=== PATIENT | male | born 1935 | race Two or more races ===

== ENCOUNTER 2019-06-20 13:11 | Inpatient (IN) | payer MEDICARE, MEDICAID ==
[~2019-06-20] VITALS: Ht 165.1 cm; Wt 70.9 kg
[~2019-06-20 13:11] MED LIST: DIOVAN80 MG ORAL; FLOMAX0.4 MG ORAL; METOPROLOL SUCC25 MG ORAL; SEROQUEL XR300 MG ORAL; VESICARE5 MG ORAL
[2019-06-20] MEDS ORDERED: Piperacillin/Tazobactam 3.375 GM in D5W 110 ML IV ONE (13:15)
--- NOTE | 2019-06-20 13:15 | NUR ---
ED Nurse Note: Pt BIBA RA26 from [facility] d/t SOB and low O2 saturation. Pt noted to be on nonrebreather saturating 100% at this time. Placed on microfilm technician, shows sinus rhythm. Pt lethargic, able to open eyes on painful stimuli. IV 22g on left forearm noted; [place] cather noted, with yellow, cloudy urine output. Blood and urine collected; sent to lab.
--- NOTE | 2019-06-20 13:20 | NUR ---
ED Nurse Note: xray at bedside
[2019-06-20 13:57] LABS: APPEARANCE,URINE SLIGHTLY CLOUDY; BASOPHILS % (AUTO) 0.5 % (0.0-2.0); BILIRUBIN, URINE NEGATIVE (NEGATIVE); GLUCOSE, URINE (UA) NEGATIVE (NEGATIVE); HEMATOCRIT 36.6 % (42.0-52.0); HEMOGLOBIN 11.9 G/DL (14.2-18.0); KETONES,URINE 1+ (NEGATIVE); LEUKOCYTE ESTERASE ,URINE 3+ (NEGATIVE); LYMPHOCYTES % (AUTO) 19.6 % (20.0-45.0); MEAN CORPUSCULAR VOLUME 88 FL (80-99); MONOCYTES % (AUTO) 8.2 % (1.0-10.0); NEUTROPHILS % (AUTO) 71.7 % (45.0-75.0); NITRITE,URINE POSITIVE (NEGATIVE); PH,URINE 5 (4.5-8.0); PLATELET COUNT 212 K/UL (150-450); PROTEIN,URINE 4+ (NEGATIVE); RED BLOOD COUNT 4.18 M/UL (4.70-6.10); RED CELL DISTRIBUTION WIDTH 15.2 % (11.6-14.8); UROBILINOGEN,URINE NORMAL MG/DL (0.0-1.0); WHITE BLOOD COUNT 6.6 K/UL (4.8-10.8)
--- NOTE | 2019-06-20 14:00 | NUR ---
ED Nurse Note: Swabs taken for MRSA, CRE/VRE, sent to lab. Rectal temp taken 101.1. Pressure ulcer on sacral noted, photo taken. IV fluids ongoing. Patient on room air at this time, saturating 97%. No acute distress noted. Will continue to monitor.
[2019-06-20 14:09] LABS: COLOR,URINE YELLOW
[2019-06-20 14:18] LABS: ANION GAP 14 mmol/L (5-15); BLOOD UREA NITROGEN 33 mg/dL (7-18); CARBON DIOXIDE 26 MMOL/L (21-32); CHLORIDE 118 MMOL/L (98-107); CREATININE 0.8 MG/DL (0.55-1.30); POTASSIUM 2.9 MMOL/L (3.5-5.1); SODIUM 158 MMOL/L (136-145)
[2019-06-20 14:24] LABS: ALANINE AMINOTRANSFERASE 17 U/L (12-78); ALBUMIN 2.5 G/DL (3.4-5.0); ALBUMIN/GLOBULIN RATIO 0.5 (1.0-2.7); ALKALINE PHOSPHATASE 73 U/L (46-116); ASPARTATE AMINO TRANSFERASE 14 U/L (15-37); BILIRUBIN,TOTAL 0.6 MG/DL (0.2-1.0); CREATINE KINASE 17 U/L (26-308)
[2019-06-20] MEDS ORDERED: NS w/KCl 40mEq 1,000 ML IV SCH (14:30)
[2019-06-20 14:37] VITALS: BP 111/68
[2019-06-20] MEDS ORDERED: Piperacillin/Tazobactam 3.375 GM in NS 110 ML IVPB ONE (15:00)
[2019-06-20] MEDS ORDERED: Azithromycin 500 MG in NS 275 ML IV ONE (15:00)
[2019-06-20] MEDS ORDERED: LEVOFLOXACIN750 MG ORAL (15:09)
[2019-06-20] MEDS ORDERED: NAMENDA XR28 MG PO (15:09)
[2019-06-20] MEDS ORDERED: ZINC SULFATE220 M1 ORAL (15:09)
[2019-06-20] MEDS ORDERED: SENNA8.6 M2 PO (15:09)
[2019-06-20] MEDS ORDERED: MARINOL2.5 MG ORAL (15:09)
[2019-06-20] MEDS ORDERED: FLOMAX0.4 MG ORAL (15:09)
[2019-06-20] MEDS ORDERED: SINEMET 25-1001 EAC1 ORAL (15:09)
[2019-06-20] MEDS ORDERED: ASPIRIN EC81 MG ORAL (15:09)
[2019-06-20] MEDS ORDERED: AMLODIPINE BESY10 MG ORAL (15:09)
[2019-06-20] MEDS ORDERED: ELIQUIS5 MG PO (15:09)
--- NOTE | 2019-06-20 15:54 | NUR ---
ED Nurse Note: Dr Blanco at bedside; pt awake, opens eyes, but nonverbal. Saturation 95% on room air at this time. VSS. IV fluids ongoing. Will continue to monitor.
--- NOTE | 2019-06-20 16:46 | NUR ---
ED Nurse Note: Pt's and sister at bedside.
--- NOTE | 2019-06-20 16:54 | Emergency Room Report ---
History of Present Illness General Chief Complaint: Dyspnea/Respdistress Source: Medical Record Present Illness HPI 83-year-old male presents ED for evaluation. Brought in by EMS from [facility] facility. Reportedly had difficulty breathing with cough and shortness of breath today. O2 sats low. Placed on nonrebreather. Patient nonverbal at baseline. Patient has been treated recently with antibiotics for pneumonia but symptoms worsening. febrile in triage. No reported chest pain. No other aggravating relieving factors. No other associated symptoms Allergies: Coded Allergies: No Known Allergies (Unverified , 06/20/19) Patient History Past Medical History: HTN Past Surgical History: pacemaker Social History: Denies: smoking, alcohol use, drug use Immunizations: UTD Reviewed Nursing Documentation: PMH: Agreed; PSxH: Agreed Nursing Documentation-PMH Past Medical History: Deferred Hx Hypertension: Yes Hx Pacemaker: Yes - 4 YEARS AGO. Hx Cancer: No Hx Gastrointestinal Problems: No Hx Neurological Problems: No Review of Systems All Other Systems: limited Physical Exam Vital Signs Date Time Temp Pulse Resp B/P (MAP) Pulse Ox O2 Delivery O2 Flow Rate FiO2 06/20/19 13:04 100.0 113 24 111/68 (82) 99 Non-Rebreather 15.0 Sp02 EP Interpretation: reviewed, normal General Appearance: no apparent distress, alert, GCS 15, non-toxic Head: normocephalic Eyes: bilateral eye normal inspection, bilateral eye PERRL ENT: normal ENT inspection Neck: normal inspection Respiratory: no respiratory distress, crackles Cardiovascular #1: regular rate, rhythm, no edema Gastrointestinal: normal bowel sounds, non tender, soft, non-distended, no guarding, no rebound Rectal: deferred Genitourinary: no CVA tenderness Musculoskeletal: normal inspection Neurologic: other - nonverbal Psychiatric: other - nonverbal Skin: other - see nursing notes Lymphatic: normal inspection Procedures Critical Care Time Critical Care Time i. I feel this is a highly complex case requiring extensive working including EKG/Rhythm strip, Xray/CT/US, Blood/urine lab work, repeat exams while in ED, and administration of strong opiates/narcotics for pain control, admission to hospital or close patient follow up. Total time: 30 min bedside evaluation and treatment excludes procedures (EKG). Reason for critical care: hypoxia, sepsis, hypernatremia, hypokalemia, UTI Possible complications: hypotension, hypertension, NM, shock, arrhythmias, metabolic acidosis, end organ damage, respiratory failure. Interventions: labs, EKG, CXR, ABG, 30cc/kg fluid bolus. rectal tylenol. K repletion. broad spectrum abx Course: Presenting with hypoxia. Currently being treated for pneumonia with antibiotics. Chest x-ray confirms bilateral infiltrates. Lactic greater than 3. Sodium greater than 150. Potassium low. Has UTI. ABG shows hypoxia but improved with oxygen. Given 30 cc/kg fluid bolus. Given broad-spectrum antibiotics. Potassium repleted. given rectal tylenol Consultations: nursing staff, EMS, family Performed by: Dr Chan Tolerated well condition = serious j. because of unstable vital signs this patient had a condition that could potentially threaten life or limb. I feel this is a critical patient who required my full attention while patient was considered critical. Total Critical Care Time excluding procedures was greater than 35 minutes Medical Decision Making Diagnostic Impression: Primary Impression: Pneumonia Qualified Codes: J18.1 - Lobar pneumonia, unspecified organism Additional Impressions: Hypoxia Sepsis Qualified Codes: A41.9 - Sepsis, unspecified organism Hypernatremia Hypokalemia UTI (urinary tract infection) Qualified Codes: N39.0 - Urinary tract infection, site not specified ER Course Hospital Course 83-year-old M presenting to ED with fever, congestion, hypoxia Differential diagnoses include: Pneumonia, CHF exacerbation, pneumothorax, fluid overload Clinical course Patient placed on stretcher. On registered nurse cardiac telemetry with hypoxia on room air. After initial history and physical, I ordered labs, IV fluids, EKG, chest x-ray , blood cultures, UA. Patient placed on nasal cannula with O2 saturation improving Labs - no leukocytosis, hemoglobin/hematocrit stable, Na high, K low, lactic > 3 , UA + bacteria CXR - bilateral infiltrates EKG - ventricular paced rhythm Patient O2 sat remains above 90% on nasal cannula. Been 30 cc/kg fluid bolus. Potassium repleted. Given broad-spectrum antibiotics. Given rectal Tylenol Case discussed with Dr. Blanco and he agreed to the patient to his service for further care and support I feel this is a highly complex case requiring extensive working including EKG/ Rhythm strip, Xray/CT/US, Blood/urine lab work, repeat exams while in ED, and administration of strong opiates/narcotics for pain control, admission to hospital or close patient follow up. Diagnosis - pneumonia, hypoxia, sepsis, hypernatremia, hypokalemia, UTI Patient admitted to telemetry in serious condition Labs Test 06/20/19 13:25 06/20/19 14:31 06/20/19 14:34 White Blood Count 6.6 K/UL (4.8-10.8) Red Blood Count 4.18 M/UL (4.70-6.10) Hemoglobin 11.9 G/DL (14.2-18.0) Hematocrit 36.6 % (42.0-52.0) Mean Corpuscular Volume 88 FL (80-99) Mean Corpuscular Hemoglobin 28.5 PG (27.0-31.0) Mean Corpuscular Hemoglobin Concent 32.4 G/DL (32.0-36.0) Red Cell Distribution Width 15.2 % (11.6-14.8) Platelet Count 212 K/UL (150-450) Mean Platelet Volume 5.9 FL (6.5-10.1) Neutrophils (%) (Auto) 71.7 % (45.0-75.0) Lymphocytes (%) (Auto) 19.6 % (20.0-45.0) Monocytes (%) (Auto) 8.2 % (1.0-10.0) Eosinophils (%) (Auto) 0.0 % (0.0-3.0) Basophils (%) (Auto) 0.5 % (0.0-2.0) Urine Color Yellow Urine Appearance Slightly cloudy Urine pH 5 (4.5-8.0) Urine Specific [place] 1.015 (1.005-1.035) Urine Protein 4+ (NEGATIVE) Urine Glucose (UA) Negative (NEGATIVE) Urine Ketones 1+ (NEGATIVE) Urine Blood 5+ (NEGATIVE) Urine Nitrite Positive (NEGATIVE) Urine Bilirubin Negative (NEGATIVE) Urine Urobilinogen Normal MG/DL (0.0-1.0) Urine Leukocyte Esterase 3+ (NEGATIVE) Urine RBC 10-15 /HPF (0 - 0) Urine WBC 15-20 /HPF (0 - 0) Urine Squamous Epithelial Cells Moderate /LPF (NONE/OCC) Urine Amorphous Sediment Moderate /LPF (NONE) Urine Bacteria Moderate /HPF (NONE) Urine Yeast Moderate /HPF (NONE) Sodium Level 158 MMOL/L (136-145) Potassium Level 2.9 MMOL/L (3.5-5.1) Chloride Level 118 MMOL/L (98-107) Carbon Dioxide Level 26 MMOL/L (21-32) Anion Gap 14 mmol/L (5-15) Blood Urea Nitrogen 33 mg/dL (7-18) Creatinine 0.8 MG/DL (0.55-1.30) Estimat Glomerular Filtration Rate mL/min (>60) Glucose Level 147 MG/DL (74-106) Lactic Acid Level 3.60 mmol/L (0.4-2.0) 3.30 mmol/L (0.66-2.22) Calcium Level 10.0 MG/DL (8.5-10.1) Total Bilirubin 0.6 MG/DL (0.2-1.0) Aspartate Amino Transf (AST/SGOT) 14 U/L (15-37) Alanine Aminotransferase (ALT/SGPT) 17 U/L (12-78) Alkaline Phosphatase 73 U/L (46-116) Total Creatine Kinase 17 U/L (26-308) Troponin I 0.018 ng/mL (0.000-0.056) Total Protein 7.1 G/DL (6.4-8.2) Albumin 2.5 G/DL (3.4-5.0) Globulin 4.6 g/dL Albumin/Globulin Ratio 0.5 (1.0-2.7) Arterial Blood pH 7.508 (7.350-7.450) Arterial Blood Partial Pressure CO2 29.3 mmHg (35.0-45.0) Arterial Blood Partial Pressure O2 69.7 mmHg (75.0-100.0) Arterial Blood HCO3 22.8 mmol/L (22.0-26.0) Arterial Blood Oxygen Saturation 93.9 % (95-100) Arterial Blood Base Excess 0.5 (-2-2) Clemente Test Positive EKG Diagnostic Results Rate: normal Rhythm: other - ventricular paced ST Segments: no acute changes ASA given to the pt in ED: No Rhythm Strip Diag. Results EP Interpretation: yes Rhythm: no PVC's, no ectopy Chest X-Ray Diagnostic Results Chest X-Ray Diagnostic Results : Chest X-Ray Ordered: Yes # of Views/Limited/Complete: 1 View Indication: Shortness of Breath EP Interpretation: Yes Interpretation: no pneumothorax, other - bilateral infiltrates. pacemaker Impression: Other - pneumonia Electronically Signed by: Electronically signed by Russ Chan MD Last Vital Signs Date Time Temp Pulse Resp B/P (MAP) Pulse Ox O2 Delivery O2 Flow Rate FiO2 06/20/19 14:37 101.1 60 24 111/68 99 Non-Rebreather 15.0 Status: improved Disposition: ADMITTED INPATIENT Condition: Serious Referrals: Aakash Blanco MD (PCP) Russ Chan MD Jun 20, 2019 16:54
[2019-06-20] MEDS ORDERED: Acetaminophen 650 MG SUPP RECTAL ONE (17:00)
--- NOTE | 2019-06-20 17:20 | NUR ---
ED Nurse Note: Patient was placed on O2 2L via NC per charge nurse MONSERRAT Leong. Pt saturating 98% at this time, no distress noted. IV fluids ongoing. Will continue to monitor.
[2019-06-20 17:51] VITALS: BP 108/59
--- NOTE | 2019-06-20 18:13 | Infectious Diseases Prog Note ---
Assessment/Plan Problems: (1) Pneumonia Assessment & Plan: with B/L infiltrates, fever and hypoxemia , will start meropenem and vancomycin empirically , send sputum culture , aspiration precaution, monitor CXR (2) UTI (urinary tract infection) Assessment & Plan: already on meropenem , pending culture (3) Sepsis Assessment & Plan: due to the above , continue wide spectrum antibiotics pending cultures (4) Hypoxia Assessment & Plan: suspect due to the above , continue oxygen , and wide spectrum antibiotics (5) Respiratory failure, acute Assessment & Plan: due to the above, continue oxygen, nebulizer treatment and antibiotics , pulmonary eval is in progress Subjective Allergies: Coded Allergies: No Known Allergies (Unverified , 06/20/19) Objective Vital Signs Last 24 Hour Vital Signs Date Time Temp Pulse Resp B/P (MAP) Pulse Ox O2 Delivery O2 Flow Rate FiO2 06/20/19 17:51 101.1 60 20 108/59 98 Nasal Cannula 2.0 06/20/19 14:37 101.1 60 24 111/68 99 Non-Rebreather 15.0 06/20/19 14:37 60 24 Non-Rebreather 15.0 06/20/19 13:04 100.0 113 24 111/68 (82) 99 Non-Rebreather 15.0 Height (Feet): 5 Height (Inches): 5.00 Weight (Pounds): 150 Microbiology Date/Time Source Procedure Growth Status 06/20/19 15:15 Nasal Nares - Final Complete 06/20/19 15:15 Nasal Nares - Final Complete Laboratory Tests Test 06/20/19 13:25 06/20/19 14:31 06/20/19 14:34 White Blood Count 6.6 K/UL (4.8-10.8) Red Blood Count 4.18 M/UL (4.70-6.10) L Hemoglobin 11.9 G/DL (14.2-18.0) L Hematocrit 36.6 % (42.0-52.0) L Mean Corpuscular Volume 88 FL (80-99) Mean Corpuscular Hemoglobin 28.5 PG (27.0-31.0) Mean Corpuscular Hemoglobin Concent 32.4 G/DL (32.0-36.0) Red Cell Distribution Width 15.2 % (11.6-14.8) H Platelet Count 212 K/UL (150-450) Mean Platelet Volume 5.9 FL (6.5-10.1) L Neutrophils (%) (Auto) 71.7 % (45.0-75.0) Lymphocytes (%) (Auto) 19.6 % (20.0-45.0) L Monocytes (%) (Auto) 8.2 % (1.0-10.0) Eosinophils (%) (Auto) 0.0 % (0.0-3.0) Basophils (%) (Auto) 0.5 % (0.0-2.0) Urine Color Yellow Urine Appearance Slightly cloudy Urine pH 5 (4.5-8.0) Urine Specific [place] 1.015 (1.005-1.035) Urine Protein 4+ (NEGATIVE) H Urine Glucose (UA) Negative (NEGATIVE) Urine Ketones 1+ (NEGATIVE) H Urine Blood 5+ (NEGATIVE) H Urine Nitrite Positive (NEGATIVE) H Urine Bilirubin Negative (NEGATIVE) Urine Urobilinogen Normal MG/DL (0.0-1.0) Urine Leukocyte Esterase 3+ (NEGATIVE) H Urine RBC 10-15 /HPF (0 - 0) H Urine WBC 15-20 /HPF (0 - 0) H Urine Squamous Epithelial Cells Moderate /LPF (NONE/OCC) H Urine Amorphous Sediment Moderate /LPF (NONE) H Urine Bacteria Moderate /HPF (NONE) H Urine Yeast Moderate /HPF (NONE) H Sodium Level 158 MMOL/L (136-145) H Potassium Level 2.9 MMOL/L (3.5-5.1) L Chloride Level 118 MMOL/L (98-107) H Carbon Dioxide Level 26 MMOL/L (21-32) Anion Gap 14 mmol/L (5-15) Blood Urea Nitrogen 33 mg/dL (7-18) H Creatinine 0.8 MG/DL (0.55-1.30) Estimat Glomerular Filtration Rate mL/min (>60) Glucose Level 147 MG/DL (74-106) H Lactic Acid Level 3.60 mmol/L (0.4-2.0) H 3.30 mmol/L (0.66-2.22) H Calcium Level 10.0 MG/DL (8.5-10.1) Total Bilirubin 0.6 MG/DL (0.2-1.0) Aspartate Amino Transf (AST/SGOT) 14 U/L (15-37) L Alanine Aminotransferase (ALT/SGPT) 17 U/L (12-78) Alkaline Phosphatase 73 U/L (46-116) Total Creatine Kinase 17 U/L (26-308) L Troponin I 0.018 ng/mL (0.000-0.056) Total Protein 7.1 G/DL (6.4-8.2) Albumin 2.5 G/DL (3.4-5.0) L Globulin 4.6 g/dL Albumin/Globulin Ratio 0.5 (1.0-2.7) L Arterial Blood pH 7.508 (7.350-7.450) Arterial Blood Partial Pressure CO2 29.3 mmHg (35.0-45.0) L Arterial Blood Partial Pressure O2 69.7 mmHg (75.0-100.0) L Arterial Blood HCO3 22.8 mmol/L (22.0-26.0) Arterial Blood Oxygen Saturation 93.9 % (95-100) L Arterial Blood Base Excess 0.5 (-2-2) Clemente Test Positive Current Medications Medications (Trade) Dose Ordered Sig/Katharine Route PRN Reason Start Time Stop Time Status Last Admin Dose Admin Meropenem 1 gm/ Sodium Chloride 55 ml @ 110 mls/hr Q8HR IVPB 06/20/19 22:00 06/25/19 21:59 UNV Potassium Chloride/Sodium Chloride 1,000 ml @ 100 mls/hr Q10H IV 06/20/19 14:30 07/20/19 14:29 06/20/19 14:52 Vancomycin HCl (Vanco rx to dose) 1 ea DAILY PRN MISC Per rx protocol 06/20/19 16:30 07/20/19 16:29 Arcadio Elizabeth M.D. Jun 20, 2019 18:13
--- NOTE | 2019-06-20 18:35 | NUR ---
TRANSFER TO FLOOR: Patient transferred to telemetry room 201-2 as ordered, per Dr Blanco. Report given to MONSERRAT Hernandes. No belongings. Transferred via gurney accompanied by armored service technician and RN, ACLS protocol. Family ( and sister) informed regarding transfer. Patient in stable condition.
[2019-06-20 18:50] VITALS: BP_SYST 108; BP_SYST 120; BP_DIAS 59; BP_DIAS 71
--- NOTE | 2019-06-20 18:50 | NUR ---
NURSE NOTES: Received report from Mai GERMAN. Pt transferred from ED via [facility] with RN and dental technician apprentice. Awake and [id number] and unable to follow the direction. No pain noted on face scale. IV site in RAC 20G SL and LFA with 22G SL patent and asymptomatic. Bed in lowest position and locked. Stage 4 Pressure ulcer on sacral and right elbow UTD. Wound pictures were taken and initial initiated. On 4L via NC and saturating with 97%. No acute distress or SOB noted. And patient's right arm contracted and legs are weak/ F/C cath 16Fr patent. Will continue to plan of care.
--- NOTE | 2019-06-20 19:15 | NUR ---
HAND-OFF: Report given to Manuel GERMAN. Pt remains stable.
--- NOTE | 2019-06-20 19:30 | NUR ---
NURSE NOTES: Received patient from Min RN. Patient in bed, on 4L NC, no signs of respiratory distress. Patient is non verbal with eye tracking. Right ac 20 gauge iv patent, left forearm 22 gauge iv patent. Stage II wound on the sacrum, two stage II on right elbow. Bilateral heels blanchable. Head of the bed elevated. Bed in low position, locked, bed alarm on, call light within reach.
[2019-06-20 20:00] VITALS: BP 112/71
[2019-06-20] MEDS ORDERED: Vancomycin 1.5gm/NS Premix IVPB ONE (20:00)
--- NOTE | 2019-06-20 20:18 | Diagnostic Imaging Report ---
Indication: Shortness of breath Technique: Single AP view of the chest. Comparison: None available Findings: The cardiomediastinal silhouette is within normal limits. There are streaky bibasilar airspace opacities. There are scattered rounded densities throughout the lungs, predominantly in the right lung. No pneumothorax. Likely small left pleural effusion. Osseous structures demonstrate no acute abnormality. Left approach dual lead ICD/pacemaker. IMPRESSION: 1. Bibasilar airspace opacities which likely represent atelectasis but pneumonia should be excluded clinically. 2. Likely small left pleural effusion. 3. Scattered rounded densities which may represent calcified granulomata; however, comparison with prior imaging or evaluation with chest CT is recommended to exclude pulmonary nodules.
[2019-06-20] MEDS ORDERED: Albuterol/Ipratropium 3ml neb HHN PRN (21:00)
[2019-06-20] MEDS: Meropenem 1 GM in NS 55 ML IVPB SCH (22:01)
[2019-06-20] MEDS: NovoLOG Insulin Flexpen SUBQ SCH (22:56)
[2019-06-21] VITALS (28 sets, daily range): BP systolic 113–159; BP diastolic 58–86
[2019-06-21] MEDS ORDERED: Miralax 17gm pkt ORAL PRN ×2 (00:45→12:00)
--- NOTE | 2019-06-21 03:34 | NUR ---
NURSE NOTES: Patient had an episode of vtach lasting approximately 370 beats or 68 seconds. Decreased level of consciousness, difficult to arouse, opens eyes only with pain stimuli. Notified Dr. Blanco and left message regarding change in condition.
[2019-06-21 04:58] LABS: EOSINOPHILS % (AUTO) 0.3 % (0.0-3.0); HEMATOCRIT 31.1 % (42.0-52.0); HEMOGLOBIN 10.1 G/DL (14.2-18.0); LYMPHOCYTES % (AUTO) 22.7 % (20.0-45.0); MEAN CORPUSCULAR VOLUME 87 FL (80-99); MONOCYTES % (AUTO) 8.4 % (1.0-10.0); NEUTROPHILS % (AUTO) 67.5 % (45.0-75.0); PLATELET COUNT 156 K/UL (150-450); RED BLOOD COUNT 3.59 M/UL (4.70-6.10); RED CELL DISTRIBUTION WIDTH 14.9 % (11.6-14.8)
[2019-06-21 05:24] LABS: ANION GAP 7 mmol/L (5-15); BLOOD UREA NITROGEN 27 mg/dL (7-18); CALCIUM 9.2 MG/DL (8.5-10.1); CARBON DIOXIDE 28 MMOL/L (21-32); CHLORIDE 123 MMOL/L (98-107); CREATININE 0.7 MG/DL (0.55-1.30); POTASSIUM 2.8 MMOL/L (3.5-5.1); SODIUM 158 MMOL/L (136-145)
[2019-06-21] MEDS: Meropenem 1 GM in NS 55 ML IVPB SCH ×3 (05:31→21:49)
[2019-06-21 05:35] LABS: ALANINE AMINOTRANSFERASE 15 U/L (12-78); ALBUMIN 2.1 G/DL (3.4-5.0); ALBUMIN/GLOBULIN RATIO 0.5 (1.0-2.7); ALKALINE PHOSPHATASE 58 U/L (46-116); ASPARTATE AMINO TRANSFERASE 11 U/L (15-37); BILIRUBIN,TOTAL 0.5 MG/DL (0.2-1.0)
[2019-06-21] MEDS: NovoLOG Insulin Flexpen SUBQ SCH ×4 (05:39→20:09)
--- NOTE | 2019-06-21 05:56 | NUR ---
NURSE NOTES: Lab results back, notified Dr. Blanco regarding abnormal lab results and elevated temp.
--- NOTE | 2019-06-21 06:00 | NUR ---
NURSE NOTES: Patient is more responsive, awake with eye tracking to visual and verbal stimuli.
--- NOTE | 2019-06-21 06:21 | NUR ---
NURSE NOTES: Received call back from Dr. Blanco and received orders for Tylenol, KCL 40meq IVPB, stat magnesium, and to call Dr. Norton. Addendum: 06/21/19 at 1854 by Manuel Paez RN NURSE NOTES: Asked Dr. Blanco if he wants to transfer to higher level of care. He declined.
--- NOTE | 2019-06-21 06:22 | NUR ---
NURSE NOTES: Notified Dr. Norton's answering service and left message regarding patient's condition.
--- NOTE | 2019-06-21 06:30 | NUR ---
NURSE NOTES: Received call from Dr. Norton and orders for stat echo and troponin q8 x3.
--- NOTE | 2019-06-21 07:05 | NUR ---
NURSE NOTES: Received report from Manuel GERMAN. AOX0 and unable to make needs known. Pt in bed. Side rails x3 up for safety. No pain noted on face pain scale. Bed in lowest position and locked. IV site in RAC 20G and in LFA 22G patent and asymptomatic. HOB elevated with 30 degree. [place] cath leaking and sheet was wet. Will ask MD to change the [place] cath. Call light within easy reach. Will continue to plan of care.
--- NOTE | 2019-06-21 07:32 | NUR ---
HAND-OFF: Report given to Min RN. Plan of care endorsed.
--- NOTE | 2019-06-21 07:32 | NUR ---
NURSE NOTES: Received report from Dilma GERMAN. Alert and oriented. No c/o pain. No acute distress noted. IV site intact and patent. Bed in lowest position and locked. Call light within easy reach. Will continue to plan of care.
--- NOTE | 2019-06-21 08:59 | General Progress Note ---
Assessment/Plan Status: stable Assessment/Plan: 1. Asp Pneumonia - cont IV Vanco and meropenem. ID following. 2. UTI - cont above antibiotic for now. follow cultures. 3. Sepsis - cont above antibiotic. lactic acid improved. 4. Respiratory distress - improved this morning. 5. Hypokalemia - replace potassium 6. Hypernatremia - on D5W. 7. Parkinson dx - cont home med. 8. Dysphagia with hx of multiple asp pneumonia - family refused G tube placement. Speech therapy eval. 9. BPH - cont home meds. 10. HTN - stable on home meds for now. Subjective Date patient seen: Jun 21, 2019 Time patient seen: 08:30 Constitutional: Reports: weakness HEENT: Reports: no symptoms Cardiovascular: Reports: no symptoms Respiratory: Reports: shortness of breath Gastrointestinal/Abdominal: Reports: other - dysphagia Genitourinary: Reports: no symptoms Neurologic/Psychiatric: Reports: weakness, other - aphasia Endocrine: Reports: no symptoms Hematologic/Lymphatic: Reports: no symptoms Allergies: Coded Allergies: No Known Allergies (Unverified , 06/20/19) Subjective This morning he is awake and his vital are better. He had run of V tach last night. he had fever as well. Objective Last 24 Hour Vital Signs Date Time Temp Pulse Resp B/P (MAP) Pulse Ox O2 Delivery O2 Flow Rate FiO2 06/21/19 08:00 98.1 83 18 123/73 (90) 98 06/21/19 06:40 97 Nasal Cannula 2.0 28 06/21/19 06:40 89 20 97 Nasal Cannula 2.0 28 06/21/19 05:50 99.5 60 28 122/65 (84) 98 06/21/19 04:00 98.3 61 18 113/60 (77) 100 06/21/19 04:00 91 06/21/19 03:30 98.0 60 26 159/71 (100) 94 06/21/19 00:00 98.5 66 19 128/58 (81) 97 06/21/19 00:00 63 06/20/19 20:00 97.8 91 18 112/71 (85) 97 06/20/19 20:00 89 06/20/19 19:45 Nasal Cannula 4.0 06/20/19 18:50 99.6 91 22 108/59 96 Nasal Cannula 4.0 06/20/19 18:50 99.6 91 22 108/59 96 Nasal Cannula 4.0 06/20/19 18:50 99.0 94 18 120/71 (87) 97 06/20/19 18:12 99.6 06/20/19 17:51 101.1 60 20 108/59 98 Nasal Cannula 2.0 06/20/19 14:37 101.1 60 24 111/68 99 Non-Rebreather 15.0 06/20/19 14:37 60 24 Non-Rebreather 15.0 06/20/19 13:04 100.0 113 24 111/68 (82) 99 Non-Rebreather 15.0 Intake and Output 06/20/19 06/21/19 19:00 07:00 Intake Total 4795 ml Output Total 200 ml 200 ml Balance 4595 ml -200 ml Intake IV Total 4795 ml Output Urine Total 200 ml 200 ml # Bowel Movements 1 Laboratory Tests 06/20/19 13:25: White Blood Count 6.6, Red Blood Count 4.18L, Hemoglobin 11.9L, Hematocrit 36.6L , Mean Corpuscular Volume 88, Mean Corpuscular Hemoglobin 28.5, Mean Corpuscular Hemoglobin Concent 32.4, Red Cell Distribution Width 15.2H, Platelet Count 212, Mean Platelet Volume 5.9L, Neutrophils (%) (Auto) 71.7, Lymphocytes (%) (Auto) 19.6L, Monocytes (%) (Auto) 8.2, Eosinophils (%) (Auto) 0.0, Basophils (%) (Auto) 0.5, Urine Color Yellow, Urine Appearance Slightly cloudy, Urine pH 5, Urine Specific [place] 1.015, Urine Protein 4+H, Urine Glucose (UA) Negative, Urine Ketones 1+H, Urine Blood 5+H, Urine Nitrite PositiveH, Urine Bilirubin Negative, Urine Urobilinogen Normal, Urine Leukocyte Esterase 3+H, Urine RBC 10-15H, Urine WBC 15-20H, Urine Squamous Epithelial Cells ModerateH, Urine Amorphous Sediment ModerateH, Urine Bacteria ModerateH, Urine Yeast ModerateH, Sodium Level 158H, Potassium Level 2.9L, Chloride Level 118H, Carbon Dioxide Level 26, Anion Gap 14, Blood Urea Nitrogen 33H, Creatinine 0.8, Estimat Glomerular Filtration Rate , Glucose Level 147H, Lactic Acid Level 3.60H, Calcium Level 10.0, Total Bilirubin 0.6, Aspartate Amino Transf (AST/SGOT) 14L, Alanine Aminotransferase (ALT/SGPT) 17, Alkaline Phosphatase 73, Total Creatine Kinase 17L, Troponin I 0.018, Total Protein 7.1, Albumin 2.5L, Globulin 4.6, Albumin/Globulin Ratio 0.5L 06/20/19 14:31: Arterial Blood pH 7.508H, Arterial Blood Partial Pressure CO2 29.3L, Arterial Blood Partial Pressure O2 69.7L, Arterial Blood HCO3 22.8, Arterial Blood Oxygen Saturation 93.9L, Arterial Blood Base Excess 0.5, Clemente Test Positive 06/20/19 14:34: Lactic Acid Level 3.30H 06/21/19 03:49: Arterial Blood pH 7.500H, Arterial Blood Partial Pressure CO2 32.4L, Arterial Blood Partial Pressure O2 68.7L, Arterial Blood HCO3 24.7, Arterial Blood Oxygen Saturation 93.2L, Arterial Blood Base Excess 1.9, Clemente Test Positive 06/21/19 04:25: White Blood Count 6.0, Red Blood Count 3.59L, Hemoglobin 10.1L, Hematocrit 31.1L , Mean Corpuscular Volume 87, Mean Corpuscular Hemoglobin 28.3, Mean Corpuscular Hemoglobin Concent 32.6, Red Cell Distribution Width 14.9H, Platelet Count 156, Mean Platelet Volume 6.2L, Neutrophils (%) (Auto) 67.5, Lymphocytes (%) (Auto) 22.7, Monocytes (%) (Auto) 8.4, Eosinophils (%) (Auto) 0.3, Basophils (%) (Auto) 1.0, Sodium Level 158H, Potassium Level 2.8L, Chloride Level 123H, Carbon Dioxide Level 28, Anion Gap 7, Blood Urea Nitrogen 27H, Creatinine 0.7, Estimat Glomerular Filtration Rate , Glucose Level 115H, Lactic Acid Level 1.50, Calcium Level 9.2, Magnesium Level 1.9, Total Bilirubin 0.5, Aspartate Amino Transf (AST/SGOT) 11L, Alanine Aminotransferase (ALT/SGPT) 15, Alkaline Phosphatase 58, Troponin I 0.016, Pro-B-Type Natriuretic Peptide 1865H, Total Protein 6.2L, Albumin 2.1L, Globulin 4.1, Albumin/Globulin Ratio 0.5L Height (Feet): 5 Height (Inches): 5.00 Weight (Pounds): 135 General Appearance: alert EENT: normal ENT inspection Neck: non-tender, supple Cardiovascular: regular rhythm Respiratory/Chest: decreased breath sounds Abdomen: non tender, soft Extremities: normal range of motion, non-tender Edema: no edema noted Leg (L), no edema noted Leg (R) Neurologic: alert, responsive Skin: warm/dry Aakash Blanco MD Jun 21, 2019 08:59
[2019-06-21] MEDS ORDERED: Zinc Sulfate 220mg cap ORAL SCH (09:00)
[2019-06-21] MEDS ORDERED: Dronabinol 2.5mg Cap ORAL SCH (09:00)
[2019-06-21] MEDS ORDERED: Metoprolol Succinate XL 25mg tab ORAL SCH (09:00)
[2019-06-21] MEDS ORDERED: Eliquis 5mg tablet ORAL SCH ×2 (09:00→18:00)
[2019-06-21] MEDS ORDERED: Vitamin D 1000 IU Tab ORAL SCH (09:00)
[2019-06-21] MEDS ORDERED: Aspirin EC 81mg tab ORAL SCH (09:00)
[2019-06-21] MEDS ORDERED: Levodopa/Carbidopa 25/100 tab ORAL SCH (09:00)
[2019-06-21] MEDS ORDERED: Tamsulosin 0.4mg cap ORAL SCH (09:00)
[2019-06-21] MEDS ORDERED: Acetaminophen 650 MG SUPP RECTAL PRN ×2 (09:45→12:00)
--- NOTE | 2019-06-21 10:07 | Cardiac Electrophysiology PN ---
Subjective Subjective [id number] Objective Last 24 Hour Vital Signs Date Time Temp Pulse Resp B/P (MAP) Pulse Ox O2 Delivery O2 Flow Rate FiO2 06/21/19 09:00 Room Air 2.0 06/21/19 09:00 83 123/73 06/21/19 09:00 83 123/73 06/21/19 08:00 86 06/21/19 08:00 98.1 83 18 123/73 (90) 98 06/21/19 06:40 97 Nasal Cannula 2.0 28 06/21/19 06:40 89 20 97 Nasal Cannula 2.0 28 06/21/19 05:50 99.5 60 28 122/65 (84) 98 06/21/19 04:00 98.3 61 18 113/60 (77) 100 06/21/19 04:00 91 06/21/19 03:30 98.0 60 26 159/71 (100) 94 06/21/19 00:00 98.5 66 19 128/58 (81) 97 06/21/19 00:00 63 06/20/19 20:00 97.8 91 18 112/71 (85) 97 06/20/19 20:00 89 06/20/19 19:45 Nasal Cannula 4.0 06/20/19 18:50 99.6 91 22 108/59 96 Nasal Cannula 4.0 06/20/19 18:50 99.6 91 22 108/59 96 Nasal Cannula 4.0 06/20/19 18:50 99.0 94 18 120/71 (87) 97 06/20/19 18:12 99.6 06/20/19 17:51 101.1 60 20 108/59 98 Nasal Cannula 2.0 06/20/19 14:37 101.1 60 24 111/68 99 Non-Rebreather 15.0 06/20/19 14:37 60 24 Non-Rebreather 15.0 06/20/19 13:04 100.0 113 24 111/68 (82) 99 Non-Rebreather 15.0 Intake and Output 06/20/19 06/21/19 19:00 07:00 Intake Total 4795 ml Output Total 200 ml 200 ml Balance 4595 ml -200 ml Intake IV Total 4795 ml Output Urine Total 200 ml 200 ml # Bowel Movements 1 Laboratory Tests Test 06/20/19 13:25 06/20/19 14:31 06/20/19 14:34 06/21/19 03:49 White Blood Count 6.6 K/UL (4.8-10.8) Red Blood Count 4.18 M/UL (4.70-6.10) L Hemoglobin 11.9 G/DL (14.2-18.0) L Hematocrit 36.6 % (42.0-52.0) L Mean Corpuscular Volume 88 FL (80-99) Mean Corpuscular Hemoglobin 28.5 PG (27.0-31.0) Mean Corpuscular Hemoglobin Concent 32.4 G/DL (32.0-36.0) Red Cell Distribution Width 15.2 % (11.6-14.8) H Platelet Count 212 K/UL (150-450) Mean Platelet Volume 5.9 FL (6.5-10.1) L Neutrophils (%) (Auto) 71.7 % (45.0-75.0) Lymphocytes (%) (Auto) 19.6 % (20.0-45.0) L Monocytes (%) (Auto) 8.2 % (1.0-10.0) Eosinophils (%) (Auto) 0.0 % (0.0-3.0) Basophils (%) (Auto) 0.5 % (0.0-2.0) Urine Color Yellow Urine Appearance Slightly cloudy Urine pH 5 (4.5-8.0) Urine Specific [place] 1.015 (1.005-1.035) Urine Protein 4+ (NEGATIVE) H Urine Glucose (UA) Negative (NEGATIVE) Urine Ketones 1+ (NEGATIVE) H Urine Blood 5+ (NEGATIVE) H Urine Nitrite Positive (NEGATIVE) H Urine Bilirubin Negative (NEGATIVE) Urine Urobilinogen Normal MG/DL (0.0-1.0) Urine Leukocyte Esterase 3+ (NEGATIVE) H Urine RBC 10-15 /HPF (0 - 0) H Urine WBC 15-20 /HPF (0 - 0) H Urine Squamous Epithelial Cells Moderate /LPF (NONE/OCC) H Urine Amorphous Sediment Moderate /LPF (NONE) H Urine Bacteria Moderate /HPF (NONE) H Urine Yeast Moderate /HPF (NONE) H Sodium Level 158 MMOL/L (136-145) H Potassium Level 2.9 MMOL/L (3.5-5.1) L Chloride Level 118 MMOL/L (98-107) H Carbon Dioxide Level 26 MMOL/L (21-32) Anion Gap 14 mmol/L (5-15) Blood Urea Nitrogen 33 mg/dL (7-18) H Creatinine 0.8 MG/DL (0.55-1.30) Estimat Glomerular Filtration Rate mL/min (>60) Glucose Level 147 MG/DL (74-106) H Lactic Acid Level 3.60 mmol/L (0.4-2.0) H 3.30 mmol/L (0.66-2.22) H Calcium Level 10.0 MG/DL (8.5-10.1) Total Bilirubin 0.6 MG/DL (0.2-1.0) Aspartate Amino Transf (AST/SGOT) 14 U/L (15-37) L Alanine Aminotransferase (ALT/SGPT) 17 U/L (12-78) Alkaline Phosphatase 73 U/L (46-116) Total Creatine Kinase 17 U/L (26-308) L Troponin I 0.018 ng/mL (0.000-0.056) Total Protein 7.1 G/DL (6.4-8.2) Albumin 2.5 G/DL (3.4-5.0) L Globulin 4.6 g/dL Albumin/Globulin Ratio 0.5 (1.0-2.7) L Arterial Blood pH 7.508 (7.350-7.450) 7.500 (7.350-7.450) Arterial Blood Partial Pressure CO2 29.3 mmHg (35.0-45.0) L 32.4 mmHg (35.0-45.0) L Arterial Blood Partial Pressure O2 69.7 mmHg (75.0-100.0) L 68.7 mmHg (75.0-100.0) L Arterial Blood HCO3 22.8 mmol/L (22.0-26.0) 24.7 mmol/L (22.0-26.0) Arterial Blood Oxygen Saturation 93.9 % (95-100) L 93.2 % (95-100) L Arterial Blood Base Excess 0.5 (-2-2) 1.9 (-2-2) Clemente Test Positive Positive Test 06/21/19 04:25 White Blood Count 6.0 K/UL (4.8-10.8) Red Blood Count 3.59 M/UL (4.70-6.10) L Hemoglobin 10.1 G/DL (14.2-18.0) L Hematocrit 31.1 % (42.0-52.0) L Mean Corpuscular Volume 87 FL (80-99) Mean Corpuscular Hemoglobin 28.3 PG (27.0-31.0) Mean Corpuscular Hemoglobin Concent 32.6 G/DL (32.0-36.0) Red Cell Distribution Width 14.9 % (11.6-14.8) H Platelet Count 156 K/UL (150-450) Mean Platelet Volume 6.2 FL (6.5-10.1) L Neutrophils (%) (Auto) 67.5 % (45.0-75.0) Lymphocytes (%) (Auto) 22.7 % (20.0-45.0) Monocytes (%) (Auto) 8.4 % (1.0-10.0) Eosinophils (%) (Auto) 0.3 % (0.0-3.0) Basophils (%) (Auto) 1.0 % (0.0-2.0) Sodium Level 158 MMOL/L (136-145) H Potassium Level 2.8 MMOL/L (3.5-5.1) L Chloride Level 123 MMOL/L (98-107) H Carbon Dioxide Level 28 MMOL/L (21-32) Anion Gap 7 mmol/L (5-15) Blood Urea Nitrogen 27 mg/dL (7-18) H Creatinine 0.7 MG/DL (0.55-1.30) Estimat Glomerular Filtration Rate mL/min (>60) Glucose Level 115 MG/DL (74-106) H Lactic Acid Level 1.50 mmol/L (0.4-2.0) Calcium Level 9.2 MG/DL (8.5-10.1) Magnesium Level 1.9 MG/DL (1.8-2.4) Total Bilirubin 0.5 MG/DL (0.2-1.0) Aspartate Amino Transf (AST/SGOT) 11 U/L (15-37) L Alanine Aminotransferase (ALT/SGPT) 15 U/L (12-78) Alkaline Phosphatase 58 U/L (46-116) Troponin I 0.016 ng/mL (0.000-0.056) Pro-B-Type Natriuretic Peptide 1865 pg/mL (0-125) H Total Protein 6.2 G/DL (6.4-8.2) L Albumin 2.1 G/DL (3.4-5.0) L Globulin 4.1 g/dL Albumin/Globulin Ratio 0.5 (1.0-2.7) L Microbiology Date/Time Source Procedure Growth Status 06/20/19 15:15 Nasal Nares - Final Complete 06/20/19 15:15 Nasal Nares - Final Complete 06/20/19 18:19 Stool Stool Culture Pending Resulted 06/20/19 18:19 Stool Clostridium difficile Toxin Assay - Final Resulted 06/20/19 13:25 Urine,Clean Catch Urine Culture - Preliminary NO GROWTH Resulted 06/20/19 14:27 Rectum Received Pablo Norton MD Jun 21, 2019 10:07
--- NOTE | 2019-06-21 10:41 | Pulmonology Progress Note ---
Assessment/Plan Assessment/Plan Pulmonary Consultation HPI 83-year-old male admitted from [facility] with Urinary Tract Infection, Bibasal Pneumonia, Sepsis/Dehydration responsive to IVF and AB, Hypernatremia, Hypokalemia - family have previously refused feeding tube insertion, oxygen requirement have gradually improved during admission, remains on antibiotics per Infectious Disease, Cardiology following. Patient is nonverbal at baseline. Patient has been treated recently with antibiotics for pneumonia but symptoms worsening. febrile in triage. No reported chest pain. No other aggravating relieving factors. No other associated symptoms ABG reveals increased A-a gradient, Alkalosis Allergies: Coded Allergies: No Known Allergies Past Medical History: Previous Pneumonia, Hypertension, Parkinsons Disease, Pacemaker Past Surgical History: pacemaker All Other Systems: limited Physical Exam Vital Signs Noted, O2 sats stable on NC O2 2L/min General Appearance: no apparent distress, alert, GCS 15, chronically ill appearing, non-toxic Head: normocephalic atraumatic Eyes: bilateral eye normal inspection, bilateral eye PERRL ENT: moist mm Neck: normal inspection, no LN Respiratory: no respiratory distress, reduced basal BS Cardiovascular: regular rate, rhythm, HS1, HS2 normal, no edema Gastrointestinal: normal bowel sounds, non tender, soft, non-distended, no guarding, no rebound Musculoskeletal: normal inspection, weak Neurologic: nonverbal, no focal signs noted Impression: Bibasal Pneumonia Previous dysphagia Hypoxia, alkalosis Urinary tract infection Sepsis Dehydration Hypernatremia/hypokalemia Previous Pacemaker 4 years ago Run of Ventricular Tachycardia - Cardiology following H/o Hypertension Parkinsons Disease Old granulomatous changes on CXR Full code Plan Antibiotics per ID IVF Correct electrolyte imbalances Aspiration precautions Speech therapy evaluation of swallow R/O DVT/PE - LE dupplex/VQ scan PPX Monitor labs Atrovent HHN/CPT Q4 O2 PRN Follow cultures CT chest to evaluate nodules - non contrast D/w RN Labs noted Test 06/20/19 13:25 06/20/19 14:31 06/20/19 14:34 White Blood Count 6.6 K/UL (4.8-10.8) Red Blood Count 4.18 M/UL (4.70-6.10) Hemoglobin 11.9 G/DL (14.2-18.0) Hematocrit 36.6 % (42.0-52.0) Mean Corpuscular Volume 88 FL (80-99) Mean Corpuscular Hemoglobin 28.5 PG (27.0-31.0) Mean Corpuscular Hemoglobin Concent 32.4 G/DL (32.0-36.0) Red Cell Distribution Width 15.2 % (11.6-14.8) Platelet Count 212 K/UL (150-450) Mean Platelet Volume 5.9 FL (6.5-10.1) Neutrophils (%) (Auto) 71.7 % (45.0-75.0) Lymphocytes (%) (Auto) 19.6 % (20.0-45.0) Monocytes (%) (Auto) 8.2 % (1.0-10.0) Eosinophils (%) (Auto) 0.0 % (0.0-3.0) Basophils (%) (Auto) 0.5 % (0.0-2.0) Urine Color Yellow Urine Appearance Slightly cloudy Urine pH 5 (4.5-8.0) Urine Specific [place] 1.015 (1.005-1.035) Urine Protein 4+ (NEGATIVE) Urine Glucose (UA) Negative (NEGATIVE) Urine Ketones 1+ (NEGATIVE) Urine Blood 5+ (NEGATIVE) Urine Nitrite Positive (NEGATIVE) Urine Bilirubin Negative (NEGATIVE) Urine Urobilinogen Normal MG/DL (0.0-1.0) Urine Leukocyte Esterase 3+ (NEGATIVE) Urine RBC 10-15 /HPF (0 - 0) Urine WBC 15-20 /HPF (0 - 0) Urine Squamous Epithelial Cells Moderate /LPF (NONE/OCC) Urine Amorphous Sediment Moderate /LPF (NONE) Urine Bacteria Moderate /HPF (NONE) Urine Yeast Moderate /HPF (NONE) Sodium Level 158 MMOL/L (136-145) Potassium Level 2.9 MMOL/L (3.5-5.1) Chloride Level 118 MMOL/L (98-107) Carbon Dioxide Level 26 MMOL/L (21-32) Anion Gap 14 mmol/L (5-15) Blood Urea Nitrogen 33 mg/dL (7-18) Creatinine 0.8 MG/DL (0.55-1.30) Estimat Glomerular Filtration Rate mL/min (>60) Glucose Level 147 MG/DL (74-106) Lactic Acid Level 3.60 mmol/L (0.4-2.0) 3.30 mmol/L (0.66-2.22) Calcium Level 10.0 MG/DL (8.5-10.1) Total Bilirubin 0.6 MG/DL (0.2-1.0) Aspartate Amino Transf (AST/SGOT) 14 U/L (15-37) Alanine Aminotransferase (ALT/SGPT) 17 U/L (12-78) Alkaline Phosphatase 73 U/L (46-116) Total Creatine Kinase 17 U/L (26-308) Troponin I 0.018 ng/mL (0.000-0.056) Total Protein 7.1 G/DL (6.4-8.2) Albumin 2.5 G/DL (3.4-5.0) Globulin 4.6 g/dL Albumin/Globulin Ratio 0.5 (1.0-2.7) Arterial Blood pH 7.508 (7.350-7.450) Arterial Blood Partial Pressure CO2 29.3 mmHg (35.0-45.0) Arterial Blood Partial Pressure O2 69.7 mmHg (75.0-100.0) Arterial Blood HCO3 22.8 mmol/L (22.0-26.0) Arterial Blood Oxygen Saturation 93.9 % (95-100) Arterial Blood Base Excess 0.5 (-2-2) Clemente Test Positive EKG: Rate: normal Rhythm: ventricular paced ST Segments: no acute changes Chest X-Ray: no pneumothorax, other - bilateral infiltrates. possible calcified granulomata, pacemaker Subjective ROS Limited/Unobtainable: No Allergies: Coded Allergies: No Known Allergies (Unverified , 06/20/19) Objective Last 24 Hour Vital Signs Date Time Temp Pulse Resp B/P (MAP) Pulse Ox O2 Delivery O2 Flow Rate FiO2 06/21/19 09:00 Room Air 2.0 06/21/19 09:00 83 123/73 06/21/19 09:00 83 123/73 06/21/19 08:00 86 06/21/19 08:00 98.1 83 18 123/73 (90) 98 06/21/19 06:40 97 Nasal Cannula 2.0 28 06/21/19 06:40 89 20 97 Nasal Cannula 2.0 28 06/21/19 05:50 99.5 60 28 122/65 (84) 98 06/21/19 04:00 98.3 61 18 113/60 (77) 100 06/21/19 04:00 91 06/21/19 03:30 98.0 60 26 159/71 (100) 94 06/21/19 00:00 98.5 66 19 128/58 (81) 97 06/21/19 00:00 63 06/20/19 20:00 97.8 91 18 112/71 (85) 97 06/20/19 20:00 89 06/20/19 19:45 Nasal Cannula 4.0 06/20/19 18:50 99.6 91 22 108/59 96 Nasal Cannula 4.0 06/20/19 18:50 99.6 91 22 108/59 96 Nasal Cannula 4.0 06/20/19 18:50 99.0 94 18 120/71 (87) 97 06/20/19 18:12 99.6 06/20/19 17:51 101.1 60 20 108/59 98 Nasal Cannula 2.0 06/20/19 14:37 101.1 60 24 111/68 99 Non-Rebreather 15.0 06/20/19 14:37 60 24 Non-Rebreather 15.0 06/20/19 13:04 100.0 113 24 111/68 (82) 99 Non-Rebreather 15.0 Intake and Output 06/20/19 06/21/19 19:00 07:00 Intake Total 4795 ml Output Total 200 ml 200 ml Balance 4595 ml -200 ml Intake IV Total 4795 ml Output Urine Total 200 ml 200 ml # Bowel Movements 1 Microbiology Date/Time Source Procedure Growth Status 06/20/19 15:15 Nasal Nares - Final Complete 06/20/19 15:15 Nasal Nares - Final Complete 06/20/19 18:19 Stool Stool Culture Pending Resulted 06/20/19 18:19 Stool Clostridium difficile Toxin Assay - Final Resulted 06/20/19 13:25 Urine,Clean Catch Urine Culture - Preliminary NO GROWTH Resulted 06/20/19 14:27 Rectum Received Laboratory Tests 06/20/19 13:25: White Blood Count 6.6, Red Blood Count 4.18L, Hemoglobin 11.9L, Hematocrit 36.6L , Mean Corpuscular Volume 88, Mean Corpuscular Hemoglobin 28.5, Mean Corpuscular Hemoglobin Concent 32.4, Red Cell Distribution Width 15.2H, Platelet Count 212, Mean Platelet Volume 5.9L, Neutrophils (%) (Auto) 71.7, Lymphocytes (%) (Auto) 19.6L, Monocytes (%) (Auto) 8.2, Eosinophils (%) (Auto) 0.0, Basophils (%) (Auto) 0.5, Urine Color Yellow, Urine Appearance Slightly cloudy, Urine pH 5, Urine Specific [place] 1.015, Urine Protein 4+H, Urine Glucose (UA) Negative, Urine Ketones 1+H, Urine Blood 5+H, Urine Nitrite PositiveH, Urine Bilirubin Negative, Urine Urobilinogen Normal, Urine Leukocyte Esterase 3+H, Urine RBC 10-15H, Urine WBC 15-20H, Urine Squamous Epithelial Cells ModerateH, Urine Amorphous Sediment ModerateH, Urine Bacteria ModerateH, Urine Yeast ModerateH, Sodium Level 158H, Potassium Level 2.9L, Chloride Level 118H, Carbon Dioxide Level 26, Anion Gap 14, Blood Urea Nitrogen 33H, Creatinine 0.8, Estimat Glomerular Filtration Rate , Glucose Level 147H, Lactic Acid Level 3.60H, Calcium Level 10.0, Total Bilirubin 0.6, Aspartate Amino Transf (AST/SGOT) 14L, Alanine Aminotransferase (ALT/SGPT) 17, Alkaline Phosphatase 73, Total Creatine Kinase 17L, Troponin I 0.018, Total Protein 7.1, Albumin 2.5L, Globulin 4.6, Albumin/Globulin Ratio 0.5L 06/20/19 14:31: Arterial Blood pH 7.508H, Arterial Blood Partial Pressure CO2 29.3L, Arterial Blood Partial Pressure O2 69.7L, Arterial Blood HCO3 22.8, Arterial Blood Oxygen Saturation 93.9L, Arterial Blood Base Excess 0.5, Clemente Test Positive 06/20/19 14:34: Lactic Acid Level 3.30H 06/21/19 03:49: Arterial Blood pH 7.500H, Arterial Blood Partial Pressure CO2 32.4L, Arterial Blood Partial Pressure O2 68.7L, Arterial Blood HCO3 24.7, Arterial Blood Oxygen Saturation 93.2L, Arterial Blood Base Excess 1.9, Clemente Test Positive 06/21/19 04:25: White Blood Count 6.0, Red Blood Count 3.59L, Hemoglobin 10.1L, Hematocrit 31.1L , Mean Corpuscular Volume 87, Mean Corpuscular Hemoglobin 28.3, Mean Corpuscular Hemoglobin Concent 32.6, Red Cell Distribution Width 14.9H, Platelet Count 156, Mean Platelet Volume 6.2L, Neutrophils (%) (Auto) 67.5, Lymphocytes (%) (Auto) 22.7, Monocytes (%) (Auto) 8.4, Eosinophils (%) (Auto) 0.3, Basophils (%) (Auto) 1.0, Sodium Level 158H, Potassium Level 2.8L, Chloride Level 123H, Carbon Dioxide Level 28, Anion Gap 7, Blood Urea Nitrogen 27H, Creatinine 0.7, Estimat Glomerular Filtration Rate , Glucose Level 115H, Lactic Acid Level 1.50, Calcium Level 9.2, Magnesium Level 1.9, Total Bilirubin 0.5, Aspartate Amino Transf (AST/SGOT) 11L, Alanine Aminotransferase (ALT/SGPT) 15, Alkaline Phosphatase 58, Troponin I 0.016, Pro-B-Type Natriuretic Peptide 1865H, Total Protein 6.2L, Albumin 2.1L, Globulin 4.1, Albumin/Globulin Ratio 0.5L Current Medications Medications (Trade) Dose Ordered Sig/Katharine Route PRN Reason Start Time Stop Time Status Last Admin Dose Admin Acetaminophen (Tylenol) 650 mg Q6H PRN ORAL Mild Pain/Temp > 100.5 06/21/19 06:15 07/21/19 06:14 Acetaminophen (Tylenol) 650 mg Q6H PRN RECTAL Mild Pain/Temp > 100.5 PO/IL 06/21/19 09:45 07/21/19 09:44 Albuterol/ Ipratropium (Albuterol/ Ipratropium) 3 ml Q6H PRN HHN Shortness of Breath 06/20/19 21:00 06/25/19 20:59 Apixaban (Eliquis) 5 mg BID ORAL 06/21/19 09:00 07/21/19 08:59 Aspirin (Ecotrin) 81 mg DAILY ORAL 06/21/19 09:00 07/21/19 08:59 Carbidopa/Levodopa (Sinemet 25/100) 1 tab THREE TIMES A DAY ORAL 06/21/19 09:00 07/21/19 08:59 Dextrose (Dextrose 50%) 25 ml Q30M PRN IV Hypoglycemia 06/20/19 21:00 07/20/19 20:59 Dextrose (Dextrose 50%) 50 ml Q30M PRN IV Hypoglycemia 06/20/19 21:00 07/20/19 20:59 Dronabinol (Marinol) 2.5 mg BID ORAL 06/21/19 09:00 07/21/19 08:59 Insulin Aspart (NovoLOG) BEFORE MEALS AND HS SUBQ 06/20/19 22:00 07/20/19 21:59 06/21/19 05:39 Meropenem 1 gm/ Sodium Chloride 55 ml @ 110 mls/hr Q8HR IVPB 06/20/19 22:00 06/25/19 21:59 06/21/19 05:31 Metoprolol Tartrate (Lopressor) 5 mg EVERY 12 HOURS IVP 06/21/19 21:00 07/21/19 20:59 UNV Non-Formulary Medication (Non-Formulary Med) 1 ea DAILY ORAL 06/21/19 09:00 07/21/19 08:59 UNV Polyethylene Glycol (Miralax) 17 gm DAILY PRN ORAL Constipation 06/21/19 00:45 07/21/19 00:44 Potassium Chloride 40 meq/ Dextrose 1,020 ml @ 75 mls/hr [id number] IV 06/20/19 22:30 07/20/19 22:29 06/20/19 22:55 Potassium Chloride 100 ml @ 100 mls/hr Q1H IVPB 06/21/19 06:30 06/21/19 10:29 06/21/19 09:05 Sennosides (Senokot) 17.2 mg QHS ORAL 06/21/19 21:00 07/21/19 20:59 Tamsulosin HCl (Flomax) 0.4 mg DAILY ORAL 06/21/19 09:00 07/21/19 08:59 Vancomycin HCl (Vanco rx to dose) 1 ea DAILY PRN MISC Per rx protocol 06/20/19 16:30 07/20/19 16:29 Vancomycin HCl 1 gm/Dextrose 275 ml @ 183.708 mls/hr Q24H IVPB 06/21/19 20:00 06/26/19 19:59 Vitamin D (Vitamin D) 5,000 intlu DAILY ORAL 06/21/19 09:00 07/21/19 08:59 Zinc Sulfate (Zinc Sulfate) 220 mg BID ORAL 06/21/19 09:00 07/21/19 08:59 Denys Payne MD Jun 21, 2019 10:41
[2019-06-21] MEDS ORDERED: Ipratropium 0.02% Inh Soln 2.5ml UD HHN PRN ×2 (10:45→12:00)
--- NOTE | 2019-06-21 10:45 | NUR ---
HAND-OFF: Report given to Adam GERMAN. Patient transferred via bed with 2LPM O2.
--- NOTE | 2019-06-21 11:09 | NUR ---
RD ASSESSMENT & RECOMMENDATIONS SEE CARE ACTIVITY FOR COMPLETE ASSESSMENT DAILY ESTIMATED NEEDS: Needs based on Underweight, sepsis; 61.4kg 30-35 kcals/kg 1842- 2149 total kcals 1.25-2 g protein/kg 77- 123 g total protein 25-30 mL/kg 1535- 1842 total fluid mLs NUTRITION DIAGNOSIS: Increased kcal and pro needs r/t wound healing and underweight status AEB pt w/ open sacral wound (eval is pending), generalized moderate wasting, @81% of [place] Body Weight. CURRENT DIET:CCHO Med, Pureed moist, nectar-thick PO DIET RECOMMENDATIONS: Liberalized Regular diet w/ continued poor po intake/ texture per RETAIL RECEIVING CLERK (ENTERAL NUTRITION RECOMMENDATIONS: * Consult RD if non oral feedings are part of POC *) ADDITIONAL RECOMMENDATIONS: 1) Follow up w/ WC eval * Provide Eliseo TID w/ meals for wound healing * Provide Vit C 250mg qdaily 2) Maintain calibrated bedscale wt 2/2 underweight status 3) F/up w/ RETAIL RECEIVING CLERK eval 4) Add Glucerna 1 can TID w/ meals Add snacks in b/w meals
--- NOTE | 2019-06-21 11:20 | NUR ---
NURSE NOTES: PT and report received from MONSERRAT Hodge. PT was transferred per MD Cierra. PT is alert, but non-responsive, received making moan sounds, VS upon receiving BP 135/65; HR 83; O2 saturation 96% on 2L-NC; RR 23, T 98.1 axillary. PT shows no S/S of respiratory distress, reported PT goal for 02 saturation is to be maintained at 90-96%. PT has a pacemaker on L chest. PT was transferred with [place]. PT has R-forearm 22g and R-AC 20g. PT has wound care orders. Will continue to monitor PT.
[2019-06-21] MEDS ORDERED: Albuterol/Ipratropium 3ml neb HHN PRN (12:00)
--- NOTE | 2019-06-21 12:00 | NUR ---
NURSE NOTES: Dr. Norton paged fro IV Amiodarone drip. Per pharmacist the doctor needs to clarify either starting with loading dose first or skipping the loading dose and starting with maintain dose first. Awaiting for reply
--- NOTE | 2019-06-21 12:16 | NUR ---
Regarding V/Q Scan: Spoke with Adam GERMAN regarding VQ scan. Due to pt condition, VQ Scan will be postponed until tomorrow, Tuesday06/22/19
[2019-06-21] MEDS: Levodopa/Carbidopa 25/100 tab ORAL SCH ×2 (13:00→17:58)
--- NOTE | 2019-06-21 13:21 | NUR ---
NURSE NOTES: Bella ordered to consult Dr Lomax as a wound care physician. Order received, noted, and carried out.
--- NOTE | 2019-06-21 13:33 | NUR ---
NURSE NOTES: Daughter Royer Thompson called ICU. Updated her regarding pt's current condition and medications. Daughter stated that her family never refused G-tube since pt previously passed swallowing evaluation and was eating fine in [facility].
[2019-06-21] MEDS: Amiodarone 900 MG in D5W 500ml 482 ML IV SCH ×2 (14:18→20:17)
[2019-06-21] MEDS: Heparin 5000 units/ml inj SUBQ SCH ×2 (14:24→20:13)
--- NOTE | 2019-06-21 14:45 | Infectious Diseases Prog Note ---
Assessment/Plan Problems: (1) Pneumonia Assessment & Plan: with B/L basal infiltrates suspect aspiration with fever and hypoxemia , continue meropenem and vancomycin empirically , pending sputum culture , aspiration precaution, monitor CXR (2) UTI (urinary tract infection) Assessment & Plan: already on meropenem , pending culture (3) Sepsis Assessment & Plan: due to the above , continue wide spectrum antibiotics pending cultures (4) Hypoxia Assessment & Plan: suspect due to the above , continue oxygen , and wide spectrum antibiotics (5) Respiratory failure, acute Assessment & Plan: due to the above, continue oxygen, nebulizer treatment and antibiotics , pulmonary eval is in progress (6) V-tach Assessment & Plan: sustained with torsade de point , check magnesium, cardiology is following (7) Sacral pressure ulcer Assessment & Plan: continue local wound care and dressings as per hospital protocol , with off loading Subjective ROS Limited/Unobtainable: Yes Allergies: Coded Allergies: No Known Allergies (Unverified , 06/20/19) Subjective He was moved to ICU for run of T-tach, still altered, unresponsive, afebrile today, has cough with phlegm, no diarrhea Objective Vital Signs Last 24 Hour Vital Signs Date Time Temp Pulse Resp B/P (MAP) Pulse Ox O2 Delivery O2 Flow Rate FiO2 06/21/19 13:00 87 23 146/76 (99) 99 06/21/19 12:00 87 06/21/19 12:00 84 21 129/68 (88) 100 06/21/19 11:45 Nasal Cannula 2.0 06/21/19 11:20 98.1 83 23 135/65 (88) 96 06/21/19 09:00 Room Air 2.0 06/21/19 09:00 83 123/73 06/21/19 09:00 83 123/73 06/21/19 08:00 86 06/21/19 08:00 98.1 83 18 123/73 (90) 98 06/21/19 06:40 97 Nasal Cannula 2.0 28 06/21/19 06:40 89 20 97 Nasal Cannula 2.0 28 06/21/19 05:50 99.5 60 28 122/65 (84) 98 06/21/19 04:00 98.3 61 18 113/60 (77) 100 06/21/19 04:00 91 06/21/19 03:30 98.0 60 26 159/71 (100) 94 06/21/19 00:00 98.5 66 19 128/58 (81) 97 06/21/19 00:00 63 06/20/19 20:00 97.8 91 18 112/71 (85) 97 06/20/19 20:00 89 06/20/19 19:45 Nasal Cannula 4.0 06/20/19 18:50 99.6 91 22 108/59 96 Nasal Cannula 4.0 06/20/19 18:50 99.6 91 22 108/59 96 Nasal Cannula 4.0 06/20/19 18:50 99.0 94 18 120/71 (87) 97 06/20/19 18:12 99.6 06/20/19 17:51 101.1 60 20 108/59 98 Nasal Cannula 2.0 Height (Feet): 5 Height (Inches): 5.00 Weight (Pounds): 135 General Appearance: no acute distress, cachetic HEENT: normocephalic, atraumatic, anicteric, mucous membranes moist, supple, no JVD Respiratory/Chest: no respiratory distress, no accessory muscle use, decreased breath sounds, crackles/rales Cardiovascular: normal peripheral pulses, normal rate, regular rhythm, no gallop/murmur, no JVD Abdomen: normal bowel sounds, soft, non tender, no organomegaly, non distended , no mass, no scars Extremities: no cyanosis, no clubbing Skin: no rash, no lesions, ulcers - sacral pressure wound with necrosis , right elbow wound 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, alert, responsive Lymphatic: no neck adenopathy, no groin adenopathy Musculoskeletal: no effusion, atrophy Microbiology Date/Time Source Procedure Growth Status 06/20/19 15:15 Nasal Nares - Final Complete 06/20/19 15:15 Nasal Nares - Final Complete 06/20/19 18:19 Stool Stool Culture Pending Resulted 06/20/19 18:19 Stool Clostridium difficile Toxin Assay - Final Resulted 06/20/19 13:25 Urine,Clean Catch Urine Culture - Preliminary NO GROWTH Resulted 06/20/19 14:27 Rectum Received Laboratory Tests Test 06/21/19 03:49 06/21/19 04:25 06/21/19 12:33 Arterial Blood pH 7.500 (7.350-7.450) Arterial Blood Partial Pressure CO2 32.4 mmHg (35.0-45.0) L Arterial Blood Partial Pressure O2 68.7 mmHg (75.0-100.0) L Arterial Blood HCO3 24.7 mmol/L (22.0-26.0) Arterial Blood Oxygen Saturation 93.2 % (95-100) L Arterial Blood Base Excess 1.9 (-2-2) Clemente Test Positive White Blood Count 6.0 K/UL (4.8-10.8) Red Blood Count 3.59 M/UL (4.70-6.10) L Hemoglobin 10.1 G/DL (14.2-18.0) L Hematocrit 31.1 % (42.0-52.0) L Mean Corpuscular Volume 87 FL (80-99) Mean Corpuscular Hemoglobin 28.3 PG (27.0-31.0) Mean Corpuscular Hemoglobin Concent 32.6 G/DL (32.0-36.0) Red Cell Distribution Width 14.9 % (11.6-14.8) H Platelet Count 156 K/UL (150-450) Mean Platelet Volume 6.2 FL (6.5-10.1) L Neutrophils (%) (Auto) 67.5 % (45.0-75.0) Lymphocytes (%) (Auto) 22.7 % (20.0-45.0) Monocytes (%) (Auto) 8.4 % (1.0-10.0) Eosinophils (%) (Auto) 0.3 % (0.0-3.0) Basophils (%) (Auto) 1.0 % (0.0-2.0) Sodium Level 158 MMOL/L (136-145) H Potassium Level 2.8 MMOL/L (3.5-5.1) L Chloride Level 123 MMOL/L (98-107) H Carbon Dioxide Level 28 MMOL/L (21-32) Anion Gap 7 mmol/L (5-15) Blood Urea Nitrogen 27 mg/dL (7-18) H Creatinine 0.7 MG/DL (0.55-1.30) Estimat Glomerular Filtration Rate mL/min (>60) Glucose Level 115 MG/DL (74-106) H Lactic Acid Level 1.50 mmol/L (0.4-2.0) Calcium Level 9.2 MG/DL (8.5-10.1) Magnesium Level 1.9 MG/DL (1.8-2.4) Total Bilirubin 0.5 MG/DL (0.2-1.0) Aspartate Amino Transf (AST/SGOT) 11 U/L (15-37) L Alanine Aminotransferase (ALT/SGPT) 15 U/L (12-78) Alkaline Phosphatase 58 U/L (46-116) Troponin I 0.016 ng/mL (0.000-0.056) 0.019 ng/mL (0.000-0.056) Pro-B-Type Natriuretic Peptide 1865 pg/mL (0-125) H Total Protein 6.2 G/DL (6.4-8.2) L Albumin 2.1 G/DL (3.4-5.0) L Globulin 4.1 g/dL Albumin/Globulin Ratio 0.5 (1.0-2.7) L Current Medications Medications (Trade) Dose Ordered Sig/Katharine Route PRN Reason Start Time Stop Time Status Last Admin Dose Admin Acetaminophen (Tylenol) 650 mg Q6H PRN ORAL Mild Pain/Temp > 100.5 06/21/19 12:15 07/21/19 06:14 Acetaminophen (Tylenol) 650 mg Q6H PRN RECTAL Mild Pain/Temp > 100.5 PO/ME 06/21/19 12:00 07/21/19 11:59 Amiodarone HCl 100 ml @ 600 mls/hr STAT IV 06/21/19 13:30 06/21/19 14:30 06/21/19 14:17 Amiodarone HCl 900 mg/Dextrose 500 ml @ 0 mls/hr Q24H IV 06/21/19 14:00 06/22/19 13:59 06/21/19 14:18 Apixaban (Eliquis) 5 mg BID ORAL 06/21/19 18:00 07/21/19 08:59 UNV Aspirin (Ecotrin) 81 mg DAILY ORAL 06/22/19 09:00 07/21/19 08:59 Carbidopa/Levodopa (Sinemet 25/100) 1 tab THREE TIMES A DAY ORAL 06/21/19 13:00 07/21/19 08:59 Dextrose (Dextrose 50%) 25 ml Q30M PRN IV Hypoglycemia 06/21/19 11:30 07/20/19 20:59 Dextrose (Dextrose 50%) 50 ml Q30M PRN IV Hypoglycemia 06/21/19 11:30 07/20/19 20:59 Dronabinol (Marinol) 2.5 mg BID ORAL 06/21/19 18:00 07/21/19 08:59 Heparin Sodium (Porcine) (Heparin 5000 units/ml) 5,000 units EVERY 12 HOURS SUBQ 06/21/19 14:00 07/21/19 13:59 Insulin Aspart (NovoLOG) BEFORE MEALS AND HS SUBQ 06/21/19 11:30 07/20/19 21:59 Ipratropium [place] (Atrovent) 500 mcg Q4H PRN HHN Shortness of Breath 06/21/19 13:30 06/26/19 13:29 Meropenem 1 gm/ Sodium Chloride 55 ml @ 110 mls/hr Q8HR IVPB 06/21/19 14:00 06/25/19 21:59 Metoprolol Tartrate (Lopressor) 5 mg EVERY 12 HOURS IVP 06/21/19 14:00 07/21/19 13:59 Non-Formulary Medication (Non-Formulary Med) 1 ea DAILY ORAL 06/22/19 09:00 07/21/19 08:59 UNV Polyethylene Glycol (Miralax) 17 gm DAILY PRN ORAL Constipation 06/21/19 12:00 07/21/19 11:59 Potassium Chloride 40 meq/ Dextrose 1,020 ml @ 75 mls/hr [id number] IV 06/21/19 11:30 07/20/19 22:29 06/21/19 12:37 Sennosides (Senokot) 17.2 mg QHS ORAL 06/21/19 21:00 07/21/19 20:59 Tamsulosin HCl (Flomax) 0.4 mg DAILY ORAL 06/22/19 09:00 07/21/19 08:59 Vancomycin HCl (Vanco rx to dose) 1 ea DAILY PRN MISC Per rx protocol 06/22/19 09:00 07/20/19 16:29 Vancomycin HCl 1 gm/Dextrose 275 ml @ 183.708 mls/hr Q24H IVPB 06/21/19 20:00 06/26/19 19:59 Vitamin D (Vitamin D) 5,000 intlu DAILY ORAL 06/22/19 09:00 07/21/19 08:59 Zinc Sulfate (Zinc Sulfate) 220 mg BID ORAL 06/21/19 18:00 07/21/19 08:59 Arcadio Mcnair M.D. Jun 21, 2019 14:45
[2019-06-21] MEDS: Metoprolol 5mg/5ml Inj IVP SCH ×2 (14:49→20:11)
--- NOTE | 2019-06-21 15:42 | NUR ---
CASE MANAGEMENT: INITIAL REVIEW 83YR OLD MALE BIBA FROM [facility] CC: DYSPNEA/ RESP. DISTRESS SI: PNA/ HYPERNATREMIA/HYPOXIA/ SEPSIS/ UTI 100.0 113 24 111/68 99% NON-REBREATHER 15L NA+ 158; K+ 2.9; CL 118; BUN 33; BG 147; LA 3.60 RBC 4.18; H/H 11.9/ 36.6 ABG: pH 7.508; pCO2 29.3; PO2 69.7; 02 SAT 93.9 IS: IVF NS BOLUS X2 IV ZOSYN X2 IV ZITHROMAX X1 IV KCL X1 : TO 2E TELE UNIT DCP: BACK TO [facility] WHEN MEDICALLY CLEARED CASE MANAGEMENT: REVIEW 06/21/19 SI: PNA/ HYPERNATREMIA/HYPOXIA/ SEPSIS/ UTI 98.1 83 18 123/73 98% NC 2L NA+ 158; K+ 2.8; CL 123; BUN 27 RBC 3.59; H/H 10.1/ 31.1 ABG: pH 7.500; pCO2 32.4; PO2 68.7; 02 SAT 93.2 IS: IV KCL @100/HR X4 BAGS IV MEROPENEM Q8HR IV LOPRESSOR IV AMIODARONE Q24 HEPARIN SQ Q12HR KCL/DEXTROSE @75HR TYLENOL MI X1 : TO ICU DCP: BACK TO [facility] WHEN MEDICALLY CLEARED
--- NOTE | 2019-06-21 15:52 | NUR ---
NURSE NOTES:WOUND CARE NOTES:Pt presented on admission with multiple pressure injuries. Non-blanching erythema clefts of R and L ears. Full thickness sacral pressure injury. Base of wound has 60% mixed slough and soft necrosis,40% granular. Borders are macerated with surrounding non-blanching erythema with additional scattered partial thickness wounds..No odor or exudate noted.(L)7cm x (W)6.5cm. Full thickness pressure injury base of scrotum with 75% slough,25% hunter and moist . Small amt non-odorous serous exudate noted. Non-blanching erythema periwound .(L)3cm x (W)4.5cm.Non-blanching erythema without induration noted to R ischial area. Full thickness pressure injury R elbow . Base of erythematous with 10% slough. Inferior to R elbow wound, second wound that is resolving with dry pink epithelial. Bilat heels are boggy with non-blanching erythema. Tx.Plan:Cleanse wounds scrotum and Sacrum with saline. Apply Therahoney. Apply Moisture Barrier periwound.Cover each wound with Optifoam Drsg. Daily and prn. Apply Moisture Barrier Paste to buttocks and both ischial areas with each incontinence care. Apply Cavilon Skin Barrier to both heels. Cover each heel with Optifoam drsg. Change every 7 days and prn. APM/GAETANO Mattress overlay. Reposition at least every 2hours or as tolerated. Off-load heels with pillow.
--- NOTE | 2019-06-21 16:57 | NUR ---
NURSE NOTES: PT family ( and sister) at bedside visiting. PT VS stable, has difficulty clearing phlegm PT seen coughing although RT does chest physiotherapy. Will continue to monitor PT.
--- NOTE | 2019-06-21 17:00 | NUR ---
NURSE NOTES: CT chest postponed to tomorrow since pt is still unstable; pt has hard time coughing out thick secretion and needs deep suctioning. Pt desaturates at times. and sister at bedside. Pt is sleeping in bed. On Amiodarone drip as ordered.
--- NOTE | 2019-06-21 17:50 | NUR ---
NURSE NOTES: Talked to PT about Namenda XR 28mg capsule, she will go back home and check if it is at home, advised her to bring it in original prescription bottle as advised by Marquise SernaD. JACEK Case made aware.
--- NOTE | 2019-06-21 17:57 | Consultation ---
History of Present Illness General Date patient seen: Jun 21, 2019 Chief Complaint: Dyspnea/Respdistress Present Illness HPI 83 year old female with multiple medical comorbidities who is a longterm resident presented to [facility] ED for evaluation. Aspiration pna and UTI. lactic acidosis, sepsis, abnormal labs. Admitted to ICU for care and management. Noted to have multiple wounds on admission. malnutrition. sepsis. surgery called to evaluate and assist with care. patient seen, chart reviewed, patent examined at bedside. per report family refused feeding tube prior. Allergies: Coded Allergies: No Known Allergies (Unverified , 06/20/19) Medication History Scheduled Amlodipine Besylate* (Amlodipine Besylate*), 5 MG ORAL BID, (Reported) Apixaban (Eliquis), 10 MG PO BID, (Reported) Aspirin Ec* (Aspirin Ec*), 81 MG ORAL DAILY, (Reported) Carbidopa/Levodopa 25-100 Mg* (Sinemet 25-100 Mg Tablet*), 1 TAB ORAL THREE TIMES A DAY, (Reported) Dronabinol* (Marinol*), 2.5 MG ORAL BID, (Reported) Levofloxacin* (Levofloxacin*), 500 MG ORAL DAILY, (Reported) Memantine Hcl (Namenda Xr), 28 MG PO DAILY, (Reported) Metoprolol Succinate* (Metoprolol Succinate*), 25 MG ORAL DAILY, (Reported) Quetiapine Fumarate (Seroquel Xr), 300 MG ORAL DAILY, (Reported) Sennosides (Senna), 16.2 MG PO QHS, (Reported) Solifenacin Succinate* (Vesicare*), 5 MG ORAL DAILY, (Reported) Tamsulosin HCl (Flomax), 0.4 MG ORAL DAILY, (Reported) Tamsulosin HCl (Flomax), 0.4 MG ORAL DAILY, (Reported) Zinc Sulfate (Zinc Sulfate*), 220 MG ORAL BID, (Reported) Patient History Limited by: medical condition History Provided By: Medical Record Healthcare decision maker Resuscitation status Full Code Advanced Directive on File Past Medical/Surgical History Past Medical/Surgical History: (1) Hypokalemia (2) Hypernatremia (3) Hypoxia (4) Sepsis (5) UTI (urinary tract infection) (6) Pneumonia (7) Respiratory failure, acute (8) V-tach (9) Sacral pressure ulcer Review of Systems ROS Narrative unable to obtain given medical condition Physical Exam General Appearance: no apparent distress Lines, tubes and drains: peripheral HEENT: mucous membranes moist Neck: normal inspection Respiratory/Chest: decreased breath sounds Cardiovascular/Chest: tachycardia Abdomen: soft, no organomegaly, no mass Extremities: non-tender, slow capillary refill Skin Exam: warm/dry Last 24 Hour Vital Signs Date Time Temp Pulse Resp B/P (MAP) Pulse Ox O2 Delivery O2 Flow Rate FiO2 06/21/19 17:00 68 23 136/65 (88) 100 06/21/19 16:00 Nasal Cannula 2.0 06/21/19 16:00 98.5 71 25 134/62 (86) 100 06/21/19 16:00 68 06/21/19 15:00 73 25 136/73 (94) 97 06/21/19 14:49 87 131/75 06/21/19 14:00 81 26 136/62 (86) 98 06/21/19 13:00 87 23 146/76 (99) 99 06/21/19 12:00 87 06/21/19 12:00 84 21 129/68 (88) 100 06/21/19 11:45 Nasal Cannula 2.0 06/21/19 11:20 98.1 83 23 135/65 (88) 96 06/21/19 09:00 Room Air 2.0 06/21/19 09:00 83 123/73 06/21/19 09:00 83 123/73 06/21/19 08:00 86 06/21/19 08:00 98.1 83 18 123/73 (90) 98 06/21/19 06:40 97 Nasal Cannula 2.0 28 06/21/19 06:40 89 20 97 Nasal Cannula 2.0 28 06/21/19 05:50 99.5 60 28 122/65 (84) 98 06/21/19 04:00 98.3 61 18 113/60 (77) 100 06/21/19 04:00 91 06/21/19 03:30 98.0 60 26 159/71 (100) 94 06/21/19 00:00 98.5 66 19 128/58 (81) 97 06/21/19 00:00 63 06/20/19 20:00 97.8 91 18 112/71 (85) 97 06/20/19 20:00 89 06/20/19 19:45 Nasal Cannula 4.0 06/20/19 18:50 99.6 91 22 108/59 96 Nasal Cannula 4.0 06/20/19 18:50 99.6 91 22 108/59 96 Nasal Cannula 4.0 06/20/19 18:50 99.0 94 18 120/71 (87) 97 06/20/19 18:12 99.6 Intake and Output 06/20/19 06/21/19 18:59 06:59 Intake Total 4795 ml Output Total 200 ml 200 ml Balance 4595 ml -200 ml Intake IV Total 4795 ml Output Urine Total 200 ml 200 ml # Bowel Movements 1 Laboratory Tests Test 06/21/19 03:49 06/21/19 04:25 06/21/19 12:33 Arterial Blood pH 7.500 (7.350-7.450) Arterial Blood Partial Pressure CO2 32.4 mmHg (35.0-45.0) L Arterial Blood Partial Pressure O2 68.7 mmHg (75.0-100.0) L Arterial Blood HCO3 24.7 mmol/L (22.0-26.0) Arterial Blood Oxygen Saturation 93.2 % (95-100) L Arterial Blood Base Excess 1.9 (-2-2) Clemente Test Positive White Blood Count 6.0 K/UL (4.8-10.8) Red Blood Count 3.59 M/UL (4.70-6.10) L Hemoglobin 10.1 G/DL (14.2-18.0) L Hematocrit 31.1 % (42.0-52.0) L Mean Corpuscular Volume 87 FL (80-99) Mean Corpuscular Hemoglobin 28.3 PG (27.0-31.0) Mean Corpuscular Hemoglobin Concent 32.6 G/DL (32.0-36.0) Red Cell Distribution Width 14.9 % (11.6-14.8) H Platelet Count 156 K/UL (150-450) Mean Platelet Volume 6.2 FL (6.5-10.1) L Neutrophils (%) (Auto) 67.5 % (45.0-75.0) Lymphocytes (%) (Auto) 22.7 % (20.0-45.0) Monocytes (%) (Auto) 8.4 % (1.0-10.0) Eosinophils (%) (Auto) 0.3 % (0.0-3.0) Basophils (%) (Auto) 1.0 % (0.0-2.0) Sodium Level 158 MMOL/L (136-145) H Potassium Level 2.8 MMOL/L (3.5-5.1) L Chloride Level 123 MMOL/L (98-107) H Carbon Dioxide Level 28 MMOL/L (21-32) Anion Gap 7 mmol/L (5-15) Blood Urea Nitrogen 27 mg/dL (7-18) H Creatinine 0.7 MG/DL (0.55-1.30) Estimat Glomerular Filtration Rate mL/min (>60) Glucose Level 115 MG/DL (74-106) H Lactic Acid Level 1.50 mmol/L (0.4-2.0) Calcium Level 9.2 MG/DL (8.5-10.1) Magnesium Level 1.9 MG/DL (1.8-2.4) Total Bilirubin 0.5 MG/DL (0.2-1.0) Aspartate Amino Transf (AST/SGOT) 11 U/L (15-37) L Alanine Aminotransferase (ALT/SGPT) 15 U/L (12-78) Alkaline Phosphatase 58 U/L (46-116) Troponin I 0.016 ng/mL (0.000-0.056) 0.019 ng/mL (0.000-0.056) Pro-B-Type Natriuretic Peptide 1865 pg/mL (0-125) H Total Protein 6.2 G/DL (6.4-8.2) L Albumin 2.1 G/DL (3.4-5.0) L Globulin 4.1 g/dL Albumin/Globulin Ratio 0.5 (1.0-2.7) L Microbiology Date/Time Source Procedure Growth Status 06/20/19 18:19 Stool Stool Culture Pending Resulted 06/20/19 18:19 Stool Clostridium difficile Toxin Assay - Final Resulted Height (Feet): 5 Height (Inches): 5.00 Weight (Pounds): 135 Medications Current Medications Medications (Trade) Dose Ordered Sig/Katharine Route PRN Reason Start Time Stop Time Status Last Admin Dose Admin Acetaminophen (Tylenol) 650 mg Q6H PRN ORAL Mild Pain/Temp > 100.5 06/21/19 12:15 07/21/19 06:14 Acetaminophen (Tylenol) 650 mg Q6H PRN RECTAL Mild Pain/Temp > 100.5 PO/HI 06/21/19 12:00 07/21/19 11:59 Amiodarone HCl 900 mg/Dextrose 500 ml @ 0 mls/hr Q24H IV 06/21/19 14:00 06/22/19 13:59 06/21/19 14:18 Apixaban (Eliquis) 5 mg BID ORAL 06/21/19 18:00 07/21/19 08:59 UNV Aspirin (Ecotrin) 81 mg DAILY ORAL 06/22/19 09:00 07/21/19 08:59 Carbidopa/Levodopa (Sinemet ) 1 tab THREE TIMES A DAY ORAL 06/21/19 13:00 07/21/19 08:59 Dextrose (Dextrose 50%) 25 ml Q30M PRN IV Hypoglycemia 06/21/19 11:30 07/20/19 20:59 Dextrose (Dextrose 50%) 50 ml Q30M PRN IV Hypoglycemia 06/21/19 11:30 07/20/19 20:59 Dronabinol (Marinol) 2.5 mg BID ORAL 06/21/19 18:00 07/21/19 08:59 Heparin Sodium (Porcine) (Heparin 5000 units/ml) 5,000 units EVERY 12 HOURS SUBQ 06/21/19 14:00 07/21/19 13:59 06/21/19 14:24 Insulin Aspart (NovoLOG) BEFORE MEALS AND HS SUBQ 06/21/19 11:30 07/20/19 21:59 06/21/19 16:45 Ipratropium [place] (Atrovent) 500 mcg Q4H PRN HHN Shortness of Breath 06/21/19 13:30 06/26/19 13:29 Meropenem 1 gm/ Sodium Chloride 55 ml @ 110 mls/hr Q8HR IVPB 06/21/19 14:00 06/25/19 21:59 06/21/19 14:00 Metoprolol Tartrate (Lopressor) 5 mg EVERY 12 HOURS IVP 06/21/19 14:00 07/21/19 13:59 06/21/19 14:49 Non-Formulary Medication (Non-Formulary Med) 1 ea DAILY ORAL 06/22/19 09:00 07/21/19 08:59 UNV Polyethylene Glycol (Miralax) 17 gm DAILY PRN ORAL Constipation 06/21/19 12:00 07/21/19 11:59 Potassium Chloride 40 meq/ Dextrose 1,020 ml @ 75 mls/hr [id number] IV 06/21/19 11:30 07/20/19 22:29 06/21/19 12:37 Sennosides (Senokot) 17.2 mg QHS ORAL 06/21/19 21:00 07/21/19 20:59 Tamsulosin HCl (Flomax) 0.4 mg DAILY ORAL 06/22/19 09:00 07/21/19 08:59 Vancomycin HCl (Vanco rx to dose) 1 ea DAILY PRN MISC Per rx protocol 06/22/19 09:00 07/20/19 16:29 Vancomycin HCl 1 gm/Dextrose 275 ml @ 183.708 mls/hr Q24H IVPB 06/21/19 20:00 06/26/19 19:59 Vitamin D (Vitamin D) 5,000 intlu DAILY ORAL 06/22/19 09:00 07/21/19 08:59 Zinc Sulfate (Zinc Sulfate) 220 mg BID ORAL 06/21/19 18:00 07/21/19 08:59 Assessment/Plan Problem List: (1) Sepsis Assessment & Plan: cont iv abx as per ID eval rx as written AM labs ICU care DAILY ESTIMATED NEEDS: Needs based on Underweight, sepsis; 61.4kg 30-35 kcals/kg 1842- 2149 total kcals 1.25-2 g protein/kg 77- 123 g total protein 25-30 mL/kg 1535- 1842 total fluid mLs NUTRITION DIAGNOSIS: Increased kcal and pro needs r/t wound healing and underweight status AEB pt w/ open sacral wound (eval is pending), generalized moderate wasting, @81% of [place] Body Weight. CURRENT DIET:CCHO Med, Pureed moist, nectar-thick PO DIET RECOMMENDATIONS: Liberalized Regular diet w/ continued poor po intake/ texture per WIRELESS SALES REPRESENTATIVE (ENTERAL NUTRITION RECOMMENDATIONS: * Consult RD if non oral feedings are part of POC *) ADDITIONAL RECOMMENDATIONS: 1) Follow up w/ WC eval * Provide Eliseo TID w/ meals for wound healing * Provide Vit C 250mg qdaily 2) Maintain calibrated bedscale wt 2/2 underweight status 3) F/up w/ WIRELESS SALES REPRESENTATIVE eval 4) Add Glucerna 1 can TID w/ meals Add snacks in b/w meals ICD Codes: A41.9 - Sepsis, unspecified organism SNOMED: 38859803 Qualifiers: Qualified Codes: A41.9 - Sepsis, unspecified organism (2) Sacral pressure ulcer Assessment & Plan: Pt presented on admission with multiple pressure injuries. Non-blanching erythema clefts of R and L ears. Full thickness sacral pressure injury. Base of wound has 60% mixed slough and soft necrosis,40% granular. Borders are macerated with surrounding non- blanching erythema with additional scattered partial thickness wounds..No odor or exudate noted.(L)7cm x (W)6.5cm. Full thickness pressure injury base of scrotum with 75% slough,25% hunter and moist . Small amt non-odorous serous exudate noted. Non-blanching erythema periwound .(L)3cm x (W)4.5cm.Non-blanching erythema without induration noted to R ischial area. Full thickness pressure injury R elbow . Base of erythematous with 10% slough. Inferior to R elbow wound, second wound that is resolving with dry pink epithelial. Bilat heels are boggy with non-blanching erythema. Tx.Plan: Cleanse wounds scrotum and Sacrum with saline. Apply Therahoney. Apply Moisture Barrier periwound.Cover each wound with Optifoam Drsg. Daily and prn. Apply Moisture Barrier Paste to buttocks and both ischial areas with each incontinence care. Apply Cavilon Skin Barrier to both heels. Cover each heel with Optifoam drsg. Change every 7 days and prn. APM/GAETANO Mattress overlay. Reposition at least every 2hours or as tolerated. Off-load heels with pillow. ICD Codes: L89.159 - Pressure ulcer of sacral region, unspecified stage SNOMED: 278718999 (3) UTI (urinary tract infection) ICD Codes: N39.0 - Urinary tract infection, site not specified SNOMED: 12096290 Qualifiers: Qualified Codes: N39.0 - Urinary tract infection, site not specified (4) Respiratory failure, acute ICD Codes: J96.00 - Acute respiratory failure, unspecified whether with hypoxia or hypercapnia SNOMED: 26016340 Kyle Lomax Jun 21, 2019 17:57
[2019-06-21] MEDS: Dronabinol 2.5mg Cap ORAL SCH (17:58)
[2019-06-21] MEDS: Zinc Sulfate 220mg cap ORAL SCH (17:58)
--- NOTE | 2019-06-21 17:59 | NUR ---
NURSE NOTES: 1800 PO meds non-admin'd PT is NPO pending swallow eval tomorrow 06/22/19.
--- NOTE | 2019-06-21 19:26 | NUR ---
HAND-OFF: Report and PT given to MONSERRAT Stinson.
--- NOTE | 2019-06-21 19:27 | NUR ---
NURSE NOTES: Received patient from MONSERRAT Medina. Will continue plan of care.
[2019-06-21] MEDS ORDERED: Vancomycin 1gm/D5W 275ml IVPB SCH ×2 (20:00)
[2019-06-21] MEDS: Vancomycin 1 GM in D5W 275 ML IVPB SCH (20:11)
[2019-06-21] MEDS: Sennosides 8.6mg tab ORAL SCH (20:12)
--- NOTE | 2019-06-21 20:15 | NUR ---
NURSE NOTES: Vital signs are stable. Amiodarone decreased to 0.5mg/min for the next 18hours per MD orders. Pressure release mattressed applied and patient repositioned.
[2019-06-21] MEDS ORDERED: Metoprolol 5mg/5ml Inj IVP SCH (21:00)
[2019-06-21] MEDS ORDERED: Heparin 5000 units/ml inj SUBQ SCH ×2 (21:00)
[2019-06-21] MEDS ORDERED: Sennosides 8.6mg tab ORAL SCH (21:00)
--- NOTE | 2019-06-21 22:00 | NUR ---
NURSE NOTES: Patient is stable. IV sites are patent; amiodarone 0.5mg/min still running via left forearm. Bed locked, low and alarm is activated. Patient is comfortable.
--- NOTE | 2019-06-21 22:20 | NUR ---
NURSE NOTES: Informed Dr. Lewis that the troponin increased from 0.019 this morning to 0.022 this evening. Left message for any additional instructions or orders needed.
[2019-06-22] VITALS (46 sets, daily range): BP systolic 106–145; BP diastolic 53–90
--- NOTE | 2019-06-22 | NUR ---
NURSE NOTES: Patient is comfortable. Sponge bath given, turned and repositioned. Shows no signs of pain and/or distress. Will continue care.
--- NOTE | 2019-06-22 02:00 | NUR ---
NURSE NOTES: Patient is sleeping comfortably. No signs of pain or distress. Vital signs are stable. Bed low, locked and alarm activated. Will continue care.
[2019-06-22] MEDS: Meropenem 1 GM in NS 55 ML IVPB SCH ×3 (05:23→21:58)
[2019-06-22] MEDS: NovoLOG Insulin Flexpen SUBQ SCH ×4 (05:47→21:00)
--- NOTE | 2019-06-22 07:15 | NUR ---
NURSE NOTES: Report received from MONSERRAT Stinson
--- NOTE | 2019-06-22 07:30 | NUR ---
HAND-OFF: Report given to MONSERRAT Palafox.
[2019-06-22 07:52] LABS: ANION GAP 10 mmol/L (5-15); BLOOD UREA NITROGEN 18 mg/dL (7-18); CARBON DIOXIDE 25 MMOL/L (21-32); CHLORIDE 119 MMOL/L (98-107); CREATININE 0.6 MG/DL (0.55-1.30); POTASSIUM 3.6 MMOL/L (3.5-5.1); SODIUM 154 MMOL/L (136-145)
--- NOTE | 2019-06-22 08:10 | NUR ---
NURSE NOTES: Patient open eyes, unable to track or follow direction.V-paced on the monitor, noted with dry cough and congestion.will follow up with suction and breathing treatment.Mouth care done and suctioned done, tolerate well.On nasal canula at 3LPM and saturate at 96%.Pt turned and repositioned for comfort and skin management.RAC/20G patent running D5W + 40meq at 75 cc/hr and LFA /22 G running amiodarone at 0.5mg /hr.Abdomen soft and non distended and bowel sounds present in all 4 quadrants.Lungs sounds with crackles. Skin dry and warm,afebrile at this time.HOB elevated at 35 degree to prevent aspiration.Bed in low position, 3/4 side rails up for safety and repositioning. Call light within easy reach.Will continue to monitor. Received call from radiology regarding the VQ Scan.As per electronics repair technician Shagufta procedure will be postpone because pt is still on amiodarone drip and on nasal canula.Charge nurse made aware.
[2019-06-22] MEDS: Metoprolol 5mg/5ml Inj IVP SCH ×2 (08:11→21:50)
[2019-06-22] MEDS: Heparin 5000 units/ml inj SUBQ SCH ×2 (08:23→21:52)
--- NOTE | 2019-06-22 08:34 | NUR ---
NURSE NOTES: Pt turned and repositioned.Mouth care done.Seen by Dr Blanco, made aware of couh and continous moaning episode despite tylenol 650mg suppository given.Also made aware of no GI prophylaxis.New order received for morphine 2mg Q 6hrs as needed for severe pain, D/C eliquis and Protonix 40 MG IVP daily.Order noted and carried out.
[2019-06-22] MEDS ORDERED: Morphine Sulfate 2mg/ml Inj(IV/IM USE ONLY) IVP PRN (08:45)
--- NOTE | 2019-06-22 08:48 | General Progress Note ---
Assessment/Plan Assessment/Plan: 1. Asp Pneumonia - cont IV antibiotic. ID following. 2. UTI - cont above antibiotic for now. follow cultures. 3. Sepsis - cont above antibiotic. 4. Respiratory distress - improved. 5. Hypokalemia - improved. 6. Hypernatremia - on D5W. 7. Parkinson dx - cont home med. 8. Dysphagia with hx of multiple asp pneumonia - family refused G tube placement. Speech therapy eval. 9. BPH - cont home meds. 10. Ventricular Tachycardia - on IV drip of Amioderone - Cardiology following. will discussed with family his code status again. Subjective Date patient seen: Jun 22, 2019 Time patient seen: 08:15 Constitutional: Reports: weakness HEENT: Reports: no symptoms Cardiovascular: Reports: no symptoms Respiratory: Reports: cough Gastrointestinal/Abdominal: Reports: no symptoms Genitourinary: Reports: no symptoms Neurologic/Psychiatric: Reports: weakness, other Endocrine: Reports: no symptoms Hematologic/Lymphatic: Reports: no symptoms Allergies: Coded Allergies: No Known Allergies (Unverified , 06/20/19) Subjective Patient was transferred to ICU yesterday due to recurrent V tech. Patient is in ICU now. He is lethargic and his eyes closed. he is on Amioderone drip but he still had V tach. Objective Last 24 Hour Vital Signs Date Time Temp Pulse Resp B/P (MAP) Pulse Ox O2 Delivery O2 Flow Rate FiO2 06/22/19 08:11 60 127/61 06/22/19 07:15 100 Nasal Cannula 2.0 28 06/22/19 07:15 61 23 100 Nasal Cannula 2.0 28 06/22/19 07:00 60 25 130/57 (81) 100 06/22/19 06:00 60 21 123/61 (81) 100 06/22/19 05:30 60 24 106/64 (78) 100 06/22/19 05:00 62 23 136/55 (82) 100 06/22/19 04:30 60 22 123/55 (77) 100 06/22/19 04:00 98.5 61 26 121/59 (79) 100 06/22/19 04:00 Nasal Cannula 2.0 06/22/19 03:40 65 06/22/19 03:30 61 24 124/62 (82) 100 06/22/19 03:00 60 23 119/64 (82) 100 06/22/19 02:30 60 22 125/60 (81) 100 06/22/19 02:00 60 23 117/90 (99) 100 06/22/19 01:30 60 21 115/65 (82) 100 06/22/19 01:00 60 21 126/56 (79) 100 06/22/19 00:30 64 22 114/64 (81) 100 06/22/19 00:00 Nasal Cannula 2.0 06/22/19 00:00 97.9 62 25 112/75 (87) 100 06/21/19 23:49 62 06/21/19 23:30 63 23 118/62 (80) 100 06/21/19 23:00 65 25 133/62 (85) 97 06/21/19 22:00 65 25 126/74 (91) 97 06/21/19 21:30 64 26 128/65 (86) 100 06/21/19 21:00 65 24 126/73 (90) 99 06/21/19 20:30 69 24 137/62 (87) 100 06/21/19 20:11 69 137/62 06/21/19 20:00 Nasal Cannula 2.0 06/21/19 20:00 98.0 67 23 137/62 (87) 100 06/21/19 19:50 67 06/21/19 19:00 66 21 130/63 (85) 100 06/21/19 18:51 66 21 100 Nasal Cannula 2.0 28 06/21/19 18:50 100 Nasal Cannula 2.0 28 06/21/19 18:30 66 23 136/66 (89) 100 06/21/19 18:00 66 21 133/61 (85) 100 06/21/19 17:30 66 20 126/63 (84) 100 06/21/19 17:00 68 23 136/65 (88) 100 06/21/19 16:30 66 23 124/60 (81) 100 06/21/19 16:00 Nasal Cannula 2.0 06/21/19 16:00 98.5 71 25 134/62 (86) 100 06/21/19 16:00 68 06/21/19 15:30 72 20 131/83 (99) 100 06/21/19 15:00 73 25 136/73 (94) 97 06/21/19 14:49 87 131/75 06/21/19 14:30 87 25 131/75 (93) 99 06/21/19 14:00 81 26 136/62 (86) 98 06/21/19 13:30 87 24 144/75 (98) 100 06/21/19 13:00 87 23 146/76 (99) 99 06/21/19 12:30 86 28 134/86 (102) 100 06/21/19 12:00 87 06/21/19 12:00 84 21 129/68 (88) 100 06/21/19 11:45 Nasal Cannula 2.0 06/21/19 11:20 98.1 83 23 135/65 (88) 96 06/21/19 09:00 Room Air 2.0 06/21/19 09:00 83 123/73 06/21/19 09:00 83 123/73 Intake and Output 06/21/19 06/22/19 19:00 07:00 Intake Total 1490.401 ml 1463.64 ml Output Total 365 ml 700 ml Balance 1125.401 ml 763.64 ml Intake IV Total 1490.401 ml 1463.64 ml Output Urine Total 365 ml 700 ml # Bowel Movements 6 4 Laboratory Tests 06/21/19 12:33: Troponin I 0.019 06/21/19 20:30: Troponin I 0.022 06/22/19 04:30: Troponin I 0.022, Sodium Level 154H, Potassium Level 3.6, Chloride Level 119H, Carbon Dioxide Level 25, Anion Gap 10, Blood Urea Nitrogen 18, Creatinine 0.6, Estimat Glomerular Filtration Rate , Glucose Level 123H, Calcium Level 9.0, Thyroid Stimulating Hormone (TSH) 0.586, Free Thyroxine 1.38 Height (Feet): 5 Height (Inches): 5.00 Weight (Pounds): 135 General Appearance: lethargic EENT: normal ENT inspection Neck: non-tender, supple Cardiovascular: normal rate, no gallop/murmur Respiratory/Chest: crackles/rales, rhonchi - bilaterally Abdomen: non tender, soft Extremities: non-tender Edema: no edema noted Leg (L), no edema noted Leg (R) Neurologic: responsive Skin: warm/dry Aakash Blanco MD Jun 22, 2019 08:48
[2019-06-22] MEDS: Tamsulosin 0.4mg cap ORAL SCH (09:00)
[2019-06-22] MEDS: Zinc Sulfate 220mg cap ORAL SCH ×2 (09:00→17:16)
[2019-06-22] MEDS: Aspirin EC 81mg tab ORAL SCH (09:00)
[2019-06-22] MEDS: Dronabinol 2.5mg Cap ORAL SCH ×2 (09:00→17:14)
[2019-06-22] MEDS: Levodopa/Carbidopa 25/100 tab ORAL SCH ×3 (09:00→17:14)
[2019-06-22] MEDS: Vitamin D 1000 IU Tab ORAL SCH (09:00)
[2019-06-22] MEDS: Pantoprazole Inj IVP SCH (09:54)
--- NOTE | 2019-06-22 09:54 | NUR ---
SS note This Sw followed up with patient who is currently in the ICU. This SW also spoke with patients daughter, Jay Linton ([phone]) who explains patient was living with her and spouse, required 24 hour assistance from family. Patient was recently hospitalized due to pneumonia and has been in short term rehab at [facility]. Daughter expressed that she was wanting patient to eventually return home with family to assist, when able. Pending current progress at this time; daughter is in agreement with patient returning to return to [facility] for further short term rehab. Daughter explains patient does not have any mental health or substance abuse concerns. Patient does not have an Advance Directive, while requesting full code, full treatment at this time.
[2019-06-22] MEDS: Ipratropium 0.02% Inh Soln 2.5ml UD HHN PRN ×3 (10:06→18:47)
--- NOTE | 2019-06-22 10:30 | Cardiac Electrophysiology PN ---
Assessment/Plan Assessment/Plan 1. S/P 2 spontaneous noninfarctional VF arrest of more than 60 seconds documented on tele and Pacer interrogation. On iv Amiodarone. Awaiting family decision regarding cardiac cath and upgrading pacer to ICD after ID clearance Hypokalemia would not explain such major recurrent events. No IA and EF normal 2. S/P dual chamber [employer] pacer that was interrogated and showed Nl function and documented 2 episodes of sustained VF that self terminated 3. HTon Lopressor 5 iv bid. 4. Dysphagia, family has refused PEG 5. PNA on Abx per ID 6. Dementia DW RN and Dr Blanco Subjective Subjective Transferred to ICU on iv Amiodrip for 2 episodes of sustained VF that was documented on tele as well as pacer interrogation. No events overnight. Objective Last 24 Hour Vital Signs Date Time Temp Pulse Resp B/P (MAP) Pulse Ox O2 Delivery O2 Flow Rate FiO2 06/22/19 08:42 98.4 06/22/19 08:11 60 127/61 06/22/19 07:15 100 Nasal Cannula 2.0 28 06/22/19 07:15 61 23 100 Nasal Cannula 2.0 28 06/22/19 07:00 60 25 130/57 (81) 100 06/22/19 06:00 60 21 123/61 (81) 100 06/22/19 05:30 60 24 106/64 (78) 100 06/22/19 05:00 62 23 136/55 (82) 100 06/22/19 04:30 60 22 123/55 (77) 100 06/22/19 04:00 98.5 61 26 121/59 (79) 100 06/22/19 04:00 Nasal Cannula 2.0 06/22/19 03:40 65 06/22/19 03:30 61 24 124/62 (82) 100 06/22/19 03:00 60 23 119/64 (82) 100 06/22/19 02:30 60 22 125/60 (81) 100 06/22/19 02:00 60 23 117/90 (99) 100 06/22/19 01:30 60 21 115/65 (82) 100 06/22/19 01:00 60 21 126/56 (79) 100 06/22/19 00:30 64 22 114/64 (81) 100 06/22/19 00:00 Nasal Cannula 2.0 06/22/19 00:00 97.9 62 25 112/75 (87) 100 06/21/19 23:49 62 06/21/19 23:30 63 23 118/62 (80) 100 06/21/19 23:00 65 25 133/62 (85) 97 06/21/19 22:00 65 25 126/74 (91) 97 06/21/19 21:30 64 26 128/65 (86) 100 06/21/19 21:00 65 24 126/73 (90) 99 06/21/19 20:30 69 24 137/62 (87) 100 06/21/19 20:11 69 137/62 06/21/19 20:00 Nasal Cannula 2.0 06/21/19 20:00 98.0 67 23 137/62 (87) 100 06/21/19 19:50 67 06/21/19 19:00 66 21 130/63 (85) 100 06/21/19 18:51 66 21 100 Nasal Cannula 2.0 28 06/21/19 18:50 100 Nasal Cannula 2.0 28 06/21/19 18:30 66 23 136/66 (89) 100 06/21/19 18:00 66 21 133/61 (85) 100 06/21/19 17:30 66 20 126/63 (84) 100 06/21/19 17:00 68 23 136/65 (88) 100 06/21/19 16:30 66 23 124/60 (81) 100 06/21/19 16:00 Nasal Cannula 2.0 06/21/19 16:00 98.5 71 25 134/62 (86) 100 06/21/19 16:00 68 06/21/19 15:30 72 20 131/83 (99) 100 06/21/19 15:00 73 25 136/73 (94) 97 06/21/19 14:49 87 131/75 06/21/19 14:30 87 25 131/75 (93) 99 06/21/19 14:00 81 26 136/62 (86) 98 06/21/19 13:30 87 24 144/75 (98) 100 06/21/19 13:00 87 23 146/76 (99) 99 06/21/19 12:30 86 28 134/86 (102) 100 06/21/19 12:00 87 06/21/19 12:00 84 21 129/68 (88) 100 06/21/19 11:45 Nasal Cannula 2.0 06/21/19 11:20 98.1 83 23 135/65 (88) 96 Intake and Output 06/21/19 06/22/19 19:00 07:00 Intake Total 1490.401 ml 1463.64 ml Output Total 365 ml 700 ml Balance 1125.401 ml 763.64 ml Intake IV Total 1490.401 ml 1463.64 ml Output Urine Total 365 ml 700 ml # Bowel Movements 6 4 Laboratory Tests Test 06/21/19 12:33 06/21/19 20:30 06/22/19 04:30 Troponin I 0.019 ng/mL (0.000-0.056) 0.022 ng/mL (0.000-0.056) 0.022 ng/mL (0.000-0.056) Sodium Level 154 MMOL/L (136-145) H Potassium Level 3.6 MMOL/L (3.5-5.1) Chloride Level 119 MMOL/L (98-107) H Carbon Dioxide Level 25 MMOL/L (21-32) Anion Gap 10 mmol/L (5-15) Blood Urea Nitrogen 18 mg/dL (7-18) Creatinine 0.6 MG/DL (0.55-1.30) Estimat Glomerular Filtration Rate mL/min (>60) Glucose Level 123 MG/DL (74-106) H Calcium Level 9.0 MG/DL (8.5-10.1) Thyroid Stimulating Hormone (TSH) 0.586 uiU/mL (0.358-3.740) Free Thyroxine 1.38 NG/DL (0.76-1.46) Microbiology Date/Time Source Procedure Growth Status 06/20/19 13:25 Blood Blood Culture - Preliminary NO GROWTH AFTER 24 HOURS Resulted 06/20/19 13:25 Blood Blood Culture - Preliminary NO GROWTH AFTER 24 HOURS Resulted 06/20/19 15:15 Nasal Nares - Final Complete 06/20/19 15:15 Nasal Nares - Final Complete 06/20/19 18:19 Stool Stool Culture Pending Resulted 06/20/19 18:19 Stool Clostridium difficile Toxin Assay - Final Resulted 06/20/19 13:25 Urine,Clean Catch Urine Culture - Preliminary NO GROWTH AFTER 24 HOURS Resulted 06/20/19 14:27 Rectum Received Objective General Appearance: lethargic EENT: normal ENT inspection Neck: non-tender, supple Cardiovascular: normal rate, no gallop/murmur Respiratory/Chest: crackles/rales, rhonchi - bilaterally Abdomen: non tender, soft Extremities: non-tender Edema: no edema noted Leg (L), no edema noted Leg (R) Pablo Norton MD Jun 22, 2019 10:30
--- NOTE | 2019-06-22 10:35 | NUR ---
NURSE NOTES: Patient was suctioned with RT assistance. Noted with large amount thick secretion yellowish in color.Left message to Dr Payne regarding thick secretion to request something to loose the secretion.Awaiting new orders.Tolerate well the procedure.Pt turned and reposition for comfort,HOB elevated to prevent aspiration.Will continue to monitor.Call light within easy reach.Pt also seen by Dr Mario, will follow up with new orders.
--- NOTE | 2019-06-22 11:54 | Consultation ---
DATE OF CONSULTATION: 06/20/2019 INFECTIOUS DISEASE CONSULTATION CONSULTING PHYSICIAN: Arcadio Mcnair M.D. REQUESTING PHYSICIAN: Aakash Blanco M.D. REASON FOR CONSULTATION: Bilateral pneumonia with fever, hypoxemia, UTI, sepsis, recommendation for antimicrobial treatment. HISTORY OF PRESENT ILLNESS: The patient is an 83-year-old male with past medical history of hypertension, pacemaker placement, dementia, sacral pressure wound, who was brought in to [facility] emergency room from his custodial facility via EMS for difficulty breathing, cough, and shortness of breath. The patient's O2 saturation was low on the scene. He was placed on breathable mask and was brought into the ER for further evaluation. The patient has been treated with IV vancomycin and Zosyn recently at the custodial [facility] by his primary provider. In the emergency room, the patient was febrile with temperature of 101.1 and hypotensive, which was concerning for sepsis. So, blood culture and urine culture were obtained and he was given Zosyn with Zithromax and one dose of vancomycin in the emergency room and was admitted to the hospital for further evaluation and management. As of note, the patient is nonverbal, altered, cannot provide any history. History was mainly obtained from medical record and nursing staff. REVIEW OF SYSTEMS: Unable to obtain. The patient is a poor historian, cannot provide any information at this point. PAST MEDICAL HISTORY: Significant for hypertension, cardiac pacemaker placement, sacral pressure wound. PAST SURGICAL HISTORY: He had a pacemaker placed. SOCIAL HISTORY: The patient lives at the custodial facility. No recent drugs, tobacco, or alcohol. FAMILY HISTORY: Noncontributory. ALLERGIES: No known drug allergy. MEDICATIONS: The patient received vancomycin, Zosyn, and azithromycin in the ER. For the rest of his medications, please refer to MAR. LABORATORY AND DIAGNOSTIC DATA: Labs showed white count of 6.6, hemoglobin of 11.9, and platelet count of 212,000. BUN of 27, creatinine of 0.7. AST of 11, ALT of 15. Urinalysis showed +3 leukocyte esterase, wbc's 15 to 20, and moderate amount of bacteria with moderate amount of yeast in the urine. MICROBIOLOGY: Nasal swab for influenza A and B were both negative. The rest of his culture is pending. IMAGING: Chest x-ray showed bibasilar airspace opacity, represent atelectasis, but pneumonia should be excluded, small left pleural effusion, scattered rounded densities which may represent calcified granulomata. Compassion with prior imaging or evaluation with chest CT is recommended. PHYSICAL EXAMINATION: VITAL SIGNS: Temperature 101.1, pulse 60, respirations 20, blood pressure 108/59, pulse oximetry 98% on 2 L nasal cannula. GENERAL: Elderly male, lying in bed, in mild distress. Nonverbal. Does not follow commands. Afebrile. HEENT: Normocephalic, atraumatic. Unable to assess pupils. The patient does not follow command. Dry oral mucosa. Unable to assess oral cavities. NECK: Supple. No lymphadenopathy. Midline trach. CARDIOVASCULAR: Regular rate and rhythm. No murmur or gallop. LUNGS: He had diminished breathing sounds at the bases with crackles. ABDOMEN: Soft, nontender, and nondistended. Normal bowel sounds. No hepatosplenomegaly or ascites. EXTREMITIES: No edema. No cyanosis. SKIN: He had sacral pressure wound with necrosis. Good granulated tissue at the base. No significant drainage or foul smell. Right elbow pressure wound with inflammation of the skin and mild drainage. ASSESSMENT AND RECOMMENDATION: 1. Bilateral basal pneumonia, suspect aspiration with fever and hypoxemia. We will start the patient on meropenem and vancomycin empiric coverage. Send sputum culture. Recommend aspiration precaution, keep head of bed more than 30-degree all the time, monitor chest x-ray. 2. Urinary tract infection. The patient will be already on meropenem pending urine culture. We will need to change Wilkes catheter if not done yet in the ER. 3. Sepsis due to the above. Continue wide-spectrum antibiotics with vancomycin and meropenem pending culture results. 4. Hypoxemia due to the above. Continue oxygen supply and wide-spectrum antibiotics. 5. Acute respiratory failure due to the above. Continue oxygen treatment nebulizer treatment. Pulmonary evaluation as needed. Thank you for the consult. ID will continue to follow. Arcadio Mcnair M.D. DR: DAMIEN JOB#: [id number] CC:
--- NOTE | 2019-06-22 11:54 | History and Physical Report ---
DATE OF ADMISSION: 06/20/2019 CHIEF COMPLAINT: Shortness of breath and respiratory distress. HISTORY OF PRESENT ILLNESS: This is an 83-year-old male who was brought in by EMS from [facility]. The patient was having shortness of breath and hypoxia with O2 saturation about 80 to 89%. The patient was started on O2 and he was also started on intravenous antibiotic, Zosyn and vancomycin in the past two days for diagnosis of aspiration pneumonia. However, the patient did not respond well and was brought in for evaluation in the hospital. He has a history of Parkinson disease and aphasic and nonverbal. The patient has a history of multiple aspiration pneumonia in the past few months. He was noted to be admitted to the [facility] for multiple admissions. He also had fever in the past few days as well. PAST MEDICAL HISTORY: Includes history of Parkinson disease, hypertension, BPH, history of dementia, failure to thrive and dysphagia with history of multiple aspiration pneumonia recently. PAST SURGICAL HISTORY: History of pacemaker replacement. SOCIAL HISTORY: No smoking alcohol or drug use. FAMILY HISTORY: Noncontributory. ALLERGIES: No known drug allergy. CURRENT MEDICATIONS: Please review the home medications from the chart. REVIEW OF SYSTEMS: Negative except for history of present illness. PHYSICAL EXAMINATION: VITAL SIGNS: Temperature of 100.0, pulse 113, respiration 24, blood pressure 107/68, and pulse oximetry 99% non-breather mask. GENERAL APPEARANCE: He is alert, not in distress at this point. HEENT: Normocephalic and normochromic. Extraocular muscles intact. Throat is clear. NECK: Supple. No lymphadenopathy. RESPIRATIONS: No respiratory distress. Positive crackles bilaterally. No rhonchi or rales. CARDIOVASCULAR: Regular rate and rhythm. No murmur. No gallop. ABDOMEN: Soft, nontender, and nondistended. Positive bowel sounds. EXTREMITY: No edema, cyanosis, or clubbing. GENITOURINARY: No CVA tenderness. NEUROLOGIC: The patient does not respond to commands and nonverbal. LABORATORY AND DIAGNOSTIC DATA: WBC 6.6, hemoglobin 11.9, hematocrit 36.6, and platelet count is 212,000. Sodium 158, potassium 2.9, chloride 118, carbon dioxide 26, BUN 33, creatinine 0.8, and glucose 147. Lactic acid is 3.6. Calcium is 10. AST 14, ALT 17, and alkaline phosphatase 70. Creatine kinase is 17. Troponin is 0.018. Albumin 2.5. Urine showed positive nitrite, +3 leukocyte esterase, urine RBCs 10 to 15, WBCs 15 to 20, squamous epithelial cells moderate, urine bacteria moderate, urine yeast moderate. Imaging showed chest x-ray, bibasilar airspace opacities which may represent atelectasis or pneumonia, left smale pleural effusion and a round density, which may represent calcified granuloma. IMPRESSION: 1. Sepsis. We will start on intravenous broad-spectrum intravenous antibiotic and we will have ID evaluate and see the patient as well for consultation. 2. Respiratory distress. Continue O2 and breathing treatments and we will have pulmonary evaluate the patient in the morning. Aspiration pneumonia. Again, we will continue intravenous antibiotic and have ID see the patient. 3. Hypernatremia. We will start the patient on D5W and recheck BMP in the morning. 4. Hypokalemia. We will replace the potassium. Recheck the potassium again. 5. Parkinson disease. We will restart home O2. 6. Urinary tract infection. Again, we will continue the intravenous antibiotic and follow the cultures. 7. History of BPH. We will continue home medications. 8. Hypertension. We will continue home medications. The patient will be admitted for minimum of 2 nights stay. I will be following the patient in the morning. The patient will be admitted for diagnosis of sepsis, urinary tract infection, and aspiration pneumonia. Aakash Blanco M.D. DR: JULITA JOB#: [id number] CC: ARCHIE
--- NOTE | 2019-06-22 11:54 | Consultation ---
DATE OF CONSULTATION: 06/21/2019 CARDIAC ELECTROPHYSIOLOGY CONSULTATION CONSULTING PHYSICIAN: Pablo Norton M.D. REFERRING PHYSICIAN: Aakash Blanco M.D. REASON FOR CONSULTATION: Sustained ventricular fibrillation. HISTORY OF PRESENT ILLNESS: The patient is an 83-year-old [place] gentleman with history of hypertension, history of [employer] pacemaker that was implanted in July of 2016 by . The patient was brought in from custodial facility for difficulty breathing, cough, shortness of breath. The patient nonverbal at bedtime. The patient however was admitted for pneumonia, hypoxia, and sepsis. The patient was started on IV antibiotics per Dr. Mcnair. At 3 o'clock in the morning today, the patient had episode of sustained ventricular fibrillation that lasted for 68 seconds. Rapid response was called, but episodes self-terminated. Cardiac electrophysiology consultation was requested today for followup and management. REVIEW OF SYSTEMS: Cannot be obtained as the patient is nonverbal. PAST MEDICAL HISTORY: As mentioned above. FAMILY HISTORY: Noncontributory. SOCIAL HISTORY: long term resident. PHYSICAL EXAMINATION: VITAL SIGNS: Blood pressure 122/73, pulse 83, respirations 18, and temperature was 99.5 on admission, currently 98.1. HEAD AND NECK: Showed no JVD. LUNGS: Decreased breath sounds. CARDIOVASCULAR: Regular S1 and S2 with no gallop. Pacemaker in the left subclavian. ABDOMEN: Soft. EXTREMITIES: No pitting edema. LABORATORY AND DIAGNOSTIC DATA: His EKG showed atrial and ventricular paced rhythm. His telemetry strip from June 21, 2019 at 3:14 a.m. showed baseline paced rhythm and then PVCs 65 seconds. Labs show white count of 6, hemoglobin 10, hematocrit 31, and platelet count is 156. Sodium 158, potassium is 2.8, BUN of 27, creatinine 0.7, and glucose of 115. Troponin is negative. BNP 1865. His preliminary echocardiogram showed ejection fraction of 60%. ASSESSMENT AND PLAN: 1. An episode of aborted sustained ventricular fibrillation for 68 seconds. The patient will be ruled out for myocardial infarction. His potassium was 2.8 and was replaced. The patient is also hypernatremic. We will transfer the patient to ICU, start the patient on amiodarone, and correct electrolyte abnormality. We will discontinue amlodipine and maximize the patient's beta-kateryna at this time and avoid any QT prolonging agents. The patient may need cardiac catheterization to make sure it is not ischemia related and may need upgrade of pacemaker to a defibrillator. 2. Hypertension. Again, discontinue amlodipine or maximize beta-kateryna at this point. I will discontinue amlodipine. 3. Status post [employer] pacemaker will be interrogated for further evaluation. 4. Aspiration pneumonia, on antibiotic per Dr. Mcnair. 5. Severe hypokalemia, will be replaced. 6. Dysphagia with multiple aspiration pneumonia. 7. G-tube placement. Thank you very much for allowing me to participate in the care of this patient. Please do not hesitate to contact me for any questions regarding my evaluation. Sincerely, Pablo Norton M.D. DR: Alice JOB#: [id number] CC:
--- NOTE | 2019-06-22 12:26 | NUR ---
NURSE NOTES: Family visited and update given.Preferred to have a swallow evaluation and still do not want any GT placement.Turned and repositioned, mouth care done. HOB elevated to prevent aspiration.Pt remains NPO, STAT swallow evaluation order placed, unable to reac Konni [address] or live message due to full voice mail.left message to Martha still waiting call back.Will continue with same care plan.
--- NOTE | 2019-06-22 12:35 | NUR ---
NURSE NOTES: Order received from Dr Payne for Mucomyst 10% TID,order noted and carried out
[2019-06-22] MEDS ORDERED: Amiodarone 900 MG in D5W 500ml 482 ML IV SCH (14:00)
--- NOTE | 2019-06-22 14:04 | NUR ---
NURSE NOTES: No significant change of condition at this time.Turned and repositioned.HOB elevated to prevent aspiration.Will continue to monitor
--- NOTE | 2019-06-22 14:45 | NUR ---
NURSE NOTES: Seen by Dr Payne made aware VQ scan will not be done per [employer] tech because pt still on amiodorone drip. As stated by Dr payne ok to do the VQ scan when pt off amiodorone drip
--- NOTE | 2019-06-22 15:13 | NUR ---
NURSE NOTES: Message left to Nuclear tech( Shagufta)- that MD aware VQ Scan cannot be done if patient is on continous medication drip- with order OK to do VQ Scan as soon as patient off Amiodarone drip
--- NOTE | 2019-06-22 16:13 | NUR ---
NURSE NOTES: Patient turned and repositioned for skin management.Dressing chaged. HOB elevated to prevent aspiration.Will continue to monitor
--- NOTE | 2019-06-22 16:26 | Surgery Progress Note ---
Surgery Progress Note Subjective Additional Comments afebrile HD stable hyperNa labs noted exam stable on air mattress in ICU daughter at bedside discussed care and plan Objective Last 24 Hour Vital Signs Date Time Temp Pulse Resp B/P (MAP) Pulse Ox O2 Delivery O2 Flow Rate FiO2 06/22/19 15:30 60 20 133/62 (85) 100 06/22/19 15:00 64 18 133/62 (85) 100 06/22/19 14:30 60 23 129/69 (89) 100 06/22/19 14:00 60 17 143/61 (88) 100 06/22/19 13:30 60 20 141/58 (85) 100 06/22/19 13:12 60 21 100 Nasal Cannula 2.0 28 60 25 100 06/22/19 13:00 60 25 128/72 (90) 100 06/22/19 12:30 60 24 121/61 (81) 100 06/22/19 12:00 60 06/22/19 12:00 98.0 60 28 126/53 (77) 98 06/22/19 11:30 60 30 113/65 (81) 97 06/22/19 11:00 60 19 113/63 (80) 96 06/22/19 10:30 59 29 123/62 (82) 95 06/22/19 10:16 61 27 100 Nasal Cannula 2.0 28 60 29 100 06/22/19 10:00 60 31 122/63 (82) 98 06/22/19 09:30 60 24 110/56 (74) 100 06/22/19 09:00 60 20 117/57 (77) 95 06/22/19 08:42 98.4 06/22/19 08:30 62 26 121/60 (80) 92 06/22/19 08:11 60 127/61 06/22/19 08:00 60 06/22/19 08:00 60 22 127/61 (83) 100 06/22/19 07:30 98.4 61 26 130/64 (86) 100 06/22/19 07:15 100 Nasal Cannula 2.0 28 06/22/19 07:15 61 23 100 Nasal Cannula 2.0 28 06/22/19 07:00 60 25 130/57 (81) 100 06/22/19 06:00 60 21 123/61 (81) 100 06/22/19 05:30 60 24 106/64 (78) 100 06/22/19 05:00 62 23 136/55 (82) 100 06/22/19 04:30 60 22 123/55 (77) 100 06/22/19 04:00 98.5 61 26 121/59 (79) 100 06/22/19 04:00 Nasal Cannula 2.0 06/22/19 03:40 65 06/22/19 03:30 61 24 124/62 (82) 100 06/22/19 03:00 60 23 119/64 (82) 100 06/22/19 02:30 60 22 125/60 (81) 100 06/22/19 02:00 60 23 117/90 (99) 100 06/22/19 01:30 60 21 115/65 (82) 100 06/22/19 01:00 60 21 126/56 (79) 100 06/22/19 00:30 64 22 114/64 (81) 100 06/22/19 00:00 Nasal Cannula 2.0 06/22/19 00:00 97.9 62 25 112/75 (87) 100 06/21/19 23:49 62 06/21/19 23:30 63 23 118/62 (80) 100 06/21/19 23:00 65 25 133/62 (85) 97 06/21/19 22:00 65 25 126/74 (91) 97 06/21/19 21:30 64 26 128/65 (86) 100 06/21/19 21:00 65 24 126/73 (90) 99 06/21/19 20:30 69 24 137/62 (87) 100 06/21/19 20:11 69 137/62 06/21/19 20:00 Nasal Cannula 2.0 06/21/19 20:00 98.0 67 23 137/62 (87) 100 06/21/19 19:50 67 06/21/19 19:00 66 21 130/63 (85) 100 06/21/19 18:51 66 21 100 Nasal Cannula 2.0 28 06/21/19 18:50 100 Nasal Cannula 2.0 28 06/21/19 18:30 66 23 136/66 (89) 100 06/21/19 18:00 66 21 133/61 (85) 100 06/21/19 17:30 66 20 126/63 (84) 100 06/21/19 17:00 68 23 136/65 (88) 100 06/21/19 16:30 66 23 124/60 (81) 100 I&O Intake and Output 06/21/19 06/22/19 19:00 07:00 Intake Total 1490.401 ml 1463.64 ml Output Total 365 ml 700 ml Balance 1125.401 ml 763.64 ml Intake IV Total 1490.401 ml 1463.64 ml Output Urine Total 365 ml 700 ml # Bowel Movements 6 4 Dressing: dry Wound: clean Cardiovascular: RSR Respiratory: clear Abdomen: soft, non-tender, present bowel sounds Extremities: no cyanosis, other Laboratory Tests Test 06/21/19 20:30 06/22/19 04:30 Troponin I 0.022 ng/mL (0.000-0.056) 0.022 ng/mL (0.000-0.056) Sodium Level 154 MMOL/L (136-145) H Potassium Level 3.6 MMOL/L (3.5-5.1) Chloride Level 119 MMOL/L (98-107) H Carbon Dioxide Level 25 MMOL/L (21-32) Anion Gap 10 mmol/L (5-15) Blood Urea Nitrogen 18 mg/dL (7-18) Creatinine 0.6 MG/DL (0.55-1.30) Estimat Glomerular Filtration Rate mL/min (>60) Glucose Level 123 MG/DL (74-106) H Calcium Level 9.0 MG/DL (8.5-10.1) Thyroid Stimulating Hormone (TSH) 0.586 uiU/mL (0.358-3.740) Free Thyroxine 1.38 NG/DL (0.76-1.46) Plan Problems: (1) Sepsis Assessment & Plan: cont iv abx as per ID eval rx as written AM labs ICU care DAILY ESTIMATED NEEDS: Needs based on Underweight, sepsis; 61.4kg 30-35 kcals/kg 1842- 2149 total kcals 1.25-2 g protein/kg 77- 123 g total protein 25-30 mL/kg 1535- 1842 total fluid mLs NUTRITION DIAGNOSIS: Increased kcal and pro needs r/t wound healing and underweight status AEB pt w/ open sacral wound (eval is pending), generalized moderate wasting, @81% of [place] Body Weight. CURRENT DIET:CCHO Med, Pureed moist, nectar-thick PO DIET RECOMMENDATIONS: Liberalized Regular diet w/ continued poor po intake/ texture per CONDUCTOR PULLMAN (ENTERAL NUTRITION RECOMMENDATIONS: * Consult RD if non oral feedings are part of POC *) ADDITIONAL RECOMMENDATIONS: 1) Follow up w/ WC eval * Provide Eliseo TID w/ meals for wound healing * Provide Vit C 250mg qdaily 2) Maintain calibrated bedscale wt 2/2 underweight status 3) F/up w/ CONDUCTOR PULLMAN eval 4) Add Glucerna 1 can TID w/ meals Add snacks in b/w meals (2) Sacral pressure ulcer Assessment & Plan: Pt presented on admission with multiple pressure injuries. Non-blanching erythema clefts of R and L ears. Full thickness sacral pressure injury. Base of wound has 60% mixed slough and soft necrosis,40% granular. Borders are macerated with surrounding non- blanching erythema with additional scattered partial thickness wounds..No odor or exudate noted.(L)7cm x (W)6.5cm. Full thickness pressure injury base of scrotum with 75% slough,25% hunter and moist . Small amt non-odorous serous exudate noted. Non-blanching erythema periwound .(L)3cm x (W)4.5cm.Non-blanching erythema without induration noted to R ischial area. Full thickness pressure injury R elbow . Base of erythematous with 10% slough. Inferior to R elbow wound, second wound that is resolving with dry pink epithelial. Bilat heels are boggy with non-blanching erythema. Tx.Plan: Cleanse wounds scrotum and Sacrum with saline. Apply Therahoney. Apply Moisture Barrier periwound.Cover each wound with Optifoam Drsg. Daily and prn. Apply Moisture Barrier Paste to buttocks and both ischial areas with each incontinence care. Apply Cavilon Skin Barrier to both heels. Cover each heel with Optifoam drsg. Change every 7 days and prn. APM/GAETANO Mattress overlay. Reposition at least every 2hours or as tolerated. Off-load heels with pillow. (3) UTI (urinary tract infection) (4) Respiratory failure, acute Kyle Lomax Jun 22, 2019 16:26
--- NOTE | 2019-06-22 17:16 | NUR ---
SPEECH PATHOLOGY: PATIENT CLEARED FOR ST INTERVENTION BY MONSERRAT GANN DYSPHAGIA RISK FACTORS FOR THIS 83 Y.O. MALE: HX OF RECURRING ASPIRATION PNEUMONIA, DECREASED MENTATION/NON-VERBAL, PROGRESSIVE NEUROGENIC DECLINE (PARKINSONS), VITAL SIGN CHANGES DURING P.O. TRIALS: PATIENT UNABLE TO COORDINATE SWALLOWING/BREATHING, UNABLE TO SUSTAIN ALERTNESS, PIECEMEAL DEGLUTITION, DELAY IN INITIATION OF PHARYNGEAL PHASE OF SWALLOW. INITIAL IMPRESSION: PATIENT POSITIONED UPRIGHT FOR P.O. TRIALS. HE WAS UNABLE TO SUSTAIN ALERTNESS, OPENING HIS EYES FLEETINGLY. WHEN PRESENTED WITH ONE ICE CHIP HE IMMEDIATELY BEGAN CHEWING ICE CHIP WITH PHASIC CHEWING PATTERN, ICE CHIP MELTED, PATIENT BEGAN REPETITIVE PIECEMEAL DEGLUTTION ATTEMPTING TO SWALLOW THE SMALL AMOUNT OF LIQUID, AFTER A DELAY OF 7 SECONDS THE PHARYNGEAL PHASE OF SWALLOW WAS TRIGGERED. NO COUGH. HIGH RISK FOR SILENT ASPIRATION. PER RN, PATIENT UNABLE TO MANAGE HIS SECRETIONS WHICH ARE THICK AND REQUIRE SUCTIONING TO CLEAR. RECOMMENDATIONS: 1. CONSIDER NON/ORAL FEEDING MANAGEMENT TO SUPPORT NUTRITION/HYDRATION/MEDICATION NEEDS. 2. NO FURTHER SKILLED ST SERVICES APPEAR TO BE NEEDED AT THIS TIME. THANK YOU FOR THIS REFERRAL.
--- NOTE | 2019-06-22 17:16 | NUR ---
NURSE NOTES: Pt failed swallow eval, left message to Dr Ring on result.Also let message to Dr Ring if ok to insert NGT and give medication trough NGT .Awaiting call back
--- NOTE | 2019-06-22 18:05 | NUR ---
NURSE NOTES: Adls done, pt suctioned and mouth care done.Turned and repositioned.HOB elevated to prevent aspiration.Will continue to monitor.Spoke with daughter and update given on V Qscan and CT chest also stated it was ok to continue with the Namenda provided by the pharmacy.Previously family want pt own medication at admission to be used.[facility] pharmacist made aware and as stated by Mahi follow up with Dr Norton.Message left to Dr Norton, awaiting new order.
--- NOTE | 2019-06-22 18:43 | NUR ---
NURSE NOTES: Per Dr Norton he did not order the Namenda.[facility] pharmacyst made aware and as stated follow up with primary Dr Blanco. Message left to Dr Blanco, will endorse to next nurse for follow up
--- NOTE | 2019-06-22 18:51 | NUR ---
NURSE NOTES: Call received from Dr Blanco with amna to give Namenda IR 10 mg BID. Unable to reach pharmacist.Will endorse next shift to follow up Addendum: 06/22/19 at 1857 by Vivienne Croft RN Per amna Elias to insert NGT , give medication trough NGT and possible start feeding tomorrow
--- NOTE | 2019-06-22 19:00 | Consultation ---
DATE OF CONSULTATION: 06/22/2019 CONSULTING PHYSICIAN: Mahad Ring M.D. CHIEF COMPLAINT: Dysphagia. HISTORY OF PRESENT ILLNESS: Most of the history per chart. The patient is seen in ICU. The patient is an 83-year-old prison patient who was brought to the hospital with shortness of breath and pneumonia. The patient is not eating well and is malnourished. Had multiple wounds. GI consult requested for possible PEG placement. PAST MEDICAL HISTORY: 1. Pneumonia. 2. Hypertension. 3. Parkinson disease. 4. Pacemaker placement. ALLERGIES: No known drug allergies. MEDICATIONS: Please see medication reconciliation list. SOCIAL HISTORY: Currently lives in a prison. No history of tobacco, alcohol, or drug abuse. FAMILY HISTORY: Noncontributory. PAST SURGICAL HISTORY: Pacemaker placement. REVIEW OF SYSTEMS: Limited. PHYSICAL EXAMINATION: VITAL SIGNS: Temperature is afebrile, pulse 61, respirations 20, blood pressure 127/61. HEENT: Normocephalic and atraumatic. Sclerae anicteric. NECK: Supple. No evidence of obvious lymphadenopathy. CARDIOVASCULAR: Regular rate and rhythm. Plus S1 and S2. LUNGS: Decreased breath sounds bilaterally based on the supine exam. ABDOMEN: Soft, nontender. No rebound. No guarding. No peritoneal sign. EXTREMITIES: No cyanosis. No clubbing. No edema. LABORATORY DATA: White count is 6, hemoglobin 10, hematocrit 31, platelets of 156. Chem-7 sodium 144, potassium 3.4, BUN is 18, creatinine 0.6. ASSESSMENT AND PLAN: This is an 83-year-old male with possible recurrent pneumonia, respiratory distress, dysphagia, anemia. PLAN: Anemia workup. We are going to order a swallow evaluation on him. He is most probably going to fail and if that fails, we are going to talk to the family regarding NG tube placement over the weekend and possibly doing a PEG on Tuesday if family agrees. Meanwhile, continue monitoring labs, IV hydration, antibiotics per ID, and supportive care. I want to thank, Dr. Blanco, for this kind referral. Mahad Ring M.D. DR: THOMAS JOB#: [id number] CC: Aakash Blanco M.D.; Fax#: [phone]
--- NOTE | 2019-06-22 19:15 | NUR ---
HAND-OFF: Report given to MONSERRAT Nevarez.NGT inserted endorsed to f/u with KUB to confirm placement and pharmacy for Namenda IR 10mg per Dr Blanco.Also endorsed the follow up for CT chest and VQ scan
--- NOTE | 2019-06-22 19:30 | NUR ---
NURSE NOTES: Patient in bed awake,non-verbal. On 3 liters oxygen via N/C satting 100%.No s/s of acute distress noted. No moaning no facial grimaces. HOB elevated. Oral care provided. Wilkes draining. tuned and repositioned. On P200 for wound management. no s/s of hypo/hyperglycemia. Bed alarm on. bed locked and in low position. V-paced on campus monitor HR 60.Frequent visual checks continued. will continue plan of care.
--- NOTE | 2019-06-22 19:53 | Pulmonology Progress Note ---
Assessment/Plan Assessment/Plan Pulmonary Progress Note HPI 83-year-old male [facility] with Urinary Tract Infection, Bibasal Pneumonia, Sepsis/Dehydration responsive to IVF and AB, Hypernatremia, Hypokalemia - family have previously refused feeding tube insertion, oxygen requirement have gradually improved during admission, remains on antibiotics per Infectious Disease, Cardiology following. Patient is nonverbal at baseline. Patient has been treated recently with antibiotics for pneumonia but symptoms worsening. febrile in triage. No reported chest pain. No other aggravating relieving factors. No other associated symptoms ABG reveals increased A-a gradient, Alkalosis Allergies: Coded Allergies: No Known Allergies Past Medical History: Previous Pneumonia, Hypertension, Parkinsons Disease, Pacemaker Past Surgical History: pacemaker All Other Systems: limited Physical Exam Vital Signs Noted, O2 sats stable on NC O2 2L/min General Appearance: no apparent distress, alert, GCS 15, chronically ill appearing, non-toxic Head: normocephalic atraumatic Eyes: bilateral eye normal inspection, bilateral eye PERRL ENT: moist mm Neck: normal inspection, no LN Respiratory: no respiratory distress, reduced basal BS Cardiovascular: regular rate, rhythm, HS1, HS2 normal, no edema Gastrointestinal: normal bowel sounds, non tender, soft, non-distended, no guarding, no rebound Musculoskeletal: normal inspection, weak Neurologic: nonverbal, no focal signs noted Impression: Bibasal Pneumonia Previous dysphagia Hypoxia, alkalosis Urinary tract infection Sepsis Dehydration Hypernatremia/hypokalemia Previous Pacemaker 4 years ago Run of Ventricular Tachycardia - Cardiology following H/o Hypertension Parkinsons Disease Old granulomatous changes on CXR Full code Plan Antibiotics per ID IVF Correct electrolyte imbalances Aspiration precautions Speech therapy evaluation of swallow R/O DVT/PE - LE dupplex/VQ scan PPX Monitor labs Atrovent HHN/CPT Q4 O2 PRN Follow cultures CT chest to evaluate nodules - non contrast D/w RN Labs noted Test 06/20/19 13:25 06/20/19 14:31 06/20/19 14:34 White Blood Count 6.6 K/UL (4.8-10.8) Red Blood Count 4.18 M/UL (4.70-6.10) Hemoglobin 11.9 G/DL (14.2-18.0) Hematocrit 36.6 % (42.0-52.0) Mean Corpuscular Volume 88 FL (80-99) Mean Corpuscular Hemoglobin 28.5 PG (27.0-31.0) Mean Corpuscular Hemoglobin Concent 32.4 G/DL (32.0-36.0) Red Cell Distribution Width 15.2 % (11.6-14.8) Platelet Count 212 K/UL (150-450) Mean Platelet Volume 5.9 FL (6.5-10.1) Neutrophils (%) (Auto) 71.7 % (45.0-75.0) Lymphocytes (%) (Auto) 19.6 % (20.0-45.0) Monocytes (%) (Auto) 8.2 % (1.0-10.0) Eosinophils (%) (Auto) 0.0 % (0.0-3.0) Basophils (%) (Auto) 0.5 % (0.0-2.0) Urine Color Yellow Urine Appearance Slightly cloudy Urine pH 5 (4.5-8.0) Urine Specific [place] 1.015 (1.005-1.035) Urine Protein 4+ (NEGATIVE) Urine Glucose (UA) Negative (NEGATIVE) Urine Ketones 1+ (NEGATIVE) Urine Blood 5+ (NEGATIVE) Urine Nitrite Positive (NEGATIVE) Urine Bilirubin Negative (NEGATIVE) Urine Urobilinogen Normal MG/DL (0.0-1.0) Urine Leukocyte Esterase 3+ (NEGATIVE) Urine RBC 10-15 /HPF (0 - 0) Urine WBC 15-20 /HPF (0 - 0) Urine Squamous Epithelial Cells Moderate /LPF (NONE/OCC) Urine Amorphous Sediment Moderate /LPF (NONE) Urine Bacteria Moderate /HPF (NONE) Urine Yeast Moderate /HPF (NONE) Sodium Level 158 MMOL/L (136-145) Potassium Level 2.9 MMOL/L (3.5-5.1) Chloride Level 118 MMOL/L (98-107) Carbon Dioxide Level 26 MMOL/L (21-32) Anion Gap 14 mmol/L (5-15) Blood Urea Nitrogen 33 mg/dL (7-18) Creatinine 0.8 MG/DL (0.55-1.30) Estimat Glomerular Filtration Rate mL/min (>60) Glucose Level 147 MG/DL (74-106) Lactic Acid Level 3.60 mmol/L (0.4-2.0) 3.30 mmol/L (0.66-2.22) Calcium Level 10.0 MG/DL (8.5-10.1) Total Bilirubin 0.6 MG/DL (0.2-1.0) Aspartate Amino Transf (AST/SGOT) 14 U/L (15-37) Alanine Aminotransferase (ALT/SGPT) 17 U/L (12-78) Alkaline Phosphatase 73 U/L (46-116) Total Creatine Kinase 17 U/L (26-308) Troponin I 0.018 ng/mL (0.000-0.056) Total Protein 7.1 G/DL (6.4-8.2) Albumin 2.5 G/DL (3.4-5.0) Globulin 4.6 g/dL Albumin/Globulin Ratio 0.5 (1.0-2.7) Arterial Blood pH 7.508 (7.350-7.450) Arterial Blood Partial Pressure CO2 29.3 mmHg (35.0-45.0) Arterial Blood Partial Pressure O2 69.7 mmHg (75.0-100.0) Arterial Blood HCO3 22.8 mmol/L (22.0-26.0) Arterial Blood Oxygen Saturation 93.9 % (95-100) Arterial Blood Base Excess 0.5 (-2-2) Clemente Test Positive EKG: Rate: normal Rhythm: ventricular paced ST Segments: no acute changes Chest X-Ray: 1. Bibasilar airspace opacities which likely represent atelectasis but pneumonia should be excluded clinically. 2. Likely small left pleural effusion. 3. Scattered rounded densities which may represent calcified granulomata; however, comparison with prior imaging or evaluation with chest CT is recommended to exclude pulmonary nodules. Subjective ROS Limited/Unobtainable: No Allergies: Coded Allergies: No Known Allergies (Unverified , 06/20/19) Objective Last 24 Hour Vital Signs Date Time Temp Pulse Resp B/P (MAP) Pulse Ox O2 Delivery O2 Flow Rate FiO2 06/22/19 18:49 100 Nasal Cannula 2.0 28 06/22/19 18:49 60 16 100 Nasal Cannula 2.0 28 60 18 100 06/22/19 18:48 60 16 100 Nasal Cannula 2.0 28 06/22/19 18:00 60 16 123/69 (87) 100 06/22/19 17:30 60 20 134/56 (82) 100 06/22/19 17:00 60 17 129/62 (84) 100 06/22/19 16:30 60 16 145/64 (91) 100 06/22/19 16:00 98.8 60 18 130/72 (91) 100 06/22/19 16:00 60 06/22/19 15:30 60 20 133/62 (85) 100 06/22/19 15:00 64 18 133/62 (85) 100 06/22/19 14:30 60 23 129/69 (89) 100 06/22/19 14:00 60 17 143/61 (88) 100 06/22/19 13:30 60 20 141/58 (85) 100 06/22/19 13:12 60 21 100 Nasal Cannula 2.0 28 60 25 100 06/22/19 13:00 60 25 128/72 (90) 100 06/22/19 12:30 60 24 121/61 (81) 100 06/22/19 12:00 60 06/22/19 12:00 98.0 60 28 126/53 (77) 98 06/22/19 11:30 60 30 113/65 (81) 97 06/22/19 11:00 60 19 113/63 (80) 96 06/22/19 10:30 59 29 123/62 (82) 95 06/22/19 10:16 61 27 100 Nasal Cannula 2.0 28 60 29 100 06/22/19 10:00 60 31 122/63 (82) 98 06/22/19 09:30 60 24 110/56 (74) 100 06/22/19 09:00 60 20 117/57 (77) 95 06/22/19 08:42 98.4 06/22/19 08:30 62 26 121/60 (80) 92 06/22/19 08:11 60 127/61 06/22/19 08:00 60 06/22/19 08:00 60 22 127/61 (83) 100 06/22/19 07:30 98.4 61 26 130/64 (86) 100 06/22/19 07:15 100 Nasal Cannula 2.0 28 06/22/19 07:15 61 23 100 Nasal Cannula 2.0 28 06/22/19 07:00 60 25 130/57 (81) 100 06/22/19 06:00 60 21 123/61 (81) 100 06/22/19 05:30 60 24 106/64 (78) 100 06/22/19 05:00 62 23 136/55 (82) 100 06/22/19 04:30 60 22 123/55 (77) 100 06/22/19 04:00 98.5 61 26 121/59 (79) 100 06/22/19 04:00 Nasal Cannula 2.0 06/22/19 03:40 65 06/22/19 03:30 61 24 124/62 (82) 100 06/22/19 03:00 60 23 119/64 (82) 100 06/22/19 02:30 60 22 125/60 (81) 100 06/22/19 02:00 60 23 117/90 (99) 100 06/22/19 01:30 60 21 115/65 (82) 100 06/22/19 01:00 60 21 126/56 (79) 100 06/22/19 00:30 64 22 114/64 (81) 100 06/22/19 00:00 Nasal Cannula 2.0 06/22/19 00:00 97.9 62 25 112/75 (87) 100 06/21/19 23:49 62 06/21/19 23:30 63 23 118/62 (80) 100 06/21/19 23:00 65 25 133/62 (85) 97 06/21/19 22:00 65 25 126/74 (91) 97 06/21/19 21:30 64 26 128/65 (86) 100 06/21/19 21:00 65 24 126/73 (90) 99 06/21/19 20:30 69 24 137/62 (87) 100 06/21/19 20:11 69 137/62 06/21/19 20:00 Nasal Cannula 2.0 06/21/19 20:00 98.0 67 23 137/62 (87) 100 Intake and Output 06/21/19 06/22/19 18:59 06:59 Intake Total 2037.071 ml 1480.31 ml Output Total 290 ml 725 ml Balance 1747.071 ml 755.31 ml Intake IV Total 2037.071 ml 1480.31 ml Output Urine Total 290 ml 725 ml # Bowel Movements 6 4 Microbiology Date/Time Source Procedure Growth Status 06/20/19 13:25 Blood Blood Culture - Preliminary NO GROWTH AFTER 24 HOURS Resulted 06/20/19 13:25 Blood Blood Culture - Preliminary NO GROWTH AFTER 24 HOURS Resulted 06/20/19 15:15 Nasal Nares - Final Complete 06/20/19 15:15 Nasal Nares - Final Complete 06/20/19 18:19 Stool Stool Culture Pending Resulted 06/20/19 18:19 Stool Clostridium difficile Toxin Assay - Final Resulted 06/20/19 13:25 Urine,Clean Catch Urine Culture - Preliminary NO GROWTH AFTER 24 HOURS Resulted 06/20/19 14:27 Rectum Received Laboratory Tests 06/21/19 20:30: Troponin I 0.022 06/22/19 04:30: Troponin I 0.022, Sodium Level 154H, Potassium Level 3.6, Chloride Level 119H, Carbon Dioxide Level 25, Anion Gap 10, Blood Urea Nitrogen 18, Creatinine 0.6, Estimat Glomerular Filtration Rate , Glucose Level 123H, Calcium Level 9.0, Thyroid Stimulating Hormone (TSH) 0.586, Free Thyroxine 1.38 Current Medications Medications (Trade) Dose Ordered Sig/Katharine Route PRN Reason Start Time Stop Time Status Last Admin Dose Admin Acetaminophen (Tylenol) 650 mg Q6H PRN ORAL Mild Pain/Temp > 100.5 06/21/19 12:15 07/21/19 06:14 Acetaminophen (Tylenol) 650 mg Q6H PRN RECTAL Mild Pain/Temp > 100.5 PO/NM 06/21/19 12:00 07/21/19 11:59 06/22/19 08:12 Acetylcysteine (Mucomyst) 100 mg TIDRT HHN 06/22/19 13:00 07/22/19 12:59 06/22/19 18:47 Amiodarone HCl 900 mg/Dextrose 500 ml @ 0 mls/hr Q24H IV 06/22/19 14:00 06/23/19 13:59 06/22/19 14:38 Aspirin (Ecotrin) 81 mg DAILY ORAL 06/22/19 09:00 07/21/19 08:59 Carbidopa/Levodopa (Sinemet 25/100) 1 tab THREE TIMES A DAY ORAL 06/21/19 13:00 07/21/19 08:59 Dextrose (Dextrose 50%) 25 ml Q30M PRN IV Hypoglycemia 06/21/19 11:30 07/20/19 20:59 Dextrose (Dextrose 50%) 50 ml Q30M PRN IV Hypoglycemia 06/21/19 11:30 07/20/19 20:59 Dronabinol (Marinol) 2.5 mg BID ORAL 06/21/19 18:00 07/21/19 08:59 Heparin Sodium (Porcine) (Heparin 5000 units/ml) 5,000 units EVERY 12 HOURS SUBQ 06/21/19 14:00 07/21/19 13:59 06/22/19 08:23 Insulin Aspart (NovoLOG) BEFORE MEALS AND HS SUBQ 06/21/19 11:30 07/20/19 21:59 06/21/19 16:45 Ipratropium [place] (Atrovent) 500 mcg Q4H PRN HHN Shortness of Breath 06/21/19 13:30 06/26/19 13:29 06/22/19 18:47 Meropenem 1 gm/ Sodium Chloride 55 ml @ 110 mls/hr Q8HR IVPB 06/21/19 14:00 06/25/19 21:59 06/22/19 13:42 Metoprolol Tartrate (Lopressor) 5 mg EVERY 12 HOURS IVP 06/21/19 14:00 07/21/19 13:59 06/22/19 08:11 Morphine Sulfate (Morphine Sulfate) 2 mg Q6H PRN IVP For Pain 06/22/19 08:45 06/29/19 08:44 Non-Formulary Medication (Non-Formulary Med) 1 ea DAILY ORAL 06/22/19 09:00 07/21/19 08:59 UNV Pantoprazole (Protonix) 40 mg DAILY IVP 06/22/19 09:00 07/22/19 08:59 06/22/19 09:54 Polyethylene Glycol (Miralax) 17 gm DAILY PRN ORAL Constipation 06/21/19 12:00 07/21/19 11:59 Potassium Chloride 40 meq/ Dextrose 1,020 ml @ 75 mls/hr [id number] IV 06/21/19 11:30 07/20/19 22:29 06/22/19 15:31 Sennosides (Senokot) 17.2 mg QHS ORAL 06/21/19 21:00 07/21/19 20:59 Tamsulosin HCl (Flomax) 0.4 mg DAILY ORAL 06/22/19 09:00 07/21/19 08:59 Vancomycin HCl (Vanco rx to dose) 1 ea DAILY PRN MISC Per rx protocol 06/22/19 09:00 07/20/19 16:29 Vancomycin HCl 1 gm/Dextrose 275 ml @ 183.708 mls/hr Q24H IVPB 06/21/19 20:00 06/26/19 19:59 06/21/19 20:11 Vitamin D (Vitamin D) 5,000 intlu DAILY ORAL 06/22/19 09:00 07/21/19 08:59 Zinc Sulfate (Zinc Sulfate) 220 mg BID ORAL 06/21/19 18:00 07/21/19 08:59 Denys Payne MD Jun 22, 2019 19:53
--- NOTE | 2019-06-22 20:00 | NUR ---
NURSE NOTES: cotton program technician here to do stat KUB to check NGT placement.
--- NOTE | 2019-06-22 20:01 | Infectious Diseases Prog Note ---
Assessment/Plan Problems: (1) Pneumonia Assessment & Plan: with B/L basal infiltrates suspect aspiration with fever and hypoxemia , continue meropenem and vancomycin empirically , pending sputum culture , aspiration precaution, monitor CXR (2) UTI (urinary tract infection) Assessment & Plan: already on meropenem , pending culture (3) Sepsis Assessment & Plan: due to the above , continue wide spectrum antibiotics pending cultures (4) Hypoxia Assessment & Plan: suspect due to the above , continue oxygen , and wide spectrum antibiotics (5) Respiratory failure, acute Assessment & Plan: due to the above, continue oxygen, nebulizer treatment and antibiotics , pulmonary eval is in progress (6) V-tach Assessment & Plan: sustained with torsade de point , check magnesium, cardiology is following (7) Sacral pressure ulcer Assessment & Plan: continue local wound care and dressings as per hospital protocol , with off loading Subjective ROS Limited/Unobtainable: Yes Allergies: Coded Allergies: No Known Allergies (Unverified , 06/20/19) Subjective He still in ICU for close monitoring due to recent run of V-tach, still altered , unresponsive, afebrile today, has cough with phlegm, no diarrhea Objective Vital Signs Last 24 Hour Vital Signs Date Time Temp Pulse Resp B/P (MAP) Pulse Ox O2 Delivery O2 Flow Rate FiO2 06/22/19 18:49 100 Nasal Cannula 2.0 28 06/22/19 18:49 60 16 100 Nasal Cannula 2.0 28 60 18 100 06/22/19 18:48 60 16 100 Nasal Cannula 2.0 28 06/22/19 18:00 60 16 123/69 (87) 100 06/22/19 17:30 60 20 134/56 (82) 100 06/22/19 17:00 60 17 129/62 (84) 100 06/22/19 16:30 60 16 145/64 (91) 100 06/22/19 16:00 98.8 60 18 130/72 (91) 100 06/22/19 16:00 60 06/22/19 15:30 60 20 133/62 (85) 100 06/22/19 15:00 64 18 133/62 (85) 100 06/22/19 14:30 60 23 129/69 (89) 100 06/22/19 14:00 60 17 143/61 (88) 100 06/22/19 13:30 60 20 141/58 (85) 100 06/22/19 13:12 60 21 100 Nasal Cannula 2.0 28 60 25 100 06/22/19 13:00 60 25 128/72 (90) 100 06/22/19 12:30 60 24 121/61 (81) 100 06/22/19 12:00 60 06/22/19 12:00 98.0 60 28 126/53 (77) 98 06/22/19 11:30 60 30 113/65 (81) 97 06/22/19 11:00 60 19 113/63 (80) 96 06/22/19 10:30 59 29 123/62 (82) 95 06/22/19 10:16 61 27 100 Nasal Cannula 2.0 28 60 29 100 06/22/19 10:00 60 31 122/63 (82) 98 06/22/19 09:30 60 24 110/56 (74) 100 06/22/19 09:00 60 20 117/57 (77) 95 06/22/19 08:42 98.4 06/22/19 08:30 62 26 121/60 (80) 92 06/22/19 08:11 60 127/61 06/22/19 08:00 60 06/22/19 08:00 60 22 127/61 (83) 100 06/22/19 07:30 98.4 61 26 130/64 (86) 100 06/22/19 07:15 100 Nasal Cannula 2.0 28 06/22/19 07:15 61 23 100 Nasal Cannula 2.0 28 06/22/19 07:00 60 25 130/57 (81) 100 06/22/19 06:00 60 21 123/61 (81) 100 06/22/19 05:30 60 24 106/64 (78) 100 06/22/19 05:00 62 23 136/55 (82) 100 06/22/19 04:30 60 22 123/55 (77) 100 06/22/19 04:00 98.5 61 26 121/59 (79) 100 06/22/19 04:00 Nasal Cannula 2.0 06/22/19 03:40 65 06/22/19 03:30 61 24 124/62 (82) 100 06/22/19 03:00 60 23 119/64 (82) 100 06/22/19 02:30 60 22 125/60 (81) 100 06/22/19 02:00 60 23 117/90 (99) 100 06/22/19 01:30 60 21 115/65 (82) 100 06/22/19 01:00 60 21 126/56 (79) 100 06/22/19 00:30 64 22 114/64 (81) 100 06/22/19 00:00 Nasal Cannula 2.0 06/22/19 00:00 97.9 62 25 112/75 (87) 100 06/21/19 23:49 62 06/21/19 23:30 63 23 118/62 (80) 100 06/21/19 23:00 65 25 133/62 (85) 97 06/21/19 22:00 65 25 126/74 (91) 97 06/21/19 21:30 64 26 128/65 (86) 100 06/21/19 21:00 65 24 126/73 (90) 99 06/21/19 20:30 69 24 137/62 (87) 100 06/21/19 20:11 69 137/62 Height (Feet): 5 Height (Inches): 5.00 Weight (Pounds): 135 General Appearance: no acute distress, cachetic HEENT: normocephalic, atraumatic, anicteric, mucous membranes moist, PERRL Respiratory/Chest: chest wall non-tender, no respiratory distress, no accessory muscle use, decreased breath sounds, crackles/rales Cardiovascular: normal peripheral pulses, normal rate, regular rhythm, no gallop/murmur, no JVD Abdomen: normal bowel sounds, soft, non tender, no organomegaly, non distended , no mass, no scars Genitourinary: normal external genitalia Extremities: no cyanosis, no clubbing Skin: no rash, no lesions, ulcers Neurologic/Psychiatric: unresponsiveness Lymphatic: no neck adenopathy, no groin adenopathy Musculoskeletal: normal muscle bulk, no effusion Microbiology Date/Time Source Procedure Growth Status 06/20/19 13:25 Blood Blood Culture - Preliminary NO GROWTH AFTER 24 HOURS Resulted 06/20/19 13:25 Blood Blood Culture - Preliminary NO GROWTH AFTER 24 HOURS Resulted 06/20/19 15:15 Nasal Nares - Final Complete 06/20/19 15:15 Nasal Nares - Final Complete 06/20/19 18:19 Stool Stool Culture Pending Resulted 06/20/19 18:19 Stool Clostridium difficile Toxin Assay - Final Resulted 06/20/19 13:25 Urine,Clean Catch Urine Culture - Preliminary NO GROWTH AFTER 24 HOURS Resulted 06/20/19 14:27 Rectum Received Laboratory Tests Test 06/21/19 20:30 06/22/19 04:30 Troponin I 0.022 ng/mL (0.000-0.056) 0.022 ng/mL (0.000-0.056) Sodium Level 154 MMOL/L (136-145) H Potassium Level 3.6 MMOL/L (3.5-5.1) Chloride Level 119 MMOL/L (98-107) H Carbon Dioxide Level 25 MMOL/L (21-32) Anion Gap 10 mmol/L (5-15) Blood Urea Nitrogen 18 mg/dL (7-18) Creatinine 0.6 MG/DL (0.55-1.30) Estimat Glomerular Filtration Rate mL/min (>60) Glucose Level 123 MG/DL (74-106) H Calcium Level 9.0 MG/DL (8.5-10.1) Thyroid Stimulating Hormone (TSH) 0.586 uiU/mL (0.358-3.740) Free Thyroxine 1.38 NG/DL (0.76-1.46) Current Medications Medications (Trade) Dose Ordered Sig/Katharine Route PRN Reason Start Time Stop Time Status Last Admin Dose Admin Acetaminophen (Tylenol) 650 mg Q6H PRN ORAL Mild Pain/Temp > 100.5 06/21/19 12:15 07/21/19 06:14 Acetaminophen (Tylenol) 650 mg Q6H PRN RECTAL Mild Pain/Temp > 100.5 PO/AZ 06/21/19 12:00 07/21/19 11:59 06/22/19 08:12 Acetylcysteine (Mucomyst) 100 mg TIDRT HHN 06/22/19 13:00 07/22/19 12:59 06/22/19 18:47 Amiodarone HCl 900 mg/Dextrose 500 ml @ 0 mls/hr Q24H IV 06/22/19 14:00 06/23/19 13:59 06/22/19 14:38 Aspirin (Ecotrin) 81 mg DAILY ORAL 06/22/19 09:00 07/21/19 08:59 Carbidopa/Levodopa (Sinemet 25/100) 1 tab THREE TIMES A DAY ORAL 06/21/19 13:00 07/21/19 08:59 Dextrose (Dextrose 50%) 25 ml Q30M PRN IV Hypoglycemia 06/21/19 11:30 07/20/19 20:59 Dextrose (Dextrose 50%) 50 ml Q30M PRN IV Hypoglycemia 06/21/19 11:30 07/20/19 20:59 Dronabinol (Marinol) 2.5 mg BID ORAL 06/21/19 18:00 07/21/19 08:59 Heparin Sodium (Porcine) (Heparin 5000 units/ml) 5,000 units EVERY 12 HOURS SUBQ 06/21/19 14:00 07/21/19 13:59 06/22/19 08:23 Insulin Aspart (NovoLOG) BEFORE MEALS AND HS SUBQ 06/21/19 11:30 07/20/19 21:59 06/21/19 16:45 Ipratropium Shepherd (Atrovent) 500 mcg Q4H PRN HHN Shortness of Breath 06/21/19 13:30 06/26/19 13:29 06/22/19 18:47 Meropenem 1 gm/ Sodium Chloride 55 ml @ 110 mls/hr Q8HR IVPB 06/21/19 14:00 06/25/19 21:59 06/22/19 13:42 Metoprolol Tartrate (Lopressor) 5 mg EVERY 12 HOURS IVP 06/21/19 14:00 07/21/19 13:59 06/22/19 08:11 Morphine Sulfate (Morphine Sulfate) 2 mg Q6H PRN IVP For Pain 06/22/19 08:45 06/29/19 08:44 Non-Formulary Medication (Non-Formulary Med) 1 ea DAILY ORAL 06/22/19 09:00 07/21/19 08:59 UNV Pantoprazole (Protonix) 40 mg DAILY IVP 06/22/19 09:00 07/22/19 08:59 06/22/19 09:54 Polyethylene Glycol (Miralax) 17 gm DAILY PRN ORAL Constipation 06/21/19 12:00 07/21/19 11:59 Potassium Chloride 40 meq/ Dextrose 1,020 ml @ 75 mls/hr [id number] IV 06/21/19 11:30 07/20/19 22:29 06/22/19 15:31 Sennosides (Senokot) 17.2 mg QHS ORAL 06/21/19 21:00 07/21/19 20:59 Tamsulosin HCl (Flomax) 0.4 mg DAILY ORAL 06/22/19 09:00 07/21/19 08:59 Vancomycin HCl (Vanco rx to dose) 1 ea DAILY PRN MISC Per rx protocol 06/22/19 09:00 07/20/19 16:29 Vancomycin HCl 1 gm/Dextrose 275 ml @ 183.708 mls/hr Q24H IVPB 06/21/19 20:00 06/26/19 19:59 06/21/19 20:11 Vitamin D (Vitamin D) 5,000 intlu DAILY ORAL 06/22/19 09:00 07/21/19 08:59 Zinc Sulfate (Zinc Sulfate) 220 mg BID ORAL 06/21/19 18:00 07/21/19 08:59 Arcadio Mcnair M.D. Jun 22, 2019 20:01
[2019-06-22] MEDS: Vancomycin 1 GM in D5W 275 ML IVPB SCH (20:59)
--- NOTE | 2019-06-22 21:31 | NUR ---
NURSE NOTES: called xray department spoke with Joaquim regarding the KUB result. Per Joaquim He will fax the result.
--- NOTE | 2019-06-22 21:45 | NUR ---
NURSE NOTES: KUB result NGT terminates in the stomach.
[2019-06-22] MEDS: Sennosides 8.6mg tab ORAL SCH (21:51)
[2019-06-22] MEDS: Memantine 10mg tab NG SCH (21:51)
--- NOTE | 2019-06-22 23:45 | NUR ---
NURSE NOTES: Patient in bed awake,non-verbal watching TV. No s/s of acute distress noted. No moaning no facial grimaces. HOB elevated. Oral care provided. Wilkes draining. no s/s of acute distress noted. tuned and repositioned. On P200 for wound management. Frequent visual checks continued. will continue plan of care.
[2019-06-23] VITALS (46 sets, daily range): BP systolic 101–135; BP diastolic 46–69
--- NOTE | 2019-06-23 01:45 | NUR ---
NURSE NOTES: Patient on on iv Amiodarone drip for 2 episodes of sustained VF that was documented on tele. V-paced on manager monitoring. Turned and repositioned. No s/s of cardiac and acute distress noted.
--- NOTE | 2019-06-23 02:57 | NUR ---
NURSE NOTES: Oral care and suctioned patient. collected sputum for culture, patient with continuos episode of moaning,Resp 30. repositioned, pillow support and talk therapy provided not effective. Morphine IVP PRN given. Will monitor patient.
--- NOTE | 2019-06-23 04:50 | NUR ---
NURSE NOTES: Bed bath given tolerated well. On 4 Liters oxygen via N/C satting 100%. No moaning no facial grimaces. Continue on Amiodarone drip at 0.5mg/min. on p200 for wound management. dressing intact. will continue plan of care
[2019-06-23 05:43] LABS: BASOPHILS % (AUTO) 0.3 % (0.0-2.0); EOSINOPHILS % (AUTO) 2.9 % (0.0-3.0); HEMOGLOBIN 10.6 G/DL (14.2-18.0); LYMPHOCYTES % (AUTO) 22.2 % (20.0-45.0); MEAN CORPUSCULAR VOLUME 85 FL (80-99); MONOCYTES % (AUTO) 5.2 % (1.0-10.0); NEUTROPHILS % (AUTO) 69.5 % (45.0-75.0); PLATELET COUNT 188 K/UL (150-450); RED BLOOD COUNT 3.75 M/UL (4.70-6.10); RED CELL DISTRIBUTION WIDTH 14.4 % (11.6-14.8); WHITE BLOOD COUNT 9.6 K/UL (4.8-10.8)
--- NOTE | 2019-06-23 06:00 | NUR ---
NURSE NOTES: patient in bed sleeping comfortably. no s/s of acute distress noted.
[2019-06-23 06:10] LABS: ALANINE AMINOTRANSFERASE 10 U/L (12-78); ALBUMIN 1.9 G/DL (3.4-5.0); ALBUMIN/GLOBULIN RATIO 0.5 (1.0-2.7); ALKALINE PHOSPHATASE 64 U/L (46-116); ANION GAP 7 mmol/L (5-15); ASPARTATE AMINO TRANSFERASE 12 U/L (15-37); BILIRUBIN,TOTAL 0.5 MG/DL (0.2-1.0); BLOOD UREA NITROGEN 11 mg/dL (7-18); CALCIUM 9.3 MG/DL (8.5-10.1); CARBON DIOXIDE 24 MMOL/L (21-32); CHLORIDE 112 MMOL/L (98-107); CREATININE 0.5 MG/DL (0.55-1.30); SODIUM 143 MMOL/L (136-145)
[2019-06-23] MEDS: NovoLOG Insulin Flexpen SUBQ SCH ×3 (06:30→18:33)
[2019-06-23] MEDS: Meropenem 1 GM in NS 55 ML IVPB SCH ×3 (06:45→21:51)
--- NOTE | 2019-06-23 07:23 | NUR ---
HAND-OFF: Report given to Shin GERMAN.
--- NOTE | 2019-06-23 07:34 | NUR ---
NURSE NOTES: Report received from MONSERRAT Nevarez. Pt sleeping in bed. Easily able to wake up. Non-verbal and does not follow commands. Opens eye spontaneously. V-paced in cardiac sonographer. On 3L N/C. Pt sounds congested. Oral care and suction done. O2 sat 100%. Right nare NGT in place and kept NPO as ordered. Wilkes in place draining pinkish orange urine. IV to left FA G22 and left FA 20 patent and asymptomatic. D5W with 40 meq KCL is running at 75cc/hr. Bed in lowest position. Side rails up x3. Will resume plan of care.
[2019-06-23] MEDS: Tamsulosin 0.4mg cap ORAL SCH (08:25)
[2019-06-23] MEDS: Levodopa/Carbidopa 25/100 tab ORAL SCH ×3 (08:25→18:32)
[2019-06-23] MEDS: Memantine 10mg tab NG SCH ×2 (08:26→20:53)
[2019-06-23] MEDS: Aspirin EC 81mg tab ORAL SCH (08:26)
[2019-06-23] MEDS: Metoprolol 5mg/5ml Inj IVP SCH ×2 (08:26→20:53)
[2019-06-23] MEDS: Zinc Sulfate 220mg cap ORAL SCH ×2 (08:26→18:32)
[2019-06-23] MEDS: Pantoprazole Inj IVP SCH (08:26)
[2019-06-23] MEDS: Vitamin D 1000 IU Tab ORAL SCH (08:29)
[2019-06-23] MEDS: Dronabinol 2.5mg Cap ORAL SCH ×2 (08:30→18:32)
[2019-06-23] MEDS: Heparin 5000 units/ml inj SUBQ SCH ×2 (08:33→20:55)
--- NOTE | 2019-06-23 09:13 | General Progress Note ---
Assessment/Plan Assessment/Plan: 1. Pneumonia. 2. Hypertension. 3. Parkinson disease. 4. Pacemaker placement 5. Dysphagia start NGTF plan PEG on Tuesday if family agrees Subjective ROS Limited/Unobtainable: Yes Allergies: Coded Allergies: No Known Allergies (Unverified , 06/20/19) Objective Last 24 Hour Vital Signs Date Time Temp Pulse Resp B/P (MAP) Pulse Ox O2 Delivery O2 Flow Rate FiO2 06/23/19 08:26 60 135/54 06/23/19 08:05 100 Nasal Cannula 2.0 28 06/23/19 08:00 Nasal Cannula 3.0 06/23/19 07:00 60 19 130/56 (80) 100 06/23/19 06:30 60 18 134/52 (79) 100 06/23/19 06:00 60 20 119/56 (77) 100 06/23/19 05:30 61 24 130/53 (78) 100 06/23/19 05:00 60 25 111/58 (75) 98 06/23/19 04:30 62 20 113/59 (77) 97 06/23/19 04:00 Nasal Cannula 3.0 06/23/19 04:00 98.0 63 27 110/56 (74) 93 06/23/19 04:00 63 06/23/19 03:30 63 25 118/56 (76) 93 06/23/19 03:25 98.6 06/23/19 03:00 60 26 131/63 (85) 98 06/23/19 02:30 60 25 119/63 (81) 100 06/23/19 02:00 60 21 109/58 (75) 100 06/23/19 01:30 60 24 120/56 (77) 99 06/23/19 01:00 60 24 130/58 (82) 100 06/23/19 00:30 60 21 130/63 (85) 100 06/23/19 00:00 98.6 60 24 130/69 (89) 100 06/23/19 00:00 Nasal Cannula 3.0 06/23/19 00:00 60 06/22/19 23:30 60 20 134/60 (84) 100 06/22/19 23:00 60 17 133/71 (91) 100 06/22/19 22:30 60 19 136/57 (83) 100 06/22/19 22:00 60 19 131/58 (82) 100 06/22/19 21:50 60 126/58 06/22/19 21:30 60 19 126/58 (80) 100 06/22/19 21:00 60 18 116/64 (81) 100 06/22/19 20:30 60 17 113/60 (77) 100 06/22/19 20:00 98.6 60 16 109/63 (78) 99 06/22/19 20:00 Nasal Cannula 3.0 06/22/19 20:00 60 06/22/19 19:30 61 27 127/62 (83) 98 06/22/19 19:00 60 20 140/60 (86) 100 06/22/19 18:49 100 Nasal Cannula 2.0 28 06/22/19 18:49 60 16 100 Nasal Cannula 2.0 28 60 18 100 06/22/19 18:48 60 16 100 Nasal Cannula 2.0 28 06/22/19 18:00 60 16 123/69 (87) 100 06/22/19 17:30 60 20 134/56 (82) 100 06/22/19 17:00 60 17 129/62 (84) 100 06/22/19 16:30 60 16 145/64 (91) 100 06/22/19 16:00 98.8 60 18 130/72 (91) 100 06/22/19 16:00 60 06/22/19 15:30 60 20 133/62 (85) 100 06/22/19 15:00 64 18 133/62 (85) 100 06/22/19 14:30 60 23 129/69 (89) 100 06/22/19 14:00 60 17 143/61 (88) 100 06/22/19 13:30 60 20 141/58 (85) 100 06/22/19 13:12 60 21 100 Nasal Cannula 2.0 28 60 25 100 06/22/19 13:00 60 25 128/72 (90) 100 06/22/19 12:30 60 24 121/61 (81) 100 06/22/19 12:00 60 06/22/19 12:00 98.0 60 28 126/53 (77) 98 06/22/19 11:30 60 30 113/65 (81) 97 06/22/19 11:00 60 19 113/63 (80) 96 06/22/19 10:30 59 29 123/62 (82) 95 06/22/19 10:16 61 27 100 Nasal Cannula 2.0 28 60 29 100 06/22/19 10:00 60 31 122/63 (82) 98 06/22/19 09:30 60 24 110/56 (74) 100 Intake and Output 06/22/19 06/23/19 19:00 07:00 Intake Total 1088.10 ml 1428.670 ml Output Total 390 ml 420 ml Balance 698.10 ml 1008.670 ml Intake IV Total 1088.10 ml 1428.670 ml Output Urine Total 390 ml 420 ml # Bowel Movements 1 2 Laboratory Tests 06/23/19 04:30: White Blood Count 9.6, Red Blood Count 3.75L, Hemoglobin 10.6L, Hematocrit 32.0L , Mean Corpuscular Volume 85, Mean Corpuscular Hemoglobin 28.3, Mean Corpuscular Hemoglobin Concent 33.1, Red Cell Distribution Width 14.4, Platelet Count 188, Mean Platelet Volume 6.0L, Neutrophils (%) (Auto) 69.5, Lymphocytes ( %) (Auto) 22.2, Monocytes (%) (Auto) 5.2, Eosinophils (%) (Auto) 2.9, Basophils (%) (Auto) 0.3, Sodium Level 143#, Potassium Level 4.0, Chloride Level 112H, Carbon Dioxide Level 24, Anion Gap 7, Blood Urea Nitrogen 11, Creatinine 0.5L, Estimat Glomerular Filtration Rate , Glucose Level 101, Calcium Level 9.3, Total Bilirubin 0.5, Aspartate Amino Transf (AST/SGOT) 12L, Alanine Aminotransferase (ALT/SGPT) 10L, Alkaline Phosphatase 64, Total Protein 5.9L, Albumin 1.9L, Globulin 4.0, Albumin/Globulin Ratio 0.5L Height (Feet): 5 Height (Inches): 5.00 Weight (Pounds): 135 General Appearance: lethargic EENT: normal ENT inspection Neck: supple Cardiovascular: normal rate Respiratory/Chest: decreased breath sounds Abdomen: normal bowel sounds, non tender, soft Extremities: non-tender Mahad Ring MD Jun 23, 2019 09:13
--- NOTE | 2019-06-23 09:30 | NUR ---
NURSE NOTES: Dr Ring here to see the patient. Dr Ring spoke with daughter, Royer regarding PEG placement. Daughter wants more ST evals to be done before PEG placement as per Dr Ring.
--- NOTE | 2019-06-23 10:47 | NUR ---
CASE MANAGEMENT: REVIEW SI: UTI . ACUTE RESP FAILURE . SEPSIS . V-TACH T 89.1 HR 60 RR 19 BP 135/54 SAT 100% NC/3L H/H 10.6/32.0 IS: AMIODARONE IV Q24HR ASA PO QD PROTONIX IV QD VANCO IV Q24HR MARINOL PO BID MEROPENEM IV Q8HR ICU STATUS DCP: PATIENT IS FROM [facility]
--- NOTE | 2019-06-23 11:30 | NUR ---
NURSE NOTES: Turned and repositioned pt. Oral care done. Pt is lethargic. No signs of discomfort noted. Will continue to monitor.
--- NOTE | 2019-06-23 12:40 | NUR ---
NURSE NOTES: Dr Blanco here to see the patient. Updated him with pt's current condition, including what Dr Ring spoke with daughter about. Orders received, noted, and carried out.
--- NOTE | 2019-06-23 12:40 | General Progress Note ---
Assessment/Plan Status: stable Assessment/Plan: 1. Asp Pneumonia - cont IV antibiotic. ID following. 2. UTI - cont above antibiotic for now. follow cultures. 3. Sepsis - cont above antibiotic. 4. Respiratory distress - resolved. 5. Hypokalemia - resolved. 6. Hypernatremia - resolved. 7. Parkinson dx - cont home med. 8. Dysphagia with hx of multiple asp pneumonia - family refused G tube placement. Speech therapy eval. 9. BPH - cont home meds. 10. Ventricular Tachycardia - on IV drip of Amioderone - Cardiology following. Family prefers full code status. 11. Sacral Pressure ulcer - cont wound care. Subjective Date patient seen: Jun 23, 2019 Time patient seen: 12:30 Constitutional: Reports: weakness HEENT: Reports: no symptoms Cardiovascular: Reports: no symptoms Respiratory: Reports: no symptoms Gastrointestinal/Abdominal: Reports: no symptoms Genitourinary: Reports: no symptoms Neurologic/Psychiatric: Reports: weakness Endocrine: Reports: no symptoms Hematologic/Lymphatic: Reports: no symptoms Allergies: Coded Allergies: No Known Allergies (Unverified , 06/20/19) Subjective Patient was doing better. Afebrile and no more V tach. Patient is in ICU now. He is lethargic and his eyes closed. he still on Amioderone drip. Objective Last 24 Hour Vital Signs Date Time Temp Pulse Resp B/P (MAP) Pulse Ox O2 Delivery O2 Flow Rate FiO2 06/23/19 12:00 60 18 112/56 (74) 100 06/23/19 12:00 60 21 114/62 (79) 100 06/23/19 11:00 60 18 112/56 (74) 100 06/23/19 10:30 62 17 131/56 (81) 100 06/23/19 10:00 60 18 119/55 (76) 100 06/23/19 09:30 60 18 114/56 (75) 100 06/23/19 09:00 60 16 128/60 (82) 100 06/23/19 08:30 60 17 110/57 (74) 100 06/23/19 08:29 60 06/23/19 08:26 60 135/54 06/23/19 08:05 100 Nasal Cannula 2.0 28 06/23/19 08:00 98.1 60 19 135/54 (81) 100 06/23/19 08:00 Nasal Cannula 3.0 06/23/19 07:30 60 20 127/53 (77) 100 06/23/19 07:00 60 19 130/56 (80) 100 06/23/19 06:30 60 18 134/52 (79) 100 06/23/19 06:00 60 20 119/56 (77) 100 06/23/19 05:30 61 24 130/53 (78) 100 06/23/19 05:00 60 25 111/58 (75) 98 06/23/19 04:30 62 20 113/59 (77) 97 06/23/19 04:00 Nasal Cannula 3.0 06/23/19 04:00 98.0 63 27 110/56 (74) 93 06/23/19 04:00 63 06/23/19 03:30 63 25 118/56 (76) 93 06/23/19 03:25 98.6 06/23/19 03:00 60 26 131/63 (85) 98 06/23/19 02:30 60 25 119/63 (81) 100 06/23/19 02:00 60 21 109/58 (75) 100 06/23/19 01:30 60 24 120/56 (77) 99 06/23/19 01:00 60 24 130/58 (82) 100 06/23/19 00:30 60 21 130/63 (85) 100 06/23/19 00:00 98.6 60 24 130/69 (89) 100 06/23/19 00:00 Nasal Cannula 3.0 06/23/19 00:00 60 06/22/19 23:30 60 20 134/60 (84) 100 06/22/19 23:00 60 17 133/71 (91) 100 06/22/19 22:30 60 19 136/57 (83) 100 06/22/19 22:00 60 19 131/58 (82) 100 06/22/19 21:50 60 126/58 06/22/19 21:30 60 19 126/58 (80) 100 06/22/19 21:00 60 18 116/64 (81) 100 06/22/19 20:30 60 17 113/60 (77) 100 06/22/19 20:00 98.6 60 16 109/63 (78) 99 06/22/19 20:00 Nasal Cannula 3.0 06/22/19 20:00 60 06/22/19 19:30 61 27 127/62 (83) 98 06/22/19 19:00 60 20 140/60 (86) 100 06/22/19 18:49 100 Nasal Cannula 2.0 28 06/22/19 18:49 60 16 100 Nasal Cannula 2.0 28 60 18 100 06/22/19 18:48 60 16 100 Nasal Cannula 2.0 28 06/22/19 18:00 60 16 123/69 (87) 100 06/22/19 17:30 60 20 134/56 (82) 100 06/22/19 17:00 60 17 129/62 (84) 100 06/22/19 16:30 60 16 145/64 (91) 100 06/22/19 16:00 98.8 60 18 130/72 (91) 100 06/22/19 16:00 60 06/22/19 15:30 60 20 133/62 (85) 100 06/22/19 15:00 64 18 133/62 (85) 100 06/22/19 14:30 60 23 129/69 (89) 100 06/22/19 14:00 60 17 143/61 (88) 100 06/22/19 13:30 60 20 141/58 (85) 100 06/22/19 13:12 60 21 100 Nasal Cannula 2.0 28 60 25 100 06/22/19 13:00 60 25 128/72 (90) 100 Intake and Output 06/22/19 06/23/19 19:00 07:00 Intake Total 1088.10 ml 1428.670 ml Output Total 390 ml 420 ml Balance 698.10 ml 1008.670 ml Intake IV Total 1088.10 ml 1428.670 ml Output Urine Total 390 ml 420 ml # Bowel Movements 1 2 Laboratory Tests 06/23/19 04:30: White Blood Count 9.6, Red Blood Count 3.75L, Hemoglobin 10.6L, Hematocrit 32.0L , Mean Corpuscular Volume 85, Mean Corpuscular Hemoglobin 28.3, Mean Corpuscular Hemoglobin Concent 33.1, Red Cell Distribution Width 14.4, Platelet Count 188, Mean Platelet Volume 6.0L, Neutrophils (%) (Auto) 69.5, Lymphocytes ( %) (Auto) 22.2, Monocytes (%) (Auto) 5.2, Eosinophils (%) (Auto) 2.9, Basophils (%) (Auto) 0.3, Sodium Level 143#, Potassium Level 4.0, Chloride Level 112H, Carbon Dioxide Level 24, Anion Gap 7, Blood Urea Nitrogen 11, Creatinine 0.5L, Estimat Glomerular Filtration Rate , Glucose Level 101, Calcium Level 9.3, Total Bilirubin 0.5, Aspartate Amino Transf (AST/SGOT) 12L, Alanine Aminotransferase (ALT/SGPT) 10L, Alkaline Phosphatase 64, Total Protein 5.9L, Albumin 1.9L, Globulin 4.0, Albumin/Globulin Ratio 0.5L Height (Feet): 5 Height (Inches): 5.00 Weight (Pounds): 135 General Appearance: no apparent distress, lethargic EENT: normal ENT inspection Neck: non-tender, supple Cardiovascular: normal rate, regular rhythm Respiratory/Chest: normal breath sounds, crackles/rales Abdomen: non tender, soft Extremities: non-tender Edema: no edema noted Arm (L), no edema noted Arm (R), no edema noted Leg (L), no edema noted Leg (R), no edema noted Pedal (L), no edema noted Pedal (R), no edema noted Generalized Neurologic: responsive Skin: warm/dry Aakash Blanco MD Jun 23, 2019 12:40
--- NOTE | 2019-06-23 13:15 | NUR ---
NURSE NOTES: Pt is moaning. PRN Tylenol 650mg via NGT given for pain. Turned and repositioned pt. Will continue to monitor.
[2019-06-23] MEDS: Ipratropium 0.02% Inh Soln 2.5ml UD HHN PRN ×2 (13:40→19:14)
--- NOTE | 2019-06-23 13:51 | Pulmonology Progress Note ---
Assessment/Plan Assessment/Plan Pulmonary Progress Note HPI 83-year-old male admitted from long term facility with Urinary Tract Infection, Bibasal Pneumonia, Sepsis/Dehydration responsive to IVF and AB, Hypernatremia, Hypokalemia - family have previously refused feeding tube insertion, oxygen requirement have gradually improved during admission, remains on antibiotics per Infectious Disease, Cardiology following. Patient is nonverbal at baseline. Patient has been treated recently with antibiotics for pneumonia but symptoms worsening. febrile in triage. No reported chest pain. No other aggravating relieving factors. No other associated symptoms ABG reveals increased A-a gradient, Alkalosis VT - Amio gtt per Cardiology Allergies: Coded Allergies: No Known Allergies Past Medical History: Previous Pneumonia, Hypertension, Parkinsons Disease, Pacemaker Past Surgical History: pacemaker All Other Systems: limited Physical Exam Vital Signs Noted, O2 sats stable on NC O2 2L/min General Appearance: no apparent distress, alert, GCS 15, chronically ill appearing, non-toxic Head: normocephalic atraumatic Eyes: bilateral eye normal inspection, bilateral eye PERRL ENT: moist mm Neck: normal inspection, no LN Respiratory: no respiratory distress, reduced basal BS Cardiovascular: regular rate, rhythm, HS1, HS2 normal, no edema Gastrointestinal: normal bowel sounds, non tender, soft, non-distended, no guarding, no rebound Musculoskeletal: normal inspection, weak Neurologic: nonverbal, no focal signs noted Impression: Bibasal Pneumonia Previous dysphagia Hypoxia, alkalosis Urinary tract infection Sepsis Dehydration Hypernatremia/hypokalemia Previous Pacemaker 4 years ago Run of Ventricular Tachycardia - Cardiology following H/o Hypertension Parkinsons Disease Old granulomatous changes on CXR Full code Plan Antibiotics per ID IVF Correct electrolyte imbalances Aspiration precautions Speech therapy evaluation of swallow R/O DVT/PE - LE dupplex/VQ scan PPX Monitor labs Atrovent HHN/CPT Q4 O2 PRN Follow cultures CT chest to evaluate nodules - non contrast D/w RN Labs noted Test 06/20/19 13:25 06/20/19 14:31 06/20/19 14:34 White Blood Count 6.6 K/UL (4.8-10.8) Red Blood Count 4.18 M/UL (4.70-6.10) Hemoglobin 11.9 G/DL (14.2-18.0) Hematocrit 36.6 % (42.0-52.0) Mean Corpuscular Volume 88 FL (80-99) Mean Corpuscular Hemoglobin 28.5 PG (27.0-31.0) Mean Corpuscular Hemoglobin Concent 32.4 G/DL (32.0-36.0) Red Cell Distribution Width 15.2 % (11.6-14.8) Platelet Count 212 K/UL (150-450) Mean Platelet Volume 5.9 FL (6.5-10.1) Neutrophils (%) (Auto) 71.7 % (45.0-75.0) Lymphocytes (%) (Auto) 19.6 % (20.0-45.0) Monocytes (%) (Auto) 8.2 % (1.0-10.0) Eosinophils (%) (Auto) 0.0 % (0.0-3.0) Basophils (%) (Auto) 0.5 % (0.0-2.0) Urine Color Yellow Urine Appearance Slightly cloudy Urine pH 5 (4.5-8.0) Urine Specific [place] 1.015 (1.005-1.035) Urine Protein 4+ (NEGATIVE) Urine Glucose (UA) Negative (NEGATIVE) Urine Ketones 1+ (NEGATIVE) Urine Blood 5+ (NEGATIVE) Urine Nitrite Positive (NEGATIVE) Urine Bilirubin Negative (NEGATIVE) Urine Urobilinogen Normal MG/DL (0.0-1.0) Urine Leukocyte Esterase 3+ (NEGATIVE) Urine RBC 10-15 /HPF (0 - 0) Urine WBC 15-20 /HPF (0 - 0) Urine Squamous Epithelial Cells Moderate /LPF (NONE/OCC) Urine Amorphous Sediment Moderate /LPF (NONE) Urine Bacteria Moderate /HPF (NONE) Urine Yeast Moderate /HPF (NONE) Sodium Level 158 MMOL/L (136-145) Potassium Level 2.9 MMOL/L (3.5-5.1) Chloride Level 118 MMOL/L (98-107) Carbon Dioxide Level 26 MMOL/L (21-32) Anion Gap 14 mmol/L (5-15) Blood Urea Nitrogen 33 mg/dL (7-18) Creatinine 0.8 MG/DL (0.55-1.30) Estimat Glomerular Filtration Rate mL/min (>60) Glucose Level 147 MG/DL (74-106) Lactic Acid Level 3.60 mmol/L (0.4-2.0) 3.30 mmol/L (0.66-2.22) Calcium Level 10.0 MG/DL (8.5-10.1) Total Bilirubin 0.6 MG/DL (0.2-1.0) Aspartate Amino Transf (AST/SGOT) 14 U/L (15-37) Alanine Aminotransferase (ALT/SGPT) 17 U/L (12-78) Alkaline Phosphatase 73 U/L (46-116) Total Creatine Kinase 17 U/L (26-308) Troponin I 0.018 ng/mL (0.000-0.056) Total Protein 7.1 G/DL (6.4-8.2) Albumin 2.5 G/DL (3.4-5.0) Globulin 4.6 g/dL Albumin/Globulin Ratio 0.5 (1.0-2.7) Arterial Blood pH 7.508 (7.350-7.450) Arterial Blood Partial Pressure CO2 29.3 mmHg (35.0-45.0) Arterial Blood Partial Pressure O2 69.7 mmHg (75.0-100.0) Arterial Blood HCO3 22.8 mmol/L (22.0-26.0) Arterial Blood Oxygen Saturation 93.9 % (95-100) Arterial Blood Base Excess 0.5 (-2-2) [place] Test Positive EKG: Rate: normal Rhythm: ventricular paced ST Segments: no acute changes Chest X-Ray: 1. Bibasilar airspace opacities which likely represent atelectasis but pneumonia should be excluded clinically. 2. Likely small left pleural effusion. 3. Scattered rounded densities which may represent calcified granulomata; however, comparison with prior imaging or evaluation with chest CT is recommended to exclude pulmonary nodules. Subjective ROS Limited/Unobtainable: No Allergies: Coded Allergies: No Known Allergies (Unverified , 06/20/19) Objective Last 24 Hour Vital Signs Date Time Temp Pulse Resp B/P (MAP) Pulse Ox O2 Delivery O2 Flow Rate FiO2 06/23/19 13:00 60 21 106/56 (73) 97 06/23/19 12:30 98.5 60 23 107/50 (69) 96 06/23/19 12:00 60 18 112/56 (74) 100 06/23/19 12:00 60 06/23/19 12:00 60 21 114/62 (79) 100 06/23/19 11:00 60 18 112/56 (74) 100 06/23/19 10:30 62 17 131/56 (81) 100 06/23/19 10:00 60 18 119/55 (76) 100 06/23/19 09:30 60 18 114/56 (75) 100 06/23/19 09:00 60 16 128/60 (82) 100 06/23/19 08:30 60 17 110/57 (74) 100 06/23/19 08:29 60 06/23/19 08:26 60 135/54 06/23/19 08:05 100 Nasal Cannula 2.0 28 06/23/19 08:00 98.1 60 19 135/54 (81) 100 06/23/19 08:00 Nasal Cannula 3.0 06/23/19 07:30 60 20 127/53 (77) 100 06/23/19 07:00 60 19 130/56 (80) 100 06/23/19 06:30 60 18 134/52 (79) 100 06/23/19 06:00 60 20 119/56 (77) 100 06/23/19 05:30 61 24 130/53 (78) 100 06/23/19 05:00 60 25 111/58 (75) 98 06/23/19 04:30 62 20 113/59 (77) 97 06/23/19 04:00 Nasal Cannula 3.0 06/23/19 04:00 98.0 63 27 110/56 (74) 93 06/23/19 04:00 63 06/23/19 03:30 63 25 118/56 (76) 93 06/23/19 03:25 98.6 06/23/19 03:00 60 26 131/63 (85) 98 06/23/19 02:30 60 25 119/63 (81) 100 06/23/19 02:00 60 21 109/58 (75) 100 06/23/19 01:30 60 24 120/56 (77) 99 06/23/19 01:00 60 24 130/58 (82) 100 06/23/19 00:30 60 21 130/63 (85) 100 06/23/19 00:00 98.6 60 24 130/69 (89) 100 06/23/19 00:00 Nasal Cannula 3.0 06/23/19 00:00 60 06/22/19 23:30 60 20 134/60 (84) 100 06/22/19 23:00 60 17 133/71 (91) 100 06/22/19 22:30 60 19 136/57 (83) 100 06/22/19 22:00 60 19 131/58 (82) 100 06/22/19 21:50 60 126/58 06/22/19 21:30 60 19 126/58 (80) 100 06/22/19 21:00 60 18 116/64 (81) 100 06/22/19 20:30 60 17 113/60 (77) 100 06/22/19 20:00 98.6 60 16 109/63 (78) 99 06/22/19 20:00 Nasal Cannula 3.0 06/22/19 20:00 60 06/22/19 19:30 61 27 127/62 (83) 98 06/22/19 19:00 60 20 140/60 (86) 100 06/22/19 18:49 100 Nasal Cannula 2.0 28 06/22/19 18:49 60 16 100 Nasal Cannula 2.0 28 60 18 100 06/22/19 18:48 60 16 100 Nasal Cannula 2.0 28 06/22/19 18:00 60 16 123/69 (87) 100 06/22/19 17:30 60 20 134/56 (82) 100 06/22/19 17:00 60 17 129/62 (84) 100 06/22/19 16:30 60 16 145/64 (91) 100 06/22/19 16:00 98.8 60 18 130/72 (91) 100 06/22/19 16:00 60 06/22/19 15:30 60 20 133/62 (85) 100 06/22/19 15:00 64 18 133/62 (85) 100 06/22/19 14:30 60 23 129/69 (89) 100 06/22/19 14:00 60 17 143/61 (88) 100 Intake and Output 06/22/19 06/23/19 19:00 07:00 Intake Total 1088.10 ml 1428.670 ml Output Total 390 ml 420 ml Balance 698.10 ml 1008.670 ml Intake IV Total 1088.10 ml 1428.670 ml Output Urine Total 390 ml 420 ml # Bowel Movements 1 2 Microbiology Date/Time Source Procedure Growth Status 10/23/19 15:15 Nasal Nares - Final Complete 06/20/19 15:15 Nasal Nares - Final Complete 06/20/19 14:27 Nasal Nares MRSA Culture - Final Staphylococcus Aureus - Mrsa Complete 06/20/19 18:19 Stool Stool Culture - Preliminary NORMAL FECAL TAHMINA. Resulted 06/20/19 18:19 Stool Clostridium difficile Toxin Assay - Final Resulted 06/20/19 14:27 Rectum - Final NO CARBAPENEM-RESISTANT ENTEROBACTERI... Complete 06/20/19 14:27 Rectum VRE Culture - Final Enterococcus Faecium - Vre Complete Laboratory Tests 06/23/19 04:30: White Blood Count 9.6, Red Blood Count 3.75L, Hemoglobin 10.6L, Hematocrit 32.0L , Mean Corpuscular Volume 85, Mean Corpuscular Hemoglobin 28.3, Mean Corpuscular Hemoglobin Concent 33.1, Red Cell Distribution Width 14.4, Platelet Count 188, Mean Platelet Volume 6.0L, Neutrophils (%) (Auto) 69.5, Lymphocytes ( %) (Auto) 22.2, Monocytes (%) (Auto) 5.2, Eosinophils (%) (Auto) 2.9, Basophils (%) (Auto) 0.3, Sodium Level 143#, Potassium Level 4.0, Chloride Level 112H, Carbon Dioxide Level 24, Anion Gap 7, Blood Urea Nitrogen 11, Creatinine 0.5L, Estimat Glomerular Filtration Rate , Glucose Level 101, Calcium Level 9.3, Total Bilirubin 0.5, Aspartate Amino Transf (AST/SGOT) 12L, Alanine Aminotransferase (ALT/SGPT) 10L, Alkaline Phosphatase 64, Total Protein 5.9L, Albumin 1.9L, Globulin 4.0, Albumin/Globulin Ratio 0.5L Current Medications Medications (Trade) Dose Ordered Sig/Katharine Route PRN Reason Start Time Stop Time Status Last Admin Dose Admin Acetaminophen (Tylenol) 650 mg Q6H PRN ORAL Mild Pain/Temp > 100.5 06/21/19 12:15 07/21/19 06:14 06/23/19 13:15 Acetaminophen (Tylenol) 650 mg Q6H PRN RECTAL Mild Pain/Temp > 100.5 PO/NE 06/21/19 12:00 07/21/19 11:59 06/22/19 08:12 Acetylcysteine (Mucomyst) 100 mg TIDRT HHN 06/22/19 13:00 07/22/19 12:59 06/23/19 13:40 Amiodarone HCl 900 mg/Dextrose 500 ml @ 0 mls/hr Q24H IV 06/22/19 14:00 06/23/19 13:59 06/22/19 14:38 Aspirin (Ecotrin) 81 mg DAILY ORAL 06/22/19 09:00 07/21/19 08:59 06/23/19 08:26 Carbidopa/Levodopa (Sinemet 25/100) 1 tab THREE TIMES A DAY ORAL 06/21/19 13:00 07/21/19 08:59 06/23/19 13:14 Dextrose (Dextrose 50%) 25 ml Q30M PRN IV Hypoglycemia 06/21/19 11:30 07/20/19 20:59 Dextrose (Dextrose 50%) 50 ml Q30M PRN IV Hypoglycemia 06/21/19 11:30 07/20/19 20:59 Dronabinol (Marinol) 2.5 mg BID ORAL 06/21/19 18:00 07/21/19 08:59 06/23/19 08:30 Heparin Sodium (Porcine) (Heparin 5000 units/ml) 5,000 units EVERY 12 HOURS SUBQ 06/21/19 14:00 07/21/19 13:59 06/23/19 08:33 Insulin Aspart (NovoLOG) BEFORE MEALS AND HS SUBQ 06/21/19 11:30 07/20/19 21:59 06/21/19 16:45 Ipratropium [place] (Atrovent) 500 mcg Q4H PRN HHN Shortness of Breath 06/21/19 13:30 06/26/19 13:29 06/23/19 13:40 Memantine (Namenda) 10 mg Q12HR NG 06/22/19 21:00 07/22/19 20:59 06/23/19 08:26 Meropenem 1 gm/ Sodium Chloride 55 ml @ 110 mls/hr Q8HR IVPB 06/21/19 14:00 06/25/19 21:59 06/23/19 06:45 Metoprolol Tartrate (Lopressor) 5 mg EVERY 12 HOURS IVP 06/21/19 14:00 07/21/19 13:59 06/23/19 08:26 Morphine Sulfate (Morphine Sulfate) 2 mg Q6H PRN IVP For Pain 06/22/19 08:45 06/29/19 08:44 06/23/19 02:55 Pantoprazole (Protonix) 40 mg DAILY IVP 06/22/19 09:00 07/22/19 08:59 06/23/19 08:26 Polyethylene Glycol (Miralax) 17 gm DAILY PRN ORAL Constipation 06/21/19 12:00 07/21/19 11:59 Potassium Chloride 40 meq/ Dextrose 1,020 ml @ 50 mls/hr [id number] IV 06/23/19 14:00 07/23/19 13:59 Sennosides (Senokot) 17.2 mg QHS ORAL 06/21/19 21:00 07/21/19 20:59 06/22/19 21:51 Tamsulosin HCl (Flomax) 0.4 mg DAILY ORAL 06/22/19 09:00 07/21/19 08:59 06/23/19 08:25 Vancomycin HCl (Vanco rx to dose) 1 ea DAILY PRN MISC Per rx protocol 06/22/19 09:00 07/20/19 16:29 Vancomycin HCl 1 gm/Dextrose 275 ml @ 183.708 mls/hr Q24H IVPB 06/21/19 20:00 06/26/19 19:59 06/22/19 20:59 Vitamin D (Vitamin D) 5,000 intlu DAILY ORAL 06/22/19 09:00 07/21/19 08:59 06/23/19 08:29 Zinc Sulfate (Zinc Sulfate) 220 mg BID ORAL 06/21/19 18:00 07/21/19 08:59 06/23/19 08:26 Denys Payne MD Jun 23, 2019 13:51
--- NOTE | 2019-06-23 14:10 | Surgery Progress Note ---
Surgery Progress Note Subjective Additional Comments No acute events. Labs improved. Exam stable. Objective Last 24 Hour Vital Signs Date Time Temp Pulse Resp B/P (MAP) Pulse Ox O2 Delivery O2 Flow Rate FiO2 06/23/19 13:00 60 21 106/56 (73) 97 06/23/19 12:30 98.5 60 23 107/50 (69) 96 06/23/19 12:00 60 18 112/56 (74) 100 06/23/19 12:00 60 06/23/19 12:00 60 21 114/62 (79) 100 06/23/19 11:00 60 18 112/56 (74) 100 06/23/19 10:30 62 17 131/56 (81) 100 06/23/19 10:00 60 18 119/55 (76) 100 06/23/19 09:30 60 18 114/56 (75) 100 06/23/19 09:00 60 16 128/60 (82) 100 06/23/19 08:30 60 17 110/57 (74) 100 06/23/19 08:29 60 06/23/19 08:26 60 135/54 06/23/19 08:05 100 Nasal Cannula 2.0 28 06/23/19 08:00 98.1 60 19 135/54 (81) 100 06/23/19 08:00 Nasal Cannula 3.0 06/23/19 07:30 60 20 127/53 (77) 100 06/23/19 07:00 60 19 130/56 (80) 100 06/23/19 06:30 60 18 134/52 (79) 100 06/23/19 06:00 60 20 119/56 (77) 100 06/23/19 05:30 61 24 130/53 (78) 100 06/23/19 05:00 60 25 111/58 (75) 98 06/23/19 04:30 62 20 113/59 (77) 97 06/23/19 04:00 Nasal Cannula 3.0 06/23/19 04:00 98.0 63 27 110/56 (74) 93 06/23/19 04:00 63 06/23/19 03:30 63 25 118/56 (76) 93 06/23/19 03:25 98.6 06/23/19 03:00 60 26 131/63 (85) 98 06/23/19 02:30 60 25 119/63 (81) 100 06/23/19 02:00 60 21 109/58 (75) 100 06/23/19 01:30 60 24 120/56 (77) 99 06/23/19 01:00 60 24 130/58 (82) 100 06/23/19 00:30 60 21 130/63 (85) 100 06/23/19 00:00 98.6 60 24 130/69 (89) 100 06/23/19 00:00 Nasal Cannula 3.0 06/23/19 00:00 60 06/22/19 23:30 60 20 134/60 (84) 100 06/22/19 23:00 60 17 133/71 (91) 100 06/22/19 22:30 60 19 136/57 (83) 100 06/22/19 22:00 60 19 131/58 (82) 100 06/22/19 21:50 60 126/58 06/22/19 21:30 60 19 126/58 (80) 100 06/22/19 21:00 60 18 116/64 (81) 100 06/22/19 20:30 60 17 113/60 (77) 100 06/22/19 20:00 98.6 60 16 109/63 (78) 99 06/22/19 20:00 Nasal Cannula 3.0 06/22/19 20:00 60 06/22/19 19:30 61 27 127/62 (83) 98 06/22/19 19:00 60 20 140/60 (86) 100 06/22/19 18:49 100 Nasal Cannula 2.0 28 06/22/19 18:49 60 16 100 Nasal Cannula 2.0 28 60 18 100 06/22/19 18:48 60 16 100 Nasal Cannula 2.0 28 06/22/19 18:00 60 16 123/69 (87) 100 06/22/19 17:30 60 20 134/56 (82) 100 06/22/19 17:00 60 17 129/62 (84) 100 06/22/19 16:30 60 16 145/64 (91) 100 06/22/19 16:00 98.8 60 18 130/72 (91) 100 06/22/19 16:00 60 06/22/19 15:30 60 20 133/62 (85) 100 06/22/19 15:00 64 18 133/62 (85) 100 06/22/19 14:30 60 23 129/69 (89) 100 I&O Intake and Output 06/22/19 06/23/19 19:00 07:00 Intake Total 1088.10 ml 1428.670 ml Output Total 390 ml 420 ml Balance 698.10 ml 1008.670 ml Intake IV Total 1088.10 ml 1428.670 ml Output Urine Total 390 ml 420 ml # Bowel Movements 1 2 Dressing: dry Wound: clean Cardiovascular: RSR Respiratory: clear Abdomen: soft, flat, non-tender, present bowel sounds Extremities: no cyanosis, other Laboratory Tests Test 06/23/19 04:30 White Blood Count 9.6 K/UL (4.8-10.8) Red Blood Count 3.75 M/UL (4.70-6.10) L Hemoglobin 10.6 G/DL (14.2-18.0) L Hematocrit 32.0 % (42.0-52.0) L Mean Corpuscular Volume 85 FL (80-99) Mean Corpuscular Hemoglobin 28.3 PG (27.0-31.0) Mean Corpuscular Hemoglobin Concent 33.1 G/DL (32.0-36.0) Red Cell Distribution Width 14.4 % (11.6-14.8) Platelet Count 188 K/UL (150-450) Mean Platelet Volume 6.0 FL (6.5-10.1) L Neutrophils (%) (Auto) 69.5 % (45.0-75.0) Lymphocytes (%) (Auto) 22.2 % (20.0-45.0) Monocytes (%) (Auto) 5.2 % (1.0-10.0) Eosinophils (%) (Auto) 2.9 % (0.0-3.0) Basophils (%) (Auto) 0.3 % (0.0-2.0) Sodium Level 143 MMOL/L (136-145) # Potassium Level 4.0 MMOL/L (3.5-5.1) Chloride Level 112 MMOL/L (98-107) H Carbon Dioxide Level 24 MMOL/L (21-32) Anion Gap 7 mmol/L (5-15) Blood Urea Nitrogen 11 mg/dL (7-18) Creatinine 0.5 MG/DL (0.55-1.30) L Estimat Glomerular Filtration Rate mL/min (>60) Glucose Level 101 MG/DL (74-106) Calcium Level 9.3 MG/DL (8.5-10.1) Total Bilirubin 0.5 MG/DL (0.2-1.0) Aspartate Amino Transf (AST/SGOT) 12 U/L (15-37) L Alanine Aminotransferase (ALT/SGPT) 10 U/L (12-78) L Alkaline Phosphatase 64 U/L (46-116) Total Protein 5.9 G/DL (6.4-8.2) L Albumin 1.9 G/DL (3.4-5.0) L Globulin 4.0 g/dL Albumin/Globulin Ratio 0.5 (1.0-2.7) L Plan Problems: (1) Sepsis Assessment & Plan: cont iv abx as per ID eval rx as written AM labs ICU care DAILY ESTIMATED NEEDS: Needs based on Underweight, sepsis; 61.4kg 30-35 kcals/kg 1842- 2149 total kcals 1.25-2 g protein/kg 77- 123 g total protein 25-30 mL/kg 1535- 1842 total fluid mLs NUTRITION DIAGNOSIS: Increased kcal and pro needs r/t wound healing and underweight status AEB pt w/ open sacral wound (eval is pending), generalized moderate wasting, @81% of [place] Body Weight. CURRENT DIET:CCHO Med, Pureed moist, nectar-thick PO DIET RECOMMENDATIONS: Liberalized Regular diet w/ continued poor po intake/ texture per SAFETY COMPLIANCE SPECIALIST (ENTERAL NUTRITION RECOMMENDATIONS: * Consult RD if non oral feedings are part of POC *) ADDITIONAL RECOMMENDATIONS: 1) Follow up w/ WC eval * Provide Eliseo TID w/ meals for wound healing * Provide Vit C 250mg qdaily 2) Maintain calibrated bedscale wt 2/2 underweight status 3) F/up w/ SAFETY COMPLIANCE SPECIALIST eval 4) Add Glucerna 1 can TID w/ meals Add snacks in b/w meals (2) Sacral pressure ulcer Assessment & Plan: Pt presented on admission with multiple pressure injuries. Non-blanching erythema clefts of R and L ears. Full thickness sacral pressure injury. Base of wound has 60% mixed slough and soft necrosis,40% granular. Borders are macerated with surrounding non- blanching erythema with additional scattered partial thickness wounds..No odor or exudate noted.(L)7cm x (W)6.5cm. Full thickness pressure injury base of scrotum with 75% slough,25% hunter and moist . Small amt non-odorous serous exudate noted. Non-blanching erythema periwound .(L)3cm x (W)4.5cm.Non-blanching erythema without induration noted to R ischial area. Full thickness pressure injury R elbow . Base of erythematous with 10% slough. Inferior to R elbow wound, second wound that is resolving with dry pink epithelial. Bilat heels are boggy with non-blanching erythema. Tx.Plan: Cleanse wounds scrotum and Sacrum with saline. Apply Therahoney. Apply Moisture Barrier periwound.Cover each wound with Optifoam Drsg. Daily and prn. Apply Moisture Barrier Paste to buttocks and both ischial areas with each incontinence care. Apply Cavilon Skin Barrier to both heels. Cover each heel with Optifoam drsg. Change every 7 days and prn. APM/GAETANO Mattress overlay. Reposition at least every 2hours or as tolerated. Off-load heels with pillow. (3) UTI (urinary tract infection) (4) Respiratory failure, acute Kyle Lomax Jun 23, 2019 14:10
--- NOTE | 2019-06-23 15:01 | Infectious Diseases Prog Note ---
Assessment/Plan Problems: (1) Pneumonia Assessment & Plan: with B/L basal infiltrates suspect aspiration with fever and hypoxemia , continue meropenem and vancomycin empirically , pending sputum culture , aspiration precaution, monitor CXR (2) UTI (urinary tract infection) Assessment & Plan: already on meropenem , pending culture (3) Sepsis Assessment & Plan: due to the above , continue wide spectrum antibiotics pending cultures (4) Hypoxia Assessment & Plan: suspect due to the above , continue oxygen , and wide spectrum antibiotics (5) Respiratory failure, acute Assessment & Plan: due to the above, continue oxygen, nebulizer treatment and antibiotics , pulmonary eval is in progress (6) V-tach Assessment & Plan: sustained with torsade de point , check magnesium, cardiology is following (7) Sacral pressure ulcer Assessment & Plan: continue local wound care and dressings as per hospital protocol , with off loading Subjective ROS Limited/Unobtainable: Yes Allergies: Coded Allergies: No Known Allergies (Unverified , 06/20/19) Subjective He still in ICU for close monitoring due to recent run of V-tach, more awake , but unresponsive, afebrile today, has cough with congestion , no diarrhea Objective Vital Signs Last 24 Hour Vital Signs Date Time Temp Pulse Resp B/P (MAP) Pulse Ox O2 Delivery O2 Flow Rate FiO2 06/23/19 14:00 60 18 121/64 (83) 100 06/23/19 14:00 60 18 121/64 (83) 100 06/23/19 13:30 60 24 113/56 (75) 100 06/23/19 13:00 60 21 106/56 (73) 97 06/23/19 12:30 98.5 60 23 107/50 (69) 96 06/23/19 12:00 60 18 112/56 (74) 100 06/23/19 12:00 60 06/23/19 12:00 60 21 114/62 (79) 100 06/23/19 11:00 60 18 112/56 (74) 100 06/23/19 10:30 62 17 131/56 (81) 100 06/23/19 10:00 60 18 119/55 (76) 100 06/23/19 09:30 60 18 114/56 (75) 100 06/23/19 09:00 60 16 128/60 (82) 100 06/23/19 08:30 60 17 110/57 (74) 100 06/23/19 08:29 60 06/23/19 08:26 60 135/54 06/23/19 08:05 100 Nasal Cannula 2.0 28 06/23/19 08:00 98.1 60 19 135/54 (81) 100 06/23/19 08:00 Nasal Cannula 3.0 06/23/19 07:30 60 20 127/53 (77) 100 06/23/19 07:00 60 19 130/56 (80) 100 06/23/19 06:30 60 18 134/52 (79) 100 06/23/19 06:00 60 20 119/56 (77) 100 06/23/19 05:30 61 24 130/53 (78) 100 06/23/19 05:00 60 25 111/58 (75) 98 06/23/19 04:30 62 20 113/59 (77) 97 06/23/19 04:00 Nasal Cannula 3.0 06/23/19 04:00 98.0 63 27 110/56 (74) 93 06/23/19 04:00 63 06/23/19 03:30 63 25 118/56 (76) 93 06/23/19 03:25 98.6 06/23/19 03:00 60 26 131/63 (85) 98 06/23/19 02:30 60 25 119/63 (81) 100 06/23/19 02:00 60 21 109/58 (75) 100 06/23/19 01:30 60 24 120/56 (77) 99 06/23/19 01:00 60 24 130/58 (82) 100 06/23/19 00:30 60 21 130/63 (85) 100 06/23/19 00:00 98.6 60 24 130/69 (89) 100 06/23/19 00:00 Nasal Cannula 3.0 06/23/19 00:00 60 06/22/19 23:30 60 20 134/60 (84) 100 06/22/19 23:00 60 17 133/71 (91) 100 06/22/19 22:30 60 19 136/57 (83) 100 06/22/19 22:00 60 19 131/58 (82) 100 06/22/19 21:50 60 126/58 06/22/19 21:30 60 19 126/58 (80) 100 06/22/19 21:00 60 18 116/64 (81) 100 06/22/19 20:30 60 17 113/60 (77) 100 06/22/19 20:00 98.6 60 16 109/63 (78) 99 06/22/19 20:00 Nasal Cannula 3.0 06/22/19 20:00 60 06/22/19 19:30 61 27 127/62 (83) 98 06/22/19 19:00 60 20 140/60 (86) 100 06/22/19 18:49 100 Nasal Cannula 2.0 28 06/22/19 18:49 60 16 100 Nasal Cannula 2.0 28 60 18 100 06/22/19 18:48 60 16 100 Nasal Cannula 2.0 28 06/22/19 18:00 60 16 123/69 (87) 100 06/22/19 17:30 60 20 134/56 (82) 100 06/22/19 17:00 60 17 129/62 (84) 100 06/22/19 16:30 60 16 145/64 (91) 100 06/22/19 16:00 98.8 60 18 130/72 (91) 100 06/22/19 16:00 60 06/22/19 15:30 60 20 133/62 (85) 100 06/22/19 15:00 64 18 133/62 (85) 100 Height (Feet): 5 Height (Inches): 5.00 Weight (Pounds): 135 General Appearance: WD/WN, no acute distress HEENT: normocephalic, atraumatic, anicteric, mucous membranes moist Respiratory/Chest: chest wall non-tender, lungs clear, normal breath sounds, no respiratory distress, no accessory muscle use Cardiovascular: normal peripheral pulses, normal rate, regular rhythm, no gallop/murmur, no JVD Abdomen: normal bowel sounds, soft, non tender, no organomegaly, non distended , no mass, no scars Extremities: no cyanosis, no clubbing Skin: no rash, no lesions, no ulcers Neurologic/Psychiatric: alert, unresponsiveness Lymphatic: no neck adenopathy, no groin adenopathy Musculoskeletal: normal muscle bulk, no effusion Microbiology Date/Time Source Procedure Growth Status 06/20/19 15:15 Nasal Nares - Final Complete 06/20/19 15:15 Nasal Nares - Final Complete 06/20/19 18:19 Stool Stool Culture - Preliminary NORMAL FECAL TAHMINA. Resulted 06/20/19 18:19 Stool Clostridium difficile Toxin Assay - Final Resulted Laboratory Tests Test 06/23/19 04:30 White Blood Count 9.6 K/UL (4.8-10.8) Red Blood Count 3.75 M/UL (4.70-6.10) L Hemoglobin 10.6 G/DL (14.2-18.0) L Hematocrit 32.0 % (42.0-52.0) L Mean Corpuscular Volume 85 FL (80-99) Mean Corpuscular Hemoglobin 28.3 PG (27.0-31.0) Mean Corpuscular Hemoglobin Concent 33.1 G/DL (32.0-36.0) Red Cell Distribution Width 14.4 % (11.6-14.8) Platelet Count 188 K/UL (150-450) Mean Platelet Volume 6.0 FL (6.5-10.1) L Neutrophils (%) (Auto) 69.5 % (45.0-75.0) Lymphocytes (%) (Auto) 22.2 % (20.0-45.0) Monocytes (%) (Auto) 5.2 % (1.0-10.0) Eosinophils (%) (Auto) 2.9 % (0.0-3.0) Basophils (%) (Auto) 0.3 % (0.0-2.0) Sodium Level 143 MMOL/L (136-145) # Potassium Level 4.0 MMOL/L (3.5-5.1) Chloride Level 112 MMOL/L (98-107) H Carbon Dioxide Level 24 MMOL/L (21-32) Anion Gap 7 mmol/L (5-15) Blood Urea Nitrogen 11 mg/dL (7-18) Creatinine 0.5 MG/DL (0.55-1.30) L Estimat Glomerular Filtration Rate mL/min (>60) Glucose Level 101 MG/DL (74-106) Calcium Level 9.3 MG/DL (8.5-10.1) Total Bilirubin 0.5 MG/DL (0.2-1.0) Aspartate Amino Transf (AST/SGOT) 12 U/L (15-37) L Alanine Aminotransferase (ALT/SGPT) 10 U/L (12-78) L Alkaline Phosphatase 64 U/L (46-116) Total Protein 5.9 G/DL (6.4-8.2) L Albumin 1.9 G/DL (3.4-5.0) L Globulin 4.0 g/dL Albumin/Globulin Ratio 0.5 (1.0-2.7) L Current Medications Medications (Trade) Dose Ordered Sig/Katharine Route PRN Reason Start Time Stop Time Status Last Admin Dose Admin Acetaminophen (Tylenol) 650 mg Q6H PRN ORAL Mild Pain/Temp > 100.5 06/21/19 12:15 07/21/19 06:14 06/23/19 13:15 Acetaminophen (Tylenol) 650 mg Q6H PRN RECTAL Mild Pain/Temp > 100.5 PO/MS 06/21/19 12:00 07/21/19 11:59 06/22/19 08:12 Acetylcysteine (Mucomyst) 100 mg TIDRT HHN 06/22/19 13:00 07/22/19 12:59 06/23/19 13:40 Aspirin (Ecotrin) 81 mg DAILY ORAL 06/22/19 09:00 07/21/19 08:59 06/23/19 08:26 Carbidopa/Levodopa (Sinemet 25/100) 1 tab THREE TIMES A DAY ORAL 06/21/19 13:00 07/21/19 08:59 06/23/19 13:14 Dextrose (Dextrose 50%) 25 ml Q30M PRN IV Hypoglycemia 06/21/19 11:30 07/20/19 20:59 Dextrose (Dextrose 50%) 50 ml Q30M PRN IV Hypoglycemia 06/21/19 11:30 07/20/19 20:59 Dronabinol (Marinol) 2.5 mg BID ORAL 06/21/19 18:00 07/21/19 08:59 06/23/19 08:30 Heparin Sodium (Porcine) (Heparin 5000 units/ml) 5,000 units EVERY 12 HOURS SUBQ 06/21/19 14:00 07/21/19 13:59 06/23/19 08:33 Insulin Aspart (NovoLOG) EVERY 6 HOURS SUBQ 06/23/19 18:00 07/20/19 21:59 Ipratropium [place] (Atrovent) 500 mcg Q4H PRN HHN Shortness of Breath 06/21/19 13:30 06/26/19 13:29 06/23/19 13:40 Memantine (Namenda) 10 mg Q12HR NG 06/22/19 21:00 07/22/19 20:59 06/23/19 08:26 Meropenem 1 gm/ Sodium Chloride 55 ml @ 110 mls/hr Q8HR IVPB 06/21/19 14:00 06/25/19 21:59 06/23/19 14:01 Metoprolol Tartrate (Lopressor) 5 mg EVERY 12 HOURS IVP 06/21/19 14:00 07/21/19 13:59 06/23/19 08:26 Morphine Sulfate (Morphine Sulfate) 2 mg Q6H PRN IVP For Pain 06/22/19 08:45 06/29/19 08:44 06/23/19 02:55 Pantoprazole (Protonix) 40 mg DAILY IVP 06/22/19 09:00 07/22/19 08:59 06/23/19 08:26 Polyethylene Glycol (Miralax) 17 gm DAILY PRN ORAL Constipation 06/21/19 12:00 07/21/19 11:59 Potassium Chloride 40 meq/ Dextrose 1,020 ml @ 50 mls/hr [id number] IV 06/23/19 14:00 07/23/19 13:59 06/23/19 14:01 Sennosides (Senokot) 17.2 mg QHS ORAL 06/21/19 21:00 07/21/19 20:59 06/22/19 21:51 Tamsulosin HCl (Flomax) 0.4 mg DAILY ORAL 06/22/19 09:00 07/21/19 08:59 06/23/19 08:25 Vancomycin HCl (Vanco rx to dose) 1 ea DAILY PRN MISC Per rx protocol 06/22/19 09:00 07/20/19 16:29 Vancomycin HCl 1 gm/Dextrose 275 ml @ 183.708 mls/hr Q24H IVPB 06/21/19 20:00 06/26/19 19:59 06/22/19 20:59 Vitamin D (Vitamin D) 5,000 intlu DAILY ORAL 06/22/19 09:00 07/21/19 08:59 06/23/19 08:29 Zinc Sulfate (Zinc Sulfate) 220 mg BID ORAL 06/21/19 18:00 07/21/19 08:59 06/23/19 08:26 Arcadio Mcnair M.D. Jun 23, 2019 15:01
--- NOTE | 2019-06-23 15:01 | NUR ---
NURSE NOTES: Notified Dr Mcnair that pt is positive for MRSA and VRE positive. No new orders.
--- NOTE | 2019-06-23 15:49 | NUR ---
NURSE NOTES: Daughter at bedside. Dr Payne here to see the patient. Updated him with pt's current condition, including thick secretion. No new orders.
--- NOTE | 2019-06-23 17:13 | Cardiac Electrophysiology PN ---
Assessment/Plan Assessment/Plan 1. S/P 2 spontaneous noninfarctional VF arrest of more than 60 seconds documented on tele and Pacer interrogation. On iv Amiodarone. DW only daughter at bedside the option of cardiac cath and upgrading pacer to ICD after ID clearance. She agrees and would like to proceed. Will transfer to [facility] when cleared with ID Hypokalemia would not explain such major recurrent events. No DE and EF normal 2. S/P dual chamber [employer] pacer that was interrogated and showed Nl function and documented 2 episodes of sustained VF more than 60 seconds that self terminated 3. HTN on Lopressor 5 iv bid. 4. Dysphagia, family has refused PEG 5. PNA on Abx per ID 6. Dementia DW RN, daughter and Dr Blanco Subjective Subjective In ICU on iv Amiodrip for 2 episodes of sustained VF that was documented on tele as well as pacer interrogation. Daughter at bedside Objective Last 24 Hour Vital Signs Date Time Temp Pulse Resp B/P (MAP) Pulse Ox O2 Delivery O2 Flow Rate FiO2 06/23/19 16:30 97.8 60 22 108/48 (68) 99 06/23/19 16:00 60 30 120/53 (75) 100 06/23/19 15:30 94 23 108/56 (73) 90 06/23/19 15:00 62 28 132/50 (77) 100 06/23/19 14:30 60 22 118/58 (78) 100 06/23/19 14:00 60 18 121/64 (83) 100 06/23/19 13:30 60 24 113/56 (75) 100 06/23/19 13:00 60 21 106/56 (73) 97 06/23/19 12:30 98.5 60 23 107/50 (69) 96 06/23/19 12:00 60 18 112/56 (74) 100 06/23/19 12:00 60 06/23/19 12:00 60 21 114/62 (79) 100 06/23/19 11:00 60 18 112/56 (74) 100 06/23/19 10:30 62 17 131/56 (81) 100 06/23/19 10:00 60 18 119/55 (76) 100 06/23/19 09:30 60 18 114/56 (75) 100 06/23/19 09:00 60 16 128/60 (82) 100 06/23/19 08:30 60 17 110/57 (74) 100 06/23/19 08:29 60 06/23/19 08:26 60 135/54 06/23/19 08:05 100 Nasal Cannula 2.0 28 06/23/19 08:00 98.1 60 19 135/54 (81) 100 06/23/19 08:00 Nasal Cannula 3.0 06/23/19 07:30 60 20 127/53 (77) 100 06/23/19 07:00 60 19 130/56 (80) 100 06/23/19 06:30 60 18 134/52 (79) 100 06/23/19 06:00 60 20 119/56 (77) 100 06/23/19 05:30 61 24 130/53 (78) 100 06/23/19 05:00 60 25 111/58 (75) 98 06/23/19 04:30 62 20 113/59 (77) 97 06/23/19 04:00 Nasal Cannula 3.0 06/23/19 04:00 98.0 63 27 110/56 (74) 93 06/23/19 04:00 63 06/23/19 03:30 63 25 118/56 (76) 93 06/23/19 03:25 98.6 06/23/19 03:00 60 26 131/63 (85) 98 06/23/19 02:30 60 25 119/63 (81) 100 06/23/19 02:00 60 21 109/58 (75) 100 06/23/19 01:30 60 24 120/56 (77) 99 06/23/19 01:00 60 24 130/58 (82) 100 06/23/19 00:30 60 21 130/63 (85) 100 06/23/19 00:00 98.6 60 24 130/69 (89) 100 06/23/19 00:00 Nasal Cannula 3.0 06/23/19 00:00 60 06/22/19 23:30 60 20 134/60 (84) 100 06/22/19 23:00 60 17 133/71 (91) 100 06/22/19 22:30 60 19 136/57 (83) 100 06/22/19 22:00 60 19 131/58 (82) 100 06/22/19 21:50 60 126/58 06/22/19 21:30 60 19 126/58 (80) 100 06/22/19 21:00 60 18 116/64 (81) 100 06/22/19 20:30 60 17 113/60 (77) 100 06/22/19 20:00 98.6 60 16 109/63 (78) 99 06/22/19 20:00 Nasal Cannula 3.0 06/22/19 20:00 60 06/22/19 19:30 61 27 127/62 (83) 98 06/22/19 19:00 60 20 140/60 (86) 100 06/22/19 18:49 100 Nasal Cannula 2.0 28 06/22/19 18:49 60 16 100 Nasal Cannula 2.0 28 60 18 100 06/22/19 18:48 60 16 100 Nasal Cannula 2.0 28 06/22/19 18:00 60 16 123/69 (87) 100 06/22/19 17:30 60 20 134/56 (82) 100 Intake and Output 06/22/19 06/23/19 19:00 07:00 Intake Total 1088.10 ml 1428.670 ml Output Total 390 ml 420 ml Balance 698.10 ml 1008.670 ml Intake IV Total 1088.10 ml 1428.670 ml Output Urine Total 390 ml 420 ml # Bowel Movements 1 2 Laboratory Tests Test 06/23/19 04:30 White Blood Count 9.6 K/UL (4.8-10.8) Red Blood Count 3.75 M/UL (4.70-6.10) L Hemoglobin 10.6 G/DL (14.2-18.0) L Hematocrit 32.0 % (42.0-52.0) L Mean Corpuscular Volume 85 FL (80-99) Mean Corpuscular Hemoglobin 28.3 PG (27.0-31.0) Mean Corpuscular Hemoglobin Concent 33.1 G/DL (32.0-36.0) Red Cell Distribution Width 14.4 % (11.6-14.8) Platelet Count 188 K/UL (150-450) Mean Platelet Volume 6.0 FL (6.5-10.1) L Neutrophils (%) (Auto) 69.5 % (45.0-75.0) Lymphocytes (%) (Auto) 22.2 % (20.0-45.0) Monocytes (%) (Auto) 5.2 % (1.0-10.0) Eosinophils (%) (Auto) 2.9 % (0.0-3.0) Basophils (%) (Auto) 0.3 % (0.0-2.0) Sodium Level 143 MMOL/L (136-145) # Potassium Level 4.0 MMOL/L (3.5-5.1) Chloride Level 112 MMOL/L (98-107) H Carbon Dioxide Level 24 MMOL/L (21-32) Anion Gap 7 mmol/L (5-15) Blood Urea Nitrogen 11 mg/dL (7-18) Creatinine 0.5 MG/DL (0.55-1.30) L Estimat Glomerular Filtration Rate mL/min (>60) Glucose Level 101 MG/DL (74-106) Calcium Level 9.3 MG/DL (8.5-10.1) Total Bilirubin 0.5 MG/DL (0.2-1.0) Aspartate Amino Transf (AST/SGOT) 12 U/L (15-37) L Alanine Aminotransferase (ALT/SGPT) 10 U/L (12-78) L Alkaline Phosphatase 64 U/L (46-116) Total Protein 5.9 G/DL (6.4-8.2) L Albumin 1.9 G/DL (3.4-5.0) L Globulin 4.0 g/dL Albumin/Globulin Ratio 0.5 (1.0-2.7) L Microbiology Date/Time Source Procedure Growth Status 06/20/19 18:19 Stool Stool Culture - Preliminary NORMAL FECAL TAHMINA. Resulted 06/20/19 18:19 Stool Clostridium difficile Toxin Assay - Final Resulted Objective General Appearance: Lethargic EENT: normal ENT inspection Neck: non-tender, supple Cardiovascular: normal rate, no gallop/murmur Respiratory/Chest: crackles/rales, rhonchi - bilaterally Abdomen: non tender, soft Extremities: non-tender Edema: no edema noted Leg (L), no edema noted Leg (R) Pablo Norton MD Jun 23, 2019 17:13
--- NOTE | 2019-06-23 18:00 | NUR ---
NURSE NOTES: Cleaned pt for 2 moderate amount of brown BM and repositioned pt. No acute distress noted. Will continue to monitor. Amiodarone drip order fell off. Spoke with pharmacy. New order was entered by charge nurse. Pharmacy will bring new amiodarone bag with a new label. Awaiting pharmacy to deliver.
[2019-06-23] MEDS ORDERED: Amiodarone 900 MG in D5W 500ml 482 ML IV SCH (18:30)
--- NOTE | 2019-06-23 19:30 | NUR ---
NURSE NOTES: Received pt obtunded and upper extremities contracted. moaned at times, Vpaced on the monitor, bp stable. Afebrile.
--- NOTE | 2019-06-23 19:35 | NUR ---
HAND-OFF: Report given to MONSERRAT King.
--- NOTE | 2019-06-23 20:00 | NUR ---
NURSE NOTES: pt with pacemaker on his left chest, also pt on Amiodarone drip at 0.5mg/hr as well as IVF D5W + 40meq KCL at 50ml/hr infusing to RT Ac, all IV site patent to IV, Pt tolerated Fdg , Glucerna 1.5 at 40ml/hr HOB kept elevated. On aspiration precaution. Pt has multiple pressure sores. Pls see pictures, All are covered with optifoam dry and intact-Will continue to monitor.
[2019-06-23] MEDS: Vancomycin 1 GM in D5W 275 ML IVPB SCH (20:52)
[2019-06-23] MEDS: Sennosides 8.6mg tab ORAL SCH (20:53)
--- NOTE | 2019-06-23 21:00 | NUR ---
NURSE NOTES: Suctioned tk whitish beige secretions lg in amt. 02 sat after suctioning was 100%.HOB kept elevated Watch for any resp. distress. Will continue to monitor.
--- NOTE | 2019-06-23 22:00 | NUR ---
NURSE NOTES: Had zx1 lg, formed stool. Cleaned up pt.
[2019-06-24] VITALS (37 sets, daily range): BP systolic 67–120; BP diastolic 37–71
--- NOTE | 2019-06-24 | NUR ---
NURSE NOTES: Accucheck 91- No coverage needed
--- NOTE | 2019-06-24 01:58 | NUR ---
NURSE NOTES: Bp 110/54. NSR on the 60s. Sleeping well at this time.
--- NOTE | 2019-06-24 03:00 | NUR ---
NURSE NOTES: Suctioned tk beige yellowish secretions lg in amt. 02 sat 100%
--- NOTE | 2019-06-24 05:00 | NUR ---
NURSE NOTES: Complete bath with bed changed done.
[2019-06-24] MEDS: Meropenem 1 GM in NS 55 ML IVPB SCH ×3 (06:00→22:32)
[2019-06-24] MEDS: NovoLOG Insulin Flexpen SUBQ SCH ×5 (06:15→23:45)
[2019-06-24 06:50] LABS: BASOPHILS % (AUTO) 0.5 % (0.0-2.0); EOSINOPHILS % (AUTO) 2.5 % (0.0-3.0); HEMATOCRIT 31.1 % (42.0-52.0); HEMOGLOBIN 10.5 G/DL (14.2-18.0); LYMPHOCYTES % (AUTO) 15.7 % (20.0-45.0); MEAN CORPUSCULAR VOLUME 85 FL (80-99); MONOCYTES % (AUTO) 5.5 % (1.0-10.0); NEUTROPHILS % (AUTO) 75.7 % (45.0-75.0); PLATELET COUNT 196 K/UL (150-450); RED BLOOD COUNT 3.68 M/UL (4.70-6.10); RED CELL DISTRIBUTION WIDTH 13.7 % (11.6-14.8); WHITE BLOOD COUNT 9.5 K/UL (4.8-10.8)
--- NOTE | 2019-06-24 07:00 | NUR ---
NURSE NOTES: [facility] called leaving message that theres still working with the pts bed.
[2019-06-24 07:17] LABS: ANION GAP 9 mmol/L (5-15); BLOOD UREA NITROGEN 9 mg/dL (7-18); CALCIUM 9.3 MG/DL (8.5-10.1); CARBON DIOXIDE 25 MMOL/L (21-32); CHLORIDE 108 MMOL/L (98-107); CREATININE 0.6 MG/DL (0.55-1.30); POTASSIUM 4.1 MMOL/L (3.5-5.1); SODIUM 142 MMOL/L (136-145)
--- NOTE | 2019-06-24 07:29 | NUR ---
HAND-OFF: Report given to Denys GERMAN.
--- NOTE | 2019-06-24 08:08 | NUR ---
NURSE NOTES: Dr. Norton assessed patient at the bedside and ordered to have amiodarone 400mg NGT BID. patient remains awaiting for transfer.
--- NOTE | 2019-06-24 08:26 | Cardiac Electrophysiology PN ---
Assessment/Plan Assessment/Plan 1. S/P Two spontaneous noninfarctional VF arrest of more than 60 seconds documented on tele and Pacer interrogation. On iv Amiodarone. DW only daughter at bedside the option of cardiac cath and upgrading pacer to ICD after ID clearance. She agrees and would like to proceed. Awaiting transfer to [facility]. No RI and EF normal. Change iv Amio to 400 NG bid. 2. S/P dual chamber [employer] pacer that was interrogated with documented 2 episodes of sustained VF more than 60 seconds that self terminated WIll upgrade to ICD after cardiac cath. Cleared by Dr Mcnair 3. HTN on Lopressor 5 iv bid. 4. Dysphagia, family has refused PEG 5. PNA on Abx per ID 6. Dementia DW RN, daughter and Dr Blanco and [facility] transfer CTr Subjective Subjective In ICU on iv Amiodrip . Ni further sustained VF episodes Objective Last 24 Hour Vital Signs Date Time Temp Pulse Resp B/P (MAP) Pulse Ox O2 Delivery O2 Flow Rate FiO2 06/24/19 08:13 100 Nasal Cannula 2.0 28 06/24/19 08:00 98.8 60 23 97/43 (61) 99 06/24/19 07:30 60 26 104/61 (75) 100 06/24/19 07:00 60 25 104/61 (75) 100 06/24/19 06:30 60 26 116/51 (72) 100 06/24/19 06:00 60 26 109/53 (71) 100 06/24/19 05:30 65 28 116/55 (75) 99 06/24/19 05:00 68 25 113/38 (63) 98 06/24/19 04:30 62 29 99/52 (68) 100 06/24/19 04:00 60 06/24/19 04:00 99.0 63 29 99/46 (63) 99 06/24/19 03:30 64 26 109/49 (69) 99 06/24/19 03:00 60 27 109/51 (70) 100 06/24/19 02:30 61 29 104/49 (67) 100 06/24/19 02:00 60 27 116/52 (73) 100 06/24/19 01:30 60 32 110/54 (72) 95 06/24/19 01:00 60 23 110/55 (73) 100 06/24/19 00:30 61 28 119/52 (74) 89 06/24/19 00:00 98.4 60 19 113/53 (73) 100 06/23/19 23:00 60 24 113/54 (73) 100 06/23/19 22:30 61 32 108/58 (75) 94 06/23/19 22:00 60 30 111/55 (73) 100 06/23/19 21:30 60 24 116/46 (69) 100 06/23/19 21:00 60 24 101/57 (72) 100 06/23/19 20:53 60 106/58 06/23/19 20:30 60 31 106/58 (74) 100 06/23/19 20:00 98.8 60 26 111/48 (69) 100 06/23/19 20:00 61 06/23/19 19:30 60 28 126/54 (78) 100 06/23/19 19:29 62 23 100 Nasal Cannula 2.0 28 06/23/19 19:14 60 20 100 Nasal Cannula 2.0 28 06/23/19 19:13 100 Nasal Cannula 2.0 28 06/23/19 19:00 60 26 112/63 (79) 100 06/23/19 18:30 61 24 116/59 (78) 100 06/23/19 18:00 61 22 122/61 (81) 100 06/23/19 17:30 60 24 120/55 (76) 100 06/23/19 17:00 60 21 108/50 (69) 100 06/23/19 16:30 97.8 60 22 108/48 (68) 99 06/23/19 16:00 61 06/23/19 16:00 60 30 120/53 (75) 100 06/23/19 15:30 94 23 108/56 (73) 90 06/23/19 15:00 62 28 132/50 (77) 100 06/23/19 14:30 60 22 118/58 (78) 100 06/23/19 14:00 60 18 121/64 (83) 100 06/23/19 13:55 74 20 100 Nasal Cannula 2.0 28 76 20 100 06/23/19 13:30 60 24 113/56 (75) 100 06/23/19 13:00 60 21 106/56 (73) 97 06/23/19 12:30 98.5 60 23 107/50 (69) 96 06/23/19 12:00 60 18 112/56 (74) 100 06/23/19 12:00 60 06/23/19 12:00 60 21 114/62 (79) 100 06/23/19 11:00 60 18 112/56 (74) 100 06/23/19 10:30 62 17 131/56 (81) 100 06/23/19 10:00 60 18 119/55 (76) 100 06/23/19 09:30 60 18 114/56 (75) 100 06/23/19 09:00 60 16 128/60 (82) 100 06/23/19 08:30 60 17 110/57 (74) 100 06/23/19 08:29 60 06/23/19 08:26 60 135/54 Intake and Output 06/23/19 06/24/19 19:00 07:00 Intake Total 1438.26 ml 2025.676 ml Output Total 910 ml 1500 ml Balance 528.26 ml 525.676 ml Intake Free Water 50 ml 200 ml IV Total 918.26 ml 1155.676 ml Tube Feeding 320 ml 670 ml Other 150 ml Output Urine Total 910 ml 1500 ml # Bowel Movements 2 2 Laboratory Tests Test 06/23/19 18:35 06/24/19 05:42 Vancomycin Level Trough 11.8 ug/mL (5.0-12.0) White Blood Count 9.5 K/UL (4.8-10.8) Red Blood Count 3.68 M/UL (4.70-6.10) L Hemoglobin 10.5 G/DL (14.2-18.0) L Hematocrit 31.1 % (42.0-52.0) L Mean Corpuscular Volume 85 FL (80-99) Mean Corpuscular Hemoglobin 28.6 PG (27.0-31.0) Mean Corpuscular Hemoglobin Concent 33.8 G/DL (32.0-36.0) Red Cell Distribution Width 13.7 % (11.6-14.8) Platelet Count 196 K/UL (150-450) Mean Platelet Volume 6.3 FL (6.5-10.1) L Neutrophils (%) (Auto) 75.7 % (45.0-75.0) H Lymphocytes (%) (Auto) 15.7 % (20.0-45.0) L Monocytes (%) (Auto) 5.5 % (1.0-10.0) Eosinophils (%) (Auto) 2.5 % (0.0-3.0) Basophils (%) (Auto) 0.5 % (0.0-2.0) Sodium Level 142 MMOL/L (136-145) Potassium Level 4.1 MMOL/L (3.5-5.1) Chloride Level 108 MMOL/L (98-107) H Carbon Dioxide Level 25 MMOL/L (21-32) Anion Gap 9 mmol/L (5-15) Blood Urea Nitrogen 9 mg/dL (7-18) Creatinine 0.6 MG/DL (0.55-1.30) Estimat Glomerular Filtration Rate mL/min (>60) Glucose Level 117 MG/DL (74-106) H Calcium Level 9.3 MG/DL (8.5-10.1) Objective General Appearance: Lethargic EENT: normal ENT inspection Neck: non-tender, supple Cardiovascular: normal rate, no gallop/murmur Respiratory/Chest: crackles/rales, rhonchi - bilaterally Abdomen: non tender, soft Extremities: non-tender Edema: no edema noted Leg (L), no edema noted Leg (R) Pablo Norton MD Jun 24, 2019 08:26
[2019-06-24] MEDS: Pantoprazole Inj IVP SCH (08:34)
[2019-06-24] MEDS: Zinc Sulfate 220mg cap ORAL SCH ×2 (08:34→17:59)
[2019-06-24] MEDS: Amiodarone 200mg tab NG SCH ×2 (08:34→21:21)
[2019-06-24] MEDS: Tamsulosin 0.4mg cap ORAL SCH (08:34)
[2019-06-24] MEDS: Vitamin D 1000 IU Tab ORAL SCH (08:34)
[2019-06-24] MEDS: Aspirin EC 81mg tab ORAL SCH (08:34)
[2019-06-24] MEDS: Memantine 10mg tab NG SCH ×2 (08:34→21:22)
[2019-06-24] MEDS: Levodopa/Carbidopa 25/100 tab ORAL SCH ×3 (08:34→17:59)
[2019-06-24] MEDS: Dronabinol 2.5mg Cap ORAL SCH ×2 (08:35→17:59)
[2019-06-24] MEDS: Heparin 5000 units/ml inj SUBQ SCH ×2 (08:39→21:23)
[2019-06-24] MEDS: Metoprolol 5mg/5ml Inj IVP SCH (08:40)
--- NOTE | 2019-06-24 09:03 | NUR ---
NURSE NOTES: Dr Norton made aware of metoprolol dose 5mg IVP held due to BP of 96/45, ordered to cancel metoprolol and start on Lopressor 12.5mg ng BID and hold for systolic BP less than 100.
--- NOTE | 2019-06-24 10:45 | NUR ---
NURSE NOTES: Dr. Ring assessing patient at the bedside, patient is tolerating tube feeding at 50ml/hr with residual of 10-20ml. NG-tube remains patent, CPT provided to patient per respiratory therapist.
--- NOTE | 2019-06-24 10:47 | General Progress Note ---
Assessment/Plan Status: stable Assessment/Plan: 1. Asp Pneumonia - improved. cont IV antibiotic. ID following. 2. UTI - cont above antibiotic. follow cultures. 3. Sepsis - improved. cont above antibiotic. 4. Ventricular Tachycardia - on Amioderone via NG tube - Cardiology following. Family prefers full code status. awaiting transfer to [facility] for ICD placement and Angio. 5. Parkinson dx - cont home med. 6. Dysphagia with hx of multiple asp pneumonia - family refused G tube placement. Speech therapy eval. 7. BPH - cont home meds. 8. H/O PE - on heparin now. 9. Sacral Pressure ulcer - cont wound care. Subjective Date patient seen: Jun 24, 2019 Time patient seen: 10:30 Constitutional: Reports: weakness HEENT: Reports: no symptoms Cardiovascular: Reports: no symptoms Respiratory: Reports: cough Gastrointestinal/Abdominal: Reports: no symptoms Genitourinary: Reports: no symptoms Neurologic/Psychiatric: Reports: weakness Endocrine: Reports: no symptoms Hematologic/Lymphatic: Reports: no symptoms Allergies: Coded Allergies: No Known Allergies (Unverified , 06/20/19) Subjective Patient was doing better and his coughing is better. Afebrile and no more V tach. Patient is in ICU now. He is lethargic. he is on Amioderone via NG tube. Objective Last 24 Hour Vital Signs Date Time Temp Pulse Resp B/P (MAP) Pulse Ox O2 Delivery O2 Flow Rate FiO2 06/24/19 10:00 60 19 98/44 (62) 99 06/24/19 09:30 60 19 100/50 (67) 99 06/24/19 09:00 60 13 112/50 (70) 99 06/24/19 08:40 60 96/45 06/24/19 08:30 60 17 97/43 (61) 100 06/24/19 08:13 100 Nasal Cannula 2.0 28 06/24/19 08:00 98.8 60 23 97/43 (61) 99 06/24/19 08:00 60 06/24/19 08:00 Nasal Cannula 3.0 06/24/19 07:30 60 26 104/61 (75) 100 06/24/19 07:00 60 25 104/61 (75) 100 06/24/19 06:30 60 26 116/51 (72) 100 06/24/19 06:00 60 26 109/53 (71) 100 06/24/19 05:30 65 28 116/55 (75) 99 06/24/19 05:00 68 25 113/38 (63) 98 06/24/19 04:30 62 29 99/52 (68) 100 06/24/19 04:00 60 06/24/19 04:00 99.0 63 29 99/46 (63) 99 06/24/19 03:30 64 26 109/49 (69) 99 06/24/19 03:00 60 27 109/51 (70) 100 06/24/19 02:30 61 29 104/49 (67) 100 06/24/19 02:00 60 27 116/52 (73) 100 06/24/19 01:30 60 32 110/54 (72) 95 06/24/19 01:00 60 23 110/55 (73) 100 06/24/19 00:30 61 28 119/52 (74) 89 06/24/19 00:00 98.4 60 19 113/53 (73) 100 06/23/19 23:00 60 24 113/54 (73) 100 06/23/19 22:30 61 32 108/58 (75) 94 06/23/19 22:00 60 30 111/55 (73) 100 06/23/19 21:30 60 24 116/46 (69) 100 06/23/19 21:00 60 24 101/57 (72) 100 06/23/19 20:53 60 106/58 06/23/19 20:30 60 31 106/58 (74) 100 06/23/19 20:00 98.8 60 26 111/48 (69) 100 06/23/19 20:00 61 06/23/19 19:30 60 28 126/54 (78) 100 06/23/19 19:29 62 23 100 Nasal Cannula 2.0 28 06/23/19 19:14 60 20 100 Nasal Cannula 2.0 28 06/23/19 19:13 100 Nasal Cannula 2.0 28 06/23/19 19:00 60 26 112/63 (79) 100 06/23/19 18:30 61 24 116/59 (78) 100 06/23/19 18:00 61 22 122/61 (81) 100 06/23/19 17:30 60 24 120/55 (76) 100 06/23/19 17:00 60 21 108/50 (69) 100 06/23/19 16:30 97.8 60 22 108/48 (68) 99 06/23/19 16:00 61 06/23/19 16:00 60 30 120/53 (75) 100 06/23/19 15:30 94 23 108/56 (73) 90 06/23/19 15:00 62 28 132/50 (77) 100 06/23/19 14:30 60 22 118/58 (78) 100 06/23/19 14:00 60 18 121/64 (83) 100 06/23/19 13:55 74 20 100 Nasal Cannula 2.0 28 76 20 100 06/23/19 13:30 60 24 113/56 (75) 100 06/23/19 13:00 60 21 106/56 (73) 97 06/23/19 12:30 98.5 60 23 107/50 (69) 96 06/23/19 12:00 60 18 112/56 (74) 100 06/23/19 12:00 60 06/23/19 12:00 60 21 114/62 (79) 100 06/23/19 11:00 60 18 112/56 (74) 100 Intake and Output 06/23/19 06/24/19 19:00 07:00 Intake Total 1438.26 ml 2147.336 ml Output Total 910 ml 1500 ml Balance 528.26 ml 647.336 ml Intake Free Water 50 ml 200 ml IV Total 918.26 ml 1277.336 ml Tube Feeding 320 ml 670 ml Other 150 ml Output Urine Total 910 ml 1500 ml # Bowel Movements 2 2 Laboratory Tests 06/23/19 18:35: Vancomycin Level Trough 11.8 06/24/19 05:42: White Blood Count 9.5, Red Blood Count 3.68L, Hemoglobin 10.5L, Hematocrit 31.1L , Mean Corpuscular Volume 85, Mean Corpuscular Hemoglobin 28.6, Mean Corpuscular Hemoglobin Concent 33.8, Red Cell Distribution Width 13.7, Platelet Count 196, Mean Platelet Volume 6.3L, Neutrophils (%) (Auto) 75.7H, Lymphocytes (%) (Auto) 15.7L, Monocytes (%) (Auto) 5.5, Eosinophils (%) (Auto) 2.5, Basophils (%) (Auto) 0.5, Sodium Level 142, Potassium Level 4.1, Chloride Level 108H, Carbon Dioxide Level 25, Anion Gap 9, Blood Urea Nitrogen 9, Creatinine 0.6, Estimat Glomerular Filtration Rate , Glucose Level 117H, Calcium Level 9.3 Height (Feet): 5 Height (Inches): 5.00 Weight (Pounds): 135 General Appearance: no apparent distress, lethargic EENT: normal ENT inspection Neck: non-tender, supple Cardiovascular: normal rate, regular rhythm Respiratory/Chest: lungs clear, no respiratory distress Abdomen: non tender, soft, no organomegaly Extremities: non-tender Edema: no edema noted Arm (L), no edema noted Arm (R), no edema noted Leg (L), no edema noted Leg (R), no edema noted Pedal (L), no edema noted Pedal (R), no edema noted Generalized Neurologic: responsive Skin: warm/dry Aakash Blanco MD Jun 24, 2019 10:46
--- NOTE | 2019-06-24 11:19 | General Progress Note ---
Assessment/Plan Status: stable Assessment/Plan: 1. Pneumonia. 2. Hypertension. 3. Parkinson disease. 4. Pacemaker placement 5. Dysphagia NGTF family wants repeat swallow doubt he will pass plan swallow eval on Tuesday most likely will need PEG Subjective ROS Limited/Unobtainable: No Allergies: Coded Allergies: No Known Allergies (Unverified , 06/20/19) Objective Last 24 Hour Vital Signs Date Time Temp Pulse Resp B/P (MAP) Pulse Ox O2 Delivery O2 Flow Rate FiO2 06/24/19 10:00 60 19 98/44 (62) 99 06/24/19 09:30 60 19 100/50 (67) 99 06/24/19 09:00 60 13 112/50 (70) 99 06/24/19 08:40 60 96/45 06/24/19 08:30 60 17 97/43 (61) 100 06/24/19 08:13 100 Nasal Cannula 2.0 28 06/24/19 08:00 98.8 60 23 97/43 (61) 99 06/24/19 08:00 60 06/24/19 08:00 Nasal Cannula 3.0 06/24/19 07:30 60 26 104/61 (75) 100 06/24/19 07:00 60 25 104/61 (75) 100 06/24/19 06:30 60 26 116/51 (72) 100 06/24/19 06:00 60 26 109/53 (71) 100 06/24/19 05:30 65 28 116/55 (75) 99 06/24/19 05:00 68 25 113/38 (63) 98 06/24/19 04:30 62 29 99/52 (68) 100 06/24/19 04:00 60 06/24/19 04:00 99.0 63 29 99/46 (63) 99 06/24/19 03:30 64 26 109/49 (69) 99 06/24/19 03:00 60 27 109/51 (70) 100 06/24/19 02:30 61 29 104/49 (67) 100 06/24/19 02:00 60 27 116/52 (73) 100 06/24/19 01:30 60 32 110/54 (72) 95 06/24/19 01:00 60 23 110/55 (73) 100 06/24/19 00:30 61 28 119/52 (74) 89 06/24/19 00:00 98.4 60 19 113/53 (73) 100 06/23/19 23:00 60 24 113/54 (73) 100 06/23/19 22:30 61 32 108/58 (75) 94 06/23/19 22:00 60 30 111/55 (73) 100 06/23/19 21:30 60 24 116/46 (69) 100 06/23/19 21:00 60 24 101/57 (72) 100 06/23/19 20:53 60 106/58 06/23/19 20:30 60 31 106/58 (74) 100 06/23/19 20:00 98.8 60 26 111/48 (69) 100 06/23/19 20:00 61 06/23/19 19:30 60 28 126/54 (78) 100 06/23/19 19:29 62 23 100 Nasal Cannula 2.0 28 06/23/19 19:14 60 20 100 Nasal Cannula 2.0 28 06/23/19 19:13 100 Nasal Cannula 2.0 28 06/23/19 19:00 60 26 112/63 (79) 100 06/23/19 18:30 61 24 116/59 (78) 100 06/23/19 18:00 61 22 122/61 (81) 100 06/23/19 17:30 60 24 120/55 (76) 100 06/23/19 17:00 60 21 108/50 (69) 100 06/23/19 16:30 97.8 60 22 108/48 (68) 99 06/23/19 16:00 61 06/23/19 16:00 60 30 120/53 (75) 100 06/23/19 15:30 94 23 108/56 (73) 90 06/23/19 15:00 62 28 132/50 (77) 100 06/23/19 14:30 60 22 118/58 (78) 100 06/23/19 14:00 60 18 121/64 (83) 100 06/23/19 13:55 74 20 100 Nasal Cannula 2.0 28 76 20 100 06/23/19 13:30 60 24 113/56 (75) 100 06/23/19 13:00 60 21 106/56 (73) 97 06/23/19 12:30 98.5 60 23 107/50 (69) 96 06/23/19 12:00 60 18 112/56 (74) 100 06/23/19 12:00 60 06/23/19 12:00 60 21 114/62 (79) 100 Intake and Output 06/23/19 06/24/19 19:00 07:00 Intake Total 1438.26 ml 2147.336 ml Output Total 910 ml 1500 ml Balance 528.26 ml 647.336 ml Intake Free Water 50 ml 200 ml IV Total 918.26 ml 1277.336 ml Tube Feeding 320 ml 670 ml Other 150 ml Output Urine Total 910 ml 1500 ml # Bowel Movements 2 2 Laboratory Tests 06/23/19 18:35: Vancomycin Level Trough 11.8 06/24/19 05:42: White Blood Count 9.5, Red Blood Count 3.68L, Hemoglobin 10.5L, Hematocrit 31.1L , Mean Corpuscular Volume 85, Mean Corpuscular Hemoglobin 28.6, Mean Corpuscular Hemoglobin Concent 33.8, Red Cell Distribution Width 13.7, Platelet Count 196, Mean Platelet Volume 6.3L, Neutrophils (%) (Auto) 75.7H, Lymphocytes (%) (Auto) 15.7L, Monocytes (%) (Auto) 5.5, Eosinophils (%) (Auto) 2.5, Basophils (%) (Auto) 0.5, Sodium Level 142, Potassium Level 4.1, Chloride Level 108H, Carbon Dioxide Level 25, Anion Gap 9, Blood Urea Nitrogen 9, Creatinine 0.6, Estimat Glomerular Filtration Rate , Glucose Level 117H, Calcium Level 9.3 Height (Feet): 5 Height (Inches): 5.00 Weight (Pounds): 135 General Appearance: lethargic EENT: normal ENT inspection Neck: supple Cardiovascular: normal rate Respiratory/Chest: decreased breath sounds Abdomen: normal bowel sounds, non tender, soft Extremities: non-tender Mahad Ring MD Jun 24, 2019 11:19
--- NOTE | 2019-06-24 11:45 | NUR ---
NURSE NOTES: Dr. Lomax assessed patient at the bedside, wound remains unchanged and covered with Optifoam, oral suctioned and repositioned.
[2019-06-24] MEDS: Ipratropium 0.02% Inh Soln 2.5ml UD HHN PRN ×2 (12:59→20:02)
--- NOTE | 2019-06-24 13:13 | Surgery Progress Note ---
Surgery Progress Note Subjective Additional Comments No acute events. Tolerating tube feeds. Seemingly comfortable. Resting comfortably today. Labs noted. Exam stable. Objective Last 24 Hour Vital Signs Date Time Temp Pulse Resp B/P (MAP) Pulse Ox O2 Delivery O2 Flow Rate FiO2 06/24/19 13:00 60 24 110/50 (70) 100 06/24/19 13:00 63 20 100 Nasal Cannula 2.0 28 61 20 100 06/24/19 12:00 59 06/24/19 12:00 98.2 60 14 100/45 (63) 100 06/24/19 11:30 60 23 105/42 (63) 100 06/24/19 11:00 60 22 95/48 (64) 98 06/24/19 10:30 60 14 97/44 (61) 100 06/24/19 10:00 60 19 98/44 (62) 99 06/24/19 09:30 60 19 100/50 (67) 99 06/24/19 09:00 60 13 112/50 (70) 99 06/24/19 08:40 60 96/45 06/24/19 08:30 60 17 97/43 (61) 100 06/24/19 08:13 100 Nasal Cannula 2.0 28 06/24/19 08:00 98.8 60 23 97/43 (61) 99 06/24/19 08:00 60 06/24/19 08:00 Nasal Cannula 3.0 06/24/19 07:30 60 26 104/61 (75) 100 06/24/19 07:00 60 25 104/61 (75) 100 06/24/19 06:30 60 26 116/51 (72) 100 06/24/19 06:00 60 26 109/53 (71) 100 06/24/19 05:30 65 28 116/55 (75) 99 06/24/19 05:00 68 25 113/38 (63) 98 06/24/19 04:30 62 29 99/52 (68) 100 06/24/19 04:00 60 06/24/19 04:00 99.0 63 29 99/46 (63) 99 06/24/19 03:30 64 26 109/49 (69) 99 06/24/19 03:00 60 27 109/51 (70) 100 06/24/19 02:30 61 29 104/49 (67) 100 06/24/19 02:00 60 27 116/52 (73) 100 06/24/19 01:30 60 32 110/54 (72) 95 06/24/19 01:00 60 23 110/55 (73) 100 06/24/19 00:30 61 28 119/52 (74) 89 06/24/19 00:00 98.4 60 19 113/53 (73) 100 06/23/19 23:00 60 24 113/54 (73) 100 06/23/19 22:30 61 32 108/58 (75) 94 06/23/19 22:00 60 30 111/55 (73) 100 06/23/19 21:30 60 24 116/46 (69) 100 06/23/19 21:00 60 24 101/57 (72) 100 06/23/19 20:53 60 106/58 06/23/19 20:30 60 31 106/58 (74) 100 06/23/19 20:00 98.8 60 26 111/48 (69) 100 06/23/19 20:00 61 06/23/19 19:30 60 28 126/54 (78) 100 06/23/19 19:29 62 23 100 Nasal Cannula 2.0 28 06/23/19 19:14 60 20 100 Nasal Cannula 2.0 28 06/23/19 19:13 100 Nasal Cannula 2.0 28 06/23/19 19:00 60 26 112/63 (79) 100 06/23/19 18:30 61 24 116/59 (78) 100 06/23/19 18:00 61 22 122/61 (81) 100 06/23/19 17:30 60 24 120/55 (76) 100 06/23/19 17:00 60 21 108/50 (69) 100 06/23/19 16:30 97.8 60 22 108/48 (68) 99 06/23/19 16:00 61 06/23/19 16:00 60 30 120/53 (75) 100 06/23/19 15:30 94 23 108/56 (73) 90 06/23/19 15:00 62 28 132/50 (77) 100 06/23/19 14:30 60 22 118/58 (78) 100 06/23/19 14:00 60 18 121/64 (83) 100 06/23/19 13:55 74 20 100 Nasal Cannula 2.0 28 76 20 100 06/23/19 13:30 60 24 113/56 (75) 100 I&O Intake and Output 06/23/19 06/24/19 19:00 07:00 Intake Total 1438.26 ml 2147.336 ml Output Total 910 ml 1500 ml Balance 528.26 ml 647.336 ml Intake Free Water 50 ml 200 ml IV Total 918.26 ml 1277.336 ml Tube Feeding 320 ml 670 ml Other 150 ml Output Urine Total 910 ml 1500 ml # Bowel Movements 2 2 Dressing: dry Wound: clean Cardiovascular: RSR Respiratory: clear Abdomen: soft, non-tender, present bowel sounds Extremities: no cyanosis Laboratory Tests Test 06/23/19 18:35 06/24/19 05:42 Vancomycin Level Trough 11.8 ug/mL (5.0-12.0) White Blood Count 9.5 K/UL (4.8-10.8) Red Blood Count 3.68 M/UL (4.70-6.10) L Hemoglobin 10.5 G/DL (14.2-18.0) L Hematocrit 31.1 % (42.0-52.0) L Mean Corpuscular Volume 85 FL (80-99) Mean Corpuscular Hemoglobin 28.6 PG (27.0-31.0) Mean Corpuscular Hemoglobin Concent 33.8 G/DL (32.0-36.0) Red Cell Distribution Width 13.7 % (11.6-14.8) Platelet Count 196 K/UL (150-450) Mean Platelet Volume 6.3 FL (6.5-10.1) L Neutrophils (%) (Auto) 75.7 % (45.0-75.0) H Lymphocytes (%) (Auto) 15.7 % (20.0-45.0) L Monocytes (%) (Auto) 5.5 % (1.0-10.0) Eosinophils (%) (Auto) 2.5 % (0.0-3.0) Basophils (%) (Auto) 0.5 % (0.0-2.0) Sodium Level 142 MMOL/L (136-145) Potassium Level 4.1 MMOL/L (3.5-5.1) Chloride Level 108 MMOL/L (98-107) H Carbon Dioxide Level 25 MMOL/L (21-32) Anion Gap 9 mmol/L (5-15) Blood Urea Nitrogen 9 mg/dL (7-18) Creatinine 0.6 MG/DL (0.55-1.30) Estimat Glomerular Filtration Rate mL/min (>60) Glucose Level 117 MG/DL (74-106) H Calcium Level 9.3 MG/DL (8.5-10.1) Plan Problems: (1) Sepsis Assessment & Plan: cont iv abx as per ID eval rx as written AM labs ICU care DAILY ESTIMATED NEEDS: Needs based on Underweight, sepsis; 61.4kg 30-35 kcals/kg 1842- 2149 total kcals 1.25-2 g protein/kg 77- 123 g total protein 25-30 mL/kg 1535- 1842 total fluid mLs NUTRITION DIAGNOSIS: Increased kcal and pro needs r/t wound healing and underweight status AEB pt w/ open sacral wound (eval is pending), generalized moderate wasting, @81% of [place] Body Weight. CURRENT DIET:CCHO Med, Pureed moist, nectar-thick PO DIET RECOMMENDATIONS: Liberalized Regular diet w/ continued poor po intake/ texture per PROFESSOR OF FINANCE (ENTERAL NUTRITION RECOMMENDATIONS: * Consult RD if non oral feedings are part of POC *) ADDITIONAL RECOMMENDATIONS: 1) Follow up w/ WC eval * Provide Eliseo TID w/ meals for wound healing * Provide Vit C 250mg qdaily 2) Maintain calibrated bedscale wt 2/2 underweight status 3) F/up w/ PROFESSOR OF FINANCE eval 4) Add Glucerna 1 can TID w/ meals Add snacks in b/w meals (2) Sacral pressure ulcer Assessment & Plan: Pt presented on admission with multiple pressure injuries. Non-blanching erythema clefts of R and L ears. Full thickness sacral pressure injury. Base of wound has 60% mixed slough and soft necrosis,40% granular. Borders are macerated with surrounding non- blanching erythema with additional scattered partial thickness wounds..No odor or exudate noted.(L)7cm x (W)6.5cm. Full thickness pressure injury base of scrotum with 75% slough,25% hunter and moist . Small amt non-odorous serous exudate noted. Non-blanching erythema periwound .(L)3cm x (W)4.5cm.Non-blanching erythema without induration noted to R ischial area. Full thickness pressure injury R elbow . Base of erythematous with 10% slough. Inferior to R elbow wound, second wound that is resolving with dry pink epithelial. Bilat heels are boggy with non-blanching erythema. Tx.Plan: Cleanse wounds scrotum and Sacrum with saline. Apply Therahoney. Apply Moisture Barrier periwound.Cover each wound with Optifoam Drsg. Daily and prn. Apply Moisture Barrier Paste to buttocks and both ischial areas with each incontinence care. Apply Cavilon Skin Barrier to both heels. Cover each heel with Optifoam drsg. Change every 7 days and prn. APM/GAETANO Mattress overlay. Reposition at least every 2hours or as tolerated. Off-load heels with pillow. (3) UTI (urinary tract infection) (4) Respiratory failure, acute Kyle Lomax Jun 24, 2019 13:13
--- NOTE | 2019-06-24 13:24 | NUR ---
HAND-OFF: Report given to MONSERRAT Quiroz. remains stable off amiodarone drip, one dose of amiodarone po 400mg given, bp is 110/50, with HR at 60 in v paced, patient remains on nasal cannula at 2L/min with saturations at 100%, RR are full and symmetrical with no retractions noted, remains tolerating tube feeding at 50ml/hr. .
--- NOTE | 2019-06-24 13:25 | NUR ---
NURSE NOTES: Report received from MONSERRAT Mcfarlane. Patient observed sleeping, opens eyes spontaneously. Patient remains on nasal cannula at 2L/min with saturations at 100%. NGT noted in the right nare, tolerating tube feeding Glucerna 1.5 @ 50ml/hr. HR 60, v-paced, on monitor tech. Lt FA #[id number] and Rt AC #20, running [id number] w/ 40 kcl @ 50mL/hr. Currently awaiting insurance approval for transfer to [facility] for AICD w/ cardiac cath. Will resume plan of care.
--- NOTE | 2019-06-24 14:18 | Pulmonology Progress Note ---
Assessment/Plan Assessment/Plan Pulmonary Progress Note HPI 83-year-old male admitted from [facility] facility with Urinary Tract Infection, Bibasal Pneumonia, Sepsis/Dehydration responsive to IVF and AB, Hypernatremia, Hypokalemia - family have previously refused feeding tube insertion, oxygen requirement have gradually improved during admission, remains on antibiotics per Infectious Disease, Cardiology following. Patient is nonverbal at baseline. Patient has been treated recently with antibiotics for pneumonia but symptoms worsening. febrile in triage. No reported chest pain. No other aggravating relieving factors. No other associated symptoms ABG reveals increased A-a gradient, Alkalosis VT - Amiodarone per Cardiology Allergies: Coded Allergies: No Known Allergies Past Medical History: Previous Pneumonia, Hypertension, Parkinsons Disease, Pacemaker Past Surgical History: pacemaker Physical Exam Vital Signs Noted, O2 sats stable on NC O2 General Appearance: no apparent distress, alert, GCS 15, chronically ill appearing, non-toxic Head: normocephalic atraumatic Eyes: bilateral eye normal inspection, bilateral eye PERRL ENT: moist mm Neck: normal inspection, no LN Respiratory: no respiratory distress, reduced basal BS Cardiovascular: regular rate, rhythm, HS1, HS2 normal, no edema Gastrointestinal: normal bowel sounds, non tender, soft, non-distended, no guarding, no rebound Musculoskeletal: normal inspection, weak Neurologic: nonverbal, no focal signs noted Impression: Bibasal Pneumonia Previous dysphagia Hypoxia, alkalosis Urinary tract infection Sepsis Dehydration Hypernatremia/hypokalemia Previous Pacemaker 4 years ago Run of Ventricular Tachycardia - Cardiology following H/o Hypertension Parkinsons Disease Old granulomatous changes on CXR Full code Plan Antibiotics per ID IVF Correct electrolyte imbalances Aspiration precautions Speech therapy evaluation of swallow R/O DVT/PE - LE dupplex/VQ scan PPX Monitor labs Atrovent HHN/CPT Q4 O2 PRN Follow cultures CT chest to evaluate nodules - non contrast D/w RN Labs noted Test 06/20/19 13:25 06/20/19 14:31 06/20/19 14:34 White Blood Count 6.6 K/UL (4.8-10.8) Red Blood Count 4.18 M/UL (4.70-6.10) Hemoglobin 11.9 G/DL (14.2-18.0) Hematocrit 36.6 % (42.0-52.0) Mean Corpuscular Volume 88 FL (80-99) Mean Corpuscular Hemoglobin 28.5 PG (27.0-31.0) Mean Corpuscular Hemoglobin Concent 32.4 G/DL (32.0-36.0) Red Cell Distribution Width 15.2 % (11.6-14.8) Platelet Count 212 K/UL (150-450) Mean Platelet Volume 5.9 FL (6.5-10.1) Neutrophils (%) (Auto) 71.7 % (45.0-75.0) Lymphocytes (%) (Auto) 19.6 % (20.0-45.0) Monocytes (%) (Auto) 8.2 % (1.0-10.0) Eosinophils (%) (Auto) 0.0 % (0.0-3.0) Basophils (%) (Auto) 0.5 % (0.0-2.0) Urine Color Yellow Urine Appearance Slightly cloudy Urine pH 5 (4.5-8.0) Urine Specific [place] 1.015 (1.005-1.035) Urine Protein 4+ (NEGATIVE) Urine Glucose (UA) Negative (NEGATIVE) Urine Ketones 1+ (NEGATIVE) Urine Blood 5+ (NEGATIVE) Urine Nitrite Positive (NEGATIVE) Urine Bilirubin Negative (NEGATIVE) Urine Urobilinogen Normal MG/DL (0.0-1.0) Urine Leukocyte Esterase 3+ (NEGATIVE) Urine RBC 10-15 /HPF (0 - 0) Urine WBC 15-20 /HPF (0 - 0) Urine Squamous Epithelial Cells Moderate /LPF (NONE/OCC) Urine Amorphous Sediment Moderate /LPF (NONE) Urine Bacteria Moderate /HPF (NONE) Urine Yeast Moderate /HPF (NONE) Sodium Level 158 MMOL/L (136-145) Potassium Level 2.9 MMOL/L (3.5-5.1) Chloride Level 118 MMOL/L (98-107) Carbon Dioxide Level 26 MMOL/L (21-32) Anion Gap 14 mmol/L (5-15) Blood Urea Nitrogen 33 mg/dL (7-18) Creatinine 0.8 MG/DL (0.55-1.30) Estimat Glomerular Filtration Rate mL/min (>60) Glucose Level 147 MG/DL (74-106) Lactic Acid Level 3.60 mmol/L (0.4-2.0) 3.30 mmol/L (0.66-2.22) Calcium Level 10.0 MG/DL (8.5-10.1) Total Bilirubin 0.6 MG/DL (0.2-1.0) Aspartate Amino Transf (AST/SGOT) 14 U/L (15-37) Alanine Aminotransferase (ALT/SGPT) 17 U/L (12-78) Alkaline Phosphatase 73 U/L (46-116) Total Creatine Kinase 17 U/L (26-308) Troponin I 0.018 ng/mL (0.000-0.056) Total Protein 7.1 G/DL (6.4-8.2) Albumin 2.5 G/DL (3.4-5.0) Globulin 4.6 g/dL Albumin/Globulin Ratio 0.5 (1.0-2.7) Arterial Blood pH 7.508 (7.350-7.450) Arterial Blood Partial Pressure CO2 29.3 mmHg (35.0-45.0) Arterial Blood Partial Pressure O2 69.7 mmHg (75.0-100.0) Arterial Blood HCO3 22.8 mmol/L (22.0-26.0) Arterial Blood Oxygen Saturation 93.9 % (95-100) Arterial Blood Base Excess 0.5 (-2-2) [place]e Test Positive EKG: Rate: normal Rhythm: ventricular paced ST Segments: no acute changes Chest X-Ray: 1. Bibasilar airspace opacities which likely represent atelectasis but pneumonia should be excluded clinically. 2. Likely small left pleural effusion. 3. Scattered rounded densities which may represent calcified granulomata; however, comparison with prior imaging or evaluation with chest CT is recommended to exclude pulmonary nodules. Subjective ROS Limited/Unobtainable: No Allergies: Coded Allergies: No Known Allergies (Unverified , 06/20/19) Objective Last 24 Hour Vital Signs Date Time Temp Pulse Resp B/P (MAP) Pulse Ox O2 Delivery O2 Flow Rate FiO2 06/24/19 14:00 60 22 103/38 (59) 100 06/24/19 13:00 60 24 110/50 (70) 100 06/24/19 13:00 63 20 100 Nasal Cannula 2.0 28 61 20 100 06/24/19 12:00 Nasal Cannula 3.0 06/24/19 12:00 59 06/24/19 12:00 98.2 60 14 100/45 (63) 100 06/24/19 11:30 60 23 105/42 (63) 100 06/24/19 11:00 60 22 95/48 (64) 98 06/24/19 10:30 60 14 97/44 (61) 100 06/24/19 10:00 60 19 98/44 (62) 99 06/24/19 09:30 60 19 100/50 (67) 99 06/24/19 09:00 60 13 112/50 (70) 99 06/24/19 08:40 60 96/45 06/24/19 08:30 60 17 97/43 (61) 100 06/24/19 08:13 100 Nasal Cannula 2.0 28 06/24/19 08:00 98.8 60 23 97/43 (61) 99 06/24/19 08:00 60 06/24/19 08:00 Nasal Cannula 3.0 06/24/19 07:30 60 26 104/61 (75) 100 06/24/19 07:00 60 25 104/61 (75) 100 06/24/19 06:30 60 26 116/51 (72) 100 06/24/19 06:00 60 26 109/53 (71) 100 06/24/19 05:30 65 28 116/55 (75) 99 06/24/19 05:00 68 25 113/38 (63) 98 06/24/19 04:30 62 29 99/52 (68) 100 06/24/19 04:00 60 06/24/19 04:00 99.0 63 29 99/46 (63) 99 06/24/19 03:30 64 26 109/49 (69) 99 06/24/19 03:00 60 27 109/51 (70) 100 06/24/19 02:30 61 29 104/49 (67) 100 06/24/19 02:00 60 27 116/52 (73) 100 06/24/19 01:30 60 32 110/54 (72) 95 06/24/19 01:00 60 23 110/55 (73) 100 06/24/19 00:30 61 28 119/52 (74) 89 06/24/19 00:00 98.4 60 19 113/53 (73) 100 06/23/19 23:00 60 24 113/54 (73) 100 06/23/19 22:30 61 32 108/58 (75) 94 06/23/19 22:00 60 30 111/55 (73) 100 06/23/19 21:30 60 24 116/46 (69) 100 06/23/19 21:00 60 24 101/57 (72) 100 06/23/19 20:53 60 106/58 06/23/19 20:30 60 31 106/58 (74) 100 06/23/19 20:00 98.8 60 26 111/48 (69) 100 06/23/19 20:00 61 06/23/19 19:30 60 28 126/54 (78) 100 06/23/19 19:29 62 23 100 Nasal Cannula 2.0 28 06/23/19 19:14 60 20 100 Nasal Cannula 2.0 28 06/23/19 19:13 100 Nasal Cannula 2.0 28 06/23/19 19:00 60 26 112/63 (79) 100 06/23/19 18:30 61 24 116/59 (78) 100 06/23/19 18:00 61 22 122/61 (81) 100 06/23/19 17:30 60 24 120/55 (76) 100 06/23/19 17:00 60 21 108/50 (69) 100 06/23/19 16:30 97.8 60 22 108/48 (68) 99 06/23/19 16:00 61 06/23/19 16:00 60 30 120/53 (75) 100 06/23/19 15:30 94 23 108/56 (73) 90 06/23/19 15:00 62 28 132/50 (77) 100 06/23/19 14:30 60 22 118/58 (78) 100 Intake and Output 06/23/19 06/24/19 19:00 07:00 Intake Total 1438.26 ml 2147.336 ml Output Total 910 ml 1500 ml Balance 528.26 ml 647.336 ml Intake Free Water 50 ml 200 ml IV Total 918.26 ml 1277.336 ml Tube Feeding 320 ml 670 ml Other 150 ml Output Urine Total 910 ml 1500 ml # Bowel Movements 2 2 Microbiology Date/Time Source Procedure Growth Status 06/23/19 03:00 Sputum Induced Gram Stain - Final Resulted 06/23/19 03:00 Sputum Induced Sputum Culture Pending Resulted Laboratory Tests 06/23/19 18:35: Vancomycin Level Trough 11.8 06/24/19 05:42: White Blood Count 9.5, Red Blood Count 3.68L, Hemoglobin 10.5L, Hematocrit 31.1L , Mean Corpuscular Volume 85, Mean Corpuscular Hemoglobin 28.6, Mean Corpuscular Hemoglobin Concent 33.8, Red Cell Distribution Width 13.7, Platelet Count 196, Mean Platelet Volume 6.3L, Neutrophils (%) (Auto) 75.7H, Lymphocytes (%) (Auto) 15.7L, Monocytes (%) (Auto) 5.5, Eosinophils (%) (Auto) 2.5, Basophils (%) (Auto) 0.5, Sodium Level 142, Potassium Level 4.1, Chloride Level 108H, Carbon Dioxide Level 25, Anion Gap 9, Blood Urea Nitrogen 9, Creatinine 0.6, Estimat Glomerular Filtration Rate , Glucose Level 117H, Calcium Level 9.3 Current Medications Medications (Trade) Dose Ordered Sig/Katharine Route PRN Reason Start Time Stop Time Status Last Admin Dose Admin Acetaminophen (Tylenol) 650 mg Q6H PRN ORAL Mild Pain/Temp > 100.5 06/21/19 12:15 07/21/19 06:14 06/23/19 13:15 Acetaminophen (Tylenol) 650 mg Q6H PRN RECTAL Mild Pain/Temp > 100.5 PO/NJ 06/21/19 12:00 07/21/19 11:59 06/22/19 08:12 Acetylcysteine (Mucomyst) 100 mg TIDRT HHN 06/22/19 13:00 07/22/19 12:59 06/24/19 13:00 Amiodarone HCl (Cordarone) 400 mg EVERY 12 HOURS NG 06/24/19 09:00 07/24/19 08:59 06/24/19 08:34 Amiodarone HCl 900 mg/Dextrose 500 ml @ 16.66 mls/ hr Q24H IV 06/23/19 18:30 06/25/19 18:29 06/23/19 18:33 Aspirin (Ecotrin) 81 mg DAILY ORAL 06/22/19 09:00 07/21/19 08:59 06/24/19 08:34 Carbidopa/Levodopa (Sinemet 25/) 1 tab THREE TIMES A DAY ORAL 06/21/19 13:00 07/21/19 08:59 06/24/19 13:50 Dextrose (Dextrose 50%) 25 ml Q30M PRN IV Hypoglycemia 06/21/19 11:30 07/20/19 20:59 Dextrose (Dextrose 50%) 50 ml Q30M PRN IV Hypoglycemia 06/21/19 11:30 07/20/19 20:59 Dronabinol (Marinol) 2.5 mg BID ORAL 06/21/19 18:00 07/21/19 08:59 06/24/19 08:35 Heparin Sodium (Porcine) (Heparin 5000 units/ml) 5,000 units EVERY 12 HOURS SUBQ 06/21/19 14:00 07/21/19 13:59 06/24/19 08:39 Insulin Aspart (NovoLOG) EVERY 6 HOURS SUBQ 06/23/19 18:00 07/20/19 21:59 06/24/19 11:48 Ipratropium [place] (Atrovent) 500 mcg Q4H PRN HHN Shortness of Breath 06/21/19 13:30 06/26/19 13:29 06/24/19 12:59 Memantine (Namenda) 10 mg Q12HR NG 06/22/19 21:00 07/22/19 20:59 06/24/19 08:34 Meropenem 1 gm/ Sodium Chloride 55 ml @ 110 mls/hr Q8HR IVPB 06/21/19 14:00 06/25/19 21:59 06/24/19 13:50 Metoprolol Tartrate (Lopressor) 12.5 mg Q12HR NG 06/24/19 21:00 07/24/19 20:59 Morphine Sulfate (Morphine Sulfate) 2 mg Q6H PRN IVP For Pain 06/22/19 08:45 06/29/19 08:44 06/23/19 02:55 Pantoprazole (Protonix) 40 mg DAILY IVP 06/22/19 09:00 07/22/19 08:59 06/24/19 08:34 Polyethylene Glycol (Miralax) 17 gm DAILY PRN ORAL Constipation 06/21/19 12:00 07/21/19 11:59 Potassium Chloride 40 meq/ Dextrose 1,020 ml @ 50 mls/hr [id number] IV 06/23/19 14:00 07/23/19 13:59 06/24/19 10:45 Sennosides (Senokot) 17.2 mg QHS ORAL 06/21/19 21:00 07/21/19 20:59 06/23/19 20:53 Tamsulosin HCl (Flomax) 0.4 mg DAILY ORAL 06/22/19 09:00 07/21/19 08:59 06/24/19 08:34 Vancomycin HCl (Vanco rx to dose) 1 ea DAILY PRN MISC Per rx protocol 06/22/19 09:00 07/20/19 16:29 Vancomycin HCl 1 gm/Dextrose 275 ml @ 183.708 mls/hr Q24H IVPB 06/21/19 20:00 06/26/19 19:59 06/23/19 20:52 Vitamin D (Vitamin D) 5,000 intlu DAILY ORAL 06/22/19 09:00 07/21/19 08:59 06/24/19 08:34 Zinc Sulfate (Zinc Sulfate) 220 mg BID ORAL 06/21/19 18:00 07/21/19 08:59 06/24/19 08:34 Denys Payne MD Jun 24, 2019 14:18
--- NOTE | 2019-06-24 15:45 | NUR ---
NURSE NOTES: Dr. Payne at bedside, assessing pt. Updated him on pt's current condition. No new orders at this time. Pt repositioned and oral care done.
[2019-06-24] MEDS ORDERED: Tubing IV Secondary IV ONE (16:22)
[2019-06-24] MEDS ORDERED: NS 275ml ONE (16:22)
--- NOTE | 2019-06-24 19:03 | NUR ---
HAND-OFF: Report given to MONSERRAT King.
--- NOTE | 2019-06-24 19:30 | NUR ---
NURSE NOTES: Received pt with eyes close but arousable to tactile stimulation , V paced on the monitor Bp stable, afebrile. Pt been off Amiodarone drip now on PO Amiodarone. Pt 0n 02 at 1L/nc 02 sat 100%. Pt occasionally coughing. Suctioned whitish tk yellowish secretions moderate in amt. HOB kept elevated Watch for any resp distress.Oral care done. PtTolerated NGT fdg at this time no residuals. On aspiration precautions. Wilkes to gravity with lg amt of yellowish colored urine, MOnitor I and O, monitor lytes, PT has multiple wounds covered with optifoam drsg dry and intact, On p200 mattress. Turned q 2hrs prn with good skin care done, will continue to monitor.
--- NOTE | 2019-06-24 19:57 | Infectious Diseases Prog Note ---
Assessment/Plan Problems: (1) Pneumonia Assessment & Plan: with B/L basal infiltrates, fever and hypoxemia suspect aspiration , continue meropenem and vancomycin empirically , pending cultures , aspiration precaution, monitor CXR. Patient is at high risk for recurrent aspiration and pneumonia due to poor mentation and cough reflux , family is aware, they refused tube feeding placement , now on NGT (2) UTI (urinary tract infection) Assessment & Plan: already on meropenem , culture is negative (3) Sepsis Assessment & Plan: due to the above , continue wide spectrum antibiotics pending cultures (4) Hypoxia Assessment & Plan: suspect due to the above , continue oxygen , and wide spectrum antibiotics (5) Respiratory failure, acute Assessment & Plan: due to the above, continue oxygen, nebulizer treatment and antibiotics , pulmonary eval is in progress (6) V-tach Assessment & Plan: sustained with torsade de point , check magnesium, will need AICD upgrade , pending transfer to [facility] , cardiology is following (7) Sacral pressure ulcer Assessment & Plan: continue local wound care and dressings as per hospital protocol , with off loading Subjective ROS Limited/Unobtainable: Yes Allergies: Coded Allergies: No Known Allergies (Unverified , 06/20/19) Subjective He still in ICU for close monitoring due to recent run of V-tach, more awake , but unresponsive, afebrile today, has cough with congestion , no diarrhea Objective Vital Signs Last 24 Hour Vital Signs Date Time Temp Pulse Resp B/P (MAP) Pulse Ox O2 Delivery O2 Flow Rate FiO2 06/24/19 19:00 60 20 107/45 (65) 100 06/24/19 18:00 60 22 103/39 (60) 100 06/24/19 17:30 60 24 94/39 (57) 100 06/24/19 17:00 60 23 94/42 (59) 100 06/24/19 16:00 98.9 60 12 91/45 (60) 100 06/24/19 16:00 Nasal Cannula 3.0 06/24/19 15:40 60 06/24/19 15:00 60 14 96/37 (56) 100 06/24/19 14:00 60 22 103/38 (59) 100 06/24/19 13:00 60 24 110/50 (70) 100 06/24/19 13:00 63 20 100 Nasal Cannula 2.0 28 61 20 100 06/24/19 12:00 Nasal Cannula 3.0 06/24/19 12:00 59 06/24/19 12:00 98.2 60 14 100/45 (63) 100 06/24/19 11:30 60 23 105/42 (63) 100 06/24/19 11:00 60 22 95/48 (64) 98 06/24/19 10:30 60 14 97/44 (61) 100 06/24/19 10:00 60 19 98/44 (62) 99 06/24/19 09:30 60 19 100/50 (67) 99 06/24/19 09:00 60 13 112/50 (70) 99 06/24/19 08:40 60 96/45 06/24/19 08:30 60 17 97/43 (61) 100 06/24/19 08:13 100 Nasal Cannula 2.0 28 06/24/19 08:00 98.8 60 23 97/43 (61) 99 06/24/19 08:00 60 06/24/19 08:00 Nasal Cannula 3.0 06/24/19 07:30 60 26 104/61 (75) 100 06/24/19 07:00 60 25 104/61 (75) 100 06/24/19 06:30 60 26 116/51 (72) 100 06/24/19 06:00 60 26 109/53 (71) 100 06/24/19 05:30 65 28 116/55 (75) 99 06/24/19 05:00 68 25 113/38 (63) 98 06/24/19 04:30 62 29 99/52 (68) 100 06/24/19 04:00 60 06/24/19 04:00 Nasal Cannula 3.0 06/24/19 04:00 99.0 63 29 99/46 (63) 99 06/24/19 03:30 64 26 109/49 (69) 99 06/24/19 03:00 60 27 109/51 (70) 100 06/24/19 02:30 61 29 104/49 (67) 100 06/24/19 02:00 60 27 116/52 (73) 100 06/24/19 01:30 60 32 110/54 (72) 95 06/24/19 01:00 60 23 110/55 (73) 100 06/24/19 00:30 61 28 119/52 (74) 89 06/24/19 00:00 98.4 60 19 113/53 (73) 100 06/24/19 00:00 Nasal Cannula 3.0 06/23/19 23:00 60 24 113/54 (73) 100 06/23/19 22:30 61 32 108/58 (75) 94 06/23/19 22:00 60 30 111/55 (73) 100 06/23/19 21:30 60 24 116/46 (69) 100 06/23/19 21:00 60 24 101/57 (72) 100 06/23/19 20:53 60 106/58 06/23/19 20:30 60 31 106/58 (74) 100 06/23/19 20:00 98.8 60 26 111/48 (69) 100 06/23/19 20:00 61 06/23/19 20:00 Nasal Cannula 3.0 Height (Feet): 5 Height (Inches): 5.00 Weight (Pounds): 135 General Appearance: WD/WN, no acute distress HEENT: normocephalic, atraumatic, anicteric, mucous membranes moist, supple, no JVD Respiratory/Chest: no respiratory distress, no accessory muscle use, decreased breath sounds, crackles/rales Cardiovascular: normal peripheral pulses, normal rate, regular rhythm, no gallop/murmur, no JVD Abdomen: normal bowel sounds, soft, non tender, no organomegaly, non distended , no mass, no scars Genitourinary: normal external genitalia Extremities: no cyanosis, no clubbing Skin: no rash, no lesions, ulcers Neurologic/Psychiatric: alert, unresponsiveness Lymphatic: no neck adenopathy, no groin adenopathy Musculoskeletal: normal muscle bulk Microbiology Date/Time Source Procedure Growth Status 06/23/19 03:00 Sputum Induced Gram Stain - Final Resulted 06/23/19 03:00 Sputum Induced Sputum Culture Pending Resulted Laboratory Tests Test 06/24/19 05:42 White Blood Count 9.5 K/UL (4.8-10.8) Red Blood Count 3.68 M/UL (4.70-6.10) L Hemoglobin 10.5 G/DL (14.2-18.0) L Hematocrit 31.1 % (42.0-52.0) L Mean Corpuscular Volume 85 FL (80-99) Mean Corpuscular Hemoglobin 28.6 PG (27.0-31.0) Mean Corpuscular Hemoglobin Concent 33.8 G/DL (32.0-36.0) Red Cell Distribution Width 13.7 % (11.6-14.8) Platelet Count 196 K/UL (150-450) Mean Platelet Volume 6.3 FL (6.5-10.1) L Neutrophils (%) (Auto) 75.7 % (45.0-75.0) H Lymphocytes (%) (Auto) 15.7 % (20.0-45.0) L Monocytes (%) (Auto) 5.5 % (1.0-10.0) Eosinophils (%) (Auto) 2.5 % (0.0-3.0) Basophils (%) (Auto) 0.5 % (0.0-2.0) Sodium Level 142 MMOL/L (136-145) Potassium Level 4.1 MMOL/L (3.5-5.1) Chloride Level 108 MMOL/L (98-107) H Carbon Dioxide Level 25 MMOL/L (21-32) Anion Gap 9 mmol/L (5-15) Blood Urea Nitrogen 9 mg/dL (7-18) Creatinine 0.6 MG/DL (0.55-1.30) Estimat Glomerular Filtration Rate mL/min (>60) Glucose Level 117 MG/DL (74-106) H Calcium Level 9.3 MG/DL (8.5-10.1) Current Medications Medications (Trade) Dose Ordered Sig/Katharine Route PRN Reason Start Time Stop Time Status Last Admin Dose Admin Acetaminophen (Tylenol) 650 mg Q6H PRN ORAL Mild Pain/Temp > 100.5 06/21/19 12:15 07/21/19 06:14 06/23/19 13:15 Acetaminophen (Tylenol) 650 mg Q6H PRN RECTAL Mild Pain/Temp > 100.5 PO/[place] 06/21/19 12:00 07/21/19 11:59 06/22/19 08:12 Acetylcysteine (Mucomyst) 100 mg TIDRT HHN 06/22/19 13:00 07/22/19 12:59 06/24/19 13:00 Amiodarone HCl (Cordarone) 400 mg EVERY 12 HOURS NG 06/24/19 09:00 07/24/19 08:59 06/24/19 08:34 Aspirin (Ecotrin) 81 mg DAILY ORAL 06/22/19 09:00 07/21/19 08:59 06/24/19 08:34 Carbidopa/Levodopa (Sinemet 25/100) 1 tab THREE TIMES A DAY ORAL 06/21/19 13:00 07/21/19 08:59 06/24/19 17:59 Dextrose (Dextrose 50%) 25 ml Q30M PRN IV Hypoglycemia 06/21/19 11:30 07/20/19 20:59 Dextrose (Dextrose 50%) 50 ml Q30M PRN IV Hypoglycemia 06/21/19 11:30 07/20/19 20:59 Dronabinol (Marinol) 2.5 mg BID ORAL 06/21/19 18:00 07/21/19 08:59 06/24/19 17:59 Heparin Sodium (Porcine) (Heparin 5000 units/ml) 5,000 units EVERY 12 HOURS SUBQ 06/21/19 14:00 07/21/19 13:59 06/24/19 08:39 Insulin Aspart (NovoLOG) EVERY 6 HOURS SUBQ 06/23/19 18:00 07/20/19 21:59 06/24/19 18:03 Ipratropium [place] (Atrovent) 500 mcg Q4H PRN HHN Shortness of Breath 06/21/19 13:30 06/26/19 13:29 06/24/19 12:59 Memantine (Namenda) 10 mg Q12HR NG 06/22/19 21:00 07/22/19 20:59 06/24/19 08:34 Meropenem 1 gm/ Sodium Chloride 55 ml @ 110 mls/hr Q8HR IVPB 06/21/19 14:00 06/25/19 21:59 06/24/19 13:50 Metoprolol Tartrate (Lopressor) 12.5 mg Q12HR NG 06/24/19 21:00 07/24/19 20:59 Morphine Sulfate (Morphine Sulfate) 2 mg Q6H PRN IVP For Pain 06/22/19 08:45 06/29/19 08:44 06/23/19 02:55 Pantoprazole (Protonix) 40 mg DAILY IVP 06/22/19 09:00 07/22/19 08:59 06/24/19 08:34 Polyethylene Glycol (Miralax) 17 gm DAILY PRN ORAL Constipation 06/21/19 12:00 07/21/19 11:59 Potassium Chloride 40 meq/ Dextrose 1,020 ml @ 50 mls/hr [id number] IV 06/23/19 14:00 07/23/19 13:59 06/24/19 10:45 Sennosides (Senokot) 17.2 mg QHS ORAL 06/21/19 21:00 07/21/19 20:59 06/23/19 20:53 Tamsulosin HCl (Flomax) 0.4 mg DAILY ORAL 06/22/19 09:00 07/21/19 08:59 06/24/19 08:34 Vancomycin HCl (Vanco rx to dose) 1 ea DAILY PRN MISC Per rx protocol 06/22/19 09:00 07/20/19 16:29 Vancomycin HCl 1 gm/Dextrose 275 ml @ 183.708 mls/hr Q24H IVPB 06/21/19 20:00 06/26/19 19:59 06/23/19 20:52 Vitamin D (Vitamin D) 5,000 intlu DAILY ORAL 06/22/19 09:00 07/21/19 08:59 06/24/19 08:34 Zinc Sulfate (Zinc Sulfate) 220 mg BID ORAL 06/21/19 18:00 07/21/19 08:59 06/24/19 17:59 Arcadio Mcnair M.D. Jun 24, 2019 19:57
[2019-06-24] MEDS: Vancomycin 1 GM in D5W 275 ML IVPB SCH (20:28)
--- NOTE | 2019-06-24 21:00 | NUR ---
NURSE NOTES: Turned to sides and suctioned white to yellowish mucous secretion.
[2019-06-24] MEDS: Metoprolol Tartrate 12.5mg TAB NG SCH (21:21)
[2019-06-24] MEDS: Sennosides 8.6mg tab ORAL SCH (21:22)
--- NOTE | 2019-06-24 23:00 | NUR ---
NURSE NOTES: Diuresing well via [place] cath,.
[2019-06-25] VITALS (24 sets, daily range): BP systolic 103–132; BP diastolic 49–68
--- NOTE | 2019-06-25 01:00 | NUR ---
NURSE NOTES: Pt received resp Tx and CPT as well from the RT, tolereted well,
--- NOTE | 2019-06-25 02:00 | NUR ---
NURSE NOTES: Suctioned and turned to sides for comfort.
--- NOTE | 2019-06-25 04:00 | NUR ---
NURSE NOTES: Pt had x1 lg soft stool. Cleaned up.pt
[2019-06-25] MEDS: Meropenem 1 GM in NS 55 ML IVPB SCH (05:35)
[2019-06-25] MEDS: NovoLOG Insulin Flexpen SUBQ SCH ×4 (05:37→23:53)
[2019-06-25 05:39] LABS: EOSINOPHILS % (AUTO) 3.6 % (0.0-3.0); HEMATOCRIT 30.9 % (42.0-52.0); HEMOGLOBIN 10.3 G/DL (14.2-18.0); LYMPHOCYTES % (AUTO) 21.9 % (20.0-45.0); MEAN CORPUSCULAR VOLUME 85 FL (80-99); MONOCYTES % (AUTO) 7.6 % (1.0-10.0); NEUTROPHILS % (AUTO) 65.9 % (45.0-75.0); PLATELET COUNT 173 K/UL (150-450); RED BLOOD COUNT 3.65 M/UL (4.70-6.10); RED CELL DISTRIBUTION WIDTH 14.3 % (11.6-14.8); WHITE BLOOD COUNT 8.8 K/UL (4.8-10.8)
[2019-06-25 05:54] LABS: ANION GAP 4 mmol/L (5-15); BLOOD UREA NITROGEN 11 mg/dL (7-18); CALCIUM 8.9 MG/DL (8.5-10.1); CARBON DIOXIDE 27 MMOL/L (21-32); CHLORIDE 105 MMOL/L (98-107); CREATININE 0.6 MG/DL (0.55-1.30); SODIUM 136 MMOL/L (136-145)
--- NOTE | 2019-06-25 06:00 | NUR ---
NURSE NOTES: No resp. distress noted . Pt still on V paced , no other dysrhythmia noted.
[2019-06-25] MEDS: Ipratropium 0.02% Inh Soln 2.5ml UD HHN PRN ×3 (06:59→19:54)
--- NOTE | 2019-06-25 07:18 | NUR ---
HAND-OFF: Report given to Adam GERMAN.
--- NOTE | 2019-06-25 07:19 | NUR ---
NURSE NOTES: PT and report received from MONSERRAT King. PT received sleeping, arousable to name, tracks with eyes, good eye contact, non-verbal with gaze. PT received on 2L-NC, 100% saturating, BP 130/68, RR 19, T 98.3 R-axillary. PT has NGTube feeding positioned at 60cm on R-nares, pushed 30cc air and auscultated for position, sounds present, Glucerna 1.5 @ goal of 50cc, flushes well, no residual noted on morning rounds. PT has R-AC 20g and L-forearm 22g flushes well, patent, no signs of infiltration, infusing KCl 40mEq @ 50cc/hr. PT has transfer plans to [facility], will continue with plan of care for PT.
--- NOTE | 2019-06-25 08:30 | General Progress Note ---
Assessment/Plan Status: stable Assessment/Plan: 1. Asp Pneumonia - improved. cont IV antibiotic. ID following. 2. UTI - cont above antibiotic. follow cultures. 3. Sepsis - improved. cont above antibiotic. ID following. 4. Ventricular Tachycardia - on Amioderone via NG tube - Cardiology following. Family prefers full code status. awaiting transfer to [facility] for ICD placement and cardiac cath. 5. Parkinson dx - cont home med. 6. Dysphagia with hx of multiple asp pneumonia - family refused G tube placement. Speech therapy eval. 7. BPH - cont home meds. 8. H/O PE - on heparin now. 9. Sacral Pressure ulcer - cont wound care. Subjective Date patient seen: Jun 25, 2019 Time patient seen: 08:15 Constitutional: Reports: weakness HEENT: Reports: no symptoms Cardiovascular: Reports: no symptoms Respiratory: Reports: no symptoms Gastrointestinal/Abdominal: Reports: no symptoms Genitourinary: Reports: no symptoms Neurologic/Psychiatric: Reports: weakness - aphasia, other - aphasia Endocrine: Reports: no symptoms Hematologic/Lymphatic: Reports: no symptoms Allergies: Coded Allergies: No Known Allergies (Unverified , 06/20/19) Subjective Patient was doing better and his cough resolved. Afebrile and no more V tach. Patient is in ICU now. He is awake and opened his eyes. he is on Amioderone via NG tube. Objective Last 24 Hour Vital Signs Date Time Temp Pulse Resp B/P (MAP) Pulse Ox O2 Delivery O2 Flow Rate FiO2 06/25/19 08:00 60 06/25/19 08:00 98.3 60 5 124/56 (78) 100 06/25/19 08:00 Nasal Cannula 2.0 06/25/19 07:00 60 20 130/68 (88) 100 06/25/19 06:59 60 18 100 Nasal Cannula 2.0 28 60 18 100 06/25/19 06:59 100 Nasal Cannula 2.0 28 06/25/19 06:00 62 20 115/58 (77) 100 06/25/19 05:00 60 20 113/58 (76) 100 06/25/19 04:00 99.0 60 20 117/50 (72) 100 06/25/19 04:00 60 06/25/19 04:00 61 06/25/19 04:00 Nasal Cannula 2.0 06/25/19 03:00 60 20 116/51 (72) 100 06/25/19 02:00 60 20 103/54 (70) 100 06/25/19 01:00 60 20 109/61 (77) 100 06/25/19 00:00 Nasal Cannula 2.0 06/25/19 00:00 61 06/25/19 00:00 98.4 60 20 122/49 (73) 100 06/24/19 23:00 60 19 103/71 (82) 100 06/24/19 22:00 60 19 120/53 (75) 100 06/24/19 21:21 60 118/70 06/24/19 21:00 60 21 118/70 (86) 100 06/24/19 20:04 63 18 100 Nasal Cannula 2.0 28 61 18 100 06/24/19 20:00 61 06/24/19 20:00 Nasal Cannula 2.0 06/24/19 20:00 98.6 60 20 107/49 (68) 100 06/24/19 19:58 100 Nasal Cannula 2.0 28 06/24/19 19:00 60 20 107/45 (65) 100 06/24/19 18:00 60 22 103/39 (60) 100 06/24/19 17:30 60 24 94/39 (57) 100 06/24/19 17:00 60 23 94/42 (59) 100 06/24/19 16:00 98.9 60 12 91/45 (60) 100 06/24/19 16:00 Nasal Cannula 3.0 06/24/19 15:40 60 06/24/19 15:00 60 14 96/37 (56) 100 06/24/19 14:00 60 22 103/38 (59) 100 06/24/19 13:00 60 24 110/50 (70) 100 06/24/19 13:00 63 20 100 Nasal Cannula 2.0 28 61 20 100 06/24/19 12:00 Nasal Cannula 3.0 06/24/19 12:00 59 06/24/19 12:00 98.2 60 14 100/45 (63) 100 06/24/19 11:30 60 23 105/42 (63) 100 06/24/19 11:00 60 22 95/48 (64) 98 06/24/19 10:30 60 14 97/44 (61) 100 06/24/19 10:00 60 19 98/44 (62) 99 06/24/19 09:30 60 19 100/50 (67) 99 06/24/19 09:00 60 13 112/50 (70) 99 06/24/19 08:40 60 96/45 06/24/19 08:30 60 17 97/43 (61) 100 Intake and Output 06/24/19 06/25/19 19:00 07:00 Intake Total 1368.32 ml 1450 ml Output Total 2185 ml 1380 ml Balance -816.68 ml 70 ml Intake Free Water 150 ml IV Total 688.32 ml 700 ml Tube Feeding 600 ml 600 ml Other 80 ml Output Urine Total 2185 ml 1380 ml # Bowel Movements 1 Laboratory Tests 06/25/19 05:10: White Blood Count 8.8, Red Blood Count 3.65L, Hemoglobin 10.3L, Hematocrit 30.9L , Mean Corpuscular Volume 85, Mean Corpuscular Hemoglobin 28.3, Mean Corpuscular Hemoglobin Concent 33.4, Red Cell Distribution Width 14.3, Platelet Count 173, Mean Platelet Volume 6.5, Neutrophils (%) (Auto) 65.9, Lymphocytes (% ) (Auto) 21.9, Monocytes (%) (Auto) 7.6, Eosinophils (%) (Auto) 3.6H, Basophils (%) (Auto) 1.0, Sodium Level 136, Potassium Level 5.0, Chloride Level 105, Carbon Dioxide Level 27, Anion Gap 4L, Blood Urea Nitrogen 11, Creatinine 0.6, Estimat Glomerular Filtration Rate , Glucose Level 159H, Calcium Level 8.9 Height (Feet): 5 Height (Inches): 5.00 Weight (Pounds): 135 General Appearance: no apparent distress, alert EENT: normal ENT inspection Neck: normal alignment, supple Cardiovascular: normal rate, regular rhythm Respiratory/Chest: lungs clear, normal breath sounds, no respiratory distress Abdomen: normal bowel sounds, non tender, soft Extremities: normal range of motion, non-tender Edema: no edema noted Arm (L), no edema noted Arm (R), no edema noted Leg (L), no edema noted Leg (R), no edema noted Pedal (L), no edema noted Pedal (R), no edema noted Generalized Neurologic: no motor/sensory deficits, alert, responsive Skin: warm/dry Aakash Blanco MD Jun 25, 2019 08:30
--- NOTE | 2019-06-25 08:38 | NUR ---
NURSE NOTES: MD Bella made rounds, per MD order D/C KCl 40 mEq @ 50cc/hr.
[2019-06-25] MEDS: Dronabinol 2.5mg Cap ORAL SCH (09:00)
--- NOTE | 2019-06-25 09:30 | General Progress Note ---
Assessment/Plan Status: stable Assessment/Plan: 1. Pneumonia. 2. Hypertension. 3. Parkinson disease. 4. Pacemaker placement 5. Dysphagia NGTF family wants repeat swallow doubt he will pass plan swallow eval today most likely will need PEG pending possible transfer to [facility] for AICD placement Subjective ROS Limited/Unobtainable: No Allergies: Coded Allergies: No Known Allergies (Unverified , 06/20/19) Objective Last 24 Hour Vital Signs Date Time Temp Pulse Resp B/P (MAP) Pulse Ox O2 Delivery O2 Flow Rate FiO2 06/25/19 09:00 61 28 119/61 (80) 100 06/25/19 08:00 60 06/25/19 08:00 98.3 60 5 124/56 (78) 100 06/25/19 08:00 Nasal Cannula 2.0 06/25/19 07:00 60 20 130/68 (88) 100 06/25/19 06:59 60 18 100 Nasal Cannula 2.0 28 60 18 100 06/25/19 06:59 100 Nasal Cannula 2.0 28 06/25/19 06:00 62 20 115/58 (77) 100 06/25/19 05:00 60 20 113/58 (76) 100 06/25/19 04:00 99.0 60 20 117/50 (72) 100 06/25/19 04:00 60 06/25/19 04:00 61 06/25/19 04:00 Nasal Cannula 2.0 06/25/19 03:00 60 20 116/51 (72) 100 06/25/19 02:00 60 20 103/54 (70) 100 06/25/19 01:00 60 20 109/61 (77) 100 06/25/19 00:00 Nasal Cannula 2.0 06/25/19 00:00 61 06/25/19 00:00 98.4 60 20 122/49 (73) 100 06/24/19 23:00 60 19 103/71 (82) 100 06/24/19 22:00 60 19 120/53 (75) 100 06/24/19 21:21 60 118/70 06/24/19 21:00 60 21 118/70 (86) 100 06/24/19 20:04 63 18 100 Nasal Cannula 2.0 28 61 18 100 06/24/19 20:00 61 06/24/19 20:00 Nasal Cannula 2.0 06/24/19 20:00 98.6 60 20 107/49 (68) 100 06/24/19 19:58 100 Nasal Cannula 2.0 28 06/24/19 19:00 60 20 107/45 (65) 100 06/24/19 18:00 60 22 103/39 (60) 100 06/24/19 17:30 60 24 94/39 (57) 100 06/24/19 17:00 60 23 94/42 (59) 100 06/24/19 16:00 98.9 60 12 91/45 (60) 100 06/24/19 16:00 Nasal Cannula 3.0 06/24/19 15:40 60 06/24/19 15:00 60 14 96/37 (56) 100 06/24/19 14:00 60 22 103/38 (59) 100 06/24/19 13:00 60 24 110/50 (70) 100 06/24/19 13:00 63 20 100 Nasal Cannula 2.0 28 61 20 100 06/24/19 12:00 Nasal Cannula 3.0 06/24/19 12:00 59 06/24/19 12:00 98.2 60 14 100/45 (63) 100 06/24/19 11:30 60 23 105/42 (63) 100 06/24/19 11:00 60 22 95/48 (64) 98 06/24/19 10:30 60 14 97/44 (61) 100 06/24/19 10:00 60 19 98/44 (62) 99 06/24/19 09:30 60 19 100/50 (67) 99 Intake and Output 06/24/19 06/25/19 19:00 07:00 Intake Total 1368.32 ml 1450 ml Output Total 2185 ml 1380 ml Balance -816.68 ml 70 ml Intake Free Water 150 ml IV Total 688.32 ml 700 ml Tube Feeding 600 ml 600 ml Other 80 ml Output Urine Total 2185 ml 1380 ml # Bowel Movements 1 Laboratory Tests 06/25/19 05:10: White Blood Count 8.8, Red Blood Count 3.65L, Hemoglobin 10.3L, Hematocrit 30.9L , Mean Corpuscular Volume 85, Mean Corpuscular Hemoglobin 28.3, Mean Corpuscular Hemoglobin Concent 33.4, Red Cell Distribution Width 14.3, Platelet Count 173, Mean Platelet Volume 6.5, Neutrophils (%) (Auto) 65.9, Lymphocytes (% ) (Auto) 21.9, Monocytes (%) (Auto) 7.6, Eosinophils (%) (Auto) 3.6H, Basophils (%) (Auto) 1.0, Sodium Level 136, Potassium Level 5.0, Chloride Level 105, Carbon Dioxide Level 27, Anion Gap 4L, Blood Urea Nitrogen 11, Creatinine 0.6, Estimat Glomerular Filtration Rate , Glucose Level 159H, Calcium Level 8.9 Height (Feet): 5 Height (Inches): 5.00 Weight (Pounds): 135 General Appearance: no apparent distress EENT: normal ENT inspection Neck: supple Cardiovascular: normal rate Respiratory/Chest: decreased breath sounds Abdomen: normal bowel sounds, non tender, soft Extremities: non-tender Mahad Ring MD Jun 25, 2019 09:30
[2019-06-25] MEDS: Zinc Sulfate 220mg cap ORAL SCH ×2 (09:48→18:35)
[2019-06-25] MEDS: Tamsulosin 0.4mg cap ORAL SCH (09:48)
[2019-06-25] MEDS: Pantoprazole Inj IVP SCH (09:48)
[2019-06-25] MEDS: Amiodarone 200mg tab NG SCH ×2 (09:48→20:56)
[2019-06-25] MEDS: Vitamin D 1000 IU Tab ORAL SCH (09:49)
[2019-06-25] MEDS: Memantine 10mg tab NG SCH ×2 (09:49→20:58)
[2019-06-25] MEDS: Levodopa/Carbidopa 25/100 tab ORAL SCH ×3 (09:49→18:35)
[2019-06-25] MEDS: Aspirin EC 81mg tab ORAL SCH (09:49)
[2019-06-25] MEDS: Metoprolol Tartrate 12.5mg TAB NG SCH ×2 (09:50→20:57)
[2019-06-25] MEDS: Heparin 5000 units/ml inj SUBQ SCH ×2 (09:55→21:01)
--- NOTE | 2019-06-25 10:50 | NUR ---
NURSE NOTES: PT had 1 large soft BM, total linens changed with JACEK King, PT meatal care, dressings changed. PT tolerated well, VS stable, no S/S of respiratory distress during morning care. Will continue to monitor PT.
--- NOTE | 2019-06-25 11:27 | NUR ---
NURSE NOTES: PT daughter called, asked for update and status on transfer. Told daughter PT is stable, that someone will call once he is transferred to [facility].
--- NOTE | 2019-06-25 11:33 | NUR ---
HAND-OFF: Report and PT given to MONSERRAT Quiroz.
--- NOTE | 2019-06-25 11:34 | NUR ---
NURSE NOTES: Report received from MONSERRAT Medina. PT received laying in bed with his eyes closed, arousable to name, tracks with eyes, but is non-verbal. PT received on 2L NC, SpO2 100%. PT has NG Tube in the right nares positioned at 60cm, Glucerna 1.5 @ goal of 50cc, flushes well, no residual noted. PT has Rt AC #20g hep-locked and L forearm #22g flushes well, patent, no signs of infiltration, infusing TKO @ 10mL an hour. PT has transfer plans to [facility], will resume plan of care.
--- NOTE | 2019-06-25 11:51 | NUR ---
RD ASSESSMENT & RECOMMENDATIONS SEE CARE ACTIVITY FOR COMPLETE ASSESSMENT DAILY ESTIMATED NEEDS: Needs based on Underweight, sepsis; 61.4kg 30-35 kcals/kg 1842- 2149 total kcals 1.25-2 g protein/kg 77- 123 g total protein 25-30 mL/kg 1535- 1842 total fluid mLs NUTRITION DIAGNOSIS: * Increased kcal and pro needs r/t wound healing and underweight status AEB pt admitted w/ multiple wounds, including non-blanching erythema at clefts of R and L ears, R ischial area, and BL heels, full thickness pressure injury at sacrum, base of scrotum, and R elbow, pt w/ generalized moderate wasting, @81% of [place] Body Weight. * Swallowing difficulty R/T dysphagia, decreased alertness as evidenced by [facility] recommends nonoral feedings, s/p NGT insertion, on NGT feeding. CURRENT TF:Glucerna 1.5 @ 50ml/hr x 24 hrs PO DIET RECOMMENDATIONS: IF ORAL DIET INDICATED -> liberalized Regular/ texture per [facility] ENTERAL NUTRITION RECOMMENDATIONS: Glucerna 1.5 @ 55ml/hr x 24 hrs to provide 1320ml, 1980kcal, 109g prot, 1002ml free water * Increased goal rate to 55ml/hr x 24 hrs * Water flush of 150ml q 6 hrs * HOB over 30 degrees ADDITIONAL RECOMMENDATIONS: 1) Calibrated bedscale wt for accurate CBW -> on a bed w/ p200 mattress + pump 2) Wound care: add Vit C 250mg QD : Eliseo 1pkt BID 3) Monitor POC: PEG ? currently w/ NGT feeding 4) Monitor lytes, replete as needed .
[2019-06-25] MEDS ORDERED: NS 275ml ONE (13:13)
[2019-06-25] MEDS ORDERED: Tubing IV Secondary IV ONE (13:13)
--- NOTE | 2019-06-25 13:26 | Cardiology Report ---
APPROVED REPORT EXAM: Two-dimensional and M-mode echocardiogram with Doppler and color Doppler. INDICATION TACHY M-Mode DIMENSIONS IVSd1.2 (0.7-1.1cm)Left Atrium (MM)4.0 (1.6-4.0cm) LVDd4.0 (3.5-5.6cm)Aortic Root3.0 (2.0-3.7cm) PWd1.2 (0.7-1.1cm)Aortic Cusp Exc.1.7 (1.5-2.0cm) IVSs2.4 cm LVDs2.3 (2.5-4.0cm) PWs1.4 cm Normal left ventricular chamber size, systolic function and wall motion. Left ventricular ejection fraction estimated to be 60 %. No evidence of pericardial effusion. Mild bi-atrial enlargement. Right ventricular chamber size is within normal limits. Focal aortic valve sclerosis with adequate cusp excursion. Thickened mitral valve leaflets with normal excursion. Mitral annulus and aortic root calcification. Pulmonic valve not well visualized. Normal tricuspid valve structure. IVC at normal size with physiologic collapse. Pacemaker wire present in the right side chambers. A color flow and spectral Doppler study was performed and revealed: Mild mitral regurgitation. Left ventricular diastolic function not obtained due to arrhythmia. Mild tricuspid regurgitation. Tricuspid systolic velocities suggests peak right ventricular systolic pressure of 37 mmHg consistent with mild pulmonary hypertension. Pulmonic regurgitation present.
--- NOTE | 2019-06-25 13:30 | Infectious Diseases Prog Note ---
Assessment/Plan Problems: (1) Pneumonia Assessment & Plan: with B/L basal infiltrates, fever and hypoxemia suspect aspiration , due to strep Beta hemolytic . lashonda is most likely contaminants . will switch meropenem to ceftriaxone and continue vancomycin empirically to cover for his pressure wounds too , aspiration precaution, monitor CXR. Patient is at high risk for recurrent aspiration and pneumonia due to poor mentation and cough reflux , family is aware, they refused tube feeding placement , now on NGT (2) UTI (urinary tract infection) Assessment & Plan: already on meropenem , culture is negative (3) Sepsis Assessment & Plan: due to the above , continue wide spectrum antibiotics pending cultures (4) Hypoxia Assessment & Plan: suspect due to the above , continue oxygen , and wide spectrum antibiotics (5) Respiratory failure, acute Assessment & Plan: due to the above, continue oxygen, nebulizer treatment and antibiotics , pulmonary eval is in progress (6) V-tach Assessment & Plan: sustained with torsade de point , check magnesium, will need AICD upgrade , pending transfer to [facility] , cardiology is following (7) Sacral pressure ulcer Assessment & Plan: continue local wound care and dressings as per hospital protocol , with off loading , already on wide spectrum antibiotics Subjective ROS Limited/Unobtainable: Yes Allergies: Coded Allergies: No Known Allergies (Unverified , 06/20/19) Subjective He still in ICU for close monitoring due to recent run of V-tach, more awake , but unresponsive, afebrile today, has cough with congestion , no diarrhea Objective Vital Signs Last 24 Hour Vital Signs Date Time Temp Pulse Resp B/P (MAP) Pulse Ox O2 Delivery O2 Flow Rate FiO2 06/25/19 12:08 62 20 100 Nasal Cannula 2.0 28 60 20 100 06/25/19 12:00 98.5 60 19 109/52 (71) 100 06/25/19 11:00 60 20 112/53 (72) 100 06/25/19 10:00 61 10 131/54 (79) 100 06/25/19 09:50 61 119/61 06/25/19 09:00 61 28 119/61 (80) 100 06/25/19 08:00 60 06/25/19 08:00 98.3 60 5 124/56 (78) 100 06/25/19 08:00 Nasal Cannula 2.0 06/25/19 07:00 60 20 130/68 (88) 100 06/25/19 06:59 60 18 100 Nasal Cannula 2.0 28 60 18 100 06/25/19 06:59 100 Nasal Cannula 2.0 28 06/25/19 06:00 62 20 115/58 (77) 100 06/25/19 05:00 60 20 113/58 (76) 100 06/25/19 04:00 99.0 60 20 117/50 (72) 100 06/25/19 04:00 60 06/25/19 04:00 61 06/25/19 04:00 Nasal Cannula 2.0 06/25/19 03:00 60 20 116/51 (72) 100 06/25/19 02:00 60 20 103/54 (70) 100 06/25/19 01:00 60 20 109/61 (77) 100 06/25/19 00:00 Nasal Cannula 2.0 06/25/19 00:00 61 06/25/19 00:00 98.4 60 20 122/49 (73) 100 06/24/19 23:00 60 19 103/71 (82) 100 06/24/19 22:00 60 19 120/53 (75) 100 06/24/19 21:21 60 118/70 06/24/19 21:00 60 21 118/70 (86) 100 06/24/19 20:04 63 18 100 Nasal Cannula 2.0 28 61 18 100 06/24/19 20:00 61 06/24/19 20:00 Nasal Cannula 2.0 06/24/19 20:00 98.6 60 20 107/49 (68) 100 06/24/19 19:58 100 Nasal Cannula 2.0 28 06/24/19 19:00 60 20 107/45 (65) 100 06/24/19 18:00 60 22 103/39 (60) 100 06/24/19 17:30 60 24 94/39 (57) 100 06/24/19 17:00 60 23 94/42 (59) 100 06/24/19 16:00 98.9 60 12 91/45 (60) 100 06/24/19 16:00 Nasal Cannula 3.0 06/24/19 15:40 60 06/24/19 15:00 60 14 96/37 (56) 100 06/24/19 14:00 60 22 103/38 (59) 100 Height (Feet): 5 Height (Inches): 5.00 Weight (Pounds): 135 General Appearance: WD/WN, no acute distress HEENT: normocephalic, atraumatic, anicteric, mucous membranes moist, supple, no JVD Respiratory/Chest: chest wall non-tender, lungs clear, normal breath sounds, no respiratory distress, no accessory muscle use Cardiovascular: normal peripheral pulses, normal rate, regular rhythm, no gallop/murmur, no JVD Abdomen: normal bowel sounds, soft, non tender, no organomegaly, non distended , no mass, no scars Genitourinary: normal external genitalia Extremities: no cyanosis, no clubbing Skin: no rash, no lesions, no ulcers Neurologic/Psychiatric: alert, oriented x 3, responsive Lymphatic: no neck adenopathy, no groin adenopathy Musculoskeletal: normal muscle bulk, no effusion Microbiology Date/Time Source Procedure Growth Status 06/23/19 03:00 Sputum Induced Gram Stain - Final Resulted 06/23/19 03:00 Sputum Culture - Preliminary Strep Species, Beta Hemolytic Lashonda Albicans Resulted Laboratory Tests Test 06/25/19 05:10 White Blood Count 8.8 K/UL (4.8-10.8) Red Blood Count 3.65 M/UL (4.70-6.10) L Hemoglobin 10.3 G/DL (14.2-18.0) L Hematocrit 30.9 % (42.0-52.0) L Mean Corpuscular Volume 85 FL (80-99) Mean Corpuscular Hemoglobin 28.3 PG (27.0-31.0) Mean Corpuscular Hemoglobin Concent 33.4 G/DL (32.0-36.0) Red Cell Distribution Width 14.3 % (11.6-14.8) Platelet Count 173 K/UL (150-450) Mean Platelet Volume 6.5 FL (6.5-10.1) Neutrophils (%) (Auto) 65.9 % (45.0-75.0) Lymphocytes (%) (Auto) 21.9 % (20.0-45.0) Monocytes (%) (Auto) 7.6 % (1.0-10.0) Eosinophils (%) (Auto) 3.6 % (0.0-3.0) H Basophils (%) (Auto) 1.0 % (0.0-2.0) Sodium Level 136 MMOL/L (136-145) Potassium Level 5.0 MMOL/L (3.5-5.1) Chloride Level 105 MMOL/L (98-107) Carbon Dioxide Level 27 MMOL/L (21-32) Anion Gap 4 mmol/L (5-15) L Blood Urea Nitrogen 11 mg/dL (7-18) Creatinine 0.6 MG/DL (0.55-1.30) Estimat Glomerular Filtration Rate mL/min (>60) Glucose Level 159 MG/DL (74-106) H Calcium Level 8.9 MG/DL (8.5-10.1) Current Medications Medications (Trade) Dose Ordered Sig/Katharine Route PRN Reason Start Time Stop Time Status Last Admin Dose Admin Acetaminophen (Tylenol) 650 mg Q6H PRN ORAL Mild Pain/Temp > 100.5 06/21/19 12:15 07/21/19 06:14 06/23/19 13:15 Acetaminophen (Tylenol) 650 mg Q6H PRN RECTAL Mild Pain/Temp > 100.5 PO/GA 06/21/19 12:00 07/21/19 11:59 06/22/19 08:12 Acetylcysteine (Mucomyst) 100 mg TIDRT HHN 06/22/19 13:00 07/22/19 12:59 06/25/19 12:08 Amiodarone HCl (Cordarone) 400 mg EVERY 12 HOURS NG 06/24/19 09:00 07/24/19 08:59 06/25/19 09:48 Aspirin (Ecotrin) 81 mg DAILY ORAL 06/22/19 09:00 07/21/19 08:59 06/25/19 09:49 Carbidopa/Levodopa (Sinemet 25/100) 1 tab THREE TIMES A DAY ORAL 06/21/19 13:00 07/21/19 08:59 06/25/19 09:49 Dextrose (Dextrose 50%) 25 ml Q30M PRN IV Hypoglycemia 06/21/19 11:30 07/20/19 20:59 Dextrose (Dextrose 50%) 50 ml Q30M PRN IV Hypoglycemia 06/21/19 11:30 07/20/19 20:59 Heparin Sodium (Porcine) (Heparin 5000 units/ml) 5,000 units EVERY 12 HOURS SUBQ 06/21/19 14:00 07/21/19 13:59 06/25/19 09:55 Insulin Aspart (NovoLOG) EVERY 6 HOURS SUBQ 06/23/19 18:00 07/20/19 21:59 06/25/19 11:42 Ipratropium Har[place]ell (Atrovent) 500 mcg Q4H PRN HHN Shortness of Breath 06/21/19 13:30 06/26/19 13:29 06/25/19 12:08 Memantine (Namenda) 10 mg Q12HR NG 06/22/19 21:00 07/22/19 20:59 06/25/19 09:49 Meropenem 1 gm/ Sodium Chloride 55 ml @ 110 mls/hr Q8HR IVPB 06/21/19 14:00 06/30/19 13:59 06/25/19 05:35 Metoprolol Tartrate (Lopressor) 12.5 mg Q12HR NG 06/24/19 21:00 07/24/19 20:59 06/25/19 09:50 Morphine Sulfate (Morphine Sulfate) 2 mg Q6H PRN IVP For Pain 06/22/19 08:45 06/29/19 08:44 06/23/19 02:55 Pantoprazole (Protonix) 40 mg DAILY IVP 06/22/19 09:00 07/22/19 08:59 06/25/19 09:48 Polyethylene Glycol (Miralax) 17 gm DAILY PRN ORAL Constipation 06/21/19 12:00 07/21/19 11:59 Sennosides (Senokot) 17.2 mg QHS ORAL 06/21/19 21:00 07/21/19 20:59 06/24/19 21:22 Tamsulosin HCl (Flomax) 0.4 mg DAILY ORAL 06/22/19 09:00 07/21/19 08:59 06/25/19 09:48 Vancomycin HCl (Vanco rx to dose) 1 ea DAILY PRN MISC Per rx protocol 06/22/19 09:00 07/20/19 16:29 Vancomycin HCl 1 gm/Dextrose 275 ml @ 183.708 mls/hr Q24H IVPB 06/21/19 20:00 06/30/19 19:59 06/24/19 20:28 Vitamin D (Vitamin D) 5,000 intlu DAILY ORAL 06/22/19 09:00 07/21/19 08:59 06/25/19 09:49 Zinc Sulfate (Zinc Sulfate) 220 mg BID ORAL 06/21/19 18:00 07/21/19 08:59 06/25/19 09:48 Arcadio Mcnair M.D. Jun 25, 2019 13:30
--- NOTE | 2019-06-25 13:37 | NUR ---
CASE MANAGEMENT: REVIEW 06/25/19 SI: UTI . ACUTE RESP FAILURE . SEPSIS . V-TACH 98.3 60 124/56 100% NC 2L RBC 3.65; H/H 10.3/30.9 IS: IV CEFTRIAXONE Q24HR IV VANCOMYCIN Q24HR LOPRESSOR NG Q12HR AMIODARONE NG Q12HR NOVOLOG SQ Q6HR NAMENDA NG Q12HR MUCOMYST HHN TID ASA PO QD ZINC SULFATE PO BID HEPARIN SQ Q12HR IV PROTONIX QD VANCO IV Q24HR ICU STATUS DCP: PATIENT IS FROM [facility] TX TO [place] FOR AICD
--- NOTE | 2019-06-25 13:41 | Cardiology Report ---
APPROVED REPORT EKG Measurement Heart [id number] Possibly atrial tachycardia with V-paced rhythm and fusion complexes Electronic pacemaker
--- NOTE | 2019-06-25 14:49 | NUR ---
DISCHARGE PLANNING: TRANSFER REQUEST PATIENT FAMILY HAS REQUESTED FOR PATIENT TO BE TRANSFERRED TO [facility] SPOKE WITH PHAN AT [facility] @[id number] T:[phone] PATIENT IS ON LIST TO BE TRANSFERRED AT THIS TIME NO BED AVAILABLE
[2019-06-25] MEDS: cefTRIAXone 2 GM in D5W 55 ML IVPB SCH (15:44)
--- NOTE | 2019-06-25 15:45 | NUR ---
NURSE NOTES: Pt repositioned and oral care completed. Pt's at bedside, updated her with pt's current condition. Still waiting for update on transfer. Will continue to monitor.
--- NOTE | 2019-06-25 15:54 | Surgery Progress Note ---
Surgery Progress Note Subjective Additional Comments No acute events. Stable and comfortable. On transfer list at [facility] for transfer to have AICD placed Objective Last 24 Hour Vital Signs Date Time Temp Pulse Resp B/P (MAP) Pulse Ox O2 Delivery O2 Flow Rate FiO2 06/25/19 15:00 60 15 118/53 (74) 100 06/25/19 14:00 60 19 105/54 (71) 100 06/25/19 13:00 60 20 113/52 (72) 100 06/25/19 12:08 62 20 100 Nasal Cannula 2.0 28 60 20 100 06/25/19 12:00 98.5 60 19 109/52 (71) 100 06/25/19 12:00 Nasal Cannula 2.0 06/25/19 11:00 60 20 112/53 (72) 100 06/25/19 10:00 61 10 131/54 (79) 100 06/25/19 09:50 61 119/61 06/25/19 09:00 61 28 119/61 (80) 100 06/25/19 08:00 60 06/25/19 08:00 98.3 60 5 124/56 (78) 100 06/25/19 08:00 Nasal Cannula 2.0 06/25/19 07:00 60 20 130/68 (88) 100 06/25/19 06:59 60 18 100 Nasal Cannula 2.0 28 60 18 100 06/25/19 06:59 100 Nasal Cannula 2.0 28 06/25/19 06:00 62 20 115/58 (77) 100 06/25/19 05:00 60 20 113/58 (76) 100 06/25/19 04:00 99.0 60 20 117/50 (72) 100 06/25/19 04:00 60 06/25/19 04:00 61 06/25/19 04:00 Nasal Cannula 2.0 06/25/19 03:00 60 20 116/51 (72) 100 06/25/19 02:00 60 20 103/54 (70) 100 06/25/19 01:00 60 20 109/61 (77) 100 06/25/19 00:00 Nasal Cannula 2.0 06/25/19 00:00 61 06/25/19 00:00 98.4 60 20 122/49 (73) 100 06/24/19 23:00 60 19 103/71 (82) 100 06/24/19 22:00 60 19 120/53 (75) 100 06/24/19 21:21 60 118/70 06/24/19 21:00 60 21 118/70 (86) 100 06/24/19 20:04 63 18 100 Nasal Cannula 2.0 28 61 18 100 06/24/19 20:00 61 06/24/19 20:00 Nasal Cannula 2.0 06/24/19 20:00 98.6 60 20 107/49 (68) 100 06/24/19 19:58 100 Nasal Cannula 2.0 28 06/24/19 19:00 60 20 107/45 (65) 100 06/24/19 18:00 60 22 103/39 (60) 100 06/24/19 17:30 60 24 94/39 (57) 100 06/24/19 17:00 60 23 94/42 (59) 100 06/24/19 16:00 98.9 60 12 91/45 (60) 100 06/24/19 16:00 Nasal Cannula 3.0 I&O Intake and Output 06/24/19 06/25/19 19:00 07:00 Intake Total 1368.32 ml 1450 ml Output Total 2185 ml 1380 ml Balance -816.68 ml 70 ml Intake Free Water 150 ml IV Total 688.32 ml 700 ml Tube Feeding 600 ml 600 ml Other 80 ml Output Urine Total 2185 ml 1380 ml # Bowel Movements 1 Dressing: dry Wound: clean Cardiovascular: RSR Respiratory: clear Abdomen: soft, non-tender, present bowel sounds Extremities: no tenderness, no cyanosis Laboratory Tests Test 06/25/19 05:10 White Blood Count 8.8 K/UL (4.8-10.8) Red Blood Count 3.65 M/UL (4.70-6.10) L Hemoglobin 10.3 G/DL (14.2-18.0) L Hematocrit 30.9 % (42.0-52.0) L Mean Corpuscular Volume 85 FL (80-99) Mean Corpuscular Hemoglobin 28.3 PG (27.0-31.0) Mean Corpuscular Hemoglobin Concent 33.4 G/DL (32.0-36.0) Red Cell Distribution Width 14.3 % (11.6-14.8) Platelet Count 173 K/UL (150-450) Mean Platelet Volume 6.5 FL (6.5-10.1) Neutrophils (%) (Auto) 65.9 % (45.0-75.0) Lymphocytes (%) (Auto) 21.9 % (20.0-45.0) Monocytes (%) (Auto) 7.6 % (1.0-10.0) Eosinophils (%) (Auto) 3.6 % (0.0-3.0) H Basophils (%) (Auto) 1.0 % (0.0-2.0) Sodium Level 136 MMOL/L (136-145) Potassium Level 5.0 MMOL/L (3.5-5.1) Chloride Level 105 MMOL/L (98-107) Carbon Dioxide Level 27 MMOL/L (21-32) Anion Gap 4 mmol/L (5-15) L Blood Urea Nitrogen 11 mg/dL (7-18) Creatinine 0.6 MG/DL (0.55-1.30) Estimat Glomerular Filtration Rate mL/min (>60) Glucose Level 159 MG/DL (74-106) H Calcium Level 8.9 MG/DL (8.5-10.1) Plan Problems: (1) Sepsis Assessment & Plan: cont iv abx as per ID eval rx as written AM labs ICU care DAILY ESTIMATED NEEDS: Needs based on Underweight, sepsis; 61.4kg 30-35 kcals/kg 1842- 2149 total kcals 1.25-2 g protein/kg 77- 123 g total protein 25-30 mL/kg 1535- 1842 total fluid mLs NUTRITION DIAGNOSIS: Increased kcal and pro needs r/t wound healing and underweight status AEB pt w/ open sacral wound (eval is pending), generalized moderate wasting, @81% of Jeddo Body Weight. CURRENT DIET:CCHO Med, Pureed moist, nectar-thick PO DIET RECOMMENDATIONS: Liberalized Regular diet w/ continued poor po intake/ texture per DOOR AND ARRIVAL ATTENDANT (ENTERAL NUTRITION RECOMMENDATIONS: * Consult RD if non oral feedings are part of POC *) ADDITIONAL RECOMMENDATIONS: 1) Follow up w/ WC eval * Provide Eliseo TID w/ meals for wound healing * Provide Vit C 250mg qdaily 2) Maintain calibrated bedscale wt 2/2 underweight status 3) F/up w/ DOOR AND ARRIVAL ATTENDANT eval 4) Add Glucerna 1 can TID w/ meals Add snacks in b/w meals (2) Sacral pressure ulcer Assessment & Plan: Pt presented on admission with multiple pressure injuries. Non-blanching erythema clefts of R and L ears. Full thickness sacral pressure injury. Base of wound has 60% mixed slough and soft necrosis,40% granular. Borders are macerated with surrounding non- blanching erythema with additional scattered partial thickness wounds..No odor or exudate noted.(L)7cm x (W)6.5cm. Full thickness pressure injury base of scrotum with 75% slough,25% hunter and moist . Small amt non-odorous serous exudate noted. Non-blanching erythema periwound .(L)3cm x (W)4.5cm.Non-blanching erythema without induration noted to R ischial area. Full thickness pressure injury R elbow . Base of erythematous with 10% slough. Inferior to R elbow wound, second wound that is resolving with dry pink epithelial. Bilat heels are boggy with non-blanching erythema. Tx.Plan: Cleanse wounds scrotum and Sacrum with saline. Apply Therahoney. Apply Moisture Barrier periwound.Cover each wound with Optifoam Drsg. Daily and prn. Apply Moisture Barrier Paste to buttocks and both ischial areas with each incontinence care. Apply Cavilon Skin Barrier to both heels. Cover each heel with Optifoam drsg. Change every 7 days and prn. APM/GAETANO Mattress overlay. Reposition at least every 2hours or as tolerated. Off-load heels with pillow. (3) UTI (urinary tract infection) (4) Respiratory failure, acute Additional Comments Okay for transfer to surgical standpoint. Pending transfer to [facility] for AICD. Plan to continue above wound care plan when discharged Kyle Lomax Jun 25, 2019 15:54
--- NOTE | 2019-06-25 16:57 | Cardiac Electrophysiology PN ---
Assessment/Plan Assessment/Plan 1. S/P Two spontaneous non-infarctional VF arrest of more than 60 seconds documented on tele and Pacer interrogation. On po Amiodarone. DW only daughter at bedside the option of cardiac cath and upgrading pacer to ICD after ID clearance. She agrees and would like to proceed. Awaiting transfer to [facility]. No OK and EF normal. 2. S/P dual chamber [employer] pacer that was interrogated with documented 2 episodes of sustained VF more than 60 seconds that self terminated Will upgrade to ICD after cardiac cath. Cleared by Dr. Mcnair 3. HTN on Lopressor 12.5 NG bid. 4. Dysphagia, family has refused PEG 5. PNA on Abx per ID 6. Dementia DW RN, [facility] Subjective Subjective In ICU on NGT Amio . No further sustained VF episodes Objective Last 24 Hour Vital Signs Date Time Temp Pulse Resp B/P (MAP) Pulse Ox O2 Delivery O2 Flow Rate FiO2 06/25/19 16:00 98.6 60 16 111/53 (72) 100 06/25/19 16:00 Nasal Cannula 2.0 06/25/19 15:29 60 06/25/19 15:00 60 15 118/53 (74) 100 06/25/19 14:00 60 19 105/54 (71) 100 06/25/19 13:00 60 20 113/52 (72) 100 06/25/19 12:41 60 06/25/19 12:08 62 20 100 Nasal Cannula 2.0 28 60 20 100 06/25/19 12:00 98.5 60 19 109/52 (71) 100 06/25/19 12:00 Nasal Cannula 2.0 06/25/19 11:00 60 20 112/53 (72) 100 06/25/19 10:00 61 10 131/54 (79) 100 06/25/19 09:50 61 119/61 06/25/19 09:00 61 28 119/61 (80) 100 06/25/19 08:00 60 06/25/19 08:00 98.3 60 5 124/56 (78) 100 06/25/19 08:00 Nasal Cannula 2.0 06/25/19 07:00 60 20 130/68 (88) 100 06/25/19 06:59 60 18 100 Nasal Cannula 2.0 28 60 18 100 10/28/19 06:59 100 Nasal Cannula 2.0 28 06/25/19 06:00 62 20 115/58 (77) 100 06/25/19 05:00 60 20 113/58 (76) 100 06/25/19 04:00 99.0 60 20 117/50 (72) 100 06/25/19 04:00 60 06/25/19 04:00 61 06/25/19 04:00 Nasal Cannula 2.0 06/25/19 03:00 60 20 116/51 (72) 100 06/25/19 02:00 60 20 103/54 (70) 100 06/25/19 01:00 60 20 109/61 (77) 100 06/25/19 00:00 Nasal Cannula 2.0 06/25/19 00:00 61 06/25/19 00:00 98.4 60 20 122/49 (73) 100 06/24/19 23:00 60 19 103/71 (82) 100 06/24/19 22:00 60 19 120/53 (75) 100 06/24/19 21:21 60 118/70 06/24/19 21:00 60 21 118/70 (86) 100 06/24/19 20:04 63 18 100 Nasal Cannula 2.0 28 61 18 100 06/24/19 20:00 61 06/24/19 20:00 Nasal Cannula 2.0 06/24/19 20:00 98.6 60 20 107/49 (68) 100 06/24/19 19:58 100 Nasal Cannula 2.0 28 06/24/19 19:00 60 20 107/45 (65) 100 06/24/19 18:00 60 22 103/39 (60) 100 06/24/19 17:30 60 24 94/39 (57) 100 06/24/19 17:00 60 23 94/42 (59) 100 Intake and Output 06/24/19 06/25/19 19:00 07:00 Intake Total 1368.32 ml 1450 ml Output Total 2185 ml 1380 ml Balance -816.68 ml 70 ml Intake Free Water 150 ml IV Total 688.32 ml 700 ml Tube Feeding 600 ml 600 ml Other 80 ml Output Urine Total 2185 ml 1380 ml # Bowel Movements 1 Laboratory Tests Test 06/25/19 05:10 White Blood Count 8.8 K/UL (4.8-10.8) Red Blood Count 3.65 M/UL (4.70-6.10) L Hemoglobin 10.3 G/DL (14.2-18.0) L Hematocrit 30.9 % (42.0-52.0) L Mean Corpuscular Volume 85 FL (80-99) Mean Corpuscular Hemoglobin 28.3 PG (27.0-31.0) Mean Corpuscular Hemoglobin Concent 33.4 G/DL (32.0-36.0) Red Cell Distribution Width 14.3 % (11.6-14.8) Platelet Count 173 K/UL (150-450) Mean Platelet Volume 6.5 FL (6.5-10.1) Neutrophils (%) (Auto) 65.9 % (45.0-75.0) Lymphocytes (%) (Auto) 21.9 % (20.0-45.0) Monocytes (%) (Auto) 7.6 % (1.0-10.0) Eosinophils (%) (Auto) 3.6 % (0.0-3.0) H Basophils (%) (Auto) 1.0 % (0.0-2.0) Sodium Level 136 MMOL/L (136-145) Potassium Level 5.0 MMOL/L (3.5-5.1) Chloride Level 105 MMOL/L (98-107) Carbon Dioxide Level 27 MMOL/L (21-32) Anion Gap 4 mmol/L (5-15) L Blood Urea Nitrogen 11 mg/dL (7-18) Creatinine 0.6 MG/DL (0.55-1.30) Estimat Glomerular Filtration Rate mL/min (>60) Glucose Level 159 MG/DL (74-106) H Calcium Level 8.9 MG/DL (8.5-10.1) Microbiology Date/Time Source Procedure Growth Status 06/23/19 03:00 Sputum Induced Gram Stain - Final Resulted 06/23/19 03:00 Sputum Culture - Preliminary Strep Species, Beta Hemolytic Lashonda Albicans Resulted Objective General Appearance: Lethargic HEENT: No JVD. NGT in place Neck: non-tender, supple Cardiovascular: normal rate, no gallop/murmur Respiratory/Chest: crackles/rales, rhonchi - bilaterally Abdomen: non tender, soft Extremities: non-tender Edema: no edema Pablo Norton MD Jun 25, 2019 16:57
--- NOTE | 2019-06-25 17:00 | NUR ---
NURSE NOTES: Dr. Norton at bedside assessing pt. Updated him with pt's current condition. Dr. Norton spoke to pt's and updated her on transfer to [facility]. We are still awaiting a bed.
--- NOTE | 2019-06-25 19:15 | NUR ---
HAND-OFF: Report given to MONSERRAT Cota.
--- NOTE | 2019-06-25 20:00 | NUR ---
pt awake and alert but nan verbal do not follows command on 2l n/c o2sat 100 o/o no resp distress noted reposition and suction iv tko lfa site good and patent ngt with glucerna tube feeding at 50cc pre hr infusing will and patent [place] to bedside drainage with urine output 50-150 per hr
[2019-06-25] MEDS: Vancomycin 1 GM in D5W 275 ML IVPB SCH (20:13)
[2019-06-25] MEDS: Sennosides 8.6mg tab ORAL SCH (20:58)
--- NOTE | 2019-06-25 22:00 | NUR ---
pt asleep reposition and suction no acute distress noted
--- NOTE | 2019-06-25 22:08 | Pulmonology Progress Note ---
Assessment/Plan Assessment/Plan Pulmonary Progress Note HPI 83-year-old male admitted [facility] with Urinary Tract Infection, Bibasal Pneumonia, Sepsis/Dehydration responsive to IVF and AB, Hypernatremia, Hypokalemia - family have previously refused feeding tube insertion, oxygen requirement have gradually improved during admission, remains on antibiotics per Infectious Disease, Cardiology following. Patient is nonverbal at baseline. Patient has been treated recently with antibiotics for pneumonia but symptoms worsening. febrile in triage. No reported chest pain. No other aggravating relieving factors. No other associated symptoms ABG reveals increased A-a gradient, Alkalosis VT - Amiodarone per Cardiology, awaiting TF to OID for ICD Allergies: Coded Allergies: No Known Allergies Past Medical History: Previous Pneumonia, Hypertension, Parkinsons Disease, Pacemaker Past Surgical History: pacemaker Physical Exam Vital Signs Noted, O2 sats stable on NC O2 General Appearance: no apparent distress, alert, GCS 15, chronically ill appearing, non-toxic Head: normocephalic atraumatic Eyes: bilateral eye normal inspection, bilateral eye PERRL ENT: moist mm Neck: normal inspection, no LN Respiratory: no respiratory distress, reduced basal BS Cardiovascular: regular rate, rhythm, HS1, HS2 normal, no edema Gastrointestinal: normal bowel sounds, non tender, soft, non-distended, no guarding, no rebound Musculoskeletal: normal inspection, weak Neurologic: nonverbal, no focal signs noted Impression: Bibasal Pneumonia Previous dysphagia Hypoxia, alkalosis Urinary tract infection Sepsis Dehydration Hypernatremia/hypokalemia Previous Pacemaker 4 years ago Run of Ventricular Tachycardia - Cardiology following H/o Hypertension Parkinsons Disease Old granulomatous changes on CXR Full code Plan Antibiotics per ID IVF Correct electrolyte imbalances Aspiration precautions Speech therapy evaluation of swallow R/O DVT/PE - LE dupplex/VQ scan PPX Monitor labs Atrovent HHN/CPT Q4 O2 PRN Follow cultures CT chest to evaluate nodules - non contrast D/w RN Labs noted EKG: Rate: normal Rhythm: ventricular paced ST Segments: no acute changes Chest X-Ray: 1. Bibasilar airspace opacities which likely represent atelectasis but pneumonia should be excluded clinically. 2. Likely small left pleural effusion. 3. Scattered rounded densities which may represent calcified granulomata; however, comparison with prior imaging or evaluation with chest CT is recommended to exclude pulmonary nodules. Subjective ROS Limited/Unobtainable: No Allergies: Coded Allergies: No Known Allergies (Unverified , 06/20/19) Objective Last 24 Hour Vital Signs Date Time Temp Pulse Resp B/P (MAP) Pulse Ox O2 Delivery O2 Flow Rate FiO2 06/25/19 21:00 60 19 115/55 (75) 100 06/25/19 20:57 60 132/51 06/25/19 20:00 60 06/25/19 20:00 Nasal Cannula 2.0 06/25/19 20:00 98.5 60 18 132/51 (78) 100 06/25/19 19:59 100 Nasal Cannula 2.0 28 06/25/19 19:56 64 20 100 Nasal Cannula 2.0 28 60 20 98 06/25/19 19:00 60 16 123/54 (77) 100 06/25/19 18:00 60 16 125/53 (77) 100 06/25/19 17:00 60 20 118/51 (73) 100 06/25/19 16:00 98.6 60 16 111/53 (72) 100 06/25/19 16:00 Nasal Cannula 2.0 06/25/19 15:29 60 06/25/19 15:00 60 15 118/53 (74) 100 06/25/19 14:00 60 19 105/54 (71) 100 06/25/19 13:00 60 20 113/52 (72) 100 06/25/19 12:41 60 06/25/19 12:08 62 20 100 Nasal Cannula 2.0 28 60 20 100 06/25/19 12:00 98.5 60 19 109/52 (71) 100 06/25/19 12:00 Nasal Cannula 2.0 06/25/19 11:00 60 20 112/53 (72) 100 06/25/19 10:00 61 10 131/54 (79) 100 06/25/19 10:00 61 10 131/54 (79) 100 06/25/19 09:50 61 119/61 06/25/19 09:00 60 11 119/61 (80) 100 06/25/19 09:00 61 28 119/61 (80) 100 06/25/19 08:00 60 5 124/56 (78) 100 06/25/19 08:00 60 06/25/19 08:00 98.3 60 5 124/56 (78) 100 06/25/19 08:00 Nasal Cannula 2.0 06/25/19 07:00 60 21 130/68 (88) 100 06/25/19 07:00 60 20 130/68 (88) 100 06/25/19 06:59 60 18 100 Nasal Cannula 2.0 28 60 18 100 06/25/19 06:59 100 Nasal Cannula 2.0 28 06/25/19 06:00 60 15 113/58 (76) 100 06/25/19 06:00 62 20 115/58 (77) 100 06/25/19 05:00 60 20 113/58 (76) 100 06/25/19 05:00 60 21 99 06/25/19 04:00 60 15 116/51 (72) 100 06/25/19 04:00 99.0 60 20 117/50 (72) 100 06/25/19 04:00 60 06/25/19 04:00 61 06/25/19 04:00 Nasal Cannula 2.0 06/25/19 03:00 60 20 116/51 (72) 100 06/25/19 03:00 60 20 103/54 (70) 100 06/25/19 02:00 60 19 109/61 (77) 100 06/25/19 02:00 60 20 103/54 (70) 100 06/25/19 01:00 60 20 109/61 (77) 100 06/25/19 01:00 60 21 122/49 (73) 100 06/25/19 00:00 Nasal Cannula 2.0 06/25/19 00:00 60 18 110/56 (74) 100 06/25/19 00:00 61 06/25/19 00:00 98.4 60 20 122/49 (73) 100 06/24/19 23:00 60 19 103/71 (82) 100 Intake and Output 06/24/19 06/25/19 19:00 07:00 Intake Total 1368.32 ml 1450 ml Output Total 2185 ml 1380 ml Balance -816.68 ml 70 ml Intake Free Water 150 ml IV Total 688.32 ml 700 ml Tube Feeding 600 ml 600 ml Other 80 ml Output Urine Total 2185 ml 1380 ml # Bowel Movements 1 Microbiology Date/Time Source Procedure Growth Status 06/23/19 03:00 Sputum Induced Gram Stain - Final Resulted 06/23/19 03:00 Sputum Culture - Preliminary Strep Species, Beta Hemolytic Lashonda Albicans Resulted Laboratory Tests 06/25/19 05:10: White Blood Count 8.8, Red Blood Count 3.65L, Hemoglobin 10.3L, Hematocrit 30.9L , Mean Corpuscular Volume 85, Mean Corpuscular Hemoglobin 28.3, Mean Corpuscular Hemoglobin Concent 33.4, Red Cell Distribution Width 14.3, Platelet Count 173, Mean Platelet Volume 6.5, Neutrophils (%) (Auto) 65.9, Lymphocytes (% ) (Auto) 21.9, Monocytes (%) (Auto) 7.6, Eosinophils (%) (Auto) 3.6H, Basophils (%) (Auto) 1.0, Sodium Level 136, Potassium Level 5.0, Chloride Level 105, Carbon Dioxide Level 27, Anion Gap 4L, Blood Urea Nitrogen 11, Creatinine 0.6, Estimat Glomerular Filtration Rate , Glucose Level 159H, Calcium Level 8.9 Current Medications Medications (Trade) Dose Ordered Sig/Katharine Route PRN Reason Start Time Stop Time Status Last Admin Dose Admin Acetaminophen (Tylenol) 650 mg Q6H PRN ORAL Mild Pain/Temp > 100.5 06/21/19 12:15 07/21/19 06:14 06/23/19 13:15 Acetaminophen (Tylenol) 650 mg Q6H PRN RECTAL Mild Pain/Temp > 100.5 PO/IN 06/21/19 12:00 07/21/19 11:59 06/22/19 08:12 Acetylcysteine (Mucomyst) 100 mg TIDRT HHN 06/22/19 13:00 07/22/19 12:59 06/25/19 19:54 Amiodarone HCl (Cordarone) 400 mg EVERY 12 HOURS NG 06/24/19 09:00 07/24/19 08:59 06/25/19 20:56 Aspirin (Ecotrin) 81 mg DAILY ORAL 06/22/19 09:00 07/21/19 08:59 06/25/19 09:49 Carbidopa/Levodopa (Sinemet ) 1 tab THREE TIMES A DAY ORAL 06/21/19 13:00 07/21/19 08:59 06/25/19 18:35 Ceftriaxone Sodium 2 gm/ Dextrose 55 ml @ 110 mls/hr Q24H IVPB 06/25/19 15:00 07/02/19 14:59 06/25/19 15:44 Dextrose (Dextrose 50%) 25 ml Q30M PRN IV Hypoglycemia 06/21/19 11:30 07/20/19 20:59 Dextrose (Dextrose 50%) 50 ml Q30M PRN IV Hypoglycemia 06/21/19 11:30 07/20/19 20:59 Heparin Sodium (Porcine) (Heparin 5000 units/ml) 5,000 units EVERY 12 HOURS SUBQ 06/21/19 14:00 07/21/19 13:59 06/25/19 21:01 Insulin Aspart (NovoLOG) EVERY 6 HOURS SUBQ 06/23/19 18:00 07/20/19 21:59 06/25/19 18:37 Ipratropium Leander (Atrovent) 500 mcg Q4H PRN HHN Shortness of Breath 06/21/19 13:30 06/26/19 13:29 06/25/19 19:54 Memantine (Namenda) 10 mg Q12HR NG 06/22/19 21:00 07/22/19 20:59 06/25/19 20:58 Metoprolol Tartrate (Lopressor) 12.5 mg Q12HR NG 06/24/19 21:00 07/24/19 20:59 06/25/19 20:57 Morphine Sulfate (Morphine Sulfate) 2 mg Q6H PRN IVP For Pain 06/22/19 08:45 06/29/19 08:44 06/23/19 02:55 Pantoprazole (Protonix) 40 mg DAILY IVP 06/22/19 09:00 07/22/19 08:59 06/25/19 09:48 Polyethylene Glycol (Miralax) 17 gm DAILY PRN ORAL Constipation 06/21/19 12:00 07/21/19 11:59 Sennosides (Senokot) 17.2 mg QHS ORAL 06/21/19 21:00 07/21/19 20:59 06/25/19 20:58 Tamsulosin HCl (Flomax) 0.4 mg DAILY ORAL 06/22/19 09:00 07/21/19 08:59 06/25/19 09:48 Vancomycin HCl (Vanco rx to dose) 1 ea DAILY PRN MISC Per rx protocol 06/22/19 09:00 07/20/19 16:29 Vancomycin HCl 1 gm/Dextrose 275 ml @ 183.708 mls/hr Q24H IVPB 06/21/19 20:00 06/30/19 19:59 06/25/19 20:13 Vitamin D (Vitamin D) 5,000 intlu DAILY ORAL 06/22/19 09:00 07/21/19 08:59 06/25/19 09:49 Zinc Sulfate (Zinc Sulfate) 220 mg BID ORAL 06/21/19 18:00 07/21/19 08:59 06/25/19 18:35 Denys Payne MD Jun 25, 2019 22:08
[2019-06-26] VITALS (24 sets, daily range): BP systolic 99–131; BP diastolic 48–67
--- NOTE | 2019-06-26 | NUR ---
NURSE NOTES: asleep reposition and suction
--- NOTE | 2019-06-26 02:00 | NUR ---
NURSE NOTES: had soft bm complete bed bath done oral care and salinas care wound care and dressing changed done
--- NOTE | 2019-06-26 04:00 | NUR ---
NURSE NOTES: reposition and suction no acute distress noted
[2019-06-26 05:03] LABS: BASOPHILS % (AUTO) 0.6 % (0.0-2.0); EOSINOPHILS % (AUTO) 4.4 % (0.0-3.0); HEMATOCRIT 31.4 % (42.0-52.0); HEMOGLOBIN 10.7 G/DL (14.2-18.0); LYMPHOCYTES % (AUTO) 22.3 % (20.0-45.0); MEAN CORPUSCULAR VOLUME 84 FL (80-99); NEUTROPHILS % (AUTO) 66.8 % (45.0-75.0); PLATELET COUNT 201 K/UL (150-450); RED BLOOD COUNT 3.75 M/UL (4.70-6.10); WHITE BLOOD COUNT 8.9 K/UL (4.8-10.8)
[2019-06-26 05:20] LABS: ANION GAP 7 mmol/L (5-15); BLOOD UREA NITROGEN 13 mg/dL (7-18); CALCIUM 9.4 MG/DL (8.5-10.1); CARBON DIOXIDE 28 MMOL/L (21-32); CHLORIDE 104 MMOL/L (98-107); CREATININE 0.6 MG/DL (0.55-1.30); POTASSIUM 4.5 MMOL/L (3.5-5.1); SODIUM 139 MMOL/L (136-145)
[2019-06-26] MEDS: NovoLOG Insulin Flexpen SUBQ SCH ×3 (06:00→17:53)
--- NOTE | 2019-06-26 06:10 | NUR ---
NURSE NOTES: reposition suction tolerating tube feeding no residual hr 60 v paced
[2019-06-26] MEDS: Ipratropium 0.02% Inh Soln 2.5ml UD HHN PRN ×2 (07:14→13:22)
--- NOTE | 2019-06-26 07:19 | NUR ---
HAND-OFF: Report given to juan david reis.
--- NOTE | 2019-06-26 07:20 | NUR ---
NURSE NOTES: Report received from Geri/MONSERRAT Cota. Pt sleeping in bed. Easily able to wake up. Non-verbal and does not follow commands. Opens eye spontaneously and able to make eye contact. V-paced HR 60 in coke worker. On 2L N/C. O2 sat 100%. Right nare NGT in plac, receiving Glucerna 1.5 at 50cc/hr. No residual noted. Wilkes in place draining to gravity. IV to left UA G20 and right AC G22 patent and asymptomatic. Bed in lowest position. Side rails up x3. Will resume plan of care.
--- NOTE | 2019-06-26 07:31 | General Progress Note ---
Assessment/Plan Status: stable Assessment/Plan: 1. Pneumonia. 2. Hypertension. 3. Parkinson disease. 4. Pacemaker placement 5. Dysphagia NGTF most likely will need PEG pending possible transfer to [facility] for AICD placement cont current care Subjective ROS Limited/Unobtainable: No Allergies: Coded Allergies: No Known Allergies (Unverified , 06/20/19) Objective Last 24 Hour Vital Signs Date Time Temp Pulse Resp B/P (MAP) Pulse Ox O2 Delivery O2 Flow Rate FiO2 06/26/19 07:23 100 Nasal Cannula 2.0 28 06/26/19 07:15 64 20 100 Nasal Cannula 2.0 28 60 20 100 06/26/19 07:00 60 20 117/50 (72) 100 06/26/19 06:00 60 20 106/48 (67) 100 06/26/19 05:00 60 20 106/48 (67) 100 06/26/19 04:00 61 06/26/19 04:00 Nasal Cannula 2.0 06/26/19 04:00 98.4 65 16 131/54 (79) 100 06/26/19 03:00 60 19 107/51 (69) 100 06/26/19 02:00 60 15 109/49 (69) 100 06/26/19 01:00 60 20 99/49 (66) 100 06/26/19 00:00 98.2 60 18 119/52 (74) 100 06/26/19 00:00 Nasal Cannula 2.0 06/26/19 00:00 60 06/25/19 23:00 60 14 114/53 (73) 100 06/25/19 22:00 60 15 118/50 (72) 100 06/25/19 21:00 60 19 115/55 (75) 100 06/25/19 20:57 60 132/51 06/25/19 20:00 60 06/25/19 20:00 Nasal Cannula 2.0 06/25/19 20:00 98.5 60 18 132/51 (78) 100 06/25/19 19:59 100 Nasal Cannula 2.0 28 06/25/19 19:56 64 20 100 Nasal Cannula 2.0 28 60 20 98 06/25/19 19:00 60 16 123/54 (77) 100 06/25/19 18:00 60 16 125/53 (77) 100 06/25/19 17:00 60 20 118/51 (73) 100 06/25/19 16:00 98.6 60 16 111/53 (72) 100 06/25/19 16:00 Nasal Cannula 2.0 06/25/19 15:29 60 06/25/19 15:00 60 15 118/53 (74) 100 06/25/19 14:00 60 19 105/54 (71) 100 06/25/19 13:00 60 20 113/52 (72) 100 06/25/19 12:41 60 06/25/19 12:08 62 20 100 Nasal Cannula 2.0 28 60 20 100 06/25/19 12:00 98.5 60 19 109/52 (71) 100 06/25/19 12:00 Nasal Cannula 2.0 06/25/19 11:00 60 20 112/53 (72) 100 06/25/19 10:00 61 10 131/54 (79) 100 06/25/19 10:00 61 10 131/54 (79) 100 06/25/19 09:50 61 119/61 06/25/19 09:00 60 11 119/61 (80) 100 06/25/19 09:00 61 28 119/61 (80) 100 06/25/19 08:00 60 5 124/56 (78) 100 06/25/19 08:00 60 06/25/19 08:00 98.3 60 5 124/56 (78) 100 06/25/19 08:00 Nasal Cannula 2.0 Intake and Output 06/25/19 06/26/19 18:59 06:59 Intake Total 858.333 ml 935.000 ml Output Total 1225 ml 1265 ml Balance -366.667 ml -330.000 ml Intake Free Water 20 ml IV Total 138.333 ml 275.000 ml Tube Feeding 600 ml 600 ml Other 100 ml 60 ml Output Urine Total 1225 ml 1265 ml # Bowel Movements 1 Laboratory Tests 06/26/19 04:00: White Blood Count 8.9, Red Blood Count 3.75L, Hemoglobin 10.7L, Hematocrit 31.4L , Mean Corpuscular Volume 84, Mean Corpuscular Hemoglobin 28.7, Mean Corpuscular Hemoglobin Concent 34.2, Red Cell Distribution Width 14.0, Platelet Count 201, Mean Platelet Volume 6.0L, Neutrophils (%) (Auto) 66.8, Lymphocytes ( %) (Auto) 22.3, Monocytes (%) (Auto) 6.0, Eosinophils (%) (Auto) 4.4H, Basophils (%) (Auto) 0.6, Sodium Level 139, Potassium Level 4.5, Chloride Level 104, Carbon Dioxide Level 28, Anion Gap 7, Blood Urea Nitrogen 13, Creatinine 0.6, Estimat Glomerular Filtration Rate , Glucose Level 106, Calcium Level 9.4 Height (Feet): 5 Height (Inches): 5.00 Weight (Pounds): 167 General Appearance: lethargic EENT: normal ENT inspection Neck: supple Cardiovascular: normal peripheral pulses Respiratory/Chest: decreased breath sounds Abdomen: normal bowel sounds, non tender, soft Extremities: non-tender Mahad Ring MD Jun 26, 2019 07:31
--- NOTE | 2019-06-26 08:12 | NUR ---
DISCHARGE PLANNING: TRANSFER REQUEST PATIENT FAMILY HAS REQUESTED FOR PATIENT TO BE TRANSFERRED TO [facility] SPOKE WITH PHAN AT [facility] @0813 T:[phone] PATIENT IS ON LIST TO BE TRANSFERRED AT THIS TIME THERE ARE 30 PATIENTS WAITING FOR BEDS IN [place]
[2019-06-26] MEDS: Amiodarone 200mg tab NG SCH ×2 (08:58→20:54)
[2019-06-26] MEDS: Zinc Sulfate 220mg cap ORAL SCH ×2 (08:58→17:51)
[2019-06-26] MEDS: Vitamin D 1000 IU Tab ORAL SCH (08:58)
[2019-06-26] MEDS: Aspirin EC 81mg tab ORAL SCH (08:58)
[2019-06-26] MEDS: Pantoprazole Inj IVP SCH (08:59)
[2019-06-26] MEDS: Levodopa/Carbidopa 25/100 tab ORAL SCH ×3 (08:59→17:51)
[2019-06-26] MEDS: Metoprolol Tartrate 12.5mg TAB NG SCH ×2 (08:59→20:54)
[2019-06-26] MEDS: Memantine 10mg tab NG SCH ×2 (08:59→20:54)
[2019-06-26] MEDS: Tamsulosin 0.4mg cap ORAL SCH (08:59)
[2019-06-26] MEDS: Heparin 5000 units/ml inj SUBQ SCH ×2 (09:00→20:56)
--- NOTE | 2019-06-26 09:50 | NUR ---
NURSE NOTES: Turned and repositioned pt. Kept HOB in high Dunlap's position. Pt is sleeping in bed. Easily able to wake up and make eye contacts. No acute respiratory distress noted.
--- NOTE | 2019-06-26 11:40 | Cardiac Electrophysiology PN ---
Assessment/Plan Assessment/Plan 1. S/P Two spontaneous non-infarctional VF arrest of more than 60 seconds documented on tele and Pacer interrogation. On po Amiodarone. DW only daughter at bedside the option of cardiac cath and upgrading pacer to ICD after ID clearance. She agrees and would like to proceed. Awaiting transfer to [facility]. No MT and EF normal. 2. S/P Dual chamber [employer] pacer that was interrogated with documented 2 episodes of sustained VF more than 60 seconds that self terminated Will upgrade to ICD after cardiac cath. Cleared by Dr. Mcnair 3. HTN on Lopressor 12.5 NG bid. 4. Dysphagia, family has refused PEG 5. PNA on Abx per ID 6. Dementia DW RN and [facility] transfer Ctr Subjective Subjective In ICU on po Amio . No further sustained VF episodes. Awaiting transfer for cardiac cath and pacer upgrade to ICD Objective Last 24 Hour Vital Signs Date Time Temp Pulse Resp B/P (MAP) Pulse Ox O2 Delivery O2 Flow Rate FiO2 06/26/19 11:00 60 20 123/56 (78) 100 06/26/19 10:00 60 17 110/56 (74) 100 06/26/19 09:00 99.4 60 16 106/56 (73) 100 06/26/19 08:59 60 112/49 06/26/19 08:00 60 18 112/49 (70) 100 06/26/19 08:00 Nasal Cannula 2.0 06/26/19 07:59 60 06/26/19 07:23 100 Nasal Cannula 2.0 28 06/26/19 07:15 64 20 100 Nasal Cannula 2.0 28 60 20 100 06/26/19 07:00 60 20 117/50 (72) 100 06/26/19 06:00 60 20 106/48 (67) 100 06/26/19 05:00 60 20 106/48 (67) 100 06/26/19 04:00 61 06/26/19 04:00 Nasal Cannula 2.0 06/26/19 04:00 98.4 65 16 131/54 (79) 100 06/26/19 03:00 60 19 107/51 (69) 100 06/26/19 02:00 60 15 109/49 (69) 100 06/26/19 01:00 60 20 99/49 (66) 100 06/26/19 00:00 98.2 60 18 119/52 (74) 100 06/26/19 00:00 Nasal Cannula 2.0 06/26/19 00:00 60 06/25/19 23:00 60 14 114/53 (73) 100 06/25/19 22:00 60 15 118/50 (72) 100 06/25/19 21:00 60 19 115/55 (75) 100 06/25/19 20:57 60 132/51 06/25/19 20:00 60 06/25/19 20:00 Nasal Cannula 2.0 06/25/19 20:00 98.5 60 18 132/51 (78) 100 06/25/19 19:59 100 Nasal Cannula 2.0 28 06/25/19 19:56 64 20 100 Nasal Cannula 2.0 28 60 20 98 06/25/19 19:00 60 16 123/54 (77) 100 06/25/19 18:00 60 16 125/53 (77) 100 06/25/19 17:00 60 20 118/51 (73) 100 06/25/19 16:00 98.6 60 16 111/53 (72) 100 06/25/19 16:00 Nasal Cannula 2.0 06/25/19 15:29 60 06/25/19 15:00 60 15 118/53 (74) 100 06/25/19 14:00 60 19 105/54 (71) 100 06/25/19 13:00 60 20 113/52 (72) 100 06/25/19 12:41 60 06/25/19 12:08 62 20 100 Nasal Cannula 2.0 28 60 20 100 06/25/19 12:00 98.5 60 19 109/52 (71) 100 06/25/19 12:00 Nasal Cannula 2.0 Intake and Output 06/25/19 06/26/19 19:00 07:00 Intake Total 858.333 ml 935.000 ml Output Total 1175 ml 1365 ml Balance -316.667 ml -430.000 ml Intake Free Water 20 ml IV Total 138.333 ml 275.000 ml Tube Feeding 600 ml 600 ml Other 100 ml 60 ml Output Urine Total 1175 ml 1365 ml # Bowel Movements 1 Laboratory Tests Test 06/26/19 04:00 White Blood Count 8.9 K/UL (4.8-10.8) Red Blood Count 3.75 M/UL (4.70-6.10) L Hemoglobin 10.7 G/DL (14.2-18.0) L Hematocrit 31.4 % (42.0-52.0) L Mean Corpuscular Volume 84 FL (80-99) Mean Corpuscular Hemoglobin 28.7 PG (27.0-31.0) Mean Corpuscular Hemoglobin Concent 34.2 G/DL (32.0-36.0) Red Cell Distribution Width 14.0 % (11.6-14.8) Platelet Count 201 K/UL (150-450) Mean Platelet Volume 6.0 FL (6.5-10.1) L Neutrophils (%) (Auto) 66.8 % (45.0-75.0) Lymphocytes (%) (Auto) 22.3 % (20.0-45.0) Monocytes (%) (Auto) 6.0 % (1.0-10.0) Eosinophils (%) (Auto) 4.4 % (0.0-3.0) H Basophils (%) (Auto) 0.6 % (0.0-2.0) Sodium Level 139 MMOL/L (136-145) Potassium Level 4.5 MMOL/L (3.5-5.1) Chloride Level 104 MMOL/L (98-107) Carbon Dioxide Level 28 MMOL/L (21-32) Anion Gap 7 mmol/L (5-15) Blood Urea Nitrogen 13 mg/dL (7-18) Creatinine 0.6 MG/DL (0.55-1.30) Estimat Glomerular Filtration Rate mL/min (>60) Glucose Level 106 MG/DL (74-106) Calcium Level 9.4 MG/DL (8.5-10.1) Objective General Appearance: Lethargic HEENT: No JVD. NGT in place Neck: non-tender, supple Cardiovascular: normal rate, no gallop/murmur Respiratory/Chest: crackles/rales, rhonchi - bilaterally Abdomen: non tender, soft Extremities: non-tender Edema: no edema Pablo Norton MD Jun 26, 2019 11:40
--- NOTE | 2019-06-26 11:50 | NUR ---
NURSE NOTES: Dr Norton here to see the patient. Updated him with pt's current condition and notified him that [facility] has not called for bed. No new orders. Will continue to monitor.
--- NOTE | 2019-06-26 12:27 | NUR ---
CASE MANAGEMENT: REVIEW 06/26/19 SI: SEPSIS; UTI . ACUTE RESP FAILURE . V-TACH 99.4 60 112/49 100% NC 2L RBC 3.75; H/H 10.7/31.4 IS: IV CEFTRIAXONE Q24HR* IV VANCOMYCIN Q24HR IV PROTONIX QD* HEPARIN SQ Q12HR* IV MORPHINE SULFATE Q6/PRN* LOPRESSOR NG Q12HR* AMIODARONE NG Q12HR* NOVOLOG SQ Q6HR* NAMENDA NG Q12HR* MUCOMYST HHN TID* ASPIRIN PO QD* ZINC SULFATE PO BID* FLOMAX PO QD* ATROVENT HHNQ4/PRN TYLENOL WI Q6/PRN : ICU STATUS DCP: [facility] TO RESCUE FOR AICD PLACEMENT PLAN: CT- EXCLUDE PULMONARY NODULE SP THERAPY EVAL- MOST LIKELY NEED PEG WOUND THERAPY
--- NOTE | 2019-06-26 13:39 | Diagnostic Imaging Report ---
APPROVED REPORT CPT Code: 17389 Present Symptoms Comments: Pain BILATERAL: Imaging reveals a patent deep venous system bilaterally. There is no evidence of thrombus within the femoral, popliteal or tibial segments. The greater saphenous veins are also within normal limits. Doppler indicates normal spontaneous flow within these segments.
--- NOTE | 2019-06-26 14:14 | Pulmonolgy Critical Care Note ---
Critical Care - Asmt/Plan Problems: (1) Hypoxia (2) Pneumonia (3) Respiratory failure, acute (4) V-tach (5) Sacral pressure ulcer (6) UTI (urinary tract infection) Respiratory: monitor respiratory rate, CXR, ABG, other - Pulmonary hygiene/ mobilize, Atrovent HHN's + Mucomyst, monitor secretions Cardiac: continue to monitor HR/BP, other - F/U cards recs, PO Amio, awaiting transfer to [facility] for AICD and LHC Renal: check electrolytes, other - Monitor electrolytes and renal function Infectious Disease: continue antibiotics - per ID Gastrointestinal: continue feedings/current rate - Family declines PEG, continue to discuss, other Endocrine: monitor blood sugar Hematologic: monitor H/H Neurologic: keep patient comfortable - Monitor MS Prophylaxis: Protonix, Heparin Disposition: transfer to - [facility], awaiting transfer to [facility] Time Spent (Minutes): 40 Critical Care - Objective Last 24 Hour Vital Signs Date Time Temp Pulse Resp B/P (MAP) Pulse Ox O2 Delivery O2 Flow Rate FiO2 06/26/19 13:35 60 20 100 Nasal Cannula 2.0 28 60 20 100 06/26/19 12:00 98.5 60 17 108/54 (72) 100 06/26/19 12:00 Nasal Cannula 2.0 06/26/19 11:00 60 20 123/56 (78) 100 06/26/19 10:00 60 17 110/56 (74) 100 06/26/19 09:00 99.4 60 16 106/56 (73) 100 06/26/19 08:59 60 112/49 06/26/19 08:00 60 18 112/49 (70) 100 06/26/19 08:00 Nasal Cannula 2.0 06/26/19 07:59 60 06/26/19 07:23 100 Nasal Cannula 2.0 28 06/26/19 07:15 64 20 100 Nasal Cannula 2.0 28 60 20 100 06/26/19 07:00 60 20 117/50 (72) 100 06/26/19 06:00 60 20 106/48 (67) 100 06/26/19 05:00 60 20 106/48 (67) 100 06/26/19 04:00 61 06/26/19 04:00 Nasal Cannula 2.0 06/26/19 04:00 98.4 65 16 131/54 (79) 100 06/26/19 03:00 60 19 107/51 (69) 100 06/26/19 02:00 60 15 109/49 (69) 100 06/26/19 01:00 60 20 99/49 (66) 100 06/26/19 00:00 98.2 60 18 119/52 (74) 100 06/26/19 00:00 Nasal Cannula 2.0 06/26/19 00:00 60 06/25/19 23:00 60 14 114/53 (73) 100 06/25/19 22:00 60 15 118/50 (72) 100 06/25/19 21:00 60 19 115/55 (75) 100 06/25/19 20:57 60 132/51 06/25/19 20:00 60 06/25/19 20:00 Nasal Cannula 2.0 06/25/19 20:00 98.5 60 18 132/51 (78) 100 06/25/19 19:59 100 Nasal Cannula 2.0 28 06/25/19 19:56 64 20 100 Nasal Cannula 2.0 28 60 20 98 06/25/19 19:00 60 16 123/54 (77) 100 06/25/19 18:00 60 16 125/53 (77) 100 06/25/19 17:00 60 20 118/51 (73) 100 06/25/19 16:00 98.6 60 16 111/53 (72) 100 06/25/19 16:00 Nasal Cannula 2.0 06/25/19 15:29 60 06/25/19 15:00 60 15 118/53 (74) 100 Status: somnolent Condition: critical HEENT: atraumatic, normocephalic Lungs: clear Heart: HR/BP stable Abdomen: soft, non-tender, active bowel sounds Extremities: no C/C/E Accucheck: 124 Blood Sugars: BS controlled Critical Care - Subjective ROS Limited/Unobtainable: Yes ICU Day: 4 Interval Events: AFVSS in NSR 100% on 2L Non-verbal no distress No cough no SOB Kira NGTF's Condition: stable IV Access: peripheral EKG Rhythm: A-Paced FI02: 28 Sputum Amount: None Fluids: TKO Drips: N/A Tube Feeding Amount: 50 I&O: Intake and Output 06/25/19 06/26/19 19:00 07:00 Intake Total 858.333 ml 935.000 ml Output Total 1175 ml 1365 ml Balance -316.667 ml -430.000 ml Intake Free Water 20 ml IV Total 138.333 ml 275.000 ml Tube Feeding 600 ml 600 ml Other 100 ml 60 ml Output Urine Total 1175 ml 1365 ml # Bowel Movements 1 Subjective: ISIS Labs: Laboratory Tests Test 06/26/19 04:00 White Blood Count 8.9 K/UL (4.8-10.8) Red Blood Count 3.75 M/UL (4.70-6.10) L Hemoglobin 10.7 G/DL (14.2-18.0) L Hematocrit 31.4 % (42.0-52.0) L Mean Corpuscular Volume 84 FL (80-99) Mean Corpuscular Hemoglobin 28.7 PG (27.0-31.0) Mean Corpuscular Hemoglobin Concent 34.2 G/DL (32.0-36.0) Red Cell Distribution Width 14.0 % (11.6-14.8) Platelet Count 201 K/UL (150-450) Mean Platelet Volume 6.0 FL (6.5-10.1) L Neutrophils (%) (Auto) 66.8 % (45.0-75.0) Lymphocytes (%) (Auto) 22.3 % (20.0-45.0) Monocytes (%) (Auto) 6.0 % (1.0-10.0) Eosinophils (%) (Auto) 4.4 % (0.0-3.0) H Basophils (%) (Auto) 0.6 % (0.0-2.0) Sodium Level 139 MMOL/L (136-145) Potassium Level 4.5 MMOL/L (3.5-5.1) Chloride Level 104 MMOL/L (98-107) Carbon Dioxide Level 28 MMOL/L (21-32) Anion Gap 7 mmol/L (5-15) Blood Urea Nitrogen 13 mg/dL (7-18) Creatinine 0.6 MG/DL (0.55-1.30) Estimat Glomerular Filtration Rate mL/min (>60) Glucose Level 106 MG/DL (74-106) Calcium Level 9.4 MG/DL (8.5-10.1) Yves Harrison MD Jun 26, 2019 14:14
[2019-06-26] MEDS ORDERED: Ipratropium 0.02% Inh Soln 2.5ml UD HHN PRN (14:15)
--- NOTE | 2019-06-26 14:30 | NUR ---
NURSE NOTES: Dr Harrison here to see the patient. Updated him with pt's current condition and notified him that pt gets congested at times and needs deep suctioning. No new orders. Will continue to monitor.
[2019-06-26] MEDS: cefTRIAXone 2 GM in D5W 55 ML IVPB SCH (14:55)
[2019-06-26] MEDS ORDERED: Tubing IV Secondary IV ONE (15:31)
[2019-06-26] MEDS ORDERED: NS 275ml ONE (15:31)
--- NOTE | 2019-06-26 15:41 | NUR ---
NURSE NOTES: PICC line team here to prepare the procedure at bedside. Called Dr Ring and notified him that PICC line is being inserted now and asked him to order TPN. Addendum: 06/26/19 at 1812 by GIL SAHA RN RN Wrong patient
--- NOTE | 2019-06-26 15:57 | Surgery Progress Note ---
Surgery Progress Note Subjective Additional Comments no acute events exam stable doing well family at bedside labs improved Objective Last 24 Hour Vital Signs Date Time Temp Pulse Resp B/P (MAP) Pulse Ox O2 Delivery O2 Flow Rate FiO2 06/26/19 15:00 60 16 104/53 (70) 100 06/26/19 15:00 60 15 105/52 (69) 100 06/26/19 14:00 60 16 104/53 (70) 100 06/26/19 13:35 60 20 100 Nasal Cannula 2.0 28 60 20 100 06/26/19 13:00 60 14 124/59 (80) 100 06/26/19 12:00 98.5 60 17 108/54 (72) 100 06/26/19 12:00 Nasal Cannula 2.0 06/26/19 11:00 60 20 123/56 (78) 100 06/26/19 10:00 60 17 110/56 (74) 100 06/26/19 09:00 99.4 60 16 106/56 (73) 100 06/26/19 08:59 60 112/49 06/26/19 08:00 60 18 112/49 (70) 100 06/26/19 08:00 Nasal Cannula 2.0 06/26/19 07:59 60 06/26/19 07:23 100 Nasal Cannula 2.0 28 06/26/19 07:15 64 20 100 Nasal Cannula 2.0 28 60 20 100 06/26/19 07:00 60 20 117/50 (72) 100 06/26/19 06:00 60 20 106/48 (67) 100 06/26/19 05:00 60 20 106/48 (67) 100 06/26/19 04:00 61 06/26/19 04:00 Nasal Cannula 2.0 06/26/19 04:00 98.4 65 16 131/54 (79) 100 06/26/19 03:00 60 19 107/51 (69) 100 06/26/19 02:00 60 15 109/49 (69) 100 06/26/19 01:00 60 20 99/49 (66) 100 06/26/19 00:00 98.2 60 18 119/52 (74) 100 06/26/19 00:00 Nasal Cannula 2.0 06/26/19 00:00 60 06/25/19 23:00 60 14 114/53 (73) 100 06/25/19 22:00 60 15 118/50 (72) 100 06/25/19 21:00 60 19 115/55 (75) 100 06/25/19 20:57 60 132/51 06/25/19 20:00 60 06/25/19 20:00 Nasal Cannula 2.0 06/25/19 20:00 98.5 60 18 132/51 (78) 100 06/25/19 19:59 100 Nasal Cannula 2.0 28 06/25/19 19:56 64 20 100 Nasal Cannula 2.0 28 60 20 98 06/25/19 19:00 60 16 123/54 (77) 100 06/25/19 18:00 60 16 125/53 (77) 100 06/25/19 17:00 60 20 118/51 (73) 100 06/25/19 16:00 98.6 60 16 111/53 (72) 100 06/25/19 16:00 Nasal Cannula 2.0 I&O Intake and Output 06/25/19 06/26/19 19:00 07:00 Intake Total 858.333 ml 935.000 ml Output Total 1175 ml 1365 ml Balance -316.667 ml -430.000 ml Intake Free Water 20 ml IV Total 138.333 ml 275.000 ml Tube Feeding 600 ml 600 ml Other 100 ml 60 ml Output Urine Total 1175 ml 1365 ml # Bowel Movements 1 Dressing: dry Wound: clean Cardiovascular: RSR Abdomen: non-tender, present bowel sounds Extremities: no tenderness, no cyanosis, other Laboratory Tests Test 06/26/19 04:00 White Blood Count 8.9 K/UL (4.8-10.8) Red Blood Count 3.75 M/UL (4.70-6.10) L Hemoglobin 10.7 G/DL (14.2-18.0) L Hematocrit 31.4 % (42.0-52.0) L Mean Corpuscular Volume 84 FL (80-99) Mean Corpuscular Hemoglobin 28.7 PG (27.0-31.0) Mean Corpuscular Hemoglobin Concent 34.2 G/DL (32.0-36.0) Red Cell Distribution Width 14.0 % (11.6-14.8) Platelet Count 201 K/UL (150-450) Mean Platelet Volume 6.0 FL (6.5-10.1) L Neutrophils (%) (Auto) 66.8 % (45.0-75.0) Lymphocytes (%) (Auto) 22.3 % (20.0-45.0) Monocytes (%) (Auto) 6.0 % (1.0-10.0) Eosinophils (%) (Auto) 4.4 % (0.0-3.0) H Basophils (%) (Auto) 0.6 % (0.0-2.0) Sodium Level 139 MMOL/L (136-145) Potassium Level 4.5 MMOL/L (3.5-5.1) Chloride Level 104 MMOL/L (98-107) Carbon Dioxide Level 28 MMOL/L (21-32) Anion Gap 7 mmol/L (5-15) Blood Urea Nitrogen 13 mg/dL (7-18) Creatinine 0.6 MG/DL (0.55-1.30) Estimat Glomerular Filtration Rate mL/min (>60) Glucose Level 106 MG/DL (74-106) Calcium Level 9.4 MG/DL (8.5-10.1) Plan Problems: (1) Sepsis Assessment & Plan: cont iv abx as per ID eval rx as written AM labs ICU care DAILY ESTIMATED NEEDS: Needs based on Underweight, sepsis; 61.4kg 30-35 kcals/kg 1842- 2149 total kcals 1.25-2 g protein/kg 77- 123 g total protein 25-30 mL/kg 1535- 1842 total fluid mLs NUTRITION DIAGNOSIS: Increased kcal and pro needs r/t wound healing and underweight status AEB pt w/ open sacral wound (eval is pending), generalized moderate wasting, @81% of [place] Body Weight. CURRENT DIET:CCHO Med, Pureed moist, nectar-thick PO DIET RECOMMENDATIONS: Liberalized Regular diet w/ continued poor po intake/ texture per CENTRIFUGE SEPARATOR TENDER (ENTERAL NUTRITION RECOMMENDATIONS: * Consult RD if non oral feedings are part of POC *) ADDITIONAL RECOMMENDATIONS: 1) Follow up w/ WC eval * Provide Eliseo TID w/ meals for wound healing * Provide Vit C 250mg qdaily 2) Maintain calibrated bedscale wt 2/2 underweight status 3) F/up w/ CENTRIFUGE SEPARATOR TENDER eval 4) Add Glucerna 1 can TID w/ meals Add snacks in b/w meals (2) Sacral pressure ulcer Assessment & Plan: Pt presented on admission with multiple pressure injuries. Non-blanching erythema clefts of R and L ears. Full thickness sacral pressure injury. Base of wound has 60% mixed slough and soft necrosis,40% granular. Borders are macerated with surrounding non- blanching erythema with additional scattered partial thickness wounds..No odor or exudate noted.(L)7cm x (W)6.5cm. Full thickness pressure injury base of scrotum with 75% slough,25% hunter and moist . Small amt non-odorous serous exudate noted. Non-blanching erythema periwound .(L)3cm x (W)4.5cm.Non-blanching erythema without induration noted to R ischial area. Full thickness pressure injury R elbow . Base of erythematous with 10% slough. Inferior to R elbow wound, second wound that is resolving with dry pink epithelial. Bilat heels are boggy with non-blanching erythema. Tx.Plan: Cleanse wounds scrotum and Sacrum with saline. Apply Therahoney. Apply Moisture Barrier periwound.Cover each wound with Optifoam Drsg. Daily and prn. Apply Moisture Barrier Paste to buttocks and both ischial areas with each incontinence care. Apply Cavilon Skin Barrier to both heels. Cover each heel with Optifoam drsg. Change every 7 days and prn. APM/GAETANO Mattress overlay. Reposition at least every 2hours or as tolerated. Off-load heels with pillow. (3) UTI (urinary tract infection) (4) Respiratory failure, acute Kyle Lomax Jun 26, 2019 15:57
--- NOTE | 2019-06-26 16:00 | NUR ---
NURSE NOTES: Turned and repositioned pt. Pt is sleeping in bed. V-paced on shelter monitor. No acute distress noted. Will continue to monitor.
--- NOTE | 2019-06-26 16:31 | Diagnostic Imaging Report ---
Indication: Cough Technique: One view of the chest Comparison: 06/20/2019 Findings: There is increased infiltrate at the left lung base. Infiltrate at the right lung base persists, is unchanged. Scattered calcified granulomata in both lungs are again noted. Interim placement of nasogastric tube, tip of which projects at the level gastric fundus in satisfactory position. Left chest pacemaker again noted Impression: Increasing left basilar infiltrate, unchanged right basilar infiltrate, since prior study 06/20/2019
--- NOTE | 2019-06-26 18:06 | General Progress Note ---
Assessment/Plan Status: stable Assessment/Plan: 1. Asp Pneumonia - improved. cont IV antibiotic. ID following. 2. UTI - cont above antibiotic. follow cultures. 3. Sepsis - improved. cont above antibiotic. ID following. 4. Ventricular Tachycardia - on Amioderone via NG tube - Cardiology following. Family prefers full code status. awaiting transfer to [facility] for ICD placement and cardiac cath. Transfer to Tele today. 5. Parkinson dx - cont home med. 6. Dysphagia with hx of multiple asp pneumonia - family refused G tube placement. Speech therapy eval. 7. BPH - cont home meds. 8. H/O PE - on heparin now. 9. Sacral Pressure ulcer - cont wound care. Subjective Constitutional: Reports: weakness HEENT: Reports: no symptoms Cardiovascular: Reports: no symptoms Respiratory: Reports: no symptoms Gastrointestinal/Abdominal: Reports: no symptoms Genitourinary: Reports: no symptoms Neurologic/Psychiatric: Reports: weakness Endocrine: Reports: no symptoms Hematologic/Lymphatic: Reports: no symptoms Allergies: Coded Allergies: No Known Allergies (Unverified , 06/20/19) Subjective Patient is awaiting transfer to Tele today. Afebrile and no more V tach. He is awake and afebrile. Objective Last 24 Hour Vital Signs Date Time Temp Pulse Resp B/P (MAP) Pulse Ox O2 Delivery O2 Flow Rate FiO2 06/26/19 17:00 60 20 111/52 (71) 100 06/26/19 16:00 Nasal Cannula 2.0 06/26/19 16:00 60 16 104/53 (70) 100 06/26/19 16:00 98.6 60 20 114/58 (76) 100 06/26/19 16:00 60 06/26/19 15:00 60 16 104/53 (70) 100 06/26/19 15:00 60 15 105/52 (69) 100 06/26/19 14:00 60 16 104/53 (70) 100 06/26/19 13:35 60 20 100 Nasal Cannula 2.0 28 60 20 100 06/26/19 13:00 60 14 124/59 (80) 100 06/26/19 12:00 60 06/26/19 12:00 98.5 60 17 108/54 (72) 100 06/26/19 12:00 Nasal Cannula 2.0 06/26/19 11:00 60 20 123/56 (78) 100 06/26/19 10:00 60 17 110/56 (74) 100 06/26/19 09:00 99.4 60 16 106/56 (73) 100 06/26/19 08:59 60 112/49 06/26/19 08:00 60 18 112/49 (70) 100 06/26/19 08:00 Nasal Cannula 2.0 06/26/19 07:59 60 06/26/19 07:23 100 Nasal Cannula 2.0 28 06/26/19 07:15 64 20 100 Nasal Cannula 2.0 28 60 20 100 06/26/19 07:00 60 20 117/50 (72) 100 06/26/19 06:00 60 20 106/48 (67) 100 06/26/19 05:00 60 20 106/48 (67) 100 06/26/19 04:00 61 06/26/19 04:00 Nasal Cannula 2.0 06/26/19 04:00 98.4 65 16 131/54 (79) 100 06/26/19 03:00 60 19 107/51 (69) 100 06/26/19 02:00 60 15 109/49 (69) 100 06/26/19 01:00 60 20 99/49 (66) 100 06/26/19 00:00 98.2 60 18 119/52 (74) 100 06/26/19 00:00 Nasal Cannula 2.0 06/26/19 00:00 60 06/25/19 23:00 60 14 114/53 (73) 100 06/25/19 22:00 60 15 118/50 (72) 100 06/25/19 21:00 60 19 115/55 (75) 100 06/25/19 20:57 60 132/51 06/25/19 20:00 60 06/25/19 20:00 Nasal Cannula 2.0 06/25/19 20:00 98.5 60 18 132/51 (78) 100 06/25/19 19:59 100 Nasal Cannula 2.0 28 06/25/19 19:56 64 20 100 Nasal Cannula 2.0 28 60 20 98 06/25/19 19:00 60 16 123/54 (77) 100 06/25/19 18:00 60 16 125/53 (77) 100 Intake and Output 06/25/19 06/26/19 19:00 07:00 Intake Total 858.333 ml 935.000 ml Output Total 1175 ml 1365 ml Balance -316.667 ml -430.000 ml Intake Free Water 20 ml IV Total 138.333 ml 275.000 ml Tube Feeding 600 ml 600 ml Other 100 ml 60 ml Output Urine Total 1175 ml 1365 ml # Bowel Movements 1 Laboratory Tests 06/26/19 04:00: White Blood Count 8.9, Red Blood Count 3.75L, Hemoglobin 10.7L, Hematocrit 31.4L , Mean Corpuscular Volume 84, Mean Corpuscular Hemoglobin 28.7, Mean Corpuscular Hemoglobin Concent 34.2, Red Cell Distribution Width 14.0, Platelet Count 201, Mean Platelet Volume 6.0L, Neutrophils (%) (Auto) 66.8, Lymphocytes ( %) (Auto) 22.3, Monocytes (%) (Auto) 6.0, Eosinophils (%) (Auto) 4.4H, Basophils (%) (Auto) 0.6, Sodium Level 139, Potassium Level 4.5, Chloride Level 104, Carbon Dioxide Level 28, Anion Gap 7, Blood Urea Nitrogen 13, Creatinine 0.6, Estimat Glomerular Filtration Rate , Glucose Level 106, Calcium Level 9.4 Height (Feet): 5 Height (Inches): 5.00 Weight (Pounds): 167 General Appearance: no apparent distress, alert EENT: normal ENT inspection Neck: non-tender, supple Cardiovascular: normal rate, regular rhythm Respiratory/Chest: lungs clear, normal breath sounds, no respiratory distress Abdomen: non tender, soft Extremities: non-tender Edema: no edema noted Arm (L), no edema noted Arm (R), no edema noted Leg (L), no edema noted Leg (R), no edema noted Pedal (L), no edema noted Pedal (R), no edema noted Generalized Neurologic: alert, responsive Skin: warm/dry Aakash Blanco MD Jun 26, 2019 18:06
--- NOTE | 2019-06-26 18:12 | NUR ---
NURSE NOTES: Dr Blanco here to see the patient. Order to transfer to pt to Tele received, noted, and carried out. Doctor is talking to sister and at bedside. No new orders.
--- NOTE | 2019-06-26 19:05 | NUR ---
NURSE NOTES: Received pt from Elina Kirby RN. Pt in bed with RT at bedside. Pt stable, vss, pt on hall monitor, NG tube in place with feeding running at goal. Lt and RT IV sites intact and patent, skin issues noted, [place] in place. Bed at its lowest position, call light in reach, and x3 bed rails are up.
[2019-06-26] MEDS: Ipratropium 0.02% Inh Soln 2.5ml UD HHN SCH (19:14)
--- NOTE | 2019-06-26 19:20 | NUR ---
HAND-OFF: Report given to Lashay Powell RN.
--- NOTE | 2019-06-26 19:27 | Infectious Diseases Prog Note ---
Assessment/Plan Problems: (1) Pneumonia Assessment & Plan: with B/L basal infiltrates, fever and hypoxemia suspect aspiration , due to staph aureus (was reported yesterday as strep Beta hemolytic by micro lab ) . olga is most likely contaminants . will continue vancomycin for 2 weeks more to cover for his pressure wounds too , aspiration precaution, monitor CXR. Patient is at high risk for recurrent aspiration and pneumonia due to poor mentation and cough reflux , family is aware, they refused tube feeding placement , now on NGT for feeding. EOT 07/11/19 (2) UTI (urinary tract infection) Assessment & Plan: suspect asymptomatic pyuria with urine culture is negative (3) Sepsis Assessment & Plan: due to the above , continue wide spectrum antibiotics pending cultures (4) Hypoxia Assessment & Plan: suspect due to the above , continue oxygen , and wide spectrum antibiotics (5) Respiratory failure, acute Assessment & Plan: due to the above, continue oxygen, nebulizer treatment and antibiotics , pulmonary eval is in progress (6) V-tach Assessment & Plan: sustained with torsade de point , check magnesium, will need AICD upgrade , pending transfer to [facility] , cardiology is following (7) Sacral pressure ulcer Assessment & Plan: continue local wound care and dressings as per hospital protocol , with off loading , already on wide spectrum antibiotics Subjective ROS Limited/Unobtainable: Yes Allergies: Coded Allergies: No Known Allergies (Unverified , 06/20/19) Subjective He still in ICU for close monitoring due to recent run of V-tach, more awake , but unresponsive, afebrile today, has cough with congestion , no diarrhea Objective Vital Signs Last 24 Hour Vital Signs Date Time Temp Pulse Resp B/P (MAP) Pulse Ox O2 Delivery O2 Flow Rate FiO2 06/26/19 19:15 60 17 99 Nasal Cannula 2.0 06/26/19 19:15 63 25 99 Nasal Cannula 2.0 28 60 17 99 06/26/19 19:15 99 Nasal Cannula 2.0 06/26/19 18:00 60 19 100/53 (69) 100 06/26/19 17:00 60 20 111/52 (71) 100 06/26/19 16:00 Nasal Cannula 2.0 06/26/19 16:00 60 16 104/53 (70) 100 06/26/19 16:00 98.6 60 20 114/58 (76) 100 06/26/19 16:00 60 06/26/19 15:00 60 16 104/53 (70) 100 06/26/19 15:00 60 15 105/52 (69) 100 06/26/19 14:00 60 16 104/53 (70) 100 06/26/19 13:35 60 20 100 Nasal Cannula 2.0 28 60 20 100 06/26/19 13:00 60 14 124/59 (80) 100 06/26/19 12:00 60 06/26/19 12:00 98.5 60 17 108/54 (72) 100 06/26/19 12:00 Nasal Cannula 2.0 06/26/19 11:00 60 20 123/56 (78) 100 06/26/19 10:00 60 17 110/56 (74) 100 06/26/19 09:00 99.4 60 16 106/56 (73) 100 06/26/19 08:59 60 112/49 06/26/19 08:00 60 18 112/49 (70) 100 06/26/19 08:00 Nasal Cannula 2.0 06/26/19 07:59 60 06/26/19 07:23 100 Nasal Cannula 2.0 28 06/26/19 07:15 64 20 100 Nasal Cannula 2.0 28 60 20 100 06/26/19 07:00 60 20 117/50 (72) 100 06/26/19 06:00 60 20 106/48 (67) 100 06/26/19 05:00 60 20 106/48 (67) 100 06/26/19 04:00 61 06/26/19 04:00 Nasal Cannula 2.0 06/26/19 04:00 98.4 65 16 131/54 (79) 100 06/26/19 03:00 60 19 107/51 (69) 100 06/26/19 02:00 60 15 109/49 (69) 100 06/26/19 01:00 60 20 99/49 (66) 100 06/26/19 00:00 98.2 60 18 119/52 (74) 100 06/26/19 00:00 Nasal Cannula 2.0 06/26/19 00:00 60 06/25/19 23:00 60 14 114/53 (73) 100 06/25/19 22:00 60 15 118/50 (72) 100 06/25/19 21:00 60 19 115/55 (75) 100 06/25/19 20:57 60 132/51 06/25/19 20:00 60 06/25/19 20:00 Nasal Cannula 2.0 06/25/19 20:00 98.5 60 18 132/51 (78) 100 06/25/19 19:59 100 Nasal Cannula 2.0 28 06/25/19 19:56 64 20 100 Nasal Cannula 2.0 28 60 20 98 Height (Feet): 5 Height (Inches): 5.00 Weight (Pounds): 167 General Appearance: no acute distress, cachetic HEENT: normocephalic, atraumatic, anicteric, mucous membranes moist, PERRL Respiratory/Chest: chest wall non-tender, no respiratory distress, no accessory muscle use, decreased breath sounds, crackles/rales Cardiovascular: normal peripheral pulses, normal rate, regular rhythm, no gallop/murmur, no JVD Abdomen: normal bowel sounds, soft, non tender, no organomegaly, non distended , no mass, no scars Genitourinary: normal external genitalia Extremities: no cyanosis, no clubbing Skin: no rash, no lesions, ulcers Neurologic/Psychiatric: alert, unresponsiveness Lymphatic: no neck adenopathy, no groin adenopathy Musculoskeletal: normal muscle bulk, no effusion Laboratory Tests Test 06/26/19 04:00 White Blood Count 8.9 K/UL (4.8-10.8) Red Blood Count 3.75 M/UL (4.70-6.10) L Hemoglobin 10.7 G/DL (14.2-18.0) L Hematocrit 31.4 % (42.0-52.0) L Mean Corpuscular Volume 84 FL (80-99) Mean Corpuscular Hemoglobin 28.7 PG (27.0-31.0) Mean Corpuscular Hemoglobin Concent 34.2 G/DL (32.0-36.0) Red Cell Distribution Width 14.0 % (11.6-14.8) Platelet Count 201 K/UL (150-450) Mean Platelet Volume 6.0 FL (6.5-10.1) L Neutrophils (%) (Auto) 66.8 % (45.0-75.0) Lymphocytes (%) (Auto) 22.3 % (20.0-45.0) Monocytes (%) (Auto) 6.0 % (1.0-10.0) Eosinophils (%) (Auto) 4.4 % (0.0-3.0) H Basophils (%) (Auto) 0.6 % (0.0-2.0) Sodium Level 139 MMOL/L (136-145) Potassium Level 4.5 MMOL/L (3.5-5.1) Chloride Level 104 MMOL/L (98-107) Carbon Dioxide Level 28 MMOL/L (21-32) Anion Gap 7 mmol/L (5-15) Blood Urea Nitrogen 13 mg/dL (7-18) Creatinine 0.6 MG/DL (0.55-1.30) Estimat Glomerular Filtration Rate mL/min (>60) Glucose Level 106 MG/DL (74-106) Calcium Level 9.4 MG/DL (8.5-10.1) Current Medications Medications (Trade) Dose Ordered Sig/Katharine Route PRN Reason Start Time Stop Time Status Last Admin Dose Admin Acetaminophen (Tylenol) 650 mg Q6H PRN ORAL Mild Pain/Temp > 100.5 06/21/19 12:15 07/21/19 06:14 06/23/19 13:15 Acetaminophen (Tylenol) 650 mg Q6H PRN RECTAL Mild Pain/Temp > 100.5 PO/NY 06/21/19 12:00 07/21/19 11:59 06/22/19 08:12 Acetylcysteine (Mucomyst) 100 mg TIDRT HHN 06/22/19 13:00 07/22/19 12:59 06/26/19 19:14 Amiodarone HCl (Cordarone) 400 mg EVERY 12 HOURS NG 06/24/19 09:00 07/24/19 08:59 06/26/19 08:58 Aspirin (Ecotrin) 81 mg DAILY ORAL 06/22/19 09:00 07/21/19 08:59 06/26/19 08:58 Carbidopa/Levodopa (Sinemet ) 1 tab THREE TIMES A DAY ORAL 06/21/19 13:00 07/21/19 08:59 06/26/19 17:51 Ceftriaxone Sodium 2 gm/ Dextrose 55 ml @ 110 mls/hr Q24H IVPB 06/25/19 15:00 07/02/19 14:59 06/26/19 14:55 Dextrose (Dextrose 50%) 25 ml Q30M PRN IV Hypoglycemia 06/21/19 11:30 07/20/19 20:59 Dextrose (Dextrose 50%) 50 ml Q30M PRN IV Hypoglycemia 06/21/19 11:30 07/20/19 20:59 Heparin Sodium (Porcine) (Heparin 5000 units/ml) 5,000 units EVERY 12 HOURS SUBQ 06/21/19 14:00 07/21/19 13:59 06/26/19 09:00 Insulin Aspart (NovoLOG) EVERY 6 HOURS SUBQ 06/23/19 18:00 07/20/19 21:59 06/26/19 17:53 Ipratropium Leland (Atrovent) 500 mcg Q4H PRN HHN Shortness of Breath 06/26/19 14:15 07/01/19 14:14 Ipratropium Leland (Atrovent) 500 mcg Q6HRT HHN 06/26/19 19:00 07/01/19 18:59 06/26/19 19:14 Memantine (Namenda) 10 mg Q12HR NG 06/22/19 21:00 07/22/19 20:59 06/26/19 08:59 Metoprolol Tartrate (Lopressor) 12.5 mg Q12HR NG 06/24/19 21:00 07/24/19 20:59 06/26/19 08:59 Morphine Sulfate (Morphine Sulfate) 2 mg Q6H PRN IVP For Pain 06/22/19 08:45 06/29/19 08:44 06/23/19 02:55 Pantoprazole (Protonix) 40 mg DAILY IVP 06/22/19 09:00 07/22/19 08:59 06/26/19 08:59 Polyethylene Glycol (Miralax) 17 gm DAILY PRN ORAL Constipation 06/21/19 12:00 07/21/19 11:59 Sennosides (Senokot) 17.2 mg QHS ORAL 06/21/19 21:00 07/21/19 20:59 06/25/19 20:58 Tamsulosin HCl (Flomax) 0.4 mg DAILY ORAL 06/22/19 09:00 07/21/19 08:59 06/26/19 08:59 Vancomycin HCl (Vanco rx to dose) 1 ea DAILY PRN MISC Per rx protocol 06/22/19 09:00 07/20/19 16:29 Vancomycin HCl 1 gm/Dextrose 275 ml @ 183.708 mls/hr Q24H IVPB 06/21/19 20:00 06/30/19 19:59 06/25/19 20:13 Vitamin D (Vitamin D) 5,000 intlu DAILY ORAL 06/22/19 09:00 07/21/19 08:59 06/26/19 08:58 Zinc Sulfate (Zinc Sulfate) 220 mg BID ORAL 06/21/19 18:00 07/21/19 08:59 06/26/19 17:51 Arcadio Mcnair M.D. Jun 26, 2019 19:27
[2019-06-26] MEDS: Vancomycin 1 GM in D5W 275 ML IVPB SCH (20:22)
[2019-06-26] MEDS: Sennosides 8.6mg tab ORAL SCH (20:54)
--- NOTE | 2019-06-26 22:00 | NUR ---
NURSE NOTES: Pt in bed with no sign of distress.
--- NOTE | 2019-06-26 23:10 | NUR ---
NURSE NOTES: RT at bedside. Pt tolerating tx.
[2019-06-27] VITALS (12 sets, daily range): BP systolic 106–126; BP diastolic 51–65
[2019-06-27] MEDS: NovoLOG Insulin Flexpen SUBQ SCH ×4 (00:36→17:22)
--- NOTE | 2019-06-27 01:00 | NUR ---
NURSE NOTES: Pt in bed with no acute distress. Tube feeding running at gaol, IV @ TKO, and RT in route for tx.
[2019-06-27] MEDS: Ipratropium 0.02% Inh Soln 2.5ml UD HHN SCH ×4 (01:18→20:04)
--- NOTE | 2019-06-27 02:00 | NUR ---
NURSE NOTES: Pt in bed with no acute distress. Tube feeding running at goal. skin issues noted. pt on monitor and storage bin tender and IV sites patent and intact.
--- NOTE | 2019-06-27 03:30 | NUR ---
NURSE NOTES: Pt tolerated bed bath well.
--- NOTE | 2019-06-27 06:41 | NUR ---
HAND-OFF: Report given to MONSERRAT Osorio. Pt stable and saturation 100%
--- NOTE | 2019-06-27 06:50 | NUR ---
NURSE NOTES: Received pt from ICU via bed. Pt transferred to [facility] without any incident. Received report from MONSERRAT Galvan. Pt is A/Ox0; nonverbal. personnel monitor is in placed; pt is V-Paced. IV site intact, asymptomatic, and patent. Pt has an NGT in RT nares; currently running Glucerna 1.5 @ 60cc/hr (goal). Bed is in the lowest position and locked. Call light within reach. Belongings list; pt has no belongings. Wound photos taken and uploaded. Orders transferred. No signs/symptoms of SOB/acute distress noted at this time. Will continue plan of care.
[2019-06-27] MEDS ORDERED: Ipratropium 0.02% Inh Soln 2.5ml UD HHN PRN (07:00)
[2019-06-27] MEDS ORDERED: Acetaminophen 650 MG SUPP RECTAL PRN (07:00)
[2019-06-27] MEDS ORDERED: Miralax 17gm pkt ORAL PRN (07:00)
[2019-06-27] MEDS ORDERED: Morphine Sulfate 2mg/ml Inj(IV/IM USE ONLY) IVP PRN (07:00)
--- NOTE | 2019-06-27 07:51 | NUR ---
NURSE NOTES: Report received from MONSERRAT Osorio. Patient is lying comfortably in semi-fowlers with no signs of distress. Nonverbal with no signs of pain/SOB. Respirations are even and unlabored on 2 L NC. IV sites intact and saline locked. NG tube patent and running feeding at prescribed rate. Bed is at lowest position, brakes engaged, siderails x2, bed alarm on, and call light within reach. Pt is in stable condition; will continue to monitor.
--- NOTE | 2019-06-27 08:01 | General Progress Note ---
Assessment/Plan Status: stable Assessment/Plan: 1. Pneumonia. 2. Hypertension. 3. Parkinson disease. 4. Pacemaker placement 5. Dysphagia 6. VT 7. UTI NGTF most likely will need PEG pending possible transfer to [facility] for AICD placement cont current care PEG when cleared by cardiology Subjective ROS Limited/Unobtainable: No Allergies: Coded Allergies: No Known Allergies (Unverified , 06/20/19) Objective Last 24 Hour Vital Signs Date Time Temp Pulse Resp B/P (MAP) Pulse Ox O2 Delivery O2 Flow Rate FiO2 06/27/19 07:21 99 Nasal Cannula 2.0 28 06/27/19 07:21 77 18 99 Nasal Cannula 2.0 28 06/27/19 07:20 70 16 100 Nasal Cannula 2.0 28 77 16 99 06/27/19 06:50 98.1 63 17 116/56 (76) 99 06/27/19 06:00 60 14 106/59 (75) 100 06/27/19 05:00 97.6 60 16 111/65 (80) 100 06/27/19 04:00 Nasal Cannula 2.0 06/27/19 04:00 60 14 126/53 (77) 100 06/27/19 04:00 60 06/27/19 03:00 60 17 116/53 (74) 100 06/27/19 02:00 97.4 60 12 114/51 (72) 100 06/27/19 01:18 60 17 99 Nasal Cannula 2.0 28 60 15 99 06/27/19 01:00 61 23 110/57 (74) 100 06/27/19 00:00 Nasal Cannula 2.0 06/27/19 00:00 97.6 60 17 111/53 (72) 98 06/26/19 23:09 60 18 99 Nasal Cannula 2.0 28 06/26/19 23:00 60 19 107/67 (80) 100 06/26/19 22:00 60 15 100/59 (73) 100 06/26/19 21:00 60 16 112/49 (70) 100 06/26/19 20:54 60 105/52 06/26/19 20:00 Nasal Cannula 2.0 06/26/19 20:00 60 06/26/19 20:00 97.7 60 15 105/52 (69) 100 06/26/19 19:15 60 17 99 Nasal Cannula 2.0 28 06/26/19 19:15 63 25 99 Nasal Cannula 2.0 28 60 17 99 06/26/19 19:15 99 Nasal Cannula 2.0 28 06/26/19 19:00 60 17 105/52 (69) 100 06/26/19 18:00 60 19 100/53 (69) 100 06/26/19 17:00 60 20 111/52 (71) 100 06/26/19 16:00 Nasal Cannula 2.0 06/26/19 16:00 60 16 104/53 (70) 100 06/26/19 16:00 98.6 60 20 114/58 (76) 100 06/26/19 16:00 60 06/26/19 15:00 60 16 104/53 (70) 100 06/26/19 15:00 60 15 105/52 (69) 100 06/26/19 14:00 60 16 104/53 (70) 100 06/26/19 13:35 60 20 100 Nasal Cannula 2.0 28 60 20 100 06/26/19 13:00 60 14 124/59 (80) 100 06/26/19 12:00 60 06/26/19 12:00 98.5 60 17 108/54 (72) 100 06/26/19 12:00 Nasal Cannula 2.0 06/26/19 11:00 60 20 123/56 (78) 100 06/26/19 10:00 60 17 110/56 (74) 100 06/26/19 09:00 99.4 60 16 106/56 (73) 100 06/26/19 08:59 60 112/49 Intake and Output 06/26/19 06/27/19 18:59 06:59 Intake Total 905 ml 1150.0000 ml Output Total 1040 ml 1010 ml Balance -135 ml 140.0000 ml Intake Free Water 100 ml 225 ml IV Total 55 ml 275.0000 ml Tube Feeding 600 ml 600 ml Other 150 ml 50 ml Output Urine Total 1040 ml 1010 ml # Bowel Movements 1 Height (Feet): 5 Height (Inches): 5.00 Weight (Pounds): 156 General Appearance: no apparent distress EENT: normal ENT inspection Neck: supple Cardiovascular: normal rate Respiratory/Chest: decreased breath sounds Abdomen: normal bowel sounds, non tender, soft Extremities: non-tender Mahad Ring MD Jun 27, 2019 08:01
--- NOTE | 2019-06-27 08:01 | NUR ---
HAND-OFF: Report given to MONSERRAT Ribeiro. Plan of care endorsed.
--- NOTE | 2019-06-27 08:58 | General Progress Note ---
Assessment/Plan Status: stable Assessment/Plan: 1. Asp Pneumonia - improved. cont IV antibiotic. ID following. 2. UTI - Improved. cont above antibiotic. 3. Sepsis - improved. cont above antibiotic. ID following. 4. Ventricular Tachycardia - on Amioderone via NG tube - Cardiology following. Family prefers full code status. awaiting transfer to [facility] for ICD placement and cardiac cath. 5. Parkinson dx - cont home med. 6. Dysphagia with hx of multiple asp pneumonia - family refused G tube placement. Speech therapy eval. 7. BPH - cont home meds. 8. H/O PE - on heparin now. 9. Sacral Pressure ulcer - cont wound care. Subjective Date patient seen: Jun 27, 2019 Time patient seen: 08:30 Constitutional: Reports: weakness HEENT: Reports: no symptoms Cardiovascular: Reports: no symptoms Respiratory: Reports: no symptoms Gastrointestinal/Abdominal: Reports: no symptoms Genitourinary: Reports: no symptoms Neurologic/Psychiatric: Reports: weakness Endocrine: Reports: no symptoms Hematologic/Lymphatic: Reports: no symptoms Allergies: Coded Allergies: No Known Allergies (Unverified , 06/20/19) Subjective Patient is awaiting transfer to [facility]. Afebrile and no more V tach. He is awake and afebrile. Objective Last 24 Hour Vital Signs Date Time Temp Pulse Resp B/P (MAP) Pulse Ox O2 Delivery O2 Flow Rate FiO2 06/27/19 08:00 97.7 62 20 112/60 (77) 99 06/27/19 07:21 99 Nasal Cannula 2.0 28 06/27/19 07:21 77 18 99 Nasal Cannula 2.0 28 06/27/19 07:20 70 16 100 Nasal Cannula 2.0 28 77 16 99 06/27/19 06:50 98.1 63 17 116/56 (76) 99 06/27/19 06:00 60 14 106/59 (75) 100 06/27/19 05:00 97.6 60 16 111/65 (80) 100 06/27/19 04:00 Nasal Cannula 2.0 06/27/19 04:00 60 14 126/53 (77) 100 06/27/19 04:00 60 06/27/19 03:00 60 17 116/53 (74) 100 06/27/19 02:00 97.4 60 12 114/51 (72) 100 06/27/19 01:18 60 17 99 Nasal Cannula 2.0 28 60 15 99 06/27/19 01:00 61 23 110/57 (74) 100 06/27/19 00:00 Nasal Cannula 2.0 06/27/19 00:00 97.6 60 17 111/53 (72) 98 06/26/19 23:09 60 18 99 Nasal Cannula 2.0 28 06/26/19 23:00 60 19 107/67 (80) 100 06/26/19 22:00 60 15 100/59 (73) 100 06/26/19 21:00 60 16 112/49 (70) 100 06/26/19 20:54 60 105/52 06/26/19 20:00 Nasal Cannula 2.0 06/26/19 20:00 60 06/26/19 20:00 97.7 60 15 105/52 (69) 100 06/26/19 19:15 60 17 99 Nasal Cannula 2.0 28 06/26/19 19:15 63 25 99 Nasal Cannula 2.0 28 60 17 99 06/26/19 19:15 99 Nasal Cannula 2.0 28 06/26/19 19:00 60 17 105/52 (69) 100 06/26/19 18:00 60 19 100/53 (69) 100 06/26/19 17:00 60 20 111/52 (71) 100 06/26/19 16:00 Nasal Cannula 2.0 06/26/19 16:00 60 16 104/53 (70) 100 06/26/19 16:00 98.6 60 20 114/58 (76) 100 06/26/19 16:00 60 06/26/19 15:00 60 16 104/53 (70) 100 06/26/19 15:00 60 15 105/52 (69) 100 06/26/19 14:00 60 16 104/53 (70) 100 06/26/19 13:35 60 20 100 Nasal Cannula 2.0 28 60 20 100 06/26/19 13:00 60 14 124/59 (80) 100 06/26/19 12:00 60 06/26/19 12:00 98.5 60 17 108/54 (72) 100 06/26/19 12:00 Nasal Cannula 2.0 06/26/19 11:00 60 20 123/56 (78) 100 06/26/19 10:00 60 17 110/56 (74) 100 06/26/19 09:00 99.4 60 16 106/56 (73) 100 06/26/19 08:59 60 112/49 Intake and Output 06/26/19 06/27/19 18:59 06:59 Intake Total 905 ml 1150.0000 ml Output Total 1040 ml 1010 ml Balance -135 ml 140.0000 ml Intake Free Water 100 ml 225 ml IV Total 55 ml 275.0000 ml Tube Feeding 600 ml 600 ml Other 150 ml 50 ml Output Urine Total 1040 ml 1010 ml # Bowel Movements 1 Height (Feet): 5 Height (Inches): 5.00 Weight (Pounds): 156 General Appearance: no apparent distress, alert EENT: normal ENT inspection Neck: non-tender, supple Cardiovascular: normal rate, regular rhythm Respiratory/Chest: lungs clear, normal breath sounds Abdomen: non tender, soft Extremities: non-tender Edema: no edema noted Arm (L), no edema noted Arm (R), no edema noted Leg (L), no edema noted Leg (R), no edema noted Pedal (L), no edema noted Pedal (R), no edema noted Generalized Neurologic: alert, responsive Skin: warm/dry Aakash Blanco MD Jun 27, 2019 08:58
[2019-06-27] MEDS ORDERED: Vitamin D 1000 IU Tab ORAL SCH (09:00)
[2019-06-27] MEDS ORDERED: Heparin 5000 units/ml inj SUBQ SCH (09:00)
[2019-06-27] MEDS ORDERED: Pantoprazole Inj IVP SCH (09:00)
[2019-06-27] MEDS ORDERED: Tamsulosin 0.4mg cap ORAL SCH (09:00)
[2019-06-27] MEDS ORDERED: Aspirin EC 81mg tab ORAL SCH (09:00)
--- NOTE | 2019-06-27 09:03 | NUR ---
NM Lung V/Q Scan complete.
--- NOTE | 2019-06-27 09:17 | NUR ---
DISCHARGE PLANNING: TRANSFER REQUEST PATIENT FAMILY HAS REQUESTED FOR PATIENT TO BE TRANSFERRED TO [facility] SPOKE WITH PHAN AT [facility] @0917 T:[phone] PATIENT IS ON LIST TO BE TRANSFERRED AT THIS TIME THERE ARE ABOUT 30 PATIENTS WAITING FOR BEDS IN [place]
[2019-06-27] MEDS: Amiodarone 200mg tab NG SCH ×2 (09:27→20:46)
[2019-06-27] MEDS: Metoprolol Tartrate 12.5mg TAB NG SCH ×2 (09:28→20:46)
[2019-06-27] MEDS: Memantine 10mg tab NG SCH ×2 (09:29→20:46)
[2019-06-27] MEDS: Levodopa/Carbidopa 25/100 tab ORAL SCH ×3 (09:29→17:34)
[2019-06-27] MEDS: Zinc Sulfate 220mg cap ORAL SCH ×2 (09:29→17:34)
--- NOTE | 2019-06-27 09:48 | NUR ---
NURSE NOTES: NG tube placement verified. 0 ml residual. meds given and feeding continued @ 60 ml/hr
--- NOTE | 2019-06-27 10:32 | NUR ---
CASE MANAGEMENT: REVIEW 06/27/19 SI: SEPSIS; UTI . ACUTE RESP FAILURE . PNA 97.7 62 112/60 99% NC 2L RBC 3.75; H/H 10.7/31.4 IS: IV CEFTRIAXONE Q24HR* IV VANCOMYCIN Q24HR CORDARONE NG Q12HR IV PROTONIX QD HEPARIN SQ Q12HR LOPRESSOR NG Q12HR NOVOLOG SQ Q6HR NAMENDA NG Q12HR MUCOMYST HHN TID ASPIRIN PO QD ZINC SULFATE PO BID FLOMAX PO QD ATROVENT HHNQ4/PRN TYLENOL VT Q6/PRN SINEMET PO TID : TX 2E TELE UNIT DCP: PATIENT IS FROM [facility] PLAN: NEEDS CATH AND ICD PLACEMENT NEEDS PEG PLACEMENT
--- NOTE | 2019-06-27 12:57 | NUR ---
DISCHARGE PLANNING: CALLED DAUGHTER AND DISCUSSED TRANSFER TO [facility] WITH DAUGHTER DANIEL KUMAR [phone] DAUGHTER WILL DISCUSS THIS WITH HER MOTHER AND GET BACK TO ME ABOUT DECISION
--- NOTE | 2019-06-27 14:07 | Cardiac Electrophysiology PN ---
Assessment/Plan Assessment/Plan 1. S/P Two spontaneous non-infarctional VF arrest of more than 60 seconds documented on tele and Pacer interrogation. On po Amiodarone. DW only daughter at bedside the option of cardiac cath and upgrading pacer to ICD after ID clearance. She agrees and would like to proceed. Awaiting transfer to [facility]. No TX and EF normal. 2. S/P Dual chamber [employer] pacer that was interrogated with documented 2 episodes of sustained VF more than 60 seconds that self terminated Will upgrade to ICD after cardiac cath. Cleared by Dr. Mcnair 3. HTN on Lopressor 12.5 NG bid. 4. Dysphagia, family has refused PEG 5. PNA on Abx per ID 6. Dementia DW RN and Dr Blanco Subjective Subjective I No further sustained VF episodes. Awaiting transfer for cardiac cath and pacer upgrade to ICD. On Po Amiodarone Objective Last 24 Hour Vital Signs Date Time Temp Pulse Resp B/P (MAP) Pulse Ox O2 Delivery O2 Flow Rate FiO2 06/27/19 13:35 72 16 100 Nasal Cannula 2.0 28 66 18 96 06/27/19 12:00 97.7 61 20 111/56 (74) 99 06/27/19 09:28 66 112/60 06/27/19 09:00 Nasal Cannula 2.0 06/27/19 08:00 60 06/27/19 08:00 97.7 62 20 112/60 (77) 99 06/27/19 07:21 99 Nasal Cannula 2.0 28 06/27/19 07:21 77 18 99 Nasal Cannula 2.0 28 06/27/19 07:20 70 16 100 Nasal Cannula 2.0 28 77 16 99 06/27/19 06:50 98.1 63 17 116/56 (76) 99 06/27/19 06:00 60 14 106/59 (75) 100 06/27/19 05:00 97.6 60 16 111/65 (80) 100 06/27/19 04:00 Nasal Cannula 2.0 06/27/19 04:00 60 14 126/53 (77) 100 06/27/19 04:00 60 06/27/19 03:00 60 17 116/53 (74) 100 06/27/19 02:00 97.4 60 12 114/51 (72) 100 06/27/19 01:18 60 17 99 Nasal Cannula 2.0 28 60 15 99 06/27/19 01:00 61 23 110/57 (74) 100 06/27/19 00:00 Nasal Cannula 2.0 06/27/19 00:00 97.6 60 17 111/53 (72) 98 06/26/19 23:09 60 18 99 Nasal Cannula 2.0 28 06/26/19 23:00 60 19 107/67 (80) 100 06/26/19 22:00 60 15 100/59 (73) 100 06/26/19 21:00 60 16 112/49 (70) 100 06/26/19 20:54 60 105/52 06/26/19 20:00 Nasal Cannula 2.0 06/26/19 20:00 60 06/26/19 20:00 97.7 60 15 105/52 (69) 100 06/26/19 19:15 60 17 99 Nasal Cannula 2.0 28 06/26/19 19:15 63 25 99 Nasal Cannula 2.0 28 60 17 99 06/26/19 19:15 99 Nasal Cannula 2.0 28 06/26/19 19:00 60 17 105/52 (69) 100 06/26/19 18:00 60 19 100/53 (69) 100 06/26/19 17:00 60 20 111/52 (71) 100 06/26/19 16:00 Nasal Cannula 2.0 06/26/19 16:00 60 16 104/53 (70) 100 06/26/19 16:00 98.6 60 20 114/58 (76) 100 06/26/19 16:00 60 06/26/19 15:00 60 16 104/53 (70) 100 06/26/19 15:00 60 15 105/52 (69) 100 Intake and Output 06/26/19 06/27/19 19:00 07:00 Intake Total 905 ml 1100.0000 ml Output Total 900 ml 1000 ml Balance 5 ml 100.0000 ml Intake Free Water 100 ml 225 ml IV Total 55 ml 275.0000 ml Tube Feeding 600 ml 550 ml Other 150 ml 50 ml Output Urine Total 900 ml 1000 ml # Bowel Movements 1 Objective General Appearance: Lethargic HEENT: No JVD. NGT in place Neck: non-tender, supple Cardiovascular: normal rate, no gallop/murmur Respiratory/Chest: crackles/rales, rhonchi - bilaterally Abdomen: non tender, soft Extremities: non-tender Edema: no edema Pablo Norton MD Jun 27, 2019 14:07
--- NOTE | 2019-06-27 14:52 | Infectious Diseases Prog Note ---
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 Parkinson's disease Ventricular tachycardia Pressure ulcers P; Continue Ceftriaxone & Vancomycin Subjective ROS Limited/Unobtainable: Yes Constitutional: Denies: fever Allergies: Coded Allergies: No Known Allergies (Unverified , 06/20/19) Objective Vital Signs Last 24 Hour Vital Signs Date Time Temp Pulse Resp B/P (MAP) Pulse Ox O2 Delivery O2 Flow Rate FiO2 06/27/19 13:35 72 16 100 Nasal Cannula 2.0 28 66 18 96 06/27/19 12:00 97.7 61 20 111/56 (74) 99 06/27/19 09:28 66 112/60 06/27/19 09:00 Nasal Cannula 2.0 06/27/19 08:00 60 06/27/19 08:00 97.7 62 20 112/60 (77) 99 06/27/19 07:21 99 Nasal Cannula 2.0 28 06/27/19 07:21 77 18 99 Nasal Cannula 2.0 28 06/27/19 07:20 70 16 100 Nasal Cannula 2.0 28 77 16 99 06/27/19 06:50 98.1 63 17 116/56 (76) 99 06/27/19 06:00 60 14 106/59 (75) 100 06/27/19 05:00 97.6 60 16 111/65 (80) 100 06/27/19 04:00 Nasal Cannula 2.0 06/27/19 04:00 60 14 126/53 (77) 100 06/27/19 04:00 60 06/27/19 03:00 60 17 116/53 (74) 100 06/27/19 02:00 97.4 60 12 114/51 (72) 100 06/27/19 01:18 60 17 99 Nasal Cannula 2.0 28 60 15 99 06/27/19 01:00 61 23 110/57 (74) 100 06/27/19 00:00 Nasal Cannula 2.0 06/27/19 00:00 97.6 60 17 111/53 (72) 98 06/26/19 23:09 60 18 99 Nasal Cannula 2.0 28 06/26/19 23:00 60 19 107/67 (80) 100 06/26/19 22:00 60 15 100/59 (73) 100 06/26/19 21:00 60 16 112/49 (70) 100 06/26/19 20:54 60 105/52 06/26/19 20:00 Nasal Cannula 2.0 06/26/19 20:00 60 06/26/19 20:00 97.7 60 15 105/52 (69) 100 06/26/19 19:15 60 17 99 Nasal Cannula 2.0 28 06/26/19 19:15 63 25 99 Nasal Cannula 2.0 28 60 17 99 06/26/19 19:15 99 Nasal Cannula 2.0 28 06/26/19 19:00 60 17 105/52 (69) 100 06/26/19 18:00 60 19 100/53 (69) 100 06/26/19 17:00 60 20 111/52 (71) 100 06/26/19 16:00 Nasal Cannula 2.0 06/26/19 16:00 60 16 104/53 (70) 100 06/26/19 16:00 98.6 60 20 114/58 (76) 100 06/26/19 16:00 60 06/26/19 15:00 60 16 104/53 (70) 100 06/26/19 15:00 60 15 105/52 (69) 100 Height (Feet): 5 Height (Inches): 5.00 Weight (Pounds): 156 General Appearance: no acute distress HEENT: mucous membranes moist Respiratory/Chest: lungs clear, other - oxygen by nasal cannula Cardiovascular: normal rate Abdomen: soft, non tender, other - NG tube feeding Extremities: no edema Neurologic/Psychiatric: unresponsiveness, other - opens eyes Current Medications Medications (Trade) Dose Ordered Sig/Katharine Route PRN Reason Start Time Stop Time Status Last Admin Dose Admin Acetaminophen (Tylenol) 650 mg Q6H PRN ORAL Mild Pain/Temp > 100.5 06/27/19 07:00 07/21/19 06:59 Acetaminophen (Tylenol) 650 mg Q6H PRN RECTAL Mild Pain/Temp > 100.5 PO/VA 06/27/19 07:00 07/21/19 06:59 Acetylcysteine (Mucomyst) 100 mg TIDRT HHN 06/27/19 07:00 07/22/19 12:59 06/27/19 13:34 Amiodarone HCl (Cordarone) 400 mg EVERY 12 HOURS NG 06/27/19 09:00 07/24/19 08:59 06/27/19 09:27 Apixaban (Eliquis) 5 mg BID ORAL 06/27/19 18:00 07/27/19 17:59 Aspirin (Ecotrin) 81 mg DAILY ORAL 06/27/19 09:00 07/21/19 08:59 06/27/19 09:27 Carbidopa/Levodopa (Sinemet 25/100) 1 tab THREE TIMES A DAY ORAL 06/27/19 09:00 07/21/19 08:59 06/27/19 13:32 Ceftriaxone Sodium 2 gm/ Dextrose 55 ml @ 110 mls/hr Q24H IVPB 06/27/19 15:00 07/11/19 23:59 06/27/19 14:28 Dextrose (Dextrose 50%) 25 ml Q30M PRN IV Hypoglycemia 06/27/19 07:00 07/20/19 20:59 Dextrose (Dextrose 50%) 50 ml Q30M PRN IV Hypoglycemia 06/27/19 07:00 07/20/19 20:59 Insulin Aspart (NovoLOG) EVERY 6 HOURS SUBQ 06/27/19 12:00 07/20/19 21:59 Ipratropium [place] (Atrovent) 500 mcg Q4H PRN HHN Shortness of Breath 06/27/19 07:00 07/01/19 06:59 Ipratropium [place] (Atrovent) 500 mcg Q6HRT HHN 06/27/19 07:00 07/01/19 18:59 06/27/19 13:34 Memantine (Namenda) 10 mg Q12HR NG 06/27/19 09:00 07/22/19 20:59 06/27/19 09:29 Metoprolol Tartrate (Lopressor) 12.5 mg Q12HR NG 06/27/19 09:00 07/24/19 20:59 06/27/19 09:28 Morphine Sulfate (Morphine Sulfate) 2 mg Q6H PRN IVP For Pain 06/27/19 07:00 06/29/19 06:59 Pantoprazole (Protonix) 40 mg DAILY IVP 06/27/19 09:00 07/22/19 08:59 06/27/19 09:29 Polyethylene Glycol (Miralax) 17 gm DAILY PRN ORAL Constipation 06/27/19 07:00 07/21/19 06:59 Sennosides (Senokot) 17.2 mg QHS ORAL 06/27/19 21:00 07/21/19 20:59 Tamsulosin HCl (Flomax) 0.4 mg DAILY ORAL 06/27/19 09:00 07/21/19 08:59 06/27/19 09:29 Vancomycin HCl (Vanco rx to dose) 1 ea DAILY PRN MISC Per rx protocol 06/27/19 09:00 07/20/19 16:29 Vancomycin HCl 1 gm/Dextrose 275 ml @ 183.708 mls/hr Q24H IVPB 06/27/19 20:00 07/11/19 23:59 Vitamin D (Vitamin D) 5,000 intlu DAILY ORAL 06/27/19 09:00 07/21/19 08:59 06/27/19 09:27 Zinc Sulfate (Zinc Sulfate) 220 mg BID ORAL 06/27/19 09:00 07/21/19 08:59 06/27/19 09:29 Cale Beltran MD Jun 27, 2019 14:52
[2019-06-27] MEDS ORDERED: cefTRIAXone 2 GM in D5W 55 ML IVPB SCH (15:00)
--- NOTE | 2019-06-27 15:11 | NUR ---
NURSE NOTES:WOUND CARE FOLLOW-UP NOTES:Full thickness pressure injury base of scrotum with 60% slough ,40% hunter. Edges macerated. Erythema noted periwound. (L)2.5cm x (W)2cm. Full thickness pressure injury sacrum .Base of wound has 80% gelatinous yellow slough ,20% granular.(L)4cm x (W)3.4cm,surrounded by purple borders with an area of induration within base of wound at L sacrum. Wound in its entirety measures (L)10cm x (W)7cm. Small amt seropurulent exudate. No odor noted. Both heels are soft but blanchable. No new skin concerns noted. Dtr visited and given update on pt's wounds. Pthas an APM/GAETANO mattress overlay and is being repositioned as per tolerance within Hospital's protocols.Wound Tx continued as ordered.
--- NOTE | 2019-06-27 16:48 | Diagnostic Imaging Report ---
Indication: Chest pain Technique: A ventilation/perfusion scan was performed. Ventilation was performed utilizing 41 mCi of Technetium 99m-DTPA. Perfusion was performed with 5.4 mCi of technetium 99m-MAA injected intravenously. Multiple side by side projections obtained. Findings: Ventilation is mildly heterogeneous. No significant defects are identified. Perfusion is mildly heterogeneous. No significant defects are identified. No mismatched defects seen. Impression: Low probability for pulmonary embolus Interpretation of findings are based on PIPASCUALD II mirian (2006).
--- NOTE | 2019-06-27 16:50 | Pulmonology Progress Note ---
Assessment/Plan Problems: (1) History of pulmonary embolism (2) Pneumonia (3) Respiratory failure, acute (4) Hypoxia (5) Sepsis (6) UTI (urinary tract infection) (7) V-tach (8) Sacral pressure ulcer Assessment/Plan Optimize pulmonary hygiene/mobilize as tolerated Atrovent HHN's + Mucomyst, monitor secretions F/U cards recs, PO Amio, awaiting transfer to [facility] for AICD upgrade and C Monitor electrolytes and renal function Continue antibiotics - per ID Continue NGT feedings/current rate - Family declines PEG, continue to discuss D/C Hep SQ, resume Eliquis 5 BID Monitor MS Prophylaxis: Protonix, Heparin Disposition: awaiting transfer to [facility] Time Spent (Minutes): 35 Subjective Allergies: Coded Allergies: No Known Allergies (Unverified , 06/20/19) Subjective AFVSS on 2L Transferred to [facility] Kira NGTF's not interactive Remains in paced rhythm Per RN occ cough only no phlegm no SOB no distress no FC Objective Last 24 Hour Vital Signs Date Time Temp Pulse Resp B/P (MAP) Pulse Ox O2 Delivery O2 Flow Rate FiO2 06/27/19 16:00 60 06/27/19 16:00 97.7 60 20 115/60 (78) 98 06/27/19 13:35 72 16 100 Nasal Cannula 2.0 28 66 18 96 06/27/19 12:00 60 06/27/19 12:00 97.7 61 20 111/56 (74) 99 06/27/19 09:28 66 112/60 06/27/19 09:00 Nasal Cannula 2.0 06/27/19 08:00 60 06/27/19 08:00 97.7 62 20 112/60 (77) 99 06/27/19 07:21 99 Nasal Cannula 2.0 28 06/27/19 07:21 77 18 99 Nasal Cannula 2.0 28 06/27/19 07:20 70 16 100 Nasal Cannula 2.0 28 77 16 99 06/27/19 06:50 98.1 63 17 116/56 (76) 99 06/27/19 06:00 60 14 106/59 (75) 100 06/27/19 05:00 97.6 60 16 111/65 (80) 100 06/27/19 04:00 Nasal Cannula 2.0 06/27/19 04:00 60 14 126/53 (77) 100 06/27/19 04:00 60 06/27/19 03:00 60 17 116/53 (74) 100 06/27/19 02:00 97.4 60 12 114/51 (72) 100 06/27/19 01:18 60 17 99 Nasal Cannula 2.0 28 60 15 99 06/27/19 01:00 61 23 110/57 (74) 100 06/27/19 00:00 Nasal Cannula 2.0 06/27/19 00:00 97.6 60 17 111/53 (72) 98 06/26/19 23:09 60 18 99 Nasal Cannula 2.0 28 06/26/19 23:00 60 19 107/67 (80) 100 06/26/19 22:00 60 15 100/59 (73) 100 06/26/19 21:00 60 16 112/49 (70) 100 06/26/19 20:54 60 105/52 06/26/19 20:00 Nasal Cannula 2.0 06/26/19 20:00 60 06/26/19 20:00 97.7 60 15 105/52 (69) 100 06/26/19 19:15 60 17 99 Nasal Cannula 2.0 28 06/26/19 19:15 63 25 99 Nasal Cannula 2.0 28 60 17 99 06/26/19 19:15 99 Nasal Cannula 2.0 28 06/26/19 19:00 60 17 105/52 (69) 100 06/26/19 18:00 60 19 100/53 (69) 100 06/26/19 17:00 60 20 111/52 (71) 100 Intake and Output 06/26/19 06/27/19 19:00 07:00 Intake Total 905 ml 1100.0000 ml Output Total 900 ml 1000 ml Balance 5 ml 100.0000 ml Intake Free Water 100 ml 225 ml IV Total 55 ml 275.0000 ml Tube Feeding 600 ml 550 ml Other 150 ml 50 ml Output Urine Total 900 ml 1000 ml # Bowel Movements 1 General Appearance: no acute distress, cachetic, other - non-verbla HEENT: normocephalic, atraumatic, anicteric, mucous membranes moist, other - NGT Respiratory/Chest: chest wall non-tender, rhonchi - faint at bases Cardiovascular: normal peripheral pulses, normal rate, regular rhythm Abdomen: normal bowel sounds, soft, non tender, no organomegaly, non distended , no mass Extremities: no cyanosis, no clubbing, no edema Current Medications Medications (Trade) Dose Ordered Sig/Katharine Route PRN Reason Start Time Stop Time Status Last Admin Dose Admin Acetaminophen (Tylenol) 650 mg Q6H PRN ORAL Mild Pain/Temp > 100.5 06/27/19 07:00 07/21/19 06:59 Acetaminophen (Tylenol) 650 mg Q6H PRN RECTAL Mild Pain/Temp > 100.5 PO/AK 06/27/19 07:00 07/21/19 06:59 Acetylcysteine (Mucomyst) 100 mg TIDRT HHN 06/27/19 07:00 07/22/19 12:59 06/27/19 13:34 Amiodarone HCl (Cordarone) 400 mg EVERY 12 HOURS NG 06/27/19 09:00 07/24/19 08:59 06/27/19 09:27 Apixaban (Eliquis) 5 mg BID ORAL 06/27/19 18:00 07/27/19 17:59 Aspirin (Ecotrin) 81 mg DAILY ORAL 06/27/19 09:00 07/21/19 08:59 06/27/19 09:27 Carbidopa/Levodopa (Sinemet 25/100) 1 tab THREE TIMES A DAY ORAL 06/27/19 09:00 07/21/19 08:59 06/27/19 13:32 Ceftriaxone Sodium 2 gm/ Dextrose 55 ml @ 110 mls/hr Q24H IVPB 06/27/19 15:00 07/11/19 23:59 06/27/19 14:28 Dextrose (Dextrose 50%) 25 ml Q30M PRN IV Hypoglycemia 06/27/19 07:00 07/20/19 20:59 Dextrose (Dextrose 50%) 50 ml Q30M PRN IV Hypoglycemia 06/27/19 07:00 07/20/19 20:59 Insulin Aspart (NovoLOG) EVERY 6 HOURS SUBQ 06/27/19 12:00 07/20/19 21:59 Ipratropium Rickman (Atrovent) 500 mcg Q4H PRN HHN Shortness of Breath 06/27/19 07:00 07/01/19 06:59 Ipratropium [place] (Atrovent) 500 mcg Q6HRT HHN 06/27/19 07:00 07/01/19 18:59 06/27/19 13:34 Memantine (Namenda) 10 mg Q12HR NG 06/27/19 09:00 07/22/19 20:59 06/27/19 09:29 Metoprolol Tartrate (Lopressor) 12.5 mg Q12HR NG 06/27/19 09:00 07/24/19 20:59 06/27/19 09:28 Morphine Sulfate (Morphine Sulfate) 2 mg Q6H PRN IVP For Pain 06/27/19 07:00 06/29/19 06:59 Pantoprazole (Protonix) 40 mg DAILY IVP 06/27/19 09:00 07/22/19 08:59 06/27/19 09:29 Polyethylene Glycol (Miralax) 17 gm DAILY PRN ORAL Constipation 06/27/19 07:00 07/21/19 06:59 Sennosides (Senokot) 17.2 mg QHS ORAL 06/27/19 21:00 07/21/19 20:59 Tamsulosin HCl (Flomax) 0.4 mg DAILY ORAL 06/27/19 09:00 07/21/19 08:59 06/27/19 09:29 Vancomycin HCl (Vanco rx to dose) 1 ea DAILY PRN MISC Per rx protocol 06/27/19 09:00 07/20/19 16:29 Vancomycin HCl 1 gm/Dextrose 275 ml @ 183.708 mls/hr Q24H IVPB 06/27/19 20:00 07/11/19 23:59 Vitamin D (Vitamin D) 5,000 intlu DAILY ORAL 06/27/19 09:00 07/21/19 08:59 06/27/19 09:27 Zinc Sulfate (Zinc Sulfate) 220 mg BID ORAL 06/27/19 09:00 07/21/19 08:59 06/27/19 09:29 Yves Harrison MD Jun 27, 2019 16:50
[2019-06-27] MEDS ORDERED: Eliquis 5mg tablet ORAL SCH (18:00)
--- NOTE | 2019-06-27 19:24 | NUR ---
HAND-OFF: Report given to Young Maurice RN. Pt is ins table condition; plan of care endorsed.
--- NOTE | 2019-06-27 19:30 | NUR ---
NURSE NOTES: Received report from MONSERRAT Ribeiro. Patient in bed awake showing no signs of acute distress. AOx1. non verbal. Respiration even and non labored on 2L NC. No sob noted. NGT patent and intact on Glucerna 1.5@60cc/hr. IV noted on right hand 20g SL, and left hand 22g sl patent and intact. Bed in lowest position, wheels locked, side rails up x2 and alarm on. All needs attended and met. Will continue plan of care.
[2019-06-27] MEDS ORDERED: Vancomycin 1 GM in D5W 275 ML IVPB SCH (20:00)
--- NOTE | 2019-06-27 20:11 | Surgery Progress Note ---
Surgery Progress Note Subjective Additional Comments No acute events. Resumed on Eliquis. VQ scan noted. Otherwise exam as below Objective Last 24 Hour Vital Signs Date Time Temp Pulse Resp B/P (MAP) Pulse Ox O2 Delivery O2 Flow Rate FiO2 06/27/19 16:00 60 06/27/19 16:00 97.7 60 20 115/60 (78) 98 06/27/19 13:35 72 16 100 Nasal Cannula 2.0 28 66 18 96 06/27/19 12:00 60 06/27/19 12:00 97.7 61 20 111/56 (74) 99 06/27/19 09:28 66 112/60 06/27/19 09:00 Nasal Cannula 2.0 06/27/19 08:00 60 06/27/19 08:00 97.7 62 20 112/60 (77) 99 06/27/19 07:21 99 Nasal Cannula 2.0 28 06/27/19 07:21 77 18 99 Nasal Cannula 2.0 28 06/27/19 07:20 70 16 100 Nasal Cannula 2.0 28 77 16 99 06/27/19 06:50 98.1 63 17 116/56 (76) 99 06/27/19 06:00 60 14 106/59 (75) 100 06/27/19 05:00 97.6 60 16 111/65 (80) 100 06/27/19 04:00 Nasal Cannula 2.0 06/27/19 04:00 60 14 126/53 (77) 100 06/27/19 04:00 60 06/27/19 03:00 60 17 116/53 (74) 100 06/27/19 02:00 97.4 60 12 114/51 (72) 100 06/27/19 01:18 60 17 99 Nasal Cannula 2.0 28 60 15 99 06/27/19 01:00 61 23 110/57 (74) 100 06/27/19 00:00 Nasal Cannula 2.0 06/27/19 00:00 97.6 60 17 111/53 (72) 98 06/26/19 23:09 60 18 99 Nasal Cannula 2.0 28 06/26/19 23:00 60 19 107/67 (80) 100 06/26/19 22:00 60 15 100/59 (73) 100 06/26/19 21:00 60 16 112/49 (70) 100 06/26/19 20:54 60 105/52 I&O Intake and Output 06/26/19 06/27/19 19:00 07:00 Intake Total 905 ml 1100.0000 ml Output Total 900 ml 1000 ml Balance 5 ml 100.0000 ml Intake Free Water 100 ml 225 ml IV Total 55 ml 275.0000 ml Tube Feeding 600 ml 550 ml Other 150 ml 50 ml Output Urine Total 900 ml 1000 ml # Bowel Movements 1 Dressing: saturated Wound: clean Cardiovascular: RSR Respiratory: clear Abdomen: soft, non-tender, present bowel sounds Extremities: no tenderness, no cyanosis Plan Problems: (1) Sepsis Assessment & Plan: cont iv abx as per ID eval rx as written AM labs ICU care DAILY ESTIMATED NEEDS: Needs based on Underweight, sepsis; 61.4kg 30-35 kcals/kg 1842- 2149 total kcals 1.25-2 g protein/kg 77- 123 g total protein 25-30 mL/kg 1535- 1842 total fluid mLs NUTRITION DIAGNOSIS: Increased kcal and pro needs r/t wound healing and underweight status AEB pt w/ open sacral wound (eval is pending), generalized moderate wasting, @81% of [place] Body Weight. CURRENT DIET:CCHO Med, Pureed moist, nectar-thick PO DIET RECOMMENDATIONS: Liberalized Regular diet w/ continued poor po intake/ texture per HEDDLER (ENTERAL NUTRITION RECOMMENDATIONS: * Consult RD if non oral feedings are part of POC *) ADDITIONAL RECOMMENDATIONS: 1) Follow up w/ WC eval * Provide Eliseo TID w/ meals for wound healing * Provide Vit C 250mg qdaily 2) Maintain calibrated bedscale wt 2/2 underweight status 3) F/up w/ HEDDLER eval 4) Add Glucerna 1 can TID w/ meals Add snacks in b/w meals (2) Sacral pressure ulcer Assessment & Plan: Pt presented on admission with multiple pressure injuries. Non-blanching erythema clefts of R and L ears. Full thickness sacral pressure injury. Base of wound has 60% mixed slough and soft necrosis,40% granular. Borders are macerated with surrounding non- blanching erythema with additional scattered partial thickness wounds..No odor or exudate noted.(L)7cm x (W)6.5cm. Full thickness pressure injury base of scrotum with 75% slough,25% hunter and moist . Small amt non-odorous serous exudate noted. Non-blanching erythema periwound .(L)3cm x (W)4.5cm.Non-blanching erythema without induration noted to R ischial area. Full thickness pressure injury R elbow . Base of erythematous with 10% slough. Inferior to R elbow wound, second wound that is resolving with dry pink epithelial. Bilat heels are boggy with non-blanching erythema. Full thickness pressure injury base of scrotum with 60% slough ,40% hunter. Edges macerated. Erythema noted periwound. (L)2.5cm x (W)2cm. Full thickness pressure injury sacrum .Base of wound has 80% gelatinous yellow slough ,20% granular.(L)4cm x (W)3.4cm,surrounded by purple borders with an area of induration within base of wound at L sacrum. Wound in its entirety measures (L)10cm x (W)7cm. Small amt seropurulent exudate. No odor noted. Both heels are soft but blanchable. No new skin concerns noted. Tx.Plan: Cleanse wounds scrotum and Sacrum with saline. Apply Therahoney. Apply Moisture Barrier periwound.Cover each wound with Optifoam Drsg. Daily and prn. Apply Moisture Barrier Paste to buttocks and both ischial areas with each incontinence care. Apply Cavilon Skin Barrier to both heels. Cover each heel with Optifoam drsg. Change every 7 days and prn. APM/GAETANO Mattress overlay. Reposition at least every 2hours or as tolerated. Off-load heels with pillow. (3) UTI (urinary tract infection) (4) Respiratory failure, acute DamiKyle Jun 27, 2019 20:11
[2019-06-27] MEDS ORDERED: Sennosides 8.6mg tab ORAL SCH (21:00)
[2019-06-28] VITALS: BP 133/63
[2019-06-28] MEDS: NovoLOG Insulin Flexpen SUBQ SCH
--- NOTE | 2019-06-28 00:45 | NUR ---
NURSE NOTES: Report given to MONSERRAT Storm from [facility] via phone call. Patient is in stable condition, VS stable. Pt. picked up by [facility], report given to Ramy lawrence 700. library monitor off. Called and left a message to the family. Notified Dr. Norton.
--- NOTE | 2019-06-29 07:56 | Discharge Summary ---
Discharge Summary Discharge Summary _ DATE OF ADMISSION: 06/20/2019 DATE OF DISCHARGE: 06/28/2019 DISCHARGED BY: Dr. Blanco REASON FOR ADMISSION: 83 years old male with past medical history of hypertension, Parkinson disease, BPH, dementia, dysphagia, pulmonary emboli, history of multiply aspiration pneumonia in the past, [facility] due to shortness of breath and hypoxia. Pulse oximetry was between 80 and 89%. Patient started on supplemental oxygen. Patient was on empiric antibiotics for the past 2 days for diagnosis of aspiration pneumonia. Patient had fever in the last few days as well. Patient did not respond to outpatient treatment and was brought to the emergency room for evaluation. Upon evaluation in emergency department patient had fever , was tachycardic , tachypneic and hypoxic, requiring 100% nonrebreathing mask. Laboratory work-up revealed no leukocytosis, hemoglobin 11.9, hematocrit 36.6. Urinalysis revealed pyuria , +4 protein , moderate bacteria . Chemistry showed hypernatremia with sodium 158 , potassium 2.9, chloride 118. BUN 33 , creatinine 0.8. Glucose 147. Lactic acid 3.6 repeated 3.3. Stable LFT. Troponin - 0.018. EKG revealed ventricularly paced rhythm, no acute ischemic changes. Chest x-ray demonstrated bibasilar airspace opacity, likely representing atelectasis , however pneumonia could not be excluded. Scattered rounded density possibly representing calcified granulomata. Likely small left pleural effusion. In emergency department septic work-up initiated: patient pancultured, received IV bolus and started on empiric antibiotics. CONSULTANTS: architectural engineer Dr. Mario pulmonary ID specialist Dr. Dr. Mcnair GI specialist Dr[facility] Patient initially admitted to monitored floor. Patient started on empiric antibiotic as per ID specialist recommendation. Echocardiogram demonstrated preserved ejection fraction of 60% with no evidence of pericardial effusion. No evidence of wall motion abnormality. Right ventricular systolic pressure of 37 consistent with mild pulmonary hypertension. Venous duplex bilateral lower extremity revealed no evidence of acute DVT. VQ scan revealed low probability of pulmonary emboli. Saturation Diver followed. Supplemental oxygen titrated to keep pulse oximetry above 92%. Nebulizing treatment with Atrovent and Mucomyst provided. Volumes were closely monitored. Patient initially was on DVT prophylaxis which subsequently was discontinued, and patient was resumed on Eliquis for history of pulmonary emboli. GI prophylaxis provided. Swallow evaluation was done initially. Speech therapist recommended to consider nonoral feeding . NG tube was inserted for nutrition and medications. GI specialist followed. Family declined placement of G-tube. Strict aspiration precaution were maintained. Electrician Manager followed. Serial troponin were negative. EKG revealed no acute ischemic changes . Patient was ruled out for acute IL. Patient had two spontaneous non infarction episodes of ventricular fibrillation arrest of more than 60 seconds , documented on telemetry and pacer interrogation. Patient started on oral amiodarone. Electrician Manager discussed with patient's daughter the option of cardiac catheterization and upgrading patient to ICD after infectious disease specialist clearance. Daughter agreed to proceed with this option. Dual-chamber [employer] pacer was interrogated and documented two episodes of sustained ventricular fibrillation of more than 60 seconds, which self terminated. Blood pressure was managed with beta-kateryna. ID specialist followed. Blood cultures were negative. Urine culture revealed no evidence of growth; suspect asymptomatic pyuria with urine culture being negative -as per ID specialist. Sputum culture revealed MRSA and Lashonda. Stool culture was negative . Antibiotic management was provided as per ID specialist recommendation for MRSA pneumonia . ID specialist cleared patient for cardiac procedure. Supportive care provided. Renal parameters and electrolytes were closely monitored. Electrolytes corrected as needed. Prior to discharge sodium 139, potassium 4.5. Nephrotoxics were avoided. Wound care for sacral decubitus ulcer , present on admission , provided as per surgeon recommendation. Continue wound care upon transfer. Patient subsequently was transferred to [facility] via [facility] for cardiac catheterization and upgrade to ICD after cardiac catheterization. 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 I have been assigned to dictate discharge summary for this account. I was not involved in the patient's management. Soniya Velázquez NP Jun 29, 2019 07:56
--- NOTE | 2019-06-29 23:15 | Discharge Summary ---
DATE OF ADMISSION: 06/20/2019 DATE OF DISCHARGE: 06/28/2019 DATE OF TRANSFER: 06/28/2019 CHIEF COMPLAINT: Shortness of breath. HOSPITAL COURSE: This is an 83-year-old male with history of Parkinson disease, dementia, history of multiple aspiration pneumonia in the past, hypertension, and BPH, who was admitted for sepsis, UTI, and aspiration pneumonia. In the hospital, the patient was started on broad-spectrum IV antibiotic and ID was consulted. The patient responded to the treatment for sepsis, UTI, and aspiration pneumonia with IV antibiotic. He also had 2 episodes of ventricular tachycardia that was recorded in the telemetry and also by pacemaker. The patient was seen by oem sales manager, Dr. Norton, and he recommended the patient needed ICD placement and cardiac cath. He also had an echo done that showed 60% ejection fraction with no evidence of pericardial effusion. He had venous Doppler of lower extremity that did not show any DVT and V/Q scan showed low probability of pulmonary emboli. The patient's family refused PEG placement and the patient had NG tube while the patient was in the hospital. The patient also had sacral pressure ulcers and Dr. Lomax was consulted for wound care in the hospital. After his infection improved it was decided to transfer the patient to the [facility] for cardiac cath and ICD placement. He will be discharged back to the [facility] after placement of ICD and cardiac cath at the [facility]. DISCHARGE DIAGNOSES: 1. Acute respiratory failure, resolved in the ER. 2. Sepsis. 3. Aspiration pneumonia. 4. Urinary tract infection. 5. Spontaneous ventricular fibrillation arrest over 60 seconds. 6. Pacemaker. 7. Hypertension. 8. Parkinson disease. 9. Dysphagia. 10. History of PE. 11. Sacral decubitus ulcer. 12. BPH. 13. Dementia. DISCHARGE MEDICATIONS: The patient will be transferred to [facility] for placement of ICD and cardiac cath, and he will follow all the current medications that the patient was receiving in hospital. Aakash Blanco M.D. DR: Tatiana JOB#: [id number] CC: ARCHIE
== END 2019-06-28 01:20 | disposition short-term general hospital (02) | DRG 871 ==
LOC: EDBD 13:11 → EMR 15:23 → 2E 15:35 → EDBEDREQ 18:17 → ICU 06-21 11:05 → 2E 06-27 06:34
DX: A41.9 Sepsis, unspecified organism (principal); J15.212 Pneumonia due to Methicillin resistant Staphylococcus aureus; J69.0 Pneumonitis due to inhalation of food and vomit; J96.01 Acute respiratory failure with hypoxia; I49.01 Ventricular fibrillation; N39.0 Urinary tract infection, site not specified; R47.01 Aphasia; E87.0 Hyperosmolality and hypernatremia; G20 Parkinson's disease; F02.80 Dementia in other diseases classified elsewhere, unspecified severity, without behavioral disturbance, psychotic disturbance, mood disturbance, and anxiety; I10 Essential (primary) hypertension; N40.0 Benign prostatic hyperplasia without lower urinary tract symptoms; R13.10 Dysphagia, unspecified; Z95.0 Presence of cardiac pacemaker; E87.6 Hypokalemia; L89.159 Pressure ulcer of sacral region, unspecified stage; Z86.711 Personal history of pulmonary embolism
CPT/HCPCS: 36415; 36600; 71045; 74018; 78579; 78580; 80048; 80053; 80202; 81003; 82550; 82803; 82962; 83605; 83735; 83880; 84439; 84443; 84484; 85025; 86710; 87040; 87045; 87070; 87081; 87086; 87181; 87205; 87324; 93005; 93306; 93970; 94640; 94664; 96361; 96365; 96367; 99291; A9503; J0282; J1815

== ENCOUNTER 2019-10-29 05:42 | Inpatient (IN) | payer MEDICARE, MEDICAID ==
[~2019-10-29] VITALS: Ht 177.8 cm; Wt 59.9 kg
[~2019-10-29 05:42] MED LIST changes: +AMLODIPINE BESY10 MG ORAL; +ASPIRIN EC81 MG ORAL; +ELIQUIS5 MG PO; +FLOMAX0.4 MG GT; +LEVOFLOXACIN750 MG ORAL; +MARINOL2.5 MG ORAL; +NAMENDA XR28 MG PO; +SENNA8.6 M2 GT; +SINEMET 25-1001 EAC1 ORAL; +ZINC SULFATE220 M1 GT
[2019-10-29 05:46] VITALS: BP 106/64
[2019-10-29] MEDS ORDERED: SINEMET 25-1001 EAC1 GT (05:51)
[2019-10-29] MEDS ORDERED: DUONEB 0.5-3(2.53 ML HHN (05:51)
[2019-10-29] MEDS ORDERED: PROTONIX40 MG ORAL (05:51)
[2019-10-29] MEDS ORDERED: POLYETHYLENE GL17 GM GT (05:51)
[2019-10-29] MEDS ORDERED: MELATONIN3 M3 GT (05:51)
[2019-10-29] MEDS ORDERED: METOPROLOL TART25 MG GT (05:51)
[2019-10-29] MEDS ORDERED: GUAIFENESI100 MG/5 M GT (05:51)
[2019-10-29 06:00] LABS: APPEARANCE,URINE CLOUDY; BASOPHILS % (AUTO) 0.7 % (0.0-2.0); BILIRUBIN, URINE NEGATIVE (NEGATIVE); EOSINOPHILS % (AUTO) 0.3 % (0.0-3.0); GLUCOSE, URINE (UA) NEGATIVE (NEGATIVE); HEMATOCRIT 31.9 % (42.0-52.0); HEMOGLOBIN 10.3 G/DL (14.2-18.0); KETONES,URINE NEGATIVE (NEGATIVE); LEUKOCYTE ESTERASE ,URINE 1+ (NEGATIVE); LYMPHOCYTES % (AUTO) 14.4 % (20.0-45.0); MEAN CORPUSCULAR VOLUME 92 FL (80-99); NEUTROPHILS % (AUTO) 79.5 % (45.0-75.0); NITRITE,URINE NEGATIVE (NEGATIVE); PH,URINE 5 (4.5-8.0); PLATELET COUNT 235 K/UL (150-450); PROTEIN,URINE 3+ (NEGATIVE); RED BLOOD COUNT 3.48 M/UL (4.70-6.10); RED CELL DISTRIBUTION WIDTH 18.2 % (11.6-14.8); UROBILINOGEN,URINE NORMAL MG/DL (0.0-1.0); WHITE BLOOD COUNT 16.4 K/UL (4.8-10.8)
--- NOTE | 2019-10-29 06:02 | Emergency Room Report ---
History of Present Illness General Chief Complaint: Dyspnea/Respdistress Source: Medical Record, EMS (Ino Barber MD) Present Illness HPI Is an 83-year-old male with multiple medical problem. He has a history of dementia, Parkinson and pneumonia with aspiration multiple times. He also has a pacemaker. He presents with complaint worse or distress. Per EMS, he was noted to be in respiratory distress with oxygenation very low in the 70 percentiles. With 100% nonrebreather he is only go up to the 80 percentiles. He was placed on BiPAP and given breathing treatment and sent here. Unable to get any other history from this patient because of his condition and because of his dementia. (Ino Barber MD) Allergies: Coded Allergies: No Known Allergies (Unverified , 06/20/19) Patient History Past Medical History: see triage record, old chart reviewed Past Surgical History: pacemaker Pertinent Family History: none Social History: Denies: smoking Immunizations: other Reviewed Nursing Documentation: PMH: Agreed; PSxH: Agreed (Ino Barber MD) Nursing Documentation-PMH Past Medical History: No History, Except For Hx Cardiac Problems: Yes Hx Hypertension: Yes Hx Pacemaker: Yes - left dual ICD/pacemaker Hx Diabetes: Yes Hx Cancer: No Hx Gastrointestinal Problems: No Hx Neurological Problems: Yes Hx Dementia: Yes - with Parkinsonian features (Ino Barber MD) Review of Systems Respiratory: Reports: cough, shortness of breath All Other Systems: limited - Secondary to condition (Ino Barber MD) Physical Exam Vital Signs Date Time Temp Pulse Resp B/P (MAP) Pulse Ox O2 Delivery O2 Flow Rate FiO2 10/29/19 05:39 101.3 124 32 106/64 (78) 86 Room Air Vitals with fever and hypoxia Sp02 EP Interpretation: abnormal General Appearance: severe distress, Stupor Head: normocephalic, atraumatic Eyes: bilateral eye PERRL, bilateral eye EOMI ENT: dry mucus membranes Neck: no meningismus, limited range of motion, other Respiratory: chest non-tender, respiratory distress, decreased breath sounds, accessory muscle use, rhonchi Cardiovascular #1: regular rate, rhythm, no murmur Gastrointestinal: normal bowel sounds, non tender, no mass, no organomegaly, no bruit, non-distended, other - G-tube Musculoskeletal: back normal, other - Contracted. Pressure ulcer on heels Psychiatric: mood/affect normal (Ino Barber MD) Procedures Critical Care Time Critical Care Time Critical care is mandated in this patient who presented with respiratory distress secondary to sepsis and aspiration. Patient require my urgent intervention to attenuate the risks of the metabolic collapse which may lead to cardiovascular collapse and . Critical care time is 35 minutes excluding any reportable procedure. Critical care time included evaluation, multiple reevaluation, looking at old charts, interpreting laboratory and diagnostic data , discussing case with patient and family and consultants, and charting. (Ino Barber MD) Medical Decision Making Diagnostic Impression: Primary Impression: Respiratory failure, acute Qualified Codes: J96.01 - Acute respiratory failure with hypoxia Additional Impressions: Sepsis Qualified Codes: A41.9 - Sepsis, unspecified organism; R65.20 - Severe sepsis without septic shock; J96.01 - Acute respiratory failure with hypoxia HCAP (healthcare-associated pneumonia) UTI (urinary tract infection) Qualified Codes: N30.00 - Acute cystitis without hematuria Anemia Qualified Codes: D64.9 - Anemia, unspecified JAIRO (acute kidney injury) ER Course Patient with respiratory distress and hypoxia. Improved with breathing treatment and BiPAP. Wide spectrum antibiotic started. IV fluid given. Patient admitted to stepdown for further IV antibiotics and IV fluid. I have a page out to Dr. Mishra for admission. (Ino Barber MD) ER Course Please see above note. Patient was on CPAP initially. BiPAP started. Titrating FiO2 down. CO2 monitoring begun. Patient tolerated BiPAP well. Patient admitted to stepdown unit. Discussed with daughter telephonically. (Denys Moreno MD) EKG Diagnostic Results Rate: tachycardiac Rhythm: NSR, other - Paced ST Segments: other - paced (Ino Barber MD) Rhythm Strip Diag. Results EP Interpretation: yes Rate: 118 Rhythm: NSR, no PVC's, no ectopy (Ino Barber MD) EP Interpretation: yes Rhythm: no PVC's, no ectopy, other - Sinus tachycardia (Denys Moreno MD) Chest X-Ray Diagnostic Results Chest X-Ray Diagnostic Results : Chest X-Ray Ordered: Yes # of Views/Limited/Complete: 1 View Indication: Shortness of Breath EP Interpretation: Yes Interpretation: no effusion, no pneumothorax, other - RLL infiltrate Impression: Other - RLL infiltrate Electronically Signed by: Ino Barber MD (Ino Barber MD) Last Vital Signs Date Time Temp Pulse Resp B/P (MAP) Pulse Ox O2 Delivery O2 Flow Rate FiO2 10/29/19 05:39 101.3 124 32 106/64 (78) 86 Room Air Status: improved (Ino Barber MD) Status: improved (Denys Moreno MD) Disposition: ADMITTED INPATIENT Condition: Critical Ino Barber MD Oct 29, 2019 06:02 Denys Moreno MD Oct 29, 2019 07:19
[2019-10-29 06:07] LABS: COLOR,URINE YELLOW
[2019-10-29 06:09] LABS: INR 1.1 (0.9-1.1)
[2019-10-29] MEDS ORDERED: Acetaminophen 650 MG SUPP RECTAL ONE ×2 (06:13→06:15)
[2019-10-29] MEDS ORDERED: Cefepime HCl 1 GM in D5W 55 ML IVPB ONE (06:30)
[2019-10-29 06:34] LABS: ALANINE AMINOTRANSFERASE 16 U/L (12-78); ALBUMIN 2.2 G/DL (3.4-5.0); ALBUMIN/GLOBULIN RATIO 0.4 (1.0-2.7); ALKALINE PHOSPHATASE 140 U/L (46-116); ANION GAP 10 mmol/L (5-15); ASPARTATE AMINO TRANSFERASE 21 U/L (15-37); BILIRUBIN,TOTAL 0.3 MG/DL (0.2-1.0); BLOOD UREA NITROGEN 73 mg/dL (7-18); CALCIUM 9.8 MG/DL (8.5-10.1); CARBON DIOXIDE 29 MMOL/L (21-32); CHLORIDE 114 MMOL/L (98-107); CKMB 0.5 NG/ML (0.0-3.6); CREATINE KINASE 38 U/L (26-308); CREATININE 1.4 MG/DL (0.55-1.30); POTASSIUM 4.2 MMOL/L (3.5-5.1); SODIUM 153 MMOL/L (136-145)
[2019-10-29 07:27] VITALS: BP 97/57
[2019-10-29] MEDS ORDERED: HUMALOG100 UNIT/4 SUBQ (08:39)
[2019-10-29] MEDS ORDERED: MULTI-DELYN237 ML GT (08:39)
[2019-10-29] MEDS ORDERED: ASCORBIC ACID500 MG ORAL (08:39)
[2019-10-29 09:00] VITALS: BP 121/73
--- NOTE | 2019-10-29 10:47 | Diagnostic Imaging Report ---
Indication: Dyspnea Comparison: 06/26/2019 A single view chest radiograph was obtained. Findings: There is a faint infiltrate which may be some residual at the left lung base. Previously there was a more extensive infiltrate at the left lung base. This could be scarring or atelectasis as well. Heart size is normal. There is a pacemaker on the left. Calcified granulomata are again demonstrated throughout the chest. IMPRESSION: Mild left basal infiltrate versus atelectasis. Please correlate clinically.
[2019-10-29] MEDS ORDERED: Vancomycin 1.25gm/NS Premix IVPB ONE (11:00)
[2019-10-29] MEDS ORDERED: Tamsulosin 0.4mg cap ORAL SCH (11:15)
[2019-10-29] MEDS: NovoLOG Insulin Flexpen SUBQ SCH ×3 (11:30→20:52)
[2019-10-29] MEDS ORDERED: Ascorbic Acid 500mg tab ORAL SCH (11:30)
[2019-10-29 12:00] VITALS: BP 130/73
[2019-10-29] MEDS: Levodopa/Carbidopa 25/100 tab GT SCH ×2 (12:14→18:12)
[2019-10-29] MEDS: Meropenem 1 GM in NS 55 ML IVPB SCH ×2 (12:15→23:28)
[2019-10-29] MEDS: Albuterol/Ipratropium 3ml neb HHN SCH ×2 (13:09→20:23)
[2019-10-29] MEDS: Pantoprazole Inj IVP SCH (13:17)
[2019-10-29] MEDS: Ascorbic Acid 500mg tab GT SCH (13:17)
--- NOTE | 2019-10-29 13:42 | Consultation ---
History of Present Illness General Date patient seen: Oct 29, 2019 Time patient seen: 13:34 Chief Complaint: Dyspnea/Respdistress Referring physician: Dr. Blanco Reason for Consultation: Respiratory failure Present Illness HPI 83 M h/o advanced PD with dementia, dysphagia S/P GT, multiple wounds and pressure ulcers, NSVT S/P ICH, CHD with DD, mild/mod TR, PE on AC, BPH recently (10/26/19-10/24/19) admitted to [facility] with CoNS BIS and HCAP now p/w RD and hypoxemia, inf @ L base, WCt 16, Tm 101.3, JAIRO with hyperNa. Patient was placed on BiPAP in the ER 7.44/39/58/36/90. No hx is obtainable from the patient. Allergies: Coded Allergies: No Known Allergies (Unverified , 06/20/19) Medication History Scheduled Amlodipine Besylate* (Amlodipine Besylate*), 5 MG ORAL BID, (Reported) Apixaban (Eliquis), 10 MG PO BID, (Reported) Ascorbic Acid* (Ascorbic Acid*), 500 MG ORAL DAILY, (Reported) Carbidopa/Levodopa 25-100 Mg* (Sinemet 25-100 Mg Tablet*), 1 TAB ORAL THREE TIMES A DAY, (Reported) Metoprolol Tartrate* (Metoprolol Tartrate*), 25 MG ORAL EVERY 12 HOURS, ( Reported) Multivitamin Liquid* (Multi-Delyn*), 5 ML GT DAILY, (Reported) Pantoprazole* (Protonix*), 40 MG ORAL DAILY, (Reported) Sennosides (Senna), 16.2 MG PO QHS, (Reported) Tamsulosin HCl (Flomax), 0.4 MG ORAL DAILY, (Reported) Zinc Sulfate (Zinc Sulfate*), 220 MG ORAL BID, (Reported) Scheduled PRN Guaifenesin* (Guaifenesin*), 5 ML ORAL Q4H PRN for FOR COUGH, (Reported) Polyethylene Glycol 3350* (Polyethylene Glycol 3350*), 17 GM ORAL BEDTIME PRN for Constipation, (Reported) Miscellaneous Medications Insulin Lispro (Humalog), 0 SUBQ, (Reported) Ipratropium/Albuterol Sulfate (DuoNeb 0.5-3(2.5)mg/3ml), 3 ML HHN, (Reported) Melatonin (Melatonin), 3 MG PO, (Reported) Discontinued Medications Aspirin Ec* (Aspirin Ec*), 81 MG ORAL DAILY, (Reported) Discontinued Reason: Therapy completed Carbidopa/Levodopa 25-100 Mg* (Sinemet 25-100 Mg Tablet*), 1 TAB ORAL THREE TIMES A DAY, (Reported) Discontinued Reason: Medication dose changed Dronabinol* (Marinol*), 2.5 MG ORAL BID, (Reported) Discontinued Reason: Therapy completed Levofloxacin* (Levofloxacin*), 500 MG ORAL DAILY, (Reported) Discontinued Reason: Therapy completed Memantine Hcl (Namenda Xr), 28 MG PO DAILY, (Reported) Discontinued Reason: Therapy completed Metoprolol Succinate* (Metoprolol Succinate*), 25 MG ORAL DAILY, (Reported) Discontinued Reason: Medication dose changed Quetiapine Fumarate (Seroquel Xr), 300 MG ORAL DAILY, (Reported) Discontinued Reason: Therapy completed Solifenacin Succinate* (Vesicare*), 5 MG ORAL DAILY, (Reported) Discontinued Reason: Therapy completed Tamsulosin HCl (Flomax), 0.4 MG ORAL DAILY, (Reported) Discontinued Reason: Medication dose changed Patient History Limited by: medical condition History Provided By: Medical Record, EMS Healthcare decision maker Resuscitation status Advanced Directive on File Past Medical/Surgical History Past Medical/Surgical History: (1) V-tach (2) Sacral pressure ulcer (3) History of pulmonary embolism (4) Anemia (5) Sepsis (6) Respiratory failure, acute (7) UTI (urinary tract infection) (8) HCAP (healthcare-associated pneumonia) Review of Systems ROS Narrative Unobtainable 2/2 medical condition Physical Exam General Appearance: cachetic - non-verbla Lines, tubes and drains: peripheral HEENT: normocephalic, atraumatic, anicteric, mucous membranes moist Neck: non-tender Respiratory/Chest: rhonchi - bilaterally Cardiovascular/Chest: normal peripheral pulses, tachycardia Abdomen: normal bowel sounds, non tender, soft, no organomegaly, no mass, feeding tube Extremities: other - No C/C/E, + wounds Last 24 Hour Vital Signs Date Time Temp Pulse Resp B/P (MAP) Pulse Ox O2 Delivery O2 Flow Rate FiO2 10/29/19 13:06 102 26 99 Bi-Pap 35 102 26 99 35 10/29/19 10:50 101 22 94 35 10/29/19 09:00 97.7 108 20 121/73 (89) 100 10/29/19 08:44 98.9 108 30 114/67 100 Bi-pap 35 10/29/19 08:20 109 34 100 35 10/29/19 07:27 98.9 111 30 97/57 100 Bi-pap 10/29/19 07:11 134 26 100 35 10/29/19 06:44 101.3 10/29/19 05:46 124 32 Bi-pap 10/29/19 05:46 101.3 124 32 106/64 86 Bi-pap 10/29/19 05:39 101.3 124 32 106/64 (78) 86 Room Air Intake and Output 10/28/19 10/29/19 19:00 07:00 Intake Total 1000 ml Balance 1000 ml Intake IV Total 1000 ml Laboratory Tests Test 10/29/19 05:45 10/29/19 06:11 White Blood Count 16.4 K/UL (4.8-10.8) H Red Blood Count 3.48 M/UL (4.70-6.10) L Hemoglobin 10.3 G/DL (14.2-18.0) L Hematocrit 31.9 % (42.0-52.0) L Mean Corpuscular Volume 92 FL (80-99) Mean Corpuscular Hemoglobin 29.7 PG (27.0-31.0) Mean Corpuscular Hemoglobin Concent 32.4 G/DL (32.0-36.0) Red Cell Distribution Width 18.2 % (11.6-14.8) H Platelet Count 235 K/UL (150-450) Mean Platelet Volume 5.6 FL (6.5-10.1) L Neutrophils (%) (Auto) 79.5 % (45.0-75.0) H Lymphocytes (%) (Auto) 14.4 % (20.0-45.0) L Monocytes (%) (Auto) 5.0 % (1.0-10.0) Eosinophils (%) (Auto) 0.3 % (0.0-3.0) Basophils (%) (Auto) 0.7 % (0.0-2.0) Prothrombin Time 11.2 SEC (9.30-11.50) Prothromb Time International Ratio 1.1 (0.9-1.1) Activated Partial Thromboplast Time 29 SEC (23-33) Urine Color Yellow Urine Appearance Cloudy Urine pH 5 (4.5-8.0) Urine Specific [place] 1.020 (1.005-1.035) Urine Protein 3+ (NEGATIVE) H Urine Glucose (UA) Negative (NEGATIVE) Urine Ketones Negative (NEGATIVE) Urine Blood 5+ (NEGATIVE) H Urine Nitrite Negative (NEGATIVE) Urine Bilirubin Negative (NEGATIVE) Urine Urobilinogen Normal MG/DL (0.0-1.0) Urine Leukocyte Esterase 1+ (NEGATIVE) H Urine RBC Tntc /HPF (0 - 0) H Urine WBC 2-4 /HPF (0 - 0) Urine Squamous Epithelial Cells None /LPF (NONE/OCC) Urine Amorphous Sediment Many /LPF (NONE) H Urine Bacteria Many /HPF (NONE) H Urine Coarse Granular Casts 2-4 /LPF (NONE) H Sodium Level 153 MMOL/L (136-145) H Potassium Level 4.2 MMOL/L (3.5-5.1) Chloride Level 114 MMOL/L (98-107) H Carbon Dioxide Level 29 MMOL/L (21-32) Anion Gap 10 mmol/L (5-15) Blood Urea Nitrogen 73 mg/dL (7-18) H Creatinine 1.4 MG/DL (0.55-1.30) H Estimat Glomerular Filtration Rate 48.6 mL/min (>60) Glucose Level 171 MG/DL (74-106) H Lactic Acid Level 2.00 mmol/L (0.4-2.0) Calcium Level 9.8 MG/DL (8.5-10.1) Total Bilirubin 0.3 MG/DL (0.2-1.0) Aspartate Amino Transf (AST/SGOT) 21 U/L (15-37) Alanine Aminotransferase (ALT/SGPT) 16 U/L (12-78) Alkaline Phosphatase 140 U/L (46-116) H Total Creatine Kinase 38 U/L (26-308) Creatine Kinase MB 0.5 NG/ML (0.0-3.6) Creatine Kinase MB Relative Index 1.3 Troponin I 0.004 ng/mL (0.000-0.056) Pro-B-Type Natriuretic Peptide 1162 pg/mL (0-125) H Total Protein 7.7 G/DL (6.4-8.2) Albumin 2.2 G/DL (3.4-5.0) L Globulin 5.5 g/dL Albumin/Globulin Ratio 0.4 (1.0-2.7) L Arterial Blood pH 7.441 (7.350-7.450) Arterial Blood Partial Pressure CO2 39.1 mmHg (35.0-45.0) Arterial Blood Partial Pressure O2 58.5 mmHg (75.0-100.0) L Arterial Blood HCO3 26.0 mmol/L (22.0-26.0) Arterial Blood Oxygen Saturation 90.0 % (95-100) L Arterial Blood Base Excess 1.8 (-2-2) [place] Test Positive Microbiology Date/Time Source Procedure Growth Status 10/29/19 05:49 Nasal Nares - Final Complete 10/29/19 05:49 Nasal Nares - Final Complete 10/29/19 05:50 Rectum Received Height (Feet): 5 Height (Inches): 10.00 Weight (Pounds): 140 Medications Current Medications Medications (Trade) Dose Ordered Sig/Katharine Route PRN Reason Start Time Stop Time Status Last Admin Dose Admin Albuterol/ Ipratropium (Albuterol/ Ipratropium) 3 ml Q6HRT HHN 10/29/19 13:00 11/03/19 12:59 10/29/19 13:09 Apixaban (Eliquis) 10 mg BID GT 10/29/19 18:00 11/28/19 17:59 UNV Ascorbic Acid (Vitamin C) 500 mg DAILY GT 10/29/19 12:00 11/28/19 11:29 10/29/19 13:17 Carbidopa/Levodopa (Sinemet 25/100) 1 tab THREE TIMES A DAY GT 10/29/19 13:00 11/28/19 12:59 10/29/19 12:14 Dextrose 1,000 ml @ 50 mls/hr Q20H IV 10/29/19 11:15 11/28/19 11:14 10/29/19 12:13 Dextrose (Dextrose 50%) 25 ml Q30M PRN IV Hypoglycemia 10/29/19 11:30 11/28/19 11:29 Dextrose (Dextrose 50%) 50 ml Q30M PRN IV Hypoglycemia 10/29/19 11:30 4/1/20 11:29 Insulin Aspart (NovoLOG) BEFORE MEALS AND HS SUBQ 10/29/19 11:30 11/28/19 11:29 Meropenem 1 gm/ Sodium Chloride 55 ml @ 110 mls/hr Q12H IVPB 10/29/19 11:00 11/03/19 10:59 10/29/19 12:15 Metoprolol Tartrate (Lopressor) 25 mg EVERY 12 HOURS GT 10/29/19 21:00 11/28/19 20:59 Multivitamins Therapeutic (Therapeutic Multivitamin) 1 ea DAILY ORAL 10/30/19 09:00 11/29/19 08:59 Pantoprazole (Protonix) 40 mg DAILY IVP 10/29/19 14:00 11/28/19 13:59 10/29/19 13:17 Sennosides (Senokot) 16.2 mg QHS GT 10/29/19 21:00 11/28/19 20:59 Tamsulosin HCl (Flomax) 0.4 mg DAILY ORAL 10/29/19 11:15 11/28/19 11:14 UNV Vancomycin HCl (Vanco rx to dose) 1 ea DAILY PRN MISC Per rx protocol 10/29/19 09:00 11/28/19 08:59 Zinc Sulfate (Zinc Sulfate) 220 mg BID ORAL 10/29/19 18:00 11/28/19 17:59 Assessment/Plan Problem List: (1) JAIRO (acute kidney injury) ICD Codes: N17.9 - Acute kidney failure, unspecified SNOMED: 6162757, 86616143 (2) Acute hypoxemic respiratory failure ICD Codes: J96.01 - Acute respiratory failure with hypoxia SNOMED: 347722966 (3) Respiratory failure, acute ICD Codes: J96.00 - Acute respiratory failure, unspecified whether with hypoxia or hypercapnia SNOMED: 56659715 Qualifiers: Qualified Codes: J96.01 - Acute respiratory failure with hypoxia (4) HCAP (healthcare-associated pneumonia) ICD Codes: J18.9 - Pneumonia, unspecified organism SNOMED: 036404675, 684832943 (5) UTI (urinary tract infection) ICD Codes: N39.0 - Urinary tract infection, site not specified SNOMED: 45463797, 151473172 Qualifiers: Qualified Codes: N30.00 - Acute cystitis without hematuria (6) Sepsis ICD Codes: A41.9 - Sepsis, unspecified organism SNOMED: 43892581, 736854666 Qualifiers: Qualified Codes: A41.9 - Sepsis, unspecified organism; R65.20 - Severe sepsis without septic shock; J96.01 - Acute respiratory failure with hypoxia (7) V-tach ICD Codes: I47.2 - Ventricular tachycardia SNOMED: 8948760, 77305058 (8) History of pulmonary embolism ICD Codes: Z86.711 - Personal history of pulmonary embolism SNOMED: 148389787 (9) Sacral pressure ulcer ICD Codes: L89.159 - Pressure ulcer of sacral region, unspecified stage SNOMED: 043566575 (10) Anemia ICD Codes: D64.9 - Anemia, unspecified SNOMED: 149906517, 995450708 Qualifiers: Qualified Codes: D64.9 - Anemia, unspecified Assessment/Plan: Optimize pulmonary hygiene/mobilize as tolerated Change BiPAP to qHS and PRN Titrate O2 HHN's Abx: Rodolfo/Vanco, F/U Cx's Monitor volumes and renal function, continue D5W, replete free water DVT Px: Eliquis NPO, GTF's FC, continue to discuss GOC Wound care Yves Harrison MD Oct 29, 2019 13:42
--- NOTE | 2019-10-29 14:12 | Infectious Diseases Prog Note ---
Assessment/Plan Problems: (1) LLL pneumonia Assessment & Plan: with hypoxemia , cough and fever, needs to rule out influenza , will start meropenem and vancomycin empiric coverage for pneumonia , send sputum culture and screen for influenza A&B . aspiration precaution . droplets isolation for now (2) UTI (urinary tract infection) Assessment & Plan: will be on meropenem pending culture (3) Sepsis Assessment & Plan: with fever , leukocytosis suspect due to the above , continue meropenem and vancomycin pending cultures (4) Sacral pressure ulcer Assessment & Plan: with cellulitis and infection , already on wide spectrum antibiotics, recommend off loading and local wound care as per hospital protocol (5) JAIRO (acute kidney injury) Assessment & Plan: due to sepsis , continue hydration and renally adjusted antibiotics (6) Acute hypoxemic respiratory failure Assessment & Plan: suspect due to the above, on bipap , already started on wide spectrum antibiotics , monitor ABG, and CXR , Pulmonary is following (7) Decubitus ulcer of ischium, stage 4 Assessment & Plan: recommend off loading, local wound care and dressings change as per hospital protocol , already on wide spectrum antibiotics Subjective Allergies: Coded Allergies: No Known Allergies (Unverified , 06/20/19) Objective Vital Signs Last 24 Hour Vital Signs Date Time Temp Pulse Resp B/P (MAP) Pulse Ox O2 Delivery O2 Flow Rate FiO2 10/29/19 13:06 102 26 99 Bi-Pap 35 102 26 99 35 10/29/19 12:00 94 10/29/19 12:00 98.1 102 22 130/73 (92) 97 10/29/19 12:00 35 10/29/19 10:50 101 22 94 35 10/29/19 09:45 102 10/29/19 09:00 97.7 108 20 121/73 (89) 100 10/29/19 08:44 98.9 108 30 114/67 100 Bi-pap 35 10/29/19 08:20 109 34 100 35 10/29/19 07:27 98.9 111 30 97/57 100 Bi-pap 10/29/19 07:11 134 26 100 35 10/29/19 06:44 101.3 10/29/19 05:46 124 32 Bi-pap 10/29/19 05:46 101.3 124 32 106/64 86 Bi-pap 10/29/19 05:39 101.3 124 32 106/64 (78) 86 Room Air Height (Feet): 5 Height (Inches): 10.00 Weight (Pounds): 140 Microbiology Date/Time Source Procedure Growth Status 10/29/19 05:49 Nasal Nares - Final Complete 10/29/19 05:49 Nasal Nares - Final Complete 10/29/19 05:50 Rectum Received Laboratory Tests Test 10/29/19 05:45 10/29/19 06:11 White Blood Count 16.4 K/UL (4.8-10.8) H Red Blood Count 3.48 M/UL (4.70-6.10) L Hemoglobin 10.3 G/DL (14.2-18.0) L Hematocrit 31.9 % (42.0-52.0) L Mean Corpuscular Volume 92 FL (80-99) Mean Corpuscular Hemoglobin 29.7 PG (27.0-31.0) Mean Corpuscular Hemoglobin Concent 32.4 G/DL (32.0-36.0) Red Cell Distribution Width 18.2 % (11.6-14.8) H Platelet Count 235 K/UL (150-450) Mean Platelet Volume 5.6 FL (6.5-10.1) L Neutrophils (%) (Auto) 79.5 % (45.0-75.0) H Lymphocytes (%) (Auto) 14.4 % (20.0-45.0) L Monocytes (%) (Auto) 5.0 % (1.0-10.0) Eosinophils (%) (Auto) 0.3 % (0.0-3.0) Basophils (%) (Auto) 0.7 % (0.0-2.0) Prothrombin Time 11.2 SEC (9.30-11.50) Prothromb Time International Ratio 1.1 (0.9-1.1) Activated Partial Thromboplast Time 29 SEC (23-33) Urine Color Yellow Urine Appearance Cloudy Urine pH 5 (4.5-8.0) Urine Specific [place] 1.020 (1.005-1.035) Urine Protein 3+ (NEGATIVE) H Urine Glucose (UA) Negative (NEGATIVE) Urine Ketones Negative (NEGATIVE) Urine Blood 5+ (NEGATIVE) H Urine Nitrite Negative (NEGATIVE) Urine Bilirubin Negative (NEGATIVE) Urine Urobilinogen Normal MG/DL (0.0-1.0) Urine Leukocyte Esterase 1+ (NEGATIVE) H Urine RBC Tntc /HPF (0 - 0) H Urine WBC 2-4 /HPF (0 - 0) Urine Squamous Epithelial Cells None /LPF (NONE/OCC) Urine Amorphous Sediment Many /LPF (NONE) H Urine Bacteria Many /HPF (NONE) H Urine Coarse Granular Casts 2-4 /LPF (NONE) H Sodium Level 153 MMOL/L (136-145) H Potassium Level 4.2 MMOL/L (3.5-5.1) Chloride Level 114 MMOL/L (98-107) H Carbon Dioxide Level 29 MMOL/L (21-32) Anion Gap 10 mmol/L (5-15) Blood Urea Nitrogen 73 mg/dL (7-18) H Creatinine 1.4 MG/DL (0.55-1.30) H Estimat Glomerular Filtration Rate 48.6 mL/min (>60) Glucose Level 171 MG/DL (74-106) H Lactic Acid Level 2.00 mmol/L (0.4-2.0) Calcium Level 9.8 MG/DL (8.5-10.1) Total Bilirubin 0.3 MG/DL (0.2-1.0) Aspartate Amino Transf (AST/SGOT) 21 U/L (15-37) Alanine Aminotransferase (ALT/SGPT) 16 U/L (12-78) Alkaline Phosphatase 140 U/L (46-116) H Total Creatine Kinase 38 U/L (26-308) Creatine Kinase MB 0.5 NG/ML (0.0-3.6) Creatine Kinase MB Relative Index 1.3 Troponin I 0.004 ng/mL (0.000-0.056) Pro-B-Type Natriuretic Peptide 1162 pg/mL (0-125) H Total Protein 7.7 G/DL (6.4-8.2) Albumin 2.2 G/DL (3.4-5.0) L Globulin 5.5 g/dL Albumin/Globulin Ratio 0.4 (1.0-2.7) L Arterial Blood pH 7.441 (7.350-7.450) Arterial Blood Partial Pressure CO2 39.1 mmHg (35.0-45.0) Arterial Blood Partial Pressure O2 58.5 mmHg (75.0-100.0) L Arterial Blood HCO3 26.0 mmol/L (22.0-26.0) Arterial Blood Oxygen Saturation 90.0 % (95-100) L Arterial Blood Base Excess 1.8 (-2-2) Clemente Test Positive Current Medications Medications (Trade) Dose Ordered Sig/Katharine Route PRN Reason Start Time Stop Time Status Last Admin Dose Admin Albuterol/ Ipratropium (Albuterol/ Ipratropium) 3 ml Q6HRT HHN 10/29/19 13:00 11/03/19 12:59 10/29/19 13:09 Apixaban (Eliquis) 10 mg BID GT 10/29/19 18:00 11/28/19 17:59 UNV Ascorbic Acid (Vitamin C) 500 mg DAILY GT 10/29/19 12:00 11/28/19 11:29 10/29/19 13:17 Carbidopa/Levodopa (Sinemet 25/100) 1 tab THREE TIMES A DAY GT 10/29/19 13:00 11/28/19 12:59 10/29/19 12:14 Dextrose 1,000 ml @ 50 mls/hr Q20H IV 10/29/19 11:15 11/28/19 11:14 10/29/19 12:13 Dextrose (Dextrose 50%) 25 ml Q30M PRN IV Hypoglycemia 10/29/19 11:30 11/28/19 11:29 Dextrose (Dextrose 50%) 50 ml Q30M PRN IV Hypoglycemia 10/29/19 11:30 11/28/19 11:29 Insulin Aspart (NovoLOG) BEFORE MEALS AND HS SUBQ 10/29/19 11:30 11/28/19 11:29 Meropenem 1 gm/ Sodium Chloride 55 ml @ 110 mls/hr Q12H IVPB 10/29/19 11:00 11/03/19 10:59 10/29/19 12:15 Metoprolol Tartrate (Lopressor) 25 mg EVERY 12 HOURS GT 10/29/19 21:00 11/28/19 20:59 Multivitamins Therapeutic (Therapeutic Multivitamin) 1 ea DAILY ORAL 10/30/19 09:00 11/29/19 08:59 Pantoprazole (Protonix) 40 mg DAILY IVP 10/29/19 14:00 11/28/19 13:59 10/29/19 13:17 Sennosides (Senokot) 16.2 mg QHS GT 10/29/19 21:00 11/28/19 20:59 Tamsulosin HCl (Flomax) 0.4 mg DAILY ORAL 10/29/19 11:15 11/28/19 11:14 UNV Vancomycin HCl (Vanco rx to dose) 1 ea DAILY PRN MISC Per rx protocol 10/29/19 09:00 11/28/19 08:59 Zinc Sulfate (Zinc Sulfate) 220 mg BID ORAL 10/29/19 18:00 11/28/19 17:59 Arcadio Mcnair M.D. Oct 29, 2019 14:12
[2019-10-29 16:00] VITALS: BP 120/67
--- NOTE | 2019-10-29 17:15 | Consultation ---
DATE OF CONSULTATION: 10/29/2019 INFECTIOUS DISEASE CONSULTATION CONSULTING PHYSICIAN: Arcadio Mcnair M.D. REFERRING PHYSICIAN: Aakash Blanco M.D. REASON FOR CONSULTATION: Pneumonia, urinary tract infection, and sepsis. Recommendation for antibiotics treatment. HISTORY OF PRESENT ILLNESS: The patient is an 83-year-old male with past medical history of coronary artery disease, hypertension, status post ICD pacemaker placement, diabetes, dementia, parkinsonian features, and chronic sacrum and ischium pressure wounds was sent from his [facility] facility to [facility] emergency room with respiratory distress and hypoxemia and shortness of breath. As per report from EMS, the patient was found to be in respiratory distress with oxygenation in the low 70. It improved to 80% with 100% non-rebreathable mask. So, he was placed on BiPAP, received nebulizer treatment, and brought into the emergency room for further evaluation. The patient had extensive workup in the ER. After his vitals showed temperature of 101.3 with O2 saturation of 86% on room air including chest x-ray, which showed left lower lobe infiltration, the patient's urinalysis showed evidence of infection. His white count was elevated at around 16,000 concerning for sepsis so he received cefepime and Levaquin in the emergency room and was admitted to the step-down unit for further evaluation and management. Infectious Disease consultation was requested for antibiotics treatment and further care. As of note, the patient is demented, nonverbal, on BiPAP, cannot provide any history. Most of the details were obtained from the medical record and nursing staff. REVIEW OF SYSTEM: Apart from the one I mentioned above, all others are negative at this point. PAST MEDICAL HISTORY: Significant for coronary artery disease, hypertension, status post pacemaker placement, diabetes, dementia, Parkinson disease, and pressure wounds of the sacrum and ischial area. PAST SURGICAL HISTORY: He had ICD pacer placement. MEDICATIONS: The patient received cefepime and levofloxacin in the ER. For the rest of his medications, please refer to MARs. ALLERGIES: No known drug allergy. FAMILY HISTORY: Unable to obtain. SOCIAL HISTORY: The patient lives in [facility]. Retired. No recent drugs, tobacco, or alcohol abuse. PHYSICAL EXAMINATION: VITAL SIGNS: Temperature 98.1, pulse 94, respirations 22, blood pressure 130/73, and pulse ox 97 percent on BiPAP with FiO2 of 35%. GENERAL: An elderly male, lying in bed, tachypneic, on BiPAP, unresponsive, not in acute distress. HEENT: Normocephalic and atraumatic. Pupils are minimally reactive to light. Unable to assess oral mucosa due to BiPAP mask. NECK: Supple. No lymphadenopathy. CARDIOVASCULAR: He is tachycardic. S1, S2 positive. No murmur could be appreciated. LUNGS: Diminished breathing sounds at the bases with crackles mainly on the left lower lobe. Tachypnea. ABDOMEN: Soft, nontender, and nondistended. Hypoactive bowel sounds. No hepatosplenomegaly or ascites. EXTREMITY: No edema or cyanosis. SKIN: He has right trochanteric area pressure wound, large and deep stage IV with yellowish exudate in the center and good granulation at the edges surrounded with skin erythema. He also had sacral pressure wounds with erythema in place and heel deep tissue injury. LABORATORY DATA: Laboratories showed white count of 16.4, hemoglobin of 10.3, and platelet count of 235,000. BUN of 73 and creatinine of 1.4. Urinalysis showed +1 leukocyte esterase, too numerous to count red blood cells, many urine bacteria and regular casts. IMAGING: Chest x-ray showed mild left basilar infiltrate versus atelectases. ASSESSMENT AND RECOMMENDATION: 1. Left lower lobe pneumonia. Suspect aspiration with hypoxemia, cough, and fever. Influenza was done actually in the ER the results of which are negative for both A and B. The patient will be started on meropenem and vancomycin empiric coverage for pneumonia and attempt to send sputum culture and aspiration precaution. Keep head of bed more than 30 degrees. 2. Urinary tract infection. He will be on meropenem pending culture. 3. Sepsis with fever and leukocytosis due to the above. Continue meropenem and vancomycin pending cultures. 4. Sacral pressure ulcer with cellulitis and infection. Already on wide-spectrum antibiotics. Recommend offloading and local wound care as per the hospital protocol. 5. Acute kidney injury due to sepsis. Continue hydration and renally dosed antibiotics. 6. Acute hypoxemic respiratory failure due to the above, on BiPAP. Already started on wide-spectrum antibiotics with vancomycin and meropenem. Continue to monitor ABG and chest x-ray. Pulmonary team is following. 7. Decubitus ulcer of the skin stage IV deep. No oozing or foul smell with good granulation at the base. Continue local wound care. Offloading and dressing change as per hospital protocol. Thank you for the consult. ID will continue to follow. Arcadio Mcnair M.D. DR: POLI JOB#: [id number] CC:
[2019-10-29] MEDS: Eliquis 5mg tablet GT SCH (18:12)
[2019-10-29] MEDS: Zinc Sulfate 220mg cap ORAL SCH (18:12)
--- NOTE | 2019-10-29 18:33 | General Progress Note ---
Subjective Date patient seen: Oct 29, 2019 Time patient seen: 18:00 Allergies: Coded Allergies: No Known Allergies (Unverified , 06/20/19) Subjective Patient is on bipap now. no fever now. He is on tube feeding now. full H&P dictated. Objective Last 24 Hour Vital Signs Date Time Temp Pulse Resp B/P (MAP) Pulse Ox O2 Delivery O2 Flow Rate FiO2 10/29/19 17:00 92 21 100 35 10/29/19 16:00 97 10/29/19 16:00 35 10/29/19 16:00 98.1 98 23 120/67 (84) 99 10/29/19 16:00 Bi-pap 10/29/19 15:54 99 25 99 35 10/29/19 14:23 Bi-Pap 10/29/19 13:06 102 26 99 Bi-Pap 35 102 26 99 35 10/29/19 12:00 94 10/29/19 12:00 98.1 102 22 130/73 (92) 97 10/29/19 12:00 35 10/29/19 10:50 101 22 94 35 10/29/19 09:45 102 10/29/19 09:00 97.7 108 20 121/73 (89) 100 10/29/19 08:44 98.9 108 30 114/67 100 Bi-pap 35 10/29/19 08:20 109 34 100 35 10/29/19 07:27 98.9 111 30 97/57 100 Bi-pap 10/29/19 07:11 134 26 100 35 10/29/19 06:44 101.3 10/29/19 05:46 124 32 Bi-pap 10/29/19 05:46 101.3 124 32 106/64 86 Bi-pap 10/29/19 05:39 101.3 124 32 106/64 (78) 86 Room Air Intake and Output 10/28/19 10/29/19 19:00 07:00 Intake Total 1000 ml Balance 1000 ml IV Total 1000 ml Laboratory Tests 10/29/19 05:45: White Blood Count 16.4H, Red Blood Count 3.48L, Hemoglobin 10.3L, Hematocrit 31.9L, Mean Corpuscular Volume 92, Mean Corpuscular Hemoglobin 29.7, Mean Corpuscular Hemoglobin Concent 32.4, Red Cell Distribution Width 18.2H, Platelet Count 235, Mean Platelet Volume 5.6L, Neutrophils (%) (Auto) 79.5H, Lymphocytes (%) (Auto) 14.4L, Monocytes (%) (Auto) 5.0, Eosinophils (%) (Auto) 0.3, Basophils (%) (Auto) 0.7, Prothrombin Time 11.2, Prothromb Time International Ratio 1.1, Activated Partial Thromboplast Time 29, Urine Color Yellow, Urine Appearance Cloudy, Urine pH 5, Urine Specific [place] 1.020, Urine Protein 3+H, Urine Glucose (UA) Negative, Urine Ketones Negative, Urine Blood 5+H, Urine Nitrite Negative, Urine Bilirubin Negative, Urine Urobilinogen Normal, Urine Leukocyte Esterase 1+H, Urine RBC TntcH, Urine WBC 2-4, Urine Squamous Epithelial Cells None, Urine Amorphous Sediment ManyH, Urine Bacteria ManyH, Urine Coarse Granular Casts 2-4H, Sodium Level 153H, Potassium Level 4.2 , Chloride Level 114H, Carbon Dioxide Level 29, Anion Gap 10, Blood Urea Nitrogen 73H, Creatinine 1.4H, Estimat Glomerular Filtration Rate 48.6, Glucose Level 171H, Lactic Acid Level 2.00, Calcium Level 9.8, Total Bilirubin 0.3, Aspartate Amino Transf (AST/SGOT) 21, Alanine Aminotransferase (ALT/SGPT) 16, Alkaline Phosphatase 140H, Total Creatine Kinase 38, Creatine Kinase MB 0.5, Creatine Kinase MB Relative Index 1.3, Troponin I 0.004, Pro-B-Type Natriuretic Peptide 1162H, Total Protein 7.7, Albumin 2.2L, Globulin 5.5, Albumin/Globulin Ratio 0.4L 10/29/19 06:11: Arterial Blood pH 7.441, Arterial Blood Partial Pressure CO2 39.1, Arterial Blood Partial Pressure O2 58.5L, Arterial Blood HCO3 26.0, Arterial Blood Oxygen Saturation 90.0L, Arterial Blood Base Excess 1.8, Clemente Test Positive Height (Feet): 5 Height (Inches): 10.00 Weight (Pounds): 140 Aakash Blanco MD Oct 29, 2019 18:33
[2019-10-29 20:00] VITALS: BP 118/57
[2019-10-29] MEDS: Sennosides 8.6mg tab GT SCH (20:58)
--- NOTE | 2019-10-29 21:00 | History and Physical Report ---
DATE OF ADMISSION: 10/29/2019 CHIEF COMPLAINT: Respiratory distress and shortness of breath. HISTORY OF PRESENT ILLNESS: This is a 83-year-old male with past medical history of coronary artery disease, hypertension, status post ICD placement, diabetes, advanced dementia with parkinsonism and multiple chronic decubitus ulcers over sacral area. [facility] distress and shortness of breath. O2 saturation was in the low 70s when he was brought in via ambulance to the [place] ER. He was put on BiPAP in the emergency room and his oxygenation improved and he also was started on Levaquin and cefepime for pneumonia with right pleural infiltrates per x-ray. The patient had temperature of 101.3 [place] [id number] in the emergency room upon arrival. The patient also had lactic acid elevated to 2. The patient was decided to bring into [facility] for admission. PAST MEDICAL HISTORY: Includes history of coronary artery disease, hypertension, pacemaker, diabetes, dementia, Parkinson disease, multiple sacral pressure ulcers. PAST SURGICAL HISTORY: ICD placement and NG tube placement. MEDICATIONS: Please review medication from the senior living. ALLERGIES: No known drug allergies. FAMILY HISTORY: Noncontributory. SOCIAL HISTORY: The patient lives in [facility] as a long-term resident. No smoking history. No alcohol or drug use. REVIEW OF SYSTEMS: Negative except for history of present illness. PHYSICAL EXAMINATION: VITAL SIGNS: Temperature 98.1, pulse 97, respirations 22, blood pressure 130/73, pulse ox 97% on BiPAP. GENERAL APPEARANCE: Alert and elderly male, not responding to any commands on BiPAP currently, but in no respiratory distress. HEENT: Normocephalic and normochromic. Pupils equally reactive to light but unable to assess the oral cavity due to BiPAP placement. NECK: Supple. No lymphadenopathy. CARDIOVASCULAR: Regular rate and rhythm. No murmur. No gallop. LUNGS: Diminished breath sound but no current crackles heard. ABDOMEN: Soft, nontender, and nondistended. Positive bowel sounds. EXTREMITIES: No edema or cyanosis. SKIN: The patient has multiple sacral pressure ulcers. NEUROLOGIC: Unable to assess. The patient does not respond to commands. LABORATORY AND DIAGNOSTIC DATA: Sodium 153, potassium 4.2, chloride 114, carbon dioxide 29, BUN 73, creatinine 1.4, glucose 171. Lactic acid 2.0. Calcium 9.8. AST 21, ALT 16, and alkaline phosphatase 140. Troponin is 0.004. BNP 1162. Total protein 7.7, albumin 2.2. WBC 16.4, hemoglobin 10.3, hematocrit 31.9, platelet count 235, lymphocytes 14, neutrophils 79.5. UA +3 urine protein, +5 urine blood, +1 leukocyte esterase, urine rbc's too many to count, urine wbc's 2 to 4, amorphous sediment many, urine bacteria many, granular casts 2 to 4. PT 11.2, INR 1.1, PTT 29. ABG showed pH 7.4, pCO2 39.1, pO2 58.5, O2 saturation 99%, bicarb 26. Chest x-ray showed mild left basilar infiltrate versus atelectasis. ASSESSMENT: 1. Acute respiratory distress with respiratory failure. The patient was put on BiPAP and we will start him on broad-spectrum antibiotics for coverage of pneumonia. Pulmonary and ID will be consulted. 2. Left lower lobe pneumonia, most likely aspiration. Again, we will start the patient on broad-spectrum antibiotic along with recommendation from ID. 3. Urinary tract infection, already on meropenem and vancomycin, coverage for aspiration pneumonia and sepsis. 4. Sepsis and leukocytosis. We will continue again with vancomycin and meropenem, awaiting pending cultures. 5. Hypernatremia. We will change normal saline to D5W to cover for increase in sodium level. 6. Sacral pressure ulcers. We will have General surgery, Dr. Lomax come and evaluate the patient for the wounds . 7. Acute kidney injury secondary to dehydration and sepsis. We will continue IV hydration. 8. Hypertension, dementia, diabetes, and Parkinson disease. We will continue home medications from the rehabilitation. 9. The patient will be admitted for minimum of two night stay for diagnoses of acute respiratory failure, sepsis, urinary tract infection, and pneumonia. Aakash Blanco M.D. DR: Amee JOB#: [id number] CC: ARCHIE
[2019-10-30] VITALS: BP 108/54
[2019-10-30] MEDS: Albuterol/Ipratropium 3ml neb HHN SCH ×4 (02:25→20:06)
[2019-10-30 04:00] VITALS: BP 115/60
[2019-10-30 05:32] LABS: BASOPHILS % (AUTO) 0.7 % (0.0-2.0); EOSINOPHILS % (AUTO) 0.8 % (0.0-3.0); HEMATOCRIT 24.9 % (42.0-52.0); HEMOGLOBIN 8.1 G/DL (14.2-18.0); LYMPHOCYTES % (AUTO) 19.1 % (20.0-45.0); MEAN CORPUSCULAR VOLUME 91 FL (80-99); MONOCYTES % (AUTO) 6.2 % (1.0-10.0); NEUTROPHILS % (AUTO) 73.3 % (45.0-75.0); PLATELET COUNT 165 K/UL (150-450); RED BLOOD COUNT 2.73 M/UL (4.70-6.10); RED CELL DISTRIBUTION WIDTH 17.6 % (11.6-14.8); WHITE BLOOD COUNT 7.7 K/UL (4.8-10.8)
[2019-10-30 05:53] LABS: ANION GAP 11 mmol/L (5-15); BLOOD UREA NITROGEN 53 mg/dL (7-18); CALCIUM 9.4 MG/DL (8.5-10.1); CARBON DIOXIDE 26 MMOL/L (21-32); CHLORIDE 119 MMOL/L (98-107); POTASSIUM 3.4 MMOL/L (3.5-5.1); SODIUM 156 MMOL/L (136-145)
[2019-10-30] MEDS: NovoLOG Insulin Flexpen SUBQ SCH ×4 (05:59→20:55)
[2019-10-30 08:00] VITALS: BP 132/64
--- NOTE | 2019-10-30 08:18 | Pulmonology Progress Note ---
Assessment/Plan Problems: (1) JAIRO (acute kidney injury) Assessment & Plan: With hyperNa (2) Acute hypoxemic respiratory failure (3) Respiratory failure, acute (4) HCAP (healthcare-associated pneumonia) (5) UTI (urinary tract infection) (6) Sepsis (7) V-tach (8) History of pulmonary embolism (9) Sacral pressure ulcer (10) Anemia Assessment/Plan Optimize pulmonary hygiene/mobilize as tolerated Change BiPAP to qHS and PRN Titrate O2 HHN's Abx: Rodolfo per ID, F/U Cx's Monitor volumes and renal function, Inc D5W to 100, add free water to GTF's DVT Px: Eliquis NPO, GTF's FC, continue to discuss GOC Wound care Subjective Allergies: Coded Allergies: No Known Allergies (Unverified , 06/20/19) Subjective AFVSS o2 needs stable on bipap + cough + SOB no FC Objective Last 24 Hour Vital Signs Date Time Temp Pulse Resp B/P (MAP) Pulse Ox O2 Delivery O2 Flow Rate FiO2 10/30/19 08:00 Bi-pap 10/30/19 08:00 35 10/30/19 06:55 90 26 97 Bi-Pap 35 88 22 99 35 10/30/19 05:09 90 25 97 35 10/30/19 04:00 35 10/30/19 04:00 81 10/30/19 04:00 Bi-pap 10/30/19 04:00 99.2 95 27 115/60 (78) 96 10/30/19 03:30 82 20 100 35 10/30/19 01:30 91 29 99 Bi-Pap 35 95 30 100 35 10/30/19 00:00 99.6 89 22 108/54 (72) 99 10/30/19 00:00 Bi-pap 10/30/19 00:00 91 10/29/19 23:30 92 20 97 35 10/29/19 21:30 90 21 99 35 10/29/19 20:57 98 109/56 10/29/19 20:00 99.0 94 21 118/57 (77) 99 10/29/19 20:00 Bi-pap 10/29/19 20:00 96 10/29/19 20:00 35 10/29/19 19:30 94 25 100 Bi-Pap 35 96 25 100 35 10/29/19 17:00 92 21 100 35 10/29/19 16:00 97 10/29/19 16:00 35 10/29/19 16:00 98.1 98 23 120/67 (84) 99 10/29/19 16:00 Bi-pap 10/29/19 15:54 99 25 99 35 10/29/19 14:23 Bi-Pap 10/29/19 13:06 102 26 99 Bi-Pap 35 102 26 99 35 10/29/19 12:00 94 10/29/19 12:00 98.1 102 22 130/73 (92) 97 10/29/19 12:00 35 10/29/19 10:50 101 22 94 35 10/29/19 09:45 102 10/29/19 09:00 97.7 108 20 121/73 (89) 100 10/29/19 08:44 98.9 108 30 114/67 100 Bi-pap 35 10/29/19 08:20 109 34 100 35 Intake and Output 10/29/19 10/30/19 19:00 07:00 Intake Total 525 ml 1280 ml Output Total 700 ml 600 ml Balance -175 ml 680 ml Intake Free Water 50 ml 100 ml IV Total 355 ml 660 ml Tube Feeding 120 ml 520 ml Output Urine Total 700 ml 600 ml # Bowel Movements 1 General Appearance: no acute distress, cachetic HEENT: normocephalic, atraumatic, anicteric, mucous membranes moist, other - BiPAP Respiratory/Chest: chest wall non-tender, lungs clear, normal breath sounds, no respiratory distress, no accessory muscle use Cardiovascular: normal peripheral pulses, normal rate, regular rhythm Abdomen: normal bowel sounds, soft, non tender, no organomegaly, non distended , no mass Extremities: no cyanosis, no clubbing, no edema Microbiology Date/Time Source Procedure Growth Status 10/29/19 05:45 Blood Blood Culture - Preliminary NO GROWTH AFTER 24 HOURS Resulted 10/29/19 05:30 Blood Blood Culture - Preliminary NO GROWTH AFTER 24 HOURS Resulted 10/29/19 05:49 Nasal Nares - Final Complete 10/29/19 05:49 Nasal Nares - Final Complete 10/29/19 05:45 Urine,Clean Catch Urine Culture - Preliminary NO GROWTH Resulted 10/29/19 05:50 Rectum Received Laboratory Tests 10/30/19 03:40: White Blood Count 7.7#, Red Blood Count 2.73L, Hemoglobin 8.1L, Hematocrit 24.9L , Mean Corpuscular Volume 91, Mean Corpuscular Hemoglobin 29.8, Mean Corpuscular Hemoglobin Concent 32.6, Red Cell Distribution Width 17.6H, Platelet Count 165, Mean Platelet Volume 6.3L, Neutrophils (%) (Auto) 73.3, Lymphocytes (%) (Auto) 19.1L, Monocytes (%) (Auto) 6.2, Eosinophils (%) (Auto) 0.8, Basophils (%) (Auto) 0.7, Sodium Level 156H, Potassium Level 3.4L, Chloride Level 119H, Carbon Dioxide Level 26, Anion Gap 11, Blood Urea Nitrogen 53H, Creatinine 1.0, Estimat Glomerular Filtration Rate > 60, Glucose Level 131H , Calcium Level 9.4 Current Medications Medications (Trade) Dose Ordered Sig/Katharine Route PRN Reason Start Time Stop Time Status Last Admin Dose Admin Albuterol/ Ipratropium (Albuterol/ Ipratropium) 3 ml Q6HRT HHN 10/29/19 13:00 11/03/19 12:59 10/30/19 06:59 Apixaban (Eliquis) 5 mg BID GT 11/01/19 09:00 12/01/19 08:59 Apixaban (Eliquis) 10 mg BID GT 10/29/19 18:00 10/31/19 23:59 10/29/19 18:12 Ascorbic Acid (Vitamin C) 500 mg DAILY GT 10/29/19 12:00 11/28/19 11:29 10/29/19 13:17 Carbidopa/Levodopa (Sinemet 25/100) 1 tab THREE TIMES A DAY GT 10/29/19 13:00 11/28/19 12:59 10/29/19 18:12 Dextrose 1,000 ml @ 50 mls/hr Q20H IV 10/29/19 11:15 11/28/19 11:14 10/30/19 07:41 Dextrose (Dextrose 50%) 25 ml Q30M PRN IV Hypoglycemia 10/29/19 11:30 11/28/19 11:29 Dextrose (Dextrose 50%) 50 ml Q30M PRN IV Hypoglycemia 10/29/19 11:30 11/28/19 11:29 Insulin Aspart (NovoLOG) BEFORE MEALS AND HS SUBQ 10/29/19 11:30 11/28/19 11:29 Meropenem 1 gm/ Sodium Chloride 55 ml @ 110 mls/hr Q12H IVPB 10/29/19 11:00 11/03/19 10:59 10/29/19 23:28 Metoprolol Tartrate (Lopressor) 25 mg EVERY 12 HOURS GT 10/29/19 21:00 11/28/19 20:59 Multivitamins Therapeutic (Therapeutic Multivitamin) 1 ea DAILY ORAL 10/30/19 09:00 11/29/19 08:59 Pantoprazole (Protonix) 40 mg DAILY IVP 10/29/19 14:00 11/28/19 13:59 10/29/19 13:17 Sennosides (Senokot) 16.2 mg QHS GT 10/29/19 21:00 11/28/19 20:59 10/29/19 20:58 Tamsulosin HCl (Flomax) 0.4 mg DAILY ORAL 10/29/19 11:15 11/28/19 11:14 UNV Vancomycin HCl (Vanco rx to dose) 1 ea DAILY PRN MISC Per rx protocol 10/29/19 09:00 11/28/19 08:59 Zinc Sulfate (Zinc Sulfate) 220 mg BID ORAL 10/29/19 18:00 11/28/19 17:59 10/29/19 18:12 Yves Harrison MD Oct 30, 2019 08:18
[2019-10-30] MEDS ORDERED: Tubing IV Secondary IV ONE (09:02)
[2019-10-30] MEDS: Pantoprazole Inj IVP SCH (09:14)
[2019-10-30] MEDS: Multivitamin w/Minerals tab ORAL SCH (09:14)
[2019-10-30] MEDS: Zinc Sulfate 220mg cap ORAL SCH ×2 (09:14→17:47)
[2019-10-30] MEDS: Ascorbic Acid 500mg tab GT SCH (09:15)
[2019-10-30] MEDS: Levodopa/Carbidopa 25/100 tab GT SCH ×3 (09:15→17:47)
[2019-10-30] MEDS: Eliquis 5mg tablet GT SCH (09:15)
[2019-10-30 09:23] LABS: ANION GAP 8 mmol/L (5-15); BLOOD UREA NITROGEN 52 mg/dL (7-18); CALCIUM 9.2 MG/DL (8.5-10.1); CARBON DIOXIDE 29 MMOL/L (21-32); CHLORIDE 118 MMOL/L (98-107); CREATININE 0.9 MG/DL (0.55-1.30); POTASSIUM 3.3 MMOL/L (3.5-5.1); SODIUM 155 MMOL/L (136-145)
[2019-10-30 09:26] LABS: HEMATOCRIT 23.2 % (42.0-52.0); HEMOGLOBIN 7.5 G/DL (14.2-18.0); MEAN CORPUSCULAR VOLUME 91 FL (80-99); PLATELET COUNT 158 K/UL (150-450); RED BLOOD COUNT 2.55 M/UL (4.70-6.10); RED CELL DISTRIBUTION WIDTH 17.4 % (11.6-14.8); WHITE BLOOD COUNT 6.5 K/UL (4.8-10.8)
[2019-10-30] MEDS: Meropenem 1 GM in NS 55 ML IVPB SCH ×2 (11:54→22:49)
[2019-10-30 12:00] VITALS: BP 115/61
[2019-10-30 14:06] LABS: HEMATOCRIT 22.9 % (42.0-52.0); HEMOGLOBIN 7.3 G/DL (14.2-18.0); MEAN CORPUSCULAR VOLUME 91 FL (80-99); PLATELET COUNT 157 K/UL (150-450); RED BLOOD COUNT 2.51 M/UL (4.70-6.10); RED CELL DISTRIBUTION WIDTH 17.2 % (11.6-14.8); WHITE BLOOD COUNT 6.1 K/UL (4.8-10.8)
[2019-10-30 14:14] LABS: BASOPHILS % (AUTO) 1.4 % (0.0-2.0); EOSINOPHILS % (AUTO) 1.8 % (0.0-3.0); LYMPHOCYTES % (AUTO) 26.9 % (20.0-45.0); MONOCYTES % (AUTO) 6.1 % (1.0-10.0); NEUTROPHILS % (AUTO) 63.9 % (45.0-75.0)
--- NOTE | 2019-10-30 15:01 | Infectious Diseases Prog Note ---
Assessment/Plan Problems: (1) LLL pneumonia Assessment & Plan: with hypoxemia , cough productive and fever, and negative influenza , continue meropenem and vancomycin empiric coverage for now pending sputum culture . screening for influenza A&B is negative . aspiration precaution . (2) UTI (urinary tract infection) Assessment & Plan: with negative culture suspect sterile pyuria , already on meropenem for pneumonia coverage (3) Sepsis Assessment & Plan: due to gram positive cocci in clusters source most likely his pressure wounds , with fever , leukocytosis suspect due to the above , continue vancomycin pending final cultures , repeat blood culture to confirm clearance (4) Sacral pressure ulcer Assessment & Plan: with cellulitis and infection , already on wide spectrum antibiotics, recommend off loading and local wound care as per hospital protocol (5) JAIRO (acute kidney injury) Assessment & Plan: due to sepsis , continue hydration and renally adjusted antibiotics (6) Acute hypoxemic respiratory failure Assessment & Plan: suspect due to the above, on bipap , already started on wide spectrum antibiotics , monitor ABG, and CXR , Pulmonary is following (7) Decubitus ulcer of ischium, stage 4 Assessment & Plan: recommend off loading, local wound care and dressings change as per hospital protocol , already on wide spectrum antibiotics Subjective ROS Limited/Unobtainable: Yes Allergies: Coded Allergies: No Known Allergies (Unverified , 06/20/19) Subjective He was resting in bed comfortable, on BIPAP, has low grade fever, coughing with phlegm production Objective Vital Signs Last 24 Hour Vital Signs Date Time Temp Pulse Resp B/P (MAP) Pulse Ox O2 Delivery O2 Flow Rate FiO2 10/30/19 12:49 71 30 100 Venturi Mask 6.0 35 73 29 100 10/30/19 12:00 99.4 70 18 115/61 (79) 100 10/30/19 12:00 Venturi Mask 10/30/19 12:00 35 10/30/19 12:00 72 10/30/19 09:14 88 132/64 10/30/19 09:06 100 Venturi Mask 6.0 35 10/30/19 08:00 Bi-pap 10/30/19 08:00 99.9 88 21 132/64 (86) 100 10/30/19 08:00 35 10/30/19 08:00 87 10/30/19 06:55 90 26 97 Bi-Pap 35 88 22 99 35 10/30/19 05:09 90 25 97 35 10/30/19 04:00 35 10/30/19 04:00 81 10/30/19 04:00 Bi-pap 10/30/19 04:00 99.2 95 27 115/60 (78) 96 10/30/19 03:30 82 20 100 35 10/30/19 01:30 91 29 99 Bi-Pap 35 95 30 100 35 10/30/19 00:00 99.6 89 22 108/54 (72) 99 10/30/19 00:00 Bi-pap 10/30/19 00:00 91 10/29/19 23:30 92 20 97 35 10/29/19 21:30 90 21 99 35 10/29/19 20:57 98 109/56 10/29/19 20:00 99.0 94 21 118/57 (77) 99 10/29/19 20:00 Bi-pap 10/29/19 20:00 96 10/29/19 20:00 35 10/29/19 19:30 94 25 100 Bi-Pap 35 96 25 100 35 10/29/19 17:00 92 21 100 35 10/29/19 16:00 97 10/29/19 16:00 35 10/29/19 16:00 98.1 98 23 120/67 (84) 99 10/29/19 16:00 Bi-pap 10/29/19 15:54 99 25 99 35 Height (Feet): 5 Height (Inches): 10.00 Weight (Pounds): 140 General Appearance: no acute distress, cachetic HEENT: normocephalic, atraumatic, anicteric, mucous membranes moist, PERRL Respiratory/Chest: chest wall non-tender, lungs clear, normal breath sounds, no respiratory distress, no accessory muscle use, rhonchi - bilaterally Cardiovascular: normal peripheral pulses, normal rate, regular rhythm, no gallop/murmur, no JVD Abdomen: normal bowel sounds, soft, non tender, no organomegaly, non distended , no mass, no scars Extremities: no cyanosis, no clubbing Skin: no rash, no lesions, ulcers Neurologic/Psychiatric: unresponsiveness Lymphatic: no neck adenopathy, no groin adenopathy Musculoskeletal: normal muscle bulk, no effusion Microbiology Date/Time Source Procedure Growth Status 3/2/20 05:45 Blood Blood Culture - Preliminary Resulted 10/29/19 05:30 Blood Blood Culture - Preliminary Resulted 10/29/19 05:49 Nasal Nares - Final Complete 10/29/19 05:49 Nasal Nares - Final Complete 10/29/19 05:45 Urine,Clean Catch Urine Culture - Preliminary NO GROWTH Resulted 10/29/19 05:50 Rectum Received Laboratory Tests Test 10/30/19 03:40 10/30/19 08:45 10/30/19 11:05 10/30/19 13:32 White Blood Count 7.7 K/UL (4.8-10.8) # 6.5 K/UL (4.8-10.8) 6.1 K/UL (4.8-10.8) Red Blood Count 2.73 M/UL (4.70-6.10) L 2.55 M/UL (4.70-6.10) L 2.51 M/UL (4.70-6.10) L Hemoglobin 8.1 G/DL (14.2-18.0) L 7.5 G/DL (14.2-18.0) L 7.3 G/DL (14.2-18.0) L Hematocrit 24.9 % (42.0-52.0) L 23.2 % (42.0-52.0) L 22.9 % (42.0-52.0) L Mean Corpuscular Volume 91 FL (80-99) 91 FL (80-99) 91 FL (80-99) Mean Corpuscular Hemoglobin 29.8 PG (27.0-31.0) 29.6 PG (27.0-31.0) 29.0 PG (27.0-31.0) Mean Corpuscular Hemoglobin Concent 32.6 G/DL (32.0-36.0) 32.5 G/DL (32.0-36.0) 31.9 G/DL (32.0-36.0) L Red Cell Distribution Width 17.6 % (11.6-14.8) H 17.4 % (11.6-14.8) H 17.2 % (11.6-14.8) H Platelet Count 165 K/UL (150-450) 158 K/UL (150-450) 157 K/UL (150-450) Mean Platelet Volume 6.3 FL (6.5-10.1) L 5.7 FL (6.5-10.1) L 6.1 FL (6.5-10.1) L Neutrophils (%) (Auto) 73.3 % (45.0-75.0) % (45.0-75.0) 63.9 % (45.0-75.0) Lymphocytes (%) (Auto) 19.1 % (20.0-45.0) L % (20.0-45.0) 26.9 % (20.0-45.0) Monocytes (%) (Auto) 6.2 % (1.0-10.0) % (1.0-10.0) 6.1 % (1.0-10.0) Eosinophils (%) (Auto) 0.8 % (0.0-3.0) % (0.0-3.0) 1.8 % (0.0-3.0) Basophils (%) (Auto) 0.7 % (0.0-2.0) % (0.0-2.0) 1.4 % (0.0-2.0) Sodium Level 156 MMOL/L (136-145) H 155 MMOL/L (136-145) H Potassium Level 3.4 MMOL/L (3.5-5.1) L 3.3 MMOL/L (3.5-5.1) L Chloride Level 119 MMOL/L (98-107) H 118 MMOL/L (98-107) H Carbon Dioxide Level 26 MMOL/L (21-32) 29 MMOL/L (21-32) Anion Gap 11 mmol/L (5-15) 8 mmol/L (5-15) Blood Urea Nitrogen 53 mg/dL (7-18) H 52 mg/dL (7-18) H Creatinine 1.0 MG/DL (0.55-1.30) 0.9 MG/DL (0.55-1.30) Estimat Glomerular Filtration Rate > 60 mL/min (>60) > 60 mL/min (>60) Glucose Level 131 MG/DL (74-106) H 138 MG/DL (74-106) H Calcium Level 9.4 MG/DL (8.5-10.1) 9.2 MG/DL (8.5-10.1) Differential Total Cells Counted 100 Neutrophils % (Manual) 65 % (45-75) Lymphocytes % (Manual) 30 % (20-45) Monocytes % (Manual) 2 % (1-10) Eosinophils % (Manual) 3 % (0-3) Basophils % (Manual) 0 % (0-2) Band Neutrophils 0 % (0-8) Platelet Estimate Adequate Platelet Morphology Normal Hypochromasia 2+ Anisocytosis 1+ Random Vancomycin Level 12.0 ug/mL Current Medications Medications (Trade) Dose Ordered Sig/Katharine Route PRN Reason Start Time Stop Time Status Last Admin Dose Admin Albuterol/ Ipratropium (Albuterol/ Ipratropium) 3 ml Q6HRT HHN 10/29/19 13:00 11/03/19 12:59 10/30/19 12:52 Ascorbic Acid (Vitamin C) 500 mg DAILY GT 10/29/19 12:00 11/28/19 11:29 10/30/19 09:15 Carbidopa/Levodopa (Sinemet 25/100) 1 tab THREE TIMES A DAY GT 10/29/19 13:00 11/28/19 12:59 10/30/19 12:57 Dextrose (Dextrose 50%) 25 ml Q30M PRN IV Hypoglycemia 10/29/19 11:30 11/28/19 11:29 Dextrose (Dextrose 50%) 50 ml Q30M PRN IV Hypoglycemia 10/29/19 11:30 11/28/19 11:29 Insulin Aspart (NovoLOG) BEFORE MEALS AND HS SUBQ 10/29/19 11:30 11/28/19 11:29 Meropenem 1 gm/ Sodium Chloride 55 ml @ 110 mls/hr Q12H IVPB 10/29/19 11:00 11/03/19 10:59 10/30/19 11:54 Metoprolol Tartrate (Lopressor) 25 mg EVERY 12 HOURS GT 10/29/19 21:00 11/28/19 20:59 10/30/19 09:14 Multivitamins Therapeutic (Therapeutic Multivitamin) 1 ea DAILY ORAL 10/30/19 09:00 11/29/19 08:59 10/30/19 09:14 Pantoprazole (Protonix) 40 mg DAILY IVP 10/29/19 14:00 11/28/19 13:59 10/30/19 09:14 Potassium Chloride 40 meq/ Dextrose 1,020 ml @ 100 mls/hr [id number] IV 10/30/19 12:30 11/29/19 12:29 10/30/19 12:57 Sennosides (Senokot) 16.2 mg QHS GT 10/29/19 21:00 11/28/19 20:59 10/29/19 20:58 Tamsulosin HCl (Flomax) 0.4 mg DAILY ORAL 10/29/19 11:15 11/28/19 11:14 UNV Vancomycin HCl (Vanco rx to dose) 1 ea DAILY PRN MISC Per rx protocol 10/29/19 09:00 11/28/19 08:59 Vancomycin HCl 750 mg/Sodium Chloride 275 ml @ 183.333 mls/hr Q24H IVPB 10/30/19 14:00 11/04/19 13:59 Zinc Sulfate (Zinc Sulfate) 220 mg BID ORAL 10/29/19 18:00 11/28/19 17:59 10/30/19 09:14 Arcadio Mcnair M.D. Oct 30, 2019 15:01
[2019-10-30] MEDS: Vancomycin 750 MG in NS 275 ML IVPB SCH (15:09)
--- NOTE | 2019-10-30 15:50 | Consultation ---
History of Present Illness General Date patient seen: Oct 30, 2019 Reason for Hospitalization: Dyspnea/Respdistress Present Illness HPI 83-year-old male with multiple medical problem including a history of dementia, Parkinson and pneumonia with aspiration multiple times. He also has a pacemaker. He presents with complaint worse or distress. Per EMS, he was noted to be in respiratory distress with oxygenation very low in the 70 percentiles. With 100% nonrebreather he is only go up to the 80 percentiles. He was placed on BiPAP and given breathing treatment and sent here. Unable to get any other history from this patient because of his condition and because of his dementia. On admission noted to have multiple wounds and malnutrition. surgery called to evaluate and assist with care. Allergies: Coded Allergies: No Known Allergies (Unverified , 06/20/19) Medication History Scheduled Amlodipine Besylate* (Amlodipine Besylate*), 5 MG ORAL BID, (Reported) Apixaban (Eliquis), 10 MG PO BID, (Reported) Ascorbic Acid* (Ascorbic Acid*), 500 MG ORAL DAILY, (Reported) Carbidopa/Levodopa 25-100 Mg* (Sinemet 25-100 Mg Tablet*), 1 TAB ORAL THREE TIMES A DAY, (Reported) Metoprolol Tartrate* (Metoprolol Tartrate*), 25 MG ORAL EVERY 12 HOURS, ( Reported) Multivitamin Liquid* (Multi-Delyn*), 5 ML GT DAILY, (Reported) Pantoprazole* (Protonix*), 40 MG ORAL DAILY, (Reported) Sennosides (Senna), 16.2 MG PO QHS, (Reported) Tamsulosin HCl (Flomax), 0.4 MG ORAL DAILY, (Reported) Zinc Sulfate (Zinc Sulfate*), 220 MG ORAL BID, (Reported) Scheduled PRN Guaifenesin* (Guaifenesin*), 5 ML ORAL Q4H PRN for FOR COUGH, (Reported) Polyethylene Glycol 3350* (Polyethylene Glycol 3350*), 17 GM ORAL BEDTIME PRN for Constipation, (Reported) Miscellaneous Medications Insulin Lispro (Humalog), 0 SUBQ, (Reported) Ipratropium/Albuterol Sulfate (DuoNeb 0.5-3(2.5)mg/3ml), 3 ML HHN, (Reported) Melatonin (Melatonin), 3 MG PO, (Reported) Discontinued Medications Aspirin Ec* (Aspirin Ec*), 81 MG ORAL DAILY, (Reported) Discontinued Reason: Therapy completed Carbidopa/Levodopa 25-100 Mg* (Sinemet 25-100 Mg Tablet*), 1 TAB ORAL THREE TIMES A DAY, (Reported) Discontinued Reason: Medication dose changed Dronabinol* (Marinol*), 2.5 MG ORAL BID, (Reported) Discontinued Reason: Therapy completed Levofloxacin* (Levofloxacin*), 500 MG ORAL DAILY, (Reported) Discontinued Reason: Therapy completed Memantine Hcl (Namenda Xr), 28 MG PO DAILY, (Reported) Discontinued Reason: Therapy completed Metoprolol Succinate* (Metoprolol Succinate*), 25 MG ORAL DAILY, (Reported) Discontinued Reason: Medication dose changed Quetiapine Fumarate (Seroquel Xr), 300 MG ORAL DAILY, (Reported) Discontinued Reason: Therapy completed Solifenacin Succinate* (Vesicare*), 5 MG ORAL DAILY, (Reported) Discontinued Reason: Therapy completed Tamsulosin HCl (Flomax), 0.4 MG ORAL DAILY, (Reported) Discontinued Reason: Medication dose changed Patient History Limited by: age, medical condition History Provided By: Medical Record, PMD Healthcare decision maker Resuscitation status Advanced Directive on File No Past Medical/Surgical History Past Medical/Surgical History: (1) Anemia (2) Respiratory failure, acute (3) HCAP (healthcare-associated pneumonia) (4) V-tach (5) History of pulmonary embolism (6) Sacral pressure ulcer (7) JAIRO (acute kidney injury) (8) Acute hypoxemic respiratory failure (9) Decubitus ulcer of ischium, stage 4 (10) LLL pneumonia (11) Sepsis (12) UTI (urinary tract infection) Review of Systems Review of Symptoms cannot obtain given medical condition Physical Exam Physical Exam General appearance: alert, cooperative, no distress, appears stated age Head: Normocephalic, without obvious abnormality, atraumatic Eyes: conjunctivae/corneas clear. PERRL, EOM's intact. Fundi benign Throat: Lips, mucosa, and tongue normal. Teeth and gums normal Neck: supple, symmetrical, trachea midline, no adenopathy, thyroid: not enlarged, symmetric, no tenderness/mass/nodules, no carotid bruit and no JVD Lungs: clear to auscultation bilaterally Heart: regular rate and rhythm, S1, S2 normal, no murmur, click, rub or gallop Abdomen: soft, non-tender. Bowel sounds normal. No masses, no organomegaly Extremities: extremities normal, atraumatic, no cyanosis or edema Pulses: 2+ and symmetric Skin: see below Neurologic: Grossly normal Last 24 Hour Vital Signs Date Time Temp Pulse Resp B/P (MAP) Pulse Ox O2 Delivery O2 Flow Rate FiO2 10/30/19 12:49 71 30 100 Venturi Mask 6.0 35 73 29 100 10/30/19 12:00 99.4 70 18 115/61 (79) 100 10/30/19 12:00 Venturi Mask 10/30/19 12:00 35 10/30/19 12:00 72 10/30/19 09:14 88 132/64 10/30/19 09:06 100 Venturi Mask 6.0 35 10/30/19 08:00 Bi-pap 10/30/19 08:00 99.9 88 21 132/64 (86) 100 10/30/19 08:00 35 10/30/19 08:00 87 10/30/19 06:55 90 26 97 Bi-Pap 35 88 22 99 35 10/30/19 05:09 90 25 97 35 10/30/19 04:00 35 10/30/19 04:00 81 10/30/19 04:00 Bi-pap 10/30/19 04:00 99.2 95 27 115/60 (78) 96 10/30/19 03:30 82 20 100 35 10/30/19 01:30 91 29 99 Bi-Pap 35 95 30 100 35 10/30/19 00:00 99.6 89 22 108/54 (72) 99 10/30/19 00:00 Bi-pap 10/30/19 00:00 91 10/29/19 23:30 92 20 97 35 10/29/19 21:30 90 21 99 35 10/29/19 20:57 98 109/56 10/29/19 20:00 99.0 94 21 118/57 (77) 99 10/29/19 20:00 Bi-pap 10/29/19 20:00 96 10/29/19 20:00 35 10/29/19 19:30 94 25 100 Bi-Pap 35 96 25 100 35 10/29/19 17:00 92 21 100 35 10/29/19 16:00 97 10/29/19 16:00 35 10/29/19 16:00 98.1 98 23 120/67 (84) 99 10/29/19 16:00 Bi-pap 10/29/19 15:54 99 25 99 35 Intake and Output 10/29/19 10/30/19 19:00 07:00 Intake Total 525 ml 1280 ml Output Total 700 ml 600 ml Balance -175 ml 680 ml Intake Free Water 50 ml 100 ml IV Total 355 ml 660 ml Tube Feeding 120 ml 520 ml Output Urine Total 700 ml 600 ml # Bowel Movements 1 Laboratory Tests Test 10/30/19 03:40 10/30/19 08:45 10/30/19 11:05 10/30/19 13:32 White Blood Count 7.7 K/UL (4.8-10.8) # 6.5 K/UL (4.8-10.8) 6.1 K/UL (4.8-10.8) Red Blood Count 2.73 M/UL (4.70-6.10) L 2.55 M/UL (4.70-6.10) L 2.51 M/UL (4.70-6.10) L Hemoglobin 8.1 G/DL (14.2-18.0) L 7.5 G/DL (14.2-18.0) L 7.3 G/DL (14.2-18.0) L Hematocrit 24.9 % (42.0-52.0) L 23.2 % (42.0-52.0) L 22.9 % (42.0-52.0) L Mean Corpuscular Volume 91 FL (80-99) 91 FL (80-99) 91 FL (80-99) Mean Corpuscular Hemoglobin 29.8 PG (27.0-31.0) 29.6 PG (27.0-31.0) 29.0 PG (27.0-31.0) Mean Corpuscular Hemoglobin Concent 32.6 G/DL (32.0-36.0) 32.5 G/DL (32.0-36.0) 31.9 G/DL (32.0-36.0) L Red Cell Distribution Width 17.6 % (11.6-14.8) H 17.4 % (11.6-14.8) H 17.2 % (11.6-14.8) H Platelet Count 165 K/UL (150-450) 158 K/UL (150-450) 157 K/UL (150-450) Mean Platelet Volume 6.3 FL (6.5-10.1) L 5.7 FL (6.5-10.1) L 6.1 FL (6.5-10.1) L Neutrophils (%) (Auto) 73.3 % (45.0-75.0) % (45.0-75.0) 63.9 % (45.0-75.0) Lymphocytes (%) (Auto) 19.1 % (20.0-45.0) L % (20.0-45.0) 26.9 % (20.0-45.0) Monocytes (%) (Auto) 6.2 % (1.0-10.0) % (1.0-10.0) 6.1 % (1.0-10.0) Eosinophils (%) (Auto) 0.8 % (0.0-3.0) % (0.0-3.0) 1.8 % (0.0-3.0) Basophils (%) (Auto) 0.7 % (0.0-2.0) % (0.0-2.0) 1.4 % (0.0-2.0) Sodium Level 156 MMOL/L (136-145) H 155 MMOL/L (136-145) H Potassium Level 3.4 MMOL/L (3.5-5.1) L 3.3 MMOL/L (3.5-5.1) L Chloride Level 119 MMOL/L (98-107) H 118 MMOL/L (98-107) H Carbon Dioxide Level 26 MMOL/L (21-32) 29 MMOL/L (21-32) Anion Gap 11 mmol/L (5-15) 8 mmol/L (5-15) Blood Urea Nitrogen 53 mg/dL (7-18) H 52 mg/dL (7-18) H Creatinine 1.0 MG/DL (0.55-1.30) 0.9 MG/DL (0.55-1.30) Estimat Glomerular Filtration Rate > 60 mL/min (>60) > 60 mL/min (>60) Glucose Level 131 MG/DL (74-106) H 138 MG/DL (74-106) H Calcium Level 9.4 MG/DL (8.5-10.1) 9.2 MG/DL (8.5-10.1) Differential Total Cells Counted 100 Neutrophils % (Manual) 65 % (45-75) Lymphocytes % (Manual) 30 % (20-45) Monocytes % (Manual) 2 % (1-10) Eosinophils % (Manual) 3 % (0-3) Basophils % (Manual) 0 % (0-2) Band Neutrophils 0 % (0-8) Platelet Estimate Adequate Platelet Morphology Normal Hypochromasia 2+ Anisocytosis 1+ Random Vancomycin Level 12.0 ug/mL Height (Feet): 5 Height (Inches): 10.00 Weight (Pounds): 140 Medications Current Medications Medications (Trade) Dose Ordered Sig/Katharine Route PRN Reason Start Time Stop Time Status Last Admin Dose Admin Albuterol/ Ipratropium (Albuterol/ Ipratropium) 3 ml Q6HRT HHN 10/29/19 13:00 11/03/19 12:59 10/30/19 12:52 Ascorbic Acid (Vitamin C) 500 mg DAILY GT 10/29/19 12:00 11/28/19 11:29 10/30/19 09:15 Carbidopa/Levodopa (Sinemet 25/100) 1 tab THREE TIMES A DAY GT 10/29/19 13:00 11/28/19 12:59 10/30/19 12:57 Dextrose (Dextrose 50%) 25 ml Q30M PRN IV Hypoglycemia 10/29/19 11:30 11/28/19 11:29 Dextrose (Dextrose 50%) 50 ml Q30M PRN IV Hypoglycemia 10/29/19 11:30 11/28/19 11:29 Insulin Aspart (NovoLOG) BEFORE MEALS AND HS SUBQ 10/29/19 11:30 11/28/19 11:29 Meropenem 1 gm/ Sodium Chloride 55 ml @ 110 mls/hr Q12H IVPB 10/29/19 11:00 11/03/19 10:59 10/30/19 11:54 Metoprolol Tartrate (Lopressor) 25 mg EVERY 12 HOURS GT 10/29/19 21:00 11/28/19 20:59 10/30/19 09:14 Multivitamins Therapeutic (Therapeutic Multivitamin) 1 ea DAILY ORAL 10/30/19 09:00 11/29/19 08:59 10/30/19 09:14 Pantoprazole (Protonix) 40 mg DAILY IVP 10/29/19 14:00 11/28/19 13:59 10/30/19 09:14 Potassium Chloride 40 meq/ Dextrose 1,020 ml @ 100 mls/hr [id number] IV 10/30/19 12:30 11/29/19 12:29 10/30/19 12:57 Sennosides (Senokot) 16.2 mg QHS GT 10/29/19 21:00 11/28/19 20:59 10/29/19 20:58 Tamsulosin HCl (Flomax) 0.4 mg DAILY ORAL 10/29/19 11:15 11/28/19 11:14 UNV Vancomycin HCl (Vanco rx to dose) 1 ea DAILY PRN MISC Per rx protocol 10/29/19 09:00 11/28/19 08:59 Vancomycin HCl 750 mg/Sodium Chloride 275 ml @ 183.333 mls/hr Q24H IVPB 10/30/19 14:00 11/04/19 13:59 10/30/19 15:09 Zinc Sulfate (Zinc Sulfate) 220 mg BID ORAL 10/29/19 18:00 11/28/19 17:59 10/30/19 09:14 Assessment/Plan Problem List: (1) Anemia ICD Codes: D64.9 - Anemia, unspecified SNOMED: 011708611, 097333268 Qualifiers: Qualified Codes: D64.9 - Anemia, unspecified (2) Respiratory failure, acute ICD Codes: J96.00 - Acute respiratory failure, unspecified whether with hypoxia or hypercapnia SNOMED: 80757868 Qualifiers: Qualified Codes: J96.01 - Acute respiratory failure with hypoxia (3) HCAP (healthcare-associated pneumonia) ICD Codes: J18.9 - Pneumonia, unspecified organism SNOMED: 127164197, 675177804 (4) V-tach ICD Codes: I47.2 - Ventricular tachycardia SNOMED: 9862019, 19211470 (5) History of pulmonary embolism ICD Codes: Z86.711 - Personal history of pulmonary embolism SNOMED: 566766769 (6) Sacral pressure ulcer Assessment & Plan: Pt presented on admission with multiple pressure injuries. Bilateral groin and scrotum are erythematous. Stage 4 Full thickness Sacral pressure(L)2.2cm x (W)6.5cm. Base of wound beefy red in center at sacrococcygeal with surrounding moist pink granulation. Edges are macerated.Small amt brown exudate that is malodorous. Periwound purple/ maroon and indurated. In addition pt noted to have scattered partial thickness wounds periwound. Entire pressure injury including full thickness wound measures 7cm x (W)7.5cm. Stage 4 Full thickness pressure injury L trochanter. Base of wound has 80% soft necrotic tissue, 20% mixed beefy red and slough. Bone is palpable. Wound is malodorous(L)6.2cm x (W)6.5cm.Small amt brown exudate noted.Periwound is indurated with areas of fluctuance. The Affected area including wound measuring (L)14.2cm x (W)17.5cm. Stage 4 Full thickness pressure injury R trochanter. Base of wound has 50% slough in center with surrounding beefy red granulation (L)6.5cm x (W)7cm. Bone is palpable at center of wound. Wound is malodorous. Small amt seropurulent exudate noted.Periwound is purple and indurated. Unstageable pressure injury L hallux. Dry eschar at base of wound. Marginal erythema along borders .NO odor or exudate noted (L)3cm x (W)1.4cm Unstageable pressure injury medial/lateral L foot. Base of wound is brown over bony protrusion with surrounding maroon borders (L)1cm x (W)1.4cm. L heel is boggy with non-blanching erythema medial aspect of heel. Full thickness pressure injury dorsal/medial aspect of L foot. Base of wound is beefy and moist in center with black and fluctuant borders (L)2.6cm x (W)4.5cm. DTPI Medial L heel . Base of wound is fluctuant purple in center with maroon borders. Periwound heel is boggy and erythematous(L)4.2cm x (W)5.5cm. Stable dry eschar noted to R 5th metatarsal (L)0.7cm x (W)0.6cm. NO erythema or evidence of further breakdown periwound. Tx.Plan: Cleanse Sacral wound with Dakin's 0.125% aiyana. Apply Dakin's moist gauze. Apply Moisture Barrier paste periwound. Cover with Optifoam drsg Daily and prn. Cleanse R trochanter wound with Dakin's 0.125% aiyana. Apply Dakin's moist gauze to wound bed. Apply Moisture Barrier Paste periwound. Cover with Optifoam drsg Daily and prn. Cleanse L trochanter wound with Dakin's 0.125% Aiyana. Apply Dakin's moist Gauze to wound. Apply Moisture Barrier Paste periwound. Cover with Optifoam drsg Daily and prn. Swab wounds R foot with Betadine. Cover each wound with Optifoam drsg every 3 days and prn. Swab wounds L foot with Betadine. Cover each wound with Optifoam drsg every 3 days and prn. Air Fluidized Mattress. Reposition at least every 2hours or as tolerated. Place pillow between knees. Off-load heels with pillow. ICD Codes: L89.159 - Pressure ulcer of sacral region, unspecified stage SNOMED: 558733450 (7) JAIRO (acute kidney injury) ICD Codes: N17.9 - Acute kidney failure, unspecified SNOMED: 8396927, 61841262 (8) Acute hypoxemic respiratory failure ICD Codes: J96.01 - Acute respiratory failure with hypoxia SNOMED: 935228568 (9) Decubitus ulcer of ischium, stage 4 ICD Codes: L89.304 - Pressure ulcer of unspecified buttock, stage 4 SNOMED: 051366547, 326192220 (10) LLL pneumonia ICD Codes: J18.9 - Pneumonia, unspecified organism SNOMED: 715172614 (11) Sepsis Assessment & Plan: Abx as per ID nutritional optimization trend labs DAILY ESTIMATED NEEDS: Needs based on Underweight, wounds, 58.6kg 30-35 kcals/kg 4769-6395 total kcals 1.5-2 g protein/kg 88-117 g total protein 25-35ml/kcal mL/kg 7141-5618 total fluid mLs NUTRITION DIAGNOSIS: * Increased kcal and pro needs r/t wound healing and underweight status AEB pt admitted w/ multiple advanced wounds, including unstageable wounds x2, full thickness wounds x4, w/ generalized moderate wasting, @78% of [place] Body Weight. * Swallowing difficulty R/T dysphagia, pt is PEG dependent. (CURRENT TF: Jevity 1.2 @ 65ml/hr x 20 hrs) ENTERAL NUTRITION RECOMMENDATIONS: Glucerna 1.5 @ 50ml/hr x 24 hrs to provide 1200ml, 1800 kcal, 99g pro, 911ml free H2O * Rec TF CHANGE for carb control/high pro formula-> start Glucerna 1.5 @30ml/hr for 6 hrs, advance as tolerated 10ml/hr q4-6 hrs to goal. * HOB over 30 degrees flush per MD ------- ADDITIONAL RECOMMENDATIONS: 1) Calibrated bedscale wt for accurate CBW -> on a bed w/ p200 mattress 2) Wound care, add MYRON in 4oz water BID via GT 3) Rec accuchecks w/ ssi as needed/ h/o DM per MD 4) Check lytes, replete as needed ICD Codes: A41.9 - Sepsis, unspecified organism SNOMED: 90344313, 353786693 Qualifiers: Qualified Codes: A41.9 - Sepsis, unspecified organism; R65.20 - Severe sepsis without septic shock; J96.01 - Acute respiratory failure with hypoxia (12) UTI (urinary tract infection) ICD Codes: N39.0 - Urinary tract infection, site not specified SNOMED: 60268426, 850447646 Qualifiers: Qualified Codes: N30.00 - Acute cystitis without hematuria Kyle Lomax Oct 30, 2019 15:50
[2019-10-30 16:00] VITALS: BP 111/55
--- NOTE | 2019-10-30 17:08 | General Progress Note ---
Assessment/Plan Status: stable Assessment/Plan: 1. LLL pneumonia - cont meropenem and vancomycin for empiric coverage. Follow cultures. Influenza A&B negative in ER. 2. Sepsis - cont broad spectrum antibiotic as above. ID following. 3. UTI - on broad specturm antibiotic. 4, Acute hypoxemic respiratory failure - off BiPaP. doing better and [employer] following the patient. 5. JAIRO - improved with hydration. 6.Pressure Ulcers of Isthium, stage 4 - wound care by Dr Lomax. 7. Anemia - most likely 2nd to Eliquis - will D/C Eliquis and monitor CBC and do 2 units of type and cross. 8. Run of V tach in ER and h/o ICD placement - will have cardiology see patient tomorrow. 9. Hypokalemia - replace KCL today. Subjective Date patient seen: Oct 30, 2019 Time patient seen: 18:45 Constitutional: Reports: fever HEENT: Reports: no symptoms Cardiovascular: Reports: no symptoms Respiratory: Reports: shortness of breath Gastrointestinal/Abdominal: Reports: no symptoms Genitourinary: Reports: no symptoms Neurologic/Psychiatric: Reports: no symptoms Endocrine: Reports: no symptoms Hematologic/Lymphatic: Reports: no symptoms Allergies: Coded Allergies: No Known Allergies (Unverified , 06/20/19) Subjective Patient is off bipap now. No fever or chills. His H/H dropped to 7.3 but no sign of GI bleeding. Objective Last 24 Hour Vital Signs Date Time Temp Pulse Resp B/P (MAP) Pulse Ox O2 Delivery O2 Flow Rate FiO2 10/30/19 16:00 Venturi Mask 10/30/19 16:00 35 10/30/19 16:00 75 10/30/19 16:00 98.9 75 19 111/55 (73) 100 10/30/19 12:49 71 30 100 Venturi Mask 6.0 35 73 29 100 10/30/19 12:00 99.4 70 18 115/61 (79) 100 10/30/19 12:00 Venturi Mask 10/30/19 12:00 35 10/30/19 12:00 72 10/30/19 09:14 88 132/64 10/30/19 09:06 100 Venturi Mask 6.0 35 10/30/19 08:00 Bi-pap 3/3/20 08:00 99.9 88 21 132/64 (86) 100 10/30/19 08:00 35 10/30/19 08:00 87 10/30/19 06:55 90 26 97 Bi-Pap 35 88 22 99 35 10/30/19 05:09 90 25 97 35 10/30/19 04:00 35 10/30/19 04:00 81 10/30/19 04:00 Bi-pap 10/30/19 04:00 99.2 95 27 115/60 (78) 96 10/30/19 03:30 82 20 100 35 10/30/19 01:30 91 29 99 Bi-Pap 35 95 30 100 35 10/30/19 00:00 99.6 89 22 108/54 (72) 99 10/30/19 00:00 Bi-pap 10/30/19 00:00 91 10/29/19 23:30 92 20 97 35 10/29/19 21:30 90 21 99 35 10/29/19 20:57 98 109/56 10/29/19 20:00 99.0 94 21 118/57 (77) 99 10/29/19 20:00 Bi-pap 10/29/19 20:00 96 10/29/19 20:00 35 10/29/19 19:30 94 25 100 Bi-Pap 35 96 25 100 35 Intake and Output 10/29/19 10/30/19 19:00 07:00 Intake Total 525 ml 1330 ml Output Total 700 ml 600 ml Balance -175 ml 730 ml Intake Free Water 50 ml 100 ml IV Total 355 ml 660 ml Tube Feeding 120 ml 570 ml Output Urine Total 700 ml 600 ml # Bowel Movements 1 Laboratory Tests 10/30/19 03:40: White Blood Count 7.7#, Red Blood Count 2.73L, Hemoglobin 8.1L, Hematocrit 24.9L , Mean Corpuscular Volume 91, Mean Corpuscular Hemoglobin 29.8, Mean Corpuscular Hemoglobin Concent 32.6, Red Cell Distribution Width 17.6H, Platelet Count 165, Mean Platelet Volume 6.3L, Neutrophils (%) (Auto) 73.3, Lymphocytes (%) (Auto) 19.1L, Monocytes (%) (Auto) 6.2, Eosinophils (%) (Auto) 0.8, Basophils (%) (Auto) 0.7, Sodium Level 156H, Potassium Level 3.4L, Chloride Level 119H, Carbon Dioxide Level 26, Anion Gap 11, Blood Urea Nitrogen 53H, Creatinine 1.0, Estimat Glomerular Filtration Rate > 60, Glucose Level 131H , Calcium Level 9.4 10/30/19 08:45: White Blood Count 6.5, Red Blood Count 2.55L, Hemoglobin 7.5L, Hematocrit 23.2L , Mean Corpuscular Volume 91, Mean Corpuscular Hemoglobin 29.6, Mean Corpuscular Hemoglobin Concent 32.5, Red Cell Distribution Width 17.4H, Platelet Count 158, Mean Platelet Volume 5.7L, Neutrophils (%) (Auto) , Lymphocytes (%) (Auto) , Monocytes (%) (Auto) , Eosinophils (%) (Auto) , Basophils (%) (Auto) , Sodium Level 155H, Potassium Level 3.3L, Chloride Level 118H, Carbon Dioxide Level 29, Anion Gap 8, Blood Urea Nitrogen 52H, Creatinine 0.9, Estimat Glomerular Filtration Rate > 60, Glucose Level 138H, Calcium Level 9.2, Differential Total Cells Counted 100, Neutrophils % (Manual) 65, Lymphocytes % (Manual) 30, Monocytes % (Manual) 2, Eosinophils % (Manual) 3, Basophils % (Manual) 0, Band Neutrophils 0, Platelet Estimate Adequate, Platelet Morphology Normal, Hypochromasia 2+, Anisocytosis 1+ 10/30/19 11:05: Random Vancomycin Level 12.0 10/30/19 13:32: White Blood Count 6.1, Red Blood Count 2.51L, Hemoglobin 7.3L, Hematocrit 22.9L , Mean Corpuscular Volume 91, Mean Corpuscular Hemoglobin 29.0, Mean Corpuscular Hemoglobin Concent 31.9L, Red Cell Distribution Width 17.2H, Platelet Count 157, Mean Platelet Volume 6.1L, Neutrophils (%) (Auto) 63.9, Lymphocytes (%) (Auto) 26.9, Monocytes (%) (Auto) 6.1, Eosinophils (%) (Auto) 1.8, Basophils (%) (Auto) 1.4 Height (Feet): 5 Height (Inches): 10.00 Weight (Pounds): 140 General Appearance: no apparent distress EENT: normal ENT inspection Neck: non-tender, supple Cardiovascular: normal peripheral pulses, normal rate, regular rhythm Respiratory/Chest: lungs clear, normal breath sounds Abdomen: normal bowel sounds, non tender, soft Extremities: normal range of motion, non-tender Edema: no edema noted Arm (L), no edema noted Arm (R), no edema noted Leg (L), no edema noted Leg (R), no edema noted Pedal (L), no edema noted Pedal (R), no edema noted Generalized Neurologic: responsive Skin: warm/dry Aakash Blanco MD Oct 30, 2019 17:08
[2019-10-30] MEDS ORDERED: ACETAMINOP160 MG/5 M GT ×3 (19:45→20:08)
[2019-10-30] MEDS ORDERED: PROTONIX40 M2 GT (19:50)
[2019-10-30] MEDS ORDERED: VITAMIN C500 MG/11 GT (19:54)
[2019-10-30 20:00] VITALS: BP 107/60
[2019-10-30] MEDS ORDERED: DOCUSATE SODIU100 MG GT (20:04)
[2019-10-30] MEDS: Dakin's 0.125% Soln (Quarter Strength) 16oz TOPIC SCH (20:47)
[2019-10-30] MEDS: Sennosides 8.6mg tab GT SCH (20:51)
[2019-10-31] VITALS: BP 121/67
[2019-10-31] MEDS: Albuterol/Ipratropium 3ml neb HHN SCH ×4 (01:16→20:19)
[2019-10-31 04:00] VITALS: BP 124/68
[2019-10-31 04:50] LABS: HEMATOCRIT 23.8 % (42.0-52.0); HEMOGLOBIN 7.7 G/DL (14.2-18.0); MEAN CORPUSCULAR VOLUME 91 FL (80-99); PLATELET COUNT 158 K/UL (150-450); RED BLOOD COUNT 2.62 M/UL (4.70-6.10); RED CELL DISTRIBUTION WIDTH 17.2 % (11.6-14.8)
[2019-10-31 05:15] LABS: ANION GAP 5 mmol/L (5-15); BLOOD UREA NITROGEN 41 mg/dL (7-18); CALCIUM 9.3 MG/DL (8.5-10.1); CARBON DIOXIDE 28 MMOL/L (21-32); CHLORIDE 116 MMOL/L (98-107); CREATININE 0.8 MG/DL (0.55-1.30); POTASSIUM 4.3 MMOL/L (3.5-5.1); SODIUM 149 MMOL/L (136-145)
[2019-10-31] MEDS: NovoLOG Insulin Flexpen SUBQ SCH ×4 (05:37→21:00)
[2019-10-31 08:00] VITALS: BP 118/60
[2019-10-31] MEDS: Levodopa/Carbidopa 25/100 tab GT SCH ×3 (08:52→17:43)
[2019-10-31] MEDS: Pantoprazole Inj IVP SCH (08:52)
[2019-10-31] MEDS: Ascorbic Acid 500mg tab GT SCH (08:52)
[2019-10-31] MEDS: Multivitamin w/Minerals tab ORAL SCH (08:52)
[2019-10-31] MEDS: Zinc Sulfate 220mg cap ORAL SCH (08:52)
[2019-10-31] MEDS: Dakin's 0.125% Soln (Quarter Strength) 16oz TOPIC SCH (08:53)
--- NOTE | 2019-10-31 09:15 | General Progress Note ---
Assessment/Plan Status: stable Assessment/Plan: 1. LLL pneumonia - cont meropenem and vancomycin for empiric coverage. Follow cultures. Influenza A&B negative in ER. 2. Sepsis - cont broad spectrum antibiotic as above. ID following. follow cultures. 3. UTI - on broad specturm antibiotic. 4, Acute hypoxemic respiratory failure - off BiPaP. doing better and [employer] following the patient. 5. JAIRO - improved with hydration. 6.Pressure Ulcers of Isthium, stage 4 - wound care by Dr Lomax. 7. Anemia - most likely 2nd to Eliquis - will D/C Eliquis and monitor CBC and do 2 units of type and cross. 8. Run of V tach in ER and h/o ICD placement - will have cardiology see patient today. 9. Hypokalemia - resolved. 10. Hyponatremia - Improving with D5W. 11. Parkinson's Dementia Subjective Date patient seen: Oct 31, 2019 Time patient seen: 09:00 Constitutional: Reports: weakness HEENT: Reports: no symptoms Cardiovascular: Reports: no symptoms Respiratory: Reports: shortness of breath Gastrointestinal/Abdominal: Reports: no symptoms Genitourinary: Reports: no symptoms Neurologic/Psychiatric: Reports: other - Nonverbal Endocrine: Reports: no symptoms Hematologic/Lymphatic: Reports: anemia Allergies: Coded Allergies: No Known Allergies (Unverified , 06/20/19) Subjective He is doing better this moring. He still has low grade temp. His H/H improved to 7.7 after stopping Eliquis. No sign of GI bleeding. He had normal bowel movement. apparantly, he had drop in his H/H at [place] with Eliquis as well. Objective Last 24 Hour Vital Signs Date Time Temp Pulse Resp B/P (MAP) Pulse Ox O2 Delivery O2 Flow Rate FiO2 10/31/19 08:52 80 118/60 10/31/19 08:00 Venturi Mask 10/31/19 08:00 99.4 80 24 118/60 (79) 100 10/31/19 08:00 35 10/31/19 07:39 85 22 100 Venturi Mask 6.0 35 87 21 99 10/31/19 07:28 99 10/31/19 07:27 99 Venturi Mask 6.0 35 10/31/19 05:10 97 6.0 35 10/31/19 04:00 35 3/4/20 04:00 99.8 80 32 124/68 (86) 96 10/31/19 04:00 Venturi Mask 10/31/19 04:00 78 10/31/19 02:59 80 29 100 35 10/31/19 01:23 76 30 100 Bi-Pap 35 79 28 100 35 10/31/19 00:00 99.6 74 28 121/67 (85) 100 10/31/19 00:00 Venturi Mask 10/31/19 00:00 76 10/31/19 00:00 35 10/30/19 20:51 75 110/60 10/30/19 20:00 99.6 75 28 107/60 (76) 100 10/30/19 20:00 Venturi Mask 10/30/19 20:00 74 10/30/19 20:00 100 Venturi Mask 6.0 35 10/30/19 20:00 35 10/30/19 19:30 75 24 99 Venturi Mask 6.0 35 78 28 100 6.0 35 10/30/19 16:00 Venturi Mask 10/30/19 16:00 35 10/30/19 16:00 75 10/30/19 16:00 98.9 75 19 111/55 (73) 100 10/30/19 12:49 71 30 100 Venturi Mask 6.0 35 73 29 100 10/30/19 12:00 99.4 70 18 115/61 (79) 100 10/30/19 12:00 Venturi Mask 10/30/19 12:00 35 10/30/19 12:00 72 10/30/19 09:14 88 132/64 Intake and Output 10/30/19 10/31/19 19:00 07:00 Intake Total 1660.000 ml 1620 ml Output Total 1500 ml 600 ml Balance 160.000 ml 1020 ml Intake Free Water 150 ml 150 ml IV Total 780.000 ml 755 ml Tube Feeding 730 ml 715 ml Output Urine Total 1500 ml 600 ml # Bowel Movements 2 Laboratory Tests 10/30/19 11:05: Random Vancomycin Level 12.0 10/30/19 13:32: White Blood Count 6.1, Red Blood Count 2.51L, Hemoglobin 7.3L, Hematocrit 22.9L , Mean Corpuscular Volume 91, Mean Corpuscular Hemoglobin 29.0, Mean Corpuscular Hemoglobin Concent 31.9L, Red Cell Distribution Width 17.2H, Platelet Count 157, Mean Platelet Volume 6.1L, Neutrophils (%) (Auto) 63.9, Lymphocytes (%) (Auto) 26.9, Monocytes (%) (Auto) 6.1, Eosinophils (%) (Auto) 1.8, Basophils (%) (Auto) 1.4 10/31/19 03:45: White Blood Count 6.0, Red Blood Count 2.62L, Hemoglobin 7.7L, Hematocrit 23.8L , Mean Corpuscular Volume 91, Mean Corpuscular Hemoglobin 29.5, Mean Corpuscular Hemoglobin Concent 32.5, Red Cell Distribution Width 17.2H, Platelet Count 158, Mean Platelet Volume 5.8L, Neutrophils (%) (Auto) , Lymphocytes (%) (Auto) , Monocytes (%) (Auto) , Eosinophils (%) (Auto) , Basophils (%) (Auto) , Sodium Level 149H, Potassium Level 4.3, Chloride Level 116H, Carbon Dioxide Level 28, Anion Gap 5, Blood Urea Nitrogen 41H, Creatinine 0.8, Estimat Glomerular Filtration Rate > 60, Glucose Level 148H, Calcium Level 9.3 Height (Feet): 5 Height (Inches): 10.00 Weight (Pounds): 132 General Appearance: no apparent distress, other - Nonverbal EENT: normal ENT inspection Neck: non-tender, normal alignment, supple Cardiovascular: normal rate, regular rhythm Respiratory/Chest: lungs clear, no respiratory distress Abdomen: non tender, soft, no organomegaly Extremities: non-tender Edema: no edema noted Arm (L), no edema noted Arm (R), no edema noted Leg (L), no edema noted Leg (R), no edema noted Pedal (L), no edema noted Pedal (R), no edema noted Generalized Neurologic: responsive Skin: warm/dry Aakash Blanco MD Oct 31, 2019 09:15
[2019-10-31] MEDS: Meropenem 1 GM in NS 55 ML IVPB SCH ×2 (10:53→23:17)
[2019-10-31 12:00] VITALS: BP 119/65
--- NOTE | 2019-10-31 12:20 | Pulmonology Progress Note ---
Assessment/Plan Problems: (1) JAIRO (acute kidney injury) Assessment & Plan: With hyperNa (2) Acute hypoxemic respiratory failure (3) Respiratory failure, acute (4) HCAP (healthcare-associated pneumonia) (5) UTI (urinary tract infection) (6) Sepsis Assessment & Plan: GPC (7) V-tach (8) History of pulmonary embolism (9) Sacral pressure ulcer (10) Anemia Assessment/Plan CXR ABGOptimize pulmonary hygiene/mobilize as tolerated BiPAP qHS and PRN Titrate O2 HHN's Abx: Rodolfo/Vanco per ID, F/U Cx's Monitor volumes and renal function, replete free water DVT Px: Eliquis NPO, GTF's FC, continue to discuss GOC Wound care Subjective Allergies: Coded Allergies: No Known Allergies (Unverified , 06/20/19) Subjective Obtunded used BiPAP x 3 hours ON on NC now RR 30's no cough no FC alesia TF's Objective Last 24 Hour Vital Signs Date Time Temp Pulse Resp B/P (MAP) Pulse Ox O2 Delivery O2 Flow Rate FiO2 10/31/19 12:00 Venturi Mask 10/31/19 12:00 35 10/31/19 12:00 98.9 84 40 119/65 (83) 95 10/31/19 09:02 98 10/31/19 08:52 80 118/60 10/31/19 08:00 78 10/31/19 08:00 Venturi Mask 10/31/19 08:00 99.4 80 24 118/60 (79) 100 10/31/19 08:00 35 10/31/19 07:39 85 22 100 Venturi Mask 6.0 35 87 21 99 10/31/19 07:28 99 10/31/19 07:27 99 Venturi Mask 6.0 35 10/31/19 05:10 97 6.0 35 10/31/19 04:00 35 10/31/19 04:00 99.8 80 32 124/68 (86) 96 10/31/19 04:00 Venturi Mask 10/31/19 04:00 78 10/31/19 02:59 80 29 100 35 10/31/19 01:23 76 30 100 Bi-Pap 35 79 28 100 35 10/31/19 00:00 99.6 74 28 121/67 (85) 100 3/4/20 00:00 Venturi Mask 10/31/19 00:00 76 10/31/19 00:00 35 10/30/19 20:51 75 110/60 10/30/19 20:00 99.6 75 28 107/60 (76) 100 10/30/19 20:00 Venturi Mask 10/30/19 20:00 74 10/30/19 20:00 100 Venturi Mask 6.0 35 10/30/19 20:00 35 10/30/19 19:30 75 24 99 Venturi Mask 6.0 35 78 28 100 6.0 35 10/30/19 16:00 Venturi Mask 10/30/19 16:00 35 10/30/19 16:00 75 10/30/19 16:00 98.9 75 19 111/55 (73) 100 10/30/19 12:49 71 30 100 Venturi Mask 6.0 35 73 29 100 Intake and Output 10/30/19 10/31/19 19:00 07:00 Intake Total 1660.000 ml 1685 ml Output Total 1500 ml 600 ml Balance 160.000 ml 1085 ml Intake Free Water 150 ml 150 ml IV Total 780.000 ml 755 ml Tube Feeding 730 ml 780 ml Output Urine Total 1500 ml 600 ml # Bowel Movements 2 General Appearance: other - obtunded HEENT: normocephalic, atraumatic, anicteric, mucous membranes moist Respiratory/Chest: rhonchi Cardiovascular: normal peripheral pulses, normal rate, regular rhythm Abdomen: normal bowel sounds, soft, non tender, no organomegaly, non distended , no mass Extremities: no cyanosis, no clubbing, no edema Microbiology Date/Time Source Procedure Growth Status 10/29/19 05:45 Blood Blood Culture - Preliminary Gram Positive Cocci Resulted 10/29/19 05:30 Blood Blood Culture - Preliminary Gram Positive Cocci Resulted 10/30/19 09:30 Sputum Expectorated Gram Stain - Final Resulted 10/30/19 09:30 Sputum Expectorated Sputum Culture Pending Resulted 10/29/19 05:50 Nasal Nares MRSA Culture - Final Staphylococcus Aureus - Mrsa Complete 10/29/19 05:49 Nasal Nares - Final Complete 10/29/19 05:49 Nasal Nares - Final Complete 10/29/19 05:45 Urine,Clean Catch Urine Culture - Preliminary Resulted 10/29/19 05:50 Rectum - Final NO CARBAPENEM-RESISTANT ENTEROBACTERI... Complete 10/29/19 05:50 Rectum VRE Culture - Final Enterococcus Faecium - Vre Enterococcus Faecalis - Vre Complete Laboratory Tests 10/30/19 13:32: White Blood Count 6.1, Red Blood Count 2.51L, Hemoglobin 7.3L, Hematocrit 22.9L , Mean Corpuscular Volume 91, Mean Corpuscular Hemoglobin 29.0, Mean Corpuscular Hemoglobin Concent 31.9L, Red Cell Distribution Width 17.2H, Platelet Count 157, Mean Platelet Volume 6.1L, Neutrophils (%) (Auto) 63.9, Lymphocytes (%) (Auto) 26.9, Monocytes (%) (Auto) 6.1, Eosinophils (%) (Auto) 1.8, Basophils (%) (Auto) 1.4 10/31/19 03:45: White Blood Count 6.0, Red Blood Count 2.62L, Hemoglobin 7.7L, Hematocrit 23.8L , Mean Corpuscular Volume 91, Mean Corpuscular Hemoglobin 29.5, Mean Corpuscular Hemoglobin Concent 32.5, Red Cell Distribution Width 17.2H, Platelet Count 158, Mean Platelet Volume 5.8L, Neutrophils (%) (Auto) , Lymphocytes (%) (Auto) , Monocytes (%) (Auto) , Eosinophils (%) (Auto) , Basophils (%) (Auto) , Sodium Level 149H, Potassium Level 4.3, Chloride Level 116H, Carbon Dioxide Level 28, Anion Gap 5, Blood Urea Nitrogen 41H, Creatinine 0.8, Estimat Glomerular Filtration Rate > 60, Glucose Level 148H, Calcium Level 9.3 Current Medications Medications (Trade) Dose Ordered Sig/Katharine Route PRN Reason Start Time Stop Time Status Last Admin Dose Admin Albuterol/ Ipratropium (Albuterol/ Ipratropium) 3 ml Q6HRT HHN 10/29/19 13:00 11/03/19 12:59 10/31/19 07:29 Ascorbic Acid (Vitamin C) 500 mg DAILY GT 10/29/19 12:00 11/28/19 11:29 10/31/19 08:52 Carbidopa/Levodopa (Sinemet 25/100) 1 tab THREE TIMES A DAY GT 10/29/19 13:00 11/28/19 12:59 10/31/19 08:52 Dextrose (Dextrose 50%) 25 ml Q30M PRN IV Hypoglycemia 10/29/19 11:30 11/28/19 11:29 Dextrose (Dextrose 50%) 50 ml Q30M PRN IV Hypoglycemia 10/29/19 11:30 11/28/19 11:29 Insulin Aspart (NovoLOG) BEFORE MEALS AND HS SUBQ 10/29/19 11:30 11/28/19 11:29 10/30/19 20:55 Meropenem 1 gm/ Sodium Chloride 55 ml @ 110 mls/hr Q12H IVPB 10/29/19 11:00 11/03/19 10:59 10/31/19 10:53 Metoprolol Tartrate (Lopressor) 25 mg EVERY 12 HOURS GT 10/29/19 21:00 11/28/19 20:59 10/31/19 08:52 Multivitamins Therapeutic (Therapeutic Multivitamin) 1 ea DAILY ORAL 10/30/19 09:00 11/29/19 08:59 10/31/19 08:52 Pantoprazole (Protonix) 40 mg DAILY IVP 10/29/19 14:00 11/28/19 13:59 10/31/19 08:52 Potassium Chloride 40 meq/ Dextrose 1,020 ml @ 75 mls/hr [id number] IV 10/31/19 09:58 10/31/19 19:59 10/31/19 11:10 Potassium Chloride 40 meq/ Dextrose 1,020 ml @ 75 mls/hr [id number] IV 10/31/19 20:00 11/30/19 19:59 Sennosides (Senokot) 16.2 mg QHS GT 10/29/19 21:00 11/28/19 20:59 10/30/19 20:51 Sodium Hypochlorite (Dakin's Quarter Strength) 1 applic DAILY TOPIC 10/30/19 20:00 11/29/19 19:59 10/31/19 08:53 Vancomycin HCl (Vanco rx to dose) 1 ea DAILY PRN MISC Per rx protocol 10/29/19 09:00 11/28/19 08:59 Vancomycin HCl 750 mg/Sodium Chloride 275 ml @ 183.333 mls/hr Q24H IVPB 10/30/19 14:00 11/04/19 13:59 10/30/19 15:09 Zinc Sulfate (Zinc Sulfate) 220 mg BID GT 10/31/19 18:00 11/28/19 17:59 Yves Harrison MD Oct 31, 2019 12:20
--- NOTE | 2019-10-31 14:04 | Infectious Diseases Prog Note ---
Assessment/Plan Problems: (1) LLL pneumonia Assessment & Plan: with hypoxemia , cough productive and fever, continue meropenem and vancomycin empiric coverage for now pending sputum culture . screening for influenza A&B is negative . aspiration precaution . (2) UTI (urinary tract infection) Assessment & Plan: with negative culture suspect sterile pyuria , already on meropenem for pneumonia coverage (3) Sepsis Assessment & Plan: due to gram positive cocci in clusters source most likely his pressure wounds , with fever , leukocytosis suspect due to the above , continue vancomycin pending final cultures , repeat blood culture to confirm clearance (4) Sacral pressure ulcer Assessment & Plan: with cellulitis and infection , already on wide spectrum antibiotics, recommend off loading and local wound care as per hospital protocol (5) JAIRO (acute kidney injury) Assessment & Plan: due to sepsis , continue hydration and renally adjusted antibiotics (6) Acute hypoxemic respiratory failure Assessment & Plan: suspect due to the above, on bipap , already started on wide spectrum antibiotics , monitor ABG, and CXR , Pulmonary is following (7) Decubitus ulcer of ischium, stage 4 Assessment & Plan: recommend off loading, local wound care and dressings change as per hospital protocol , already on wide spectrum antibiotics Subjective ROS Limited/Unobtainable: Yes Allergies: Coded Allergies: No Known Allergies (Unverified , 06/20/19) Subjective He was resting in bed comfortable, on BIPAP, has low grade fever, coughing and congested with some phlegm production Objective Vital Signs Last 24 Hour Vital Signs Date Time Temp Pulse Resp B/P (MAP) Pulse Ox O2 Delivery O2 Flow Rate FiO2 10/31/19 13:06 98 10/31/19 12:00 Venturi Mask 10/31/19 12:00 35 10/31/19 12:00 98.9 84 40 119/65 (83) 95 10/31/19 12:00 84 10/31/19 11:28 98 10/31/19 09:02 98 10/31/19 08:52 80 118/60 10/31/19 08:00 78 10/31/19 08:00 Venturi Mask 10/31/19 08:00 99.4 80 24 118/60 (79) 100 10/31/19 08:00 35 10/31/19 07:39 85 22 100 Venturi Mask 6.0 35 87 21 99 10/31/19 07:28 99 10/31/19 07:27 99 Venturi Mask 6.0 35 10/31/19 05:10 97 6.0 35 10/31/19 04:00 35 10/31/19 04:00 99.8 80 32 124/68 (86) 96 10/31/19 04:00 Venturi Mask 10/31/19 04:00 78 10/31/19 02:59 80 29 100 35 10/31/19 01:23 76 30 100 Bi-Pap 35 79 28 100 35 10/31/19 00:00 99.6 74 28 121/67 (85) 100 10/31/19 00:00 Venturi Mask 10/31/19 00:00 76 10/31/19 00:00 35 10/30/19 20:51 75 110/60 10/30/19 20:00 99.6 75 28 107/60 (76) 100 10/30/19 20:00 Venturi Mask 10/30/19 20:00 74 10/30/19 20:00 100 Venturi Mask 6.0 35 10/30/19 20:00 35 10/30/19 19:30 75 24 99 Venturi Mask 6.0 35 78 28 100 6.0 35 10/30/19 16:00 Venturi Mask 10/30/19 16:00 35 10/30/19 16:00 75 10/30/19 16:00 98.9 75 19 111/55 (73) 100 Height (Feet): 5 Height (Inches): 10.00 Weight (Pounds): 132 General Appearance: no acute distress, cachetic HEENT: normocephalic, atraumatic, anicteric, mucous membranes moist Respiratory/Chest: chest wall non-tender, lungs clear, no accessory muscle use , decreased breath sounds, crackles/rales Cardiovascular: normal peripheral pulses, normal rate, regular rhythm, no gallop/murmur, no JVD Abdomen: normal bowel sounds, soft, non tender, no organomegaly, non distended , no mass Extremities: no cyanosis, no clubbing Skin: no rash, no lesions, ulcers Neurologic/Psychiatric: shelver II-XII grossly normal, alert, responsive Lymphatic: no neck adenopathy, no groin adenopathy Musculoskeletal: normal muscle bulk, no effusion Microbiology Date/Time Source Procedure Growth Status 10/29/19 05:45 Blood Blood Culture - Preliminary Gram Positive Cocci Resulted 10/29/19 05:30 Blood Blood Culture - Preliminary Gram Positive Cocci Resulted 10/30/19 09:30 Sputum Expectorated Gram Stain - Final Resulted 10/30/19 09:30 Sputum Expectorated Sputum Culture Pending Resulted 10/29/19 05:50 Nasal Nares MRSA Culture - Final Staphylococcus Aureus - Mrsa Complete 10/29/19 05:49 Nasal Nares - Final Complete 10/29/19 05:49 Nasal Nares - Final Complete 10/29/19 05:45 Urine,Clean Catch Urine Culture - Preliminary Resulted 10/29/19 05:50 Rectum - Final NO CARBAPENEM-RESISTANT ENTEROBACTERI... Complete 10/29/19 05:50 Rectum VRE Culture - Final Enterococcus Faecium - Vre Enterococcus Faecalis - Vre Complete Laboratory Tests Test 10/31/19 03:45 10/31/19 13:32 White Blood Count 6.0 K/UL (4.8-10.8) Red Blood Count 2.62 M/UL (4.70-6.10) L Hemoglobin 7.7 G/DL (14.2-18.0) L Hematocrit 23.8 % (42.0-52.0) L Mean Corpuscular Volume 91 FL (80-99) Mean Corpuscular Hemoglobin 29.5 PG (27.0-31.0) Mean Corpuscular Hemoglobin Concent 32.5 G/DL (32.0-36.0) Red Cell Distribution Width 17.2 % (11.6-14.8) H Platelet Count 158 K/UL (150-450) Mean Platelet Volume 5.8 FL (6.5-10.1) L Neutrophils (%) (Auto) % (45.0-75.0) Lymphocytes (%) (Auto) % (20.0-45.0) Monocytes (%) (Auto) % (1.0-10.0) Eosinophils (%) (Auto) % (0.0-3.0) Basophils (%) (Auto) % (0.0-2.0) Sodium Level 149 MMOL/L (136-145) H Potassium Level 4.3 MMOL/L (3.5-5.1) Chloride Level 116 MMOL/L (98-107) H Carbon Dioxide Level 28 MMOL/L (21-32) Anion Gap 5 mmol/L (5-15) Blood Urea Nitrogen 41 mg/dL (7-18) H Creatinine 0.8 MG/DL (0.55-1.30) Estimat Glomerular Filtration Rate > 60 mL/min (>60) Glucose Level 148 MG/DL (74-106) H Calcium Level 9.3 MG/DL (8.5-10.1) Arterial Blood pH 7.484 (7.350-7.450) Arterial Blood Partial Pressure CO2 34.0 mmHg (35.0-45.0) L Arterial Blood Partial Pressure O2 107.4 mmHg (75.0-100.0) H Arterial Blood HCO3 25.0 mmol/L (22.0-26.0) Arterial Blood Oxygen Saturation 97.8 % (95-100) Arterial Blood Base Excess 1.6 (-2-2) Clemente Test Positive Current Medications Medications (Trade) Dose Ordered Sig/Katharine Route PRN Reason Start Time Stop Time Status Last Admin Dose Admin Albuterol/ Ipratropium (Albuterol/ Ipratropium) 3 ml Q6HRT HHN 10/29/19 13:00 11/03/19 12:59 10/31/19 13:35 Ascorbic Acid (Vitamin C) 500 mg DAILY GT 10/29/19 12:00 11/28/19 11:29 10/31/19 08:52 Carbidopa/Levodopa (Sinemet 25/100) 1 tab THREE TIMES A DAY GT 10/29/19 13:00 11/28/19 12:59 10/31/19 08:52 Dextrose (Dextrose 50%) 25 ml Q30M PRN IV Hypoglycemia 10/29/19 11:30 11/28/19 11:29 Dextrose (Dextrose 50%) 50 ml Q30M PRN IV Hypoglycemia 10/29/19 11:30 11/28/19 11:29 Insulin Aspart (NovoLOG) BEFORE MEALS AND HS SUBQ 10/29/19 11:30 11/28/19 11:29 10/30/19 20:55 Meropenem 1 gm/ Sodium Chloride 55 ml @ 110 mls/hr Q12H IVPB 10/29/19 11:00 11/03/19 10:59 10/31/19 10:53 Metoprolol Tartrate (Lopressor) 25 mg EVERY 12 HOURS GT 10/29/19 21:00 11/28/19 20:59 10/31/19 08:52 Multivitamins Therapeutic (Therapeutic Multivitamin) 1 ea DAILY ORAL 10/30/19 09:00 11/29/19 08:59 10/31/19 08:52 Pantoprazole (Protonix) 40 mg DAILY IVP 10/29/19 14:00 11/28/19 13:59 10/31/19 08:52 Potassium Chloride 40 meq/ Dextrose 1,020 ml @ 75 mls/hr [id number] IV 10/31/19 09:58 10/31/19 19:59 10/31/19 11:10 Potassium Chloride 40 meq/ Dextrose 1,020 ml @ 75 mls/hr [id number] IV 10/31/19 20:00 11/30/19 19:59 Sennosides (Senokot) 16.2 mg QHS GT 10/29/19 21:00 11/28/19 20:59 10/30/19 20:51 Sodium Hypochlorite (Dakin's Quarter Strength) 1 applic DAILY TOPIC 10/30/19 20:00 11/29/19 19:59 10/31/19 08:53 Vancomycin HCl (Vanco rx to dose) 1 ea DAILY PRN MISC Per rx protocol 10/29/19 09:00 11/28/19 08:59 Vancomycin HCl 750 mg/Sodium Chloride 275 ml @ 183.333 mls/hr Q24H IVPB 10/30/19 14:00 11/04/19 13:59 10/30/19 15:09 Zinc Sulfate (Zinc Sulfate) 220 mg BID GT 10/31/19 18:00 11/28/19 17:59 Arcadio Mcnair M.D. Oct 31, 2019 14:04
[2019-10-31] MEDS: Vancomycin 750 MG in NS 275 ML IVPB SCH (14:06)
--- NOTE | 2019-10-31 14:41 | Surgery Progress Note ---
Surgery Progress Note Subjective Additional Comments toleraging tf at goal comfortable stable labs noted exam unchanged Objective Last 24 Hour Vital Signs Date Time Temp Pulse Resp B/P (MAP) Pulse Ox O2 Delivery O2 Flow Rate FiO2 10/31/19 13:45 87 27 100 Nasal Cannula 2.0 28 88 28 100 10/31/19 13:06 98 10/31/19 12:00 Venturi Mask 10/31/19 12:00 35 10/31/19 12:00 98.9 84 40 119/65 (83) 95 10/31/19 12:00 84 10/31/19 11:28 98 10/31/19 09:02 98 10/31/19 08:52 80 118/60 10/31/19 08:00 78 10/31/19 08:00 Venturi Mask 10/31/19 08:00 99.4 80 24 118/60 (79) 100 10/31/19 08:00 35 10/31/19 07:39 85 22 100 Venturi Mask 6.0 35 87 21 99 10/31/19 07:28 99 10/31/19 07:27 99 Venturi Mask 6.0 35 10/31/19 05:10 97 6.0 35 10/31/19 04:00 35 10/31/19 04:00 99.8 80 32 124/68 (86) 96 10/31/19 04:00 Venturi Mask 10/31/19 04:00 78 10/31/19 02:59 80 29 100 35 10/31/19 01:23 76 30 100 Bi-Pap 35 79 28 100 35 10/31/19 00:00 99.6 74 28 121/67 (85) 100 10/31/19 00:00 Venturi Mask 10/31/19 00:00 76 10/31/19 00:00 35 10/30/19 20:51 75 110/60 10/30/19 20:00 99.6 75 28 107/60 (76) 100 10/30/19 20:00 Venturi Mask 10/30/19 20:00 74 10/30/19 20:00 100 Venturi Mask 6.0 35 10/30/19 20:00 35 10/30/19 19:30 75 24 99 Venturi Mask 6.0 35 78 28 100 6.0 35 10/30/19 16:00 Venturi Mask 10/30/19 16:00 35 10/30/19 16:00 75 10/30/19 16:00 98.9 75 19 111/55 (73) 100 I&O Intake and Output 10/30/19 10/31/19 19:00 07:00 Intake Total 1660.000 ml 1685 ml Output Total 1500 ml 600 ml Balance 160.000 ml 1085 ml Intake Free Water 150 ml 150 ml IV Total 780.000 ml 755 ml Tube Feeding 730 ml 780 ml Output Urine Total 1500 ml 600 ml # Bowel Movements 2 Dressing: other Wound: other Drains: other Cardiovascular: RSR Respiratory: decreased breath sounds Abdomen: soft, present bowel sounds Extremities: no cyanosis Laboratory Tests Test 10/31/19 03:45 10/31/19 13:32 White Blood Count 6.0 K/UL (4.8-10.8) Red Blood Count 2.62 M/UL (4.70-6.10) L Hemoglobin 7.7 G/DL (14.2-18.0) L Hematocrit 23.8 % (42.0-52.0) L Mean Corpuscular Volume 91 FL (80-99) Mean Corpuscular Hemoglobin 29.5 PG (27.0-31.0) Mean Corpuscular Hemoglobin Concent 32.5 G/DL (32.0-36.0) Red Cell Distribution Width 17.2 % (11.6-14.8) H Platelet Count 158 K/UL (150-450) Mean Platelet Volume 5.8 FL (6.5-10.1) L Neutrophils (%) (Auto) % (45.0-75.0) Lymphocytes (%) (Auto) % (20.0-45.0) Monocytes (%) (Auto) % (1.0-10.0) Eosinophils (%) (Auto) % (0.0-3.0) Basophils (%) (Auto) % (0.0-2.0) Sodium Level 149 MMOL/L (136-145) H Potassium Level 4.3 MMOL/L (3.5-5.1) Chloride Level 116 MMOL/L (98-107) H Carbon Dioxide Level 28 MMOL/L (21-32) Anion Gap 5 mmol/L (5-15) Blood Urea Nitrogen 41 mg/dL (7-18) H Creatinine 0.8 MG/DL (0.55-1.30) Estimat Glomerular Filtration Rate > 60 mL/min (>60) Glucose Level 148 MG/DL (74-106) H Calcium Level 9.3 MG/DL (8.5-10.1) Arterial Blood pH 7.484 (7.350-7.450) Arterial Blood Partial Pressure CO2 34.0 mmHg (35.0-45.0) L Arterial Blood Partial Pressure O2 107.4 mmHg (75.0-100.0) H Arterial Blood HCO3 25.0 mmol/L (22.0-26.0) Arterial Blood Oxygen Saturation 97.8 % (95-100) Arterial Blood Base Excess 1.6 (-2-2) Clemente Test Positive Plan Problems: (1) Anemia (2) Respiratory failure, acute (3) HCAP (healthcare-associated pneumonia) (4) V-tach (5) History of pulmonary embolism (6) Sacral pressure ulcer Assessment & Plan: Pt presented on admission with multiple pressure injuries. Bilateral groin and scrotum are erythematous. Stage 4 Full thickness Sacral pressure(L)2.2cm x (W)6.5cm. Base of wound beefy red in center at sacrococcygeal with surrounding moist pink granulation. Edges are macerated.Small amt brown exudate that is malodorous. Periwound purple/ maroon and indurated. In addition pt noted to have scattered partial thickness wounds periwound. Entire pressure injury including full thickness wound measures 7cm x (W)7.5cm. Stage 4 Full thickness pressure injury L trochanter. Base of wound has 80% soft necrotic tissue, 20% mixed beefy red and slough. Bone is palpable. Wound is malodorous(L)6.2cm x (W)6.5cm.Small amt brown exudate noted.Periwound is indurated with areas of fluctuance. The Affected area including wound measuring (L)14.2cm x (W)17.5cm. Stage 4 Full thickness pressure injury R trochanter. Base of wound has 50% slough in center with surrounding beefy red granulation (L)6.5cm x (W)7cm. Bone is palpable at center of wound. Wound is malodorous. Small amt seropurulent exudate noted.Periwound is purple and indurated. Unstageable pressure injury L hallux. Dry eschar at base of wound. Marginal erythema along borders .NO odor or exudate noted (L)3cm x (W)1.4cm Unstageable pressure injury medial/lateral L foot. Base of wound is brown over bony protrusion with surrounding maroon borders (L)1cm x (W)1.4cm. L heel is boggy with non-blanching erythema medial aspect of heel. Full thickness pressure injury dorsal/medial aspect of L foot. Base of wound is beefy and moist in center with black and fluctuant borders (L)2.6cm x (W)4.5cm. DTPI Medial L heel . Base of wound is fluctuant purple in center with maroon borders. Periwound heel is boggy and erythematous(L)4.2cm x (W)5.5cm. Stable dry eschar noted to R 5th metatarsal (L)0.7cm x (W)0.6cm. NO erythema or evidence of further breakdown periwound. Tx.Plan: Cleanse Sacral wound with Dakin's 0.125% aiyana. Apply Dakin's moist gauze. Apply Moisture Barrier paste periwound. Cover with Optifoam drsg Daily and prn. Cleanse R trochanter wound with Dakin's 0.125% aiyana. Apply Dakin's moist gauze to wound bed. Apply Moisture Barrier Paste periwound. Cover with Optifoam drsg Daily and prn. Cleanse L trochanter wound with Dakin's 0.125% Aiyana. Apply Dakin's moist Gauze to wound. Apply Moisture Barrier Paste periwound. Cover with Optifoam drsg Daily and prn. Swab wounds R foot with Betadine. Cover each wound with Optifoam drsg every 3 days and prn. Swab wounds L foot with Betadine. Cover each wound with Optifoam drsg every 3 days and prn. Air Fluidized Mattress. Reposition at least every 2hours or as tolerated. Place pillow between knees. Off-load heels with pillow. (7) JAIRO (acute kidney injury) (8) Acute hypoxemic respiratory failure (9) Decubitus ulcer of ischium, stage 4 (10) LLL pneumonia (11) Sepsis Assessment & Plan: Abx as per ID nutritional optimization trend labs DAILY ESTIMATED NEEDS: Needs based on Underweight, wounds, 58.6kg 30-35 kcals/kg 1233-3096 total kcals 1.5-2 g protein/kg 88-117 g total protein 25-35ml/kcal mL/kg 9180-2096 total fluid mLs NUTRITION DIAGNOSIS: * Increased kcal and pro needs r/t wound healing and underweight status AEB pt admitted w/ multiple advanced wounds, including unstageable wounds x2, full thickness wounds x4, w/ generalized moderate wasting, @78% of [place] Body Weight. * Swallowing difficulty R/T dysphagia, pt is PEG dependent. (CURRENT TF: Jevity 1.2 @ 65ml/hr x 20 hrs) ENTERAL NUTRITION RECOMMENDATIONS: Glucerna 1.5 @ 50ml/hr x 24 hrs to provide 1200ml, 1800 kcal, 99g pro, 911ml free H2O * Rec TF CHANGE for carb control/high pro formula-> start Glucerna 1.5 @30ml/hr for 6 hrs, advance as tolerated 10ml/hr q4-6 hrs to goal. * HOB over 30 degrees flush per MD ------- ADDITIONAL RECOMMENDATIONS: 1) Calibrated bedscale wt for accurate CBW -> on a bed w/ p200 mattress 2) Wound care, add MYRON in 4oz water BID via GT 3) Rec accuchecks w/ ssi as needed/ h/o DM per MD 4) Check lytes, replete as needed (12) UTI (urinary tract infection) Kyle Lomax Oct 31, 2019 14:41
--- NOTE | 2019-10-31 15:11 | Cardiac Electrophysiology PN ---
Subjective Subjective [id number] Objective Last 24 Hour Vital Signs Date Time Temp Pulse Resp B/P (MAP) Pulse Ox O2 Delivery O2 Flow Rate FiO2 10/31/19 13:45 87 27 100 Nasal Cannula 2.0 28 88 28 100 10/31/19 13:06 98 10/31/19 12:00 Venturi Mask 10/31/19 12:00 35 10/31/19 12:00 98.9 84 40 119/65 (83) 95 10/31/19 12:00 84 10/31/19 11:28 98 10/31/19 09:02 98 10/31/19 08:52 80 118/60 10/31/19 08:00 78 10/31/19 08:00 Venturi Mask 10/31/19 08:00 99.4 80 24 118/60 (79) 100 10/31/19 08:00 35 10/31/19 07:39 85 22 100 Venturi Mask 6.0 35 87 21 99 10/31/19 07:28 99 10/31/19 07:27 99 Venturi Mask 6.0 35 10/31/19 05:10 97 6.0 35 10/31/19 04:00 35 10/31/19 04:00 99.8 80 32 124/68 (86) 96 10/31/19 04:00 Venturi Mask 10/31/19 04:00 78 10/31/19 02:59 80 29 100 35 10/31/19 01:23 76 30 100 Bi-Pap 35 79 28 100 35 10/31/19 00:00 99.6 74 28 121/67 (85) 100 10/31/19 00:00 Venturi Mask 10/31/19 00:00 76 10/31/19 00:00 35 10/30/19 20:51 75 110/60 10/30/19 20:00 99.6 75 28 107/60 (76) 100 10/30/19 20:00 Venturi Mask 10/30/19 20:00 74 10/30/19 20:00 100 Venturi Mask 6.0 35 10/30/19 20:00 35 10/30/19 19:30 75 24 99 Venturi Mask 6.0 35 78 28 100 6.0 35 10/30/19 16:00 Venturi Mask 10/30/19 16:00 35 10/30/19 16:00 75 10/30/19 16:00 98.9 75 19 111/55 (73) 100 Intake and Output 10/30/19 10/31/19 19:00 07:00 Intake Total 1660.000 ml 1685 ml Output Total 1500 ml 600 ml Balance 160.000 ml 1085 ml Intake Free Water 150 ml 150 ml IV Total 780.000 ml 755 ml Tube Feeding 730 ml 780 ml Output Urine Total 1500 ml 600 ml # Bowel Movements 2 Laboratory Tests Test 10/31/19 03:45 10/31/19 13:32 White Blood Count 6.0 K/UL (4.8-10.8) Red Blood Count 2.62 M/UL (4.70-6.10) L Hemoglobin 7.7 G/DL (14.2-18.0) L Hematocrit 23.8 % (42.0-52.0) L Mean Corpuscular Volume 91 FL (80-99) Mean Corpuscular Hemoglobin 29.5 PG (27.0-31.0) Mean Corpuscular Hemoglobin Concent 32.5 G/DL (32.0-36.0) Red Cell Distribution Width 17.2 % (11.6-14.8) H Platelet Count 158 K/UL (150-450) Mean Platelet Volume 5.8 FL (6.5-10.1) L Neutrophils (%) (Auto) % (45.0-75.0) Lymphocytes (%) (Auto) % (20.0-45.0) Monocytes (%) (Auto) % (1.0-10.0) Eosinophils (%) (Auto) % (0.0-3.0) Basophils (%) (Auto) % (0.0-2.0) Sodium Level 149 MMOL/L (136-145) H Potassium Level 4.3 MMOL/L (3.5-5.1) Chloride Level 116 MMOL/L (98-107) H Carbon Dioxide Level 28 MMOL/L (21-32) Anion Gap 5 mmol/L (5-15) Blood Urea Nitrogen 41 mg/dL (7-18) H Creatinine 0.8 MG/DL (0.55-1.30) Estimat Glomerular Filtration Rate > 60 mL/min (>60) Glucose Level 148 MG/DL (74-106) H Calcium Level 9.3 MG/DL (8.5-10.1) Arterial Blood pH 7.484 (7.350-7.450) Arterial Blood Partial Pressure CO2 34.0 mmHg (35.0-45.0) L Arterial Blood Partial Pressure O2 107.4 mmHg (75.0-100.0) H Arterial Blood HCO3 25.0 mmol/L (22.0-26.0) Arterial Blood Oxygen Saturation 97.8 % (95-100) Arterial Blood Base Excess 1.6 (-2-2) Clemente Test Positive Microbiology Date/Time Source Procedure Growth Status 10/29/19 05:45 Blood Blood Culture - Preliminary Gram Positive Cocci Resulted 10/29/19 05:30 Blood Blood Culture - Preliminary Gram Positive Cocci Resulted 10/30/19 09:30 Sputum Expectorated Gram Stain - Final Resulted 10/30/19 09:30 Sputum Expectorated Sputum Culture Pending Resulted 10/29/19 05:50 Nasal Nares MRSA Culture - Final Staphylococcus Aureus - Mrsa Complete 10/29/19 05:49 Nasal Nares - Final Complete 10/29/19 05:49 Nasal Nares - Final Complete 10/29/19 05:45 Urine,Clean Catch Urine Culture - Preliminary Resulted 10/29/19 05:50 Rectum - Final NO CARBAPENEM-RESISTANT ENTEROBACTERI... Complete 10/29/19 05:50 Rectum VRE Culture - Final Enterococcus Faecium - Vre Enterococcus Faecalis - Vre Complete Pablo Norton MD Oct 31, 2019 15:11
[2019-10-31 16:00] VITALS: BP 123/61
--- NOTE | 2019-10-31 16:29 | Diagnostic Imaging Report ---
Indication: Dyspnea Comparison: 10/29/2019 A single view chest radiograph was obtained. Findings: Hazy basilar densities demonstrated within the lungs. Heart size is normal. Pacemaker again noted. IMPRESSION: Suspected slightly worsening interstitial edema
--- NOTE | 2019-10-31 16:42 | Diagnostic Imaging Report ---
Indication: Dyspnea Comparison: 10/30/2019 A single view chest radiograph was obtained. Findings: Patchy infiltrate versus asymmetric edema suspected at the left lung base anteriorly lesser extent on the right. Heart size is normal. Pacemaker again noted. Calcifications demonstrated consistent with old granulomatous disease. IMPRESSION: Asymmetric interstitial edema versus infiltrate. No significant change
[2019-10-31] MEDS: Zinc Sulfate 220mg cap GT SCH (17:43)
[2019-10-31 20:00] VITALS: BP_SYST 119; BP_SYST 124; BP_DIAS 57
[2019-10-31] MEDS: Sennosides 8.6mg tab GT SCH (21:29)
[2019-11-01] VITALS: BP 124/57
[2019-11-01] MEDS: Albuterol/Ipratropium 3ml neb HHN SCH ×4 (01:34→19:22)
[2019-11-01 04:00] VITALS: BP 124/64
[2019-11-01 04:45] LABS: BASOPHILS % (AUTO) 1.1 % (0.0-2.0); EOSINOPHILS % (AUTO) 4.6 % (0.0-3.0); HEMATOCRIT 25.2 % (42.0-52.0); HEMOGLOBIN 8.3 G/DL (14.2-18.0); MEAN CORPUSCULAR VOLUME 90 FL (80-99); NEUTROPHILS % (AUTO) 63.2 % (45.0-75.0); PLATELET COUNT 188 K/UL (150-450); RED BLOOD COUNT 2.78 M/UL (4.70-6.10); RED CELL DISTRIBUTION WIDTH 16.5 % (11.6-14.8); WHITE BLOOD COUNT 7.6 K/UL (4.8-10.8)
[2019-11-01 05:07] LABS: ANION GAP 4 mmol/L (5-15); BLOOD UREA NITROGEN 31 mg/dL (7-18); CALCIUM 9.5 MG/DL (8.5-10.1); CARBON DIOXIDE 29 MMOL/L (21-32); CHLORIDE 112 MMOL/L (98-107); CREATININE 0.6 MG/DL (0.55-1.30); SODIUM 145 MMOL/L (136-145)
[2019-11-01] MEDS: NovoLOG Insulin Flexpen SUBQ SCH ×4 (05:56→23:41)
[2019-11-01 08:00] VITALS: BP 118/57
[2019-11-01] MEDS: Ascorbic Acid 500mg tab GT SCH (08:45)
[2019-11-01] MEDS: Multivitamin w/Minerals tab ORAL SCH (08:45)
[2019-11-01] MEDS: Levodopa/Carbidopa 25/100 tab GT SCH ×3 (08:45→18:18)
[2019-11-01] MEDS: Zinc Sulfate 220mg cap GT SCH ×2 (08:45→18:18)
--- NOTE | 2019-11-01 08:45 | Consultation ---
DATE OF CONSULTATION: 10/31/2019 CARDIOLOGY CONSULTATION CONSULTING PHYSICIAN: Pablo Norton M.D. REFERRING PHYSICIAN: Aakash Blanco M.D. REASON FOR CONSULTATION: Evaluation of the patient's pacemaker and shortness of breath. HISTORY OF PRESENT ILLNESS: The patient is an 83-year-old [place] gentleman with history of hypertension, Parkinson, dementia, and history of ventricular tachycardia, who underwent upgrade of pacemaker to a defibrillator. This was recently at [facility]. The patient was noted to be in respiratory failure with oxygenation at 70%, and with 100% non-rebreather had gone up to only 80%. The patient was placed on BiPAP and received breathing treatment, and was sent to the emergency room. At the time of my evaluation, the patient has advanced dementia and is not able to provide any information. REVIEW OF SYSTEMS: Cannot be obtained. PAST MEDICAL HISTORY: As mentioned above. FAMILY HISTORY: Noncontributory. SOCIAL HISTORY: He is a longterm resident. Does not smoke or drink alcohol. PHYSICAL EXAMINATION: VITAL SIGNS: Show blood pressure of 119/65, pulse 87, and respirations 28. HEAD AND NECK: Showed no JVD. LUNGS: Coarse rhonchi. CARDIOVASCULAR: Shows regular S1 and S2 with no gallop. Defibrillator is in left subclavian. ABDOMEN: Soft. EXTREMITIES: No pitting edema. LABORATORY AND DIAGNOSTIC DATA: Labs show white count of 6, hemoglobin of 7.7, hematocrit of 23.8, and platelet count 158,000. Sodium 149, potassium 4.3, BUN of 41, creatinine 0.8, and glucose of 148. Troponin is negative. His vancomycin level is 12. ASSESSMENT AND PLAN: 1. Shortness of breath, possible pneumonia. The patient is already evaluated by Dr. Harrison and Dr. Mcnair, was started on IV antibiotic. 2. Status post 02:08 ventricular fibrillation arrest. The patient underwent upgrading of pacemaker to a defibrillator at [facility]. ICD was interrogated showed normal function. 3. Status post upgrade of dual-chamber 02:28 pacemaker to a defibrillator as mentioned above. 4. Hypertension. 5. Dysphagia. Family has refused PEG placement. 6. Pneumonia, on antibiotics. 7. Dementia and Parkinson. Thank you very much for allowing me to participate in the care of this patient. Please do not hesitate to contact me for any questions regarding my evaluation. Pablo Norton M.D. DR: JASON JOB#: [id number] CC:
[2019-11-01] MEDS: Dakin's 0.125% Soln (Quarter Strength) 16oz TOPIC SCH (08:46)
[2019-11-01] MEDS ORDERED: Eliquis 5mg tablet GT SCH (09:00)
--- NOTE | 2019-11-01 09:09 | General Progress Note ---
Assessment/Plan Status: stable Assessment/Plan: 1. LLL pneumonia - cont meropenem and vancomycin for empiric coverage. Follow cultures. Influenza A&B negative in ER. 2. Sepsis - cont broad spectrum antibiotic as above. ID following. follow cultures. 3. UTI - on broad specturm antibiotic. 4, Acute hypoxemic respiratory failure - off BiPaP. doing better and Clinical Program Manager following the patient. 5. JARIO - improved with hydration. 6.Pressure Ulcers of Isthium, stage 4 - wound care by Dr Lomax. 7. Anemia - most likely 2nd to Eliquis - off Eliquis and CBC improved to 8.3. 8. Run of V tach in ER and h/o ICD placement - Cardiology following. 9. Hypokalemia - resolved. 10. Hyponatremia - Improving with D5W. 11. Parkinson's Dementia Subjective Date patient seen: Nov 01, 2019 Time patient seen: 08:45 Constitutional: Reports: weakness HEENT: Reports: no symptoms Cardiovascular: Reports: no symptoms Respiratory: Reports: no symptoms Gastrointestinal/Abdominal: Reports: no symptoms Genitourinary: Reports: no symptoms Neurologic/Psychiatric: Reports: no symptoms Endocrine: Reports: no symptoms Hematologic/Lymphatic: Reports: anemia Allergies: Coded Allergies: No Known Allergies (Unverified , 06/20/19) Subjective He is doing better this moring. He still has low grade temp with spike temp to 100. His H/H improved to 8.3 after stopping Eliquis. No sign of GI bleeding. He had normal bowel movement. Objective Last 24 Hour Vital Signs Date Time Temp Pulse Resp B/P (MAP) Pulse Ox O2 Delivery O2 Flow Rate FiO2 11/01/19 08:45 73 118/57 11/01/19 07:11 72 26 100 Nasal Cannula 2.0 28 74 24 100 11/01/19 07:11 100 Nasal Cannula 2.0 28 11/01/19 04:00 Nasal Cannula 2.0 11/01/19 04:00 100.0 76 30 124/64 (84) 100 11/01/19 04:00 74 11/01/19 04:00 2.0 11/01/19 01:34 74 27 100 Nasal Cannula 2.0 28 75 26 100 11/01/19 00:00 71 11/01/19 00:00 Nasal Cannula 2.0 11/01/19 00:00 99.9 69 30 124/57 (79) 100 11/01/19 00:00 2.0 10/31/19 21:29 69 119/57 10/31/19 20:00 99.6 72 32 119/57 (77) 100 10/31/19 20:00 Nasal Cannula 2.0 10/31/19 20:00 72 10/31/19 20:00 2.0 10/31/19 19:59 69 23 100 Nasal Cannula 2.0 28 70 24 100 10/31/19 19:59 100 Nasal Cannula 2.0 28 10/31/19 16:00 68 10/31/19 16:00 Nasal Cannula 2.0 10/31/19 16:00 2.0 10/31/19 16:00 99.3 69 32 123/61 (81) 99 10/31/19 13:45 87 27 100 Nasal Cannula 2.0 28 88 28 100 10/31/19 13:06 98 10/31/19 12:00 Venturi Mask 10/31/19 12:00 35 10/31/19 12:00 98.9 84 40 119/65 (83) 95 10/31/19 12:00 84 10/31/19 11:28 98 Intake and Output 10/31/19 11/01/19 19:00 07:00 Intake Total 1672.000 ml 1532.5 ml Output Total 1000 ml 1250 ml Balance 672.000 ml 282.5 ml Intake Free Water 150 ml 150 ml IV Total 742.000 ml 667.5 ml Tube Feeding 780 ml 715 ml Output Urine Total 1000 ml 1250 ml # Bowel Movements 2 3 Laboratory Tests 10/31/19 13:32: Arterial Blood pH 7.484H, Arterial Blood Partial Pressure CO2 34.0L, Arterial Blood Partial Pressure O2 107.4H, Arterial Blood HCO3 25.0, Arterial Blood Oxygen Saturation 97.8, Arterial Blood Base Excess 1.6, Clemente Test Positive 11/01/19 03:50: White Blood Count 7.6, Red Blood Count 2.78L, Hemoglobin 8.3L, Hematocrit 25.2L , Mean Corpuscular Volume 90, Mean Corpuscular Hemoglobin 29.9, Mean Corpuscular Hemoglobin Concent 33.1, Red Cell Distribution Width 16.5H, Platelet Count 188, Mean Platelet Volume 6.0L, Neutrophils (%) (Auto) 63.2, Lymphocytes (%) (Auto) 24.0, Monocytes (%) (Auto) 7.0, Eosinophils (%) (Auto) 4.6H, Basophils (%) (Auto) 1.1, Sodium Level 145, Potassium Level 5.0, Chloride Level 112H, Carbon Dioxide Level 29, Anion Gap 4L, Blood Urea Nitrogen 31H, Creatinine 0.6, Estimat Glomerular Filtration Rate > 60, Glucose Level 116H, Calcium Level 9.5 Height (Feet): 5 Height (Inches): 10.00 Weight (Pounds): 132 General Appearance: no apparent distress, lethargic Neck: normal alignment, supple Cardiovascular: normal rate, regular rhythm Respiratory/Chest: lungs clear Abdomen: non tender, soft Extremities: non-tender Edema: no edema noted Arm (L), no edema noted Arm (R), no edema noted Leg (L), no edema noted Leg (R), no edema noted Pedal (L), no edema noted Pedal (R), no edema noted Generalized Neurologic: responsive Skin: warm/dry Aakash Blanco MD Nov 01, 2019 09:09
[2019-11-01] MEDS ORDERED: Acetaminophen 650mg/20.3ml GT PRN (09:15)
--- NOTE | 2019-11-01 09:39 | Surgery Progress Note ---
Surgery Progress Note Subjective Additional Comments labs noted exam stable imaging reviewed Objective Last 24 Hour Vital Signs Date Time Temp Pulse Resp B/P (MAP) Pulse Ox O2 Delivery O2 Flow Rate FiO2 11/01/19 08:45 73 118/57 11/01/19 07:11 72 26 100 Nasal Cannula 2.0 28 74 24 100 11/01/19 07:11 100 Nasal Cannula 2.0 28 11/01/19 04:00 Nasal Cannula 2.0 11/01/19 04:00 100.0 76 30 124/64 (84) 100 11/01/19 04:00 74 11/01/19 04:00 2.0 11/01/19 01:34 74 27 100 Nasal Cannula 2.0 28 75 26 100 11/01/19 00:00 71 11/01/19 00:00 Nasal Cannula 2.0 11/01/19 00:00 99.9 69 30 124/57 (79) 100 11/01/19 00:00 2.0 10/31/19 21:29 69 119/57 10/31/19 20:00 99.6 72 32 119/57 (77) 100 10/31/19 20:00 Nasal Cannula 2.0 10/31/19 20:00 72 10/31/19 20:00 2.0 10/31/19 19:59 69 23 100 Nasal Cannula 2.0 28 70 24 100 10/31/19 19:59 100 Nasal Cannula 2.0 28 10/31/19 16:00 68 10/31/19 16:00 Nasal Cannula 2.0 10/31/19 16:00 2.0 10/31/19 16:00 99.3 69 32 123/61 (81) 99 10/31/19 13:45 87 27 100 Nasal Cannula 2.0 28 88 28 100 10/31/19 13:06 98 10/31/19 12:00 Venturi Mask 10/31/19 12:00 35 10/31/19 12:00 98.9 84 40 119/65 (83) 95 10/31/19 12:00 84 10/31/19 11:28 98 I&O Intake and Output 10/31/19 11/01/19 19:00 07:00 Intake Total 1672.000 ml 1532.5 ml Output Total 1000 ml 1250 ml Balance 672.000 ml 282.5 ml Intake Free Water 150 ml 150 ml IV Total 742.000 ml 667.5 ml Tube Feeding 780 ml 715 ml Output Urine Total 1000 ml 1250 ml # Bowel Movements 2 3 Dressing: other Wound: other Drains: other Cardiovascular: RSR Respiratory: decreased breath sounds Abdomen: soft, present bowel sounds Extremities: no cyanosis Laboratory Tests Test 10/31/19 13:32 11/01/19 03:50 Arterial Blood pH 7.484 (7.350-7.450) Arterial Blood Partial Pressure CO2 34.0 mmHg (35.0-45.0) L Arterial Blood Partial Pressure O2 107.4 mmHg (75.0-100.0) H Arterial Blood HCO3 25.0 mmol/L (22.0-26.0) Arterial Blood Oxygen Saturation 97.8 % (95-100) Arterial Blood Base Excess 1.6 (-2-2) Clemente Test Positive White Blood Count 7.6 K/UL (4.8-10.8) Red Blood Count 2.78 M/UL (4.70-6.10) L Hemoglobin 8.3 G/DL (14.2-18.0) L Hematocrit 25.2 % (42.0-52.0) L Mean Corpuscular Volume 90 FL (80-99) Mean Corpuscular Hemoglobin 29.9 PG (27.0-31.0) Mean Corpuscular Hemoglobin Concent 33.1 G/DL (32.0-36.0) Red Cell Distribution Width 16.5 % (11.6-14.8) H Platelet Count 188 K/UL (150-450) Mean Platelet Volume 6.0 FL (6.5-10.1) L Neutrophils (%) (Auto) 63.2 % (45.0-75.0) Lymphocytes (%) (Auto) 24.0 % (20.0-45.0) Monocytes (%) (Auto) 7.0 % (1.0-10.0) Eosinophils (%) (Auto) 4.6 % (0.0-3.0) H Basophils (%) (Auto) 1.1 % (0.0-2.0) Sodium Level 145 MMOL/L (136-145) Potassium Level 5.0 MMOL/L (3.5-5.1) Chloride Level 112 MMOL/L (98-107) H Carbon Dioxide Level 29 MMOL/L (21-32) Anion Gap 4 mmol/L (5-15) L Blood Urea Nitrogen 31 mg/dL (7-18) H Creatinine 0.6 MG/DL (0.55-1.30) Estimat Glomerular Filtration Rate > 60 mL/min (>60) Glucose Level 116 MG/DL (74-106) H Calcium Level 9.5 MG/DL (8.5-10.1) Plan Problems: (1) Anemia (2) Respiratory failure, acute (3) HCAP (healthcare-associated pneumonia) (4) V-tach (5) History of pulmonary embolism (6) Sacral pressure ulcer Assessment & Plan: Pt presented on admission with multiple pressure injuries. Bilateral groin and scrotum are erythematous. Stage 4 Full thickness Sacral pressure(L)2.2cm x (W)6.5cm. Base of wound beefy red in center at sacrococcygeal with surrounding moist pink granulation. Edges are macerated.Small amt brown exudate that is malodorous. Periwound purple/ maroon and indurated. In addition pt noted to have scattered partial thickness wounds periwound. Entire pressure injury including full thickness wound measures 7cm x (W)7.5cm. Stage 4 Full thickness pressure injury L trochanter. Base of wound has 80% soft necrotic tissue, 20% mixed beefy red and slough. Bone is palpable. Wound is malodorous(L)6.2cm x (W)6.5cm.Small amt brown exudate noted.Periwound is indurated with areas of fluctuance. The Affected area including wound measuring (L)14.2cm x (W)17.5cm. Stage 4 Full thickness pressure injury R trochanter. Base of wound has 50% slough in center with surrounding beefy red granulation (L)6.5cm x (W)7cm. Bone is palpable at center of wound. Wound is malodorous. Small amt seropurulent exudate noted.Periwound is purple and indurated. Unstageable pressure injury L hallux. Dry eschar at base of wound. Marginal erythema along borders .NO odor or exudate noted (L)3cm x (W)1.4cm Unstageable pressure injury medial/lateral L foot. Base of wound is brown over bony protrusion with surrounding maroon borders (L)1cm x (W)1.4cm. L heel is boggy with non-blanching erythema medial aspect of heel. Full thickness pressure injury dorsal/medial aspect of L foot. Base of wound is beefy and moist in center with black and fluctuant borders (L)2.6cm x (W)4.5cm. DTPI Medial L heel . Base of wound is fluctuant purple in center with maroon borders. Periwound heel is boggy and erythematous(L)4.2cm x (W)5.5cm. Stable dry eschar noted to R 5th metatarsal (L)0.7cm x (W)0.6cm. NO erythema or evidence of further breakdown periwound. Tx.Plan: Cleanse Sacral wound with Dakin's 0.125% aiyana. Apply Dakin's moist gauze. Apply Moisture Barrier paste periwound. Cover with Optifoam drsg Daily and prn. Cleanse R trochanter wound with Dakin's 0.125% aiyana. Apply Dakin's moist gauze to wound bed. Apply Moisture Barrier Paste periwound. Cover with Optifoam drsg Daily and prn. Cleanse L trochanter wound with Dakin's 0.125% Aiyana. Apply Dakin's moist Gauze to wound. Apply Moisture Barrier Paste periwound. Cover with Optifoam drsg Daily and prn. Swab wounds R foot with Betadine. Cover each wound with Optifoam drsg every 3 days and prn. Swab wounds L foot with Betadine. Cover each wound with Optifoam drsg every 3 days and prn. Air Fluidized Mattress. Reposition at least every 2hours or as tolerated. Place pillow between knees. Off-load heels with pillow. (7) JAIRO (acute kidney injury) (8) Acute hypoxemic respiratory failure (9) Decubitus ulcer of ischium, stage 4 (10) LLL pneumonia (11) Sepsis Assessment & Plan: Abx as per ID nutritional optimization trend labs DAILY ESTIMATED NEEDS: Needs based on Underweight, wounds, 58.6kg 30-35 kcals/kg 6288-1567 total kcals 1.5-2 g protein/kg 88-117 g total protein 25-35ml/kcal mL/kg 2852-3859 total fluid mLs NUTRITION DIAGNOSIS: * Increased kcal and pro needs r/t wound healing and underweight status AEB pt admitted w/ multiple advanced wounds, including unstageable wounds x2, full thickness wounds x4, w/ generalized moderate wasting, @78% of [place] Body Weight. * Swallowing difficulty R/T dysphagia, pt is PEG dependent. (CURRENT TF: Jevity 1.2 @ 65ml/hr x 20 hrs) ENTERAL NUTRITION RECOMMENDATIONS: Glucerna 1.5 @ 50ml/hr x 24 hrs to provide 1200ml, 1800 kcal, 99g pro, 911ml free H2O * Rec TF CHANGE for carb control/high pro formula-> start Glucerna 1.5 @30ml/hr for 6 hrs, advance as tolerated 10ml/hr q4-6 hrs to goal. * HOB over 30 degrees flush per MD ------- ADDITIONAL RECOMMENDATIONS: 1) Calibrated bedscale wt for accurate CBW -> on a bed w/ p200 mattress 2) Wound care, add MYRON in 4oz water BID via GT 3) Rec accuchecks w/ ssi as needed/ h/o DM per MD 4) Check lytes, replete as needed (12) UTI (urinary tract infection) Kyle Lomax Nov 01, 2019 09:39
--- NOTE | 2019-11-01 10:45 | Cardiac Electrophysiology PN ---
Assessment/Plan Assessment/Plan 1. Shortness of breath, possible pneumonia. The patient is already evaluated by Dr. Harrison and Dr. Mcnair, was started on IV antibiotic. 2. Status post ventricular fibrillation arrest. The patient underwent upgrading of pacemaker to [employer] defibrillator at [facility]. ICD interrogated showed normal function. 4. Hypertension. 5. Dysphagia. Family has refused PEG placement. 6. Pneumonia, on antibiotics. 7. Dementia and Parkinson. Subjective Subjective Remains V paced. Less Oxygen requirement Objective Last 24 Hour Vital Signs Date Time Temp Pulse Resp B/P (MAP) Pulse Ox O2 Delivery O2 Flow Rate FiO2 11/01/19 08:45 73 118/57 11/01/19 08:00 75 11/01/19 07:11 72 26 100 Nasal Cannula 2.0 28 74 24 100 11/01/19 07:11 100 Nasal Cannula 2.0 28 11/01/19 04:00 Nasal Cannula 2.0 11/01/19 04:00 100.0 76 30 124/64 (84) 100 11/01/19 04:00 74 11/01/19 04:00 2.0 11/01/19 01:34 74 27 100 Nasal Cannula 2.0 28 75 26 100 11/01/19 00:00 71 11/01/19 00:00 Nasal Cannula 2.0 11/01/19 00:00 99.9 69 30 124/57 (79) 100 11/01/19 00:00 2.0 10/31/19 21:29 69 119/57 10/31/19 20:00 99.6 72 32 119/57 (77) 100 10/31/19 20:00 Nasal Cannula 2.0 10/31/19 20:00 72 10/31/19 20:00 2.0 10/31/19 19:59 69 23 100 Nasal Cannula 2.0 28 70 24 100 10/31/19 19:59 100 Nasal Cannula 2.0 28 10/31/19 16:00 68 10/31/19 16:00 Nasal Cannula 2.0 10/31/19 16:00 2.0 10/31/19 16:00 99.3 69 32 123/61 (81) 99 10/31/19 13:45 87 27 100 Nasal Cannula 2.0 28 88 28 100 10/31/19 13:06 98 10/31/19 12:00 Venturi Mask 10/31/19 12:00 35 10/31/19 12:00 98.9 84 40 119/65 (83) 95 10/31/19 12:00 84 10/31/19 11:28 98 Intake and Output 10/31/19 11/01/19 19:00 07:00 Intake Total 1672.000 ml 1532.5 ml Output Total 1000 ml 1250 ml Balance 672.000 ml 282.5 ml Intake Free Water 150 ml 150 ml IV Total 742.000 ml 667.5 ml Tube Feeding 780 ml 715 ml Output Urine Total 1000 ml 1250 ml # Bowel Movements 2 3 Laboratory Tests Test 10/31/19 13:32 11/01/19 03:50 Arterial Blood pH 7.484 (7.350-7.450) Arterial Blood Partial Pressure CO2 34.0 mmHg (35.0-45.0) L Arterial Blood Partial Pressure O2 107.4 mmHg (75.0-100.0) H Arterial Blood HCO3 25.0 mmol/L (22.0-26.0) Arterial Blood Oxygen Saturation 97.8 % (95-100) Arterial Blood Base Excess 1.6 (-2-2) Clemente Test Positive White Blood Count 7.6 K/UL (4.8-10.8) Red Blood Count 2.78 M/UL (4.70-6.10) L Hemoglobin 8.3 G/DL (14.2-18.0) L Hematocrit 25.2 % (42.0-52.0) L Mean Corpuscular Volume 90 FL (80-99) Mean Corpuscular Hemoglobin 29.9 PG (27.0-31.0) Mean Corpuscular Hemoglobin Concent 33.1 G/DL (32.0-36.0) Red Cell Distribution Width 16.5 % (11.6-14.8) H Platelet Count 188 K/UL (150-450) Mean Platelet Volume 6.0 FL (6.5-10.1) L Neutrophils (%) (Auto) 63.2 % (45.0-75.0) Lymphocytes (%) (Auto) 24.0 % (20.0-45.0) Monocytes (%) (Auto) 7.0 % (1.0-10.0) Eosinophils (%) (Auto) 4.6 % (0.0-3.0) H Basophils (%) (Auto) 1.1 % (0.0-2.0) Sodium Level 145 MMOL/L (136-145) Potassium Level 5.0 MMOL/L (3.5-5.1) Chloride Level 112 MMOL/L (98-107) H Carbon Dioxide Level 29 MMOL/L (21-32) Anion Gap 4 mmol/L (5-15) L Blood Urea Nitrogen 31 mg/dL (7-18) H Creatinine 0.6 MG/DL (0.55-1.30) Estimat Glomerular Filtration Rate > 60 mL/min (>60) Glucose Level 116 MG/DL (74-106) H Calcium Level 9.5 MG/DL (8.5-10.1) Microbiology Date/Time Source Procedure Growth Status 10/30/19 15:29 Blood Blood Culture - Preliminary NO GROWTH AFTER 24 HOURS Resulted 10/30/19 15:25 Blood Blood Culture - Preliminary NO GROWTH AFTER 24 HOURS Resulted 10/30/19 09:30 Sputum Expectorated Gram Stain - Final Resulted 10/30/19 09:30 Sputum Culture - Preliminary Staphylococcus Aureus Usual Upper Respiratory Tammie Resulted Objective HEAD AND NECK: Showed no JVD. LUNGS: Coarse rhonchi. CARDIOVASCULAR: Shows regular S1 and S2 with no gallop. Defibrillator is in left subclavian. ABDOMEN: Soft. EXTREMITIES: No pitting edema. Pablo Norton MD Nov 01, 2019 10:45
[2019-11-01] MEDS: Meropenem 1 GM in NS 55 ML IVPB SCH ×2 (11:05→23:38)
[2019-11-01 12:00] VITALS: BP 127/67
--- NOTE | 2019-11-01 13:19 | Pulmonology Progress Note ---
Assessment/Plan Problems: (1) JAIRO (acute kidney injury) Assessment & Plan: With hyperNa (2) Acute hypoxemic respiratory failure (3) Respiratory failure, acute (4) HCAP (healthcare-associated pneumonia) (5) UTI (urinary tract infection) (6) Sepsis Assessment & Plan: GPC (7) V-tach (8) History of pulmonary embolism (9) Sacral pressure ulcer (10) Anemia Assessment/Plan Optimize pulmonary hygiene/mobilize as tolerated BiPAP PRN only Titrate O2 HHN's Abx: Rodolfo/Vanco per ID, F/U Cx's Monitor volumes and renal function, replete free water DVT Px: Eliquis NPO, GTF's FC, continue to discuss GOC Wound care Subjective Allergies: Coded Allergies: No Known Allergies (Unverified , 06/20/19) Subjective Tm 100 VSS on 2L NC breathing stable no cough no FC alesia TF's Objective Last 24 Hour Vital Signs Date Time Temp Pulse Resp B/P (MAP) Pulse Ox O2 Delivery O2 Flow Rate FiO2 11/01/19 12:00 Nasal Cannula 2.0 11/01/19 12:00 100.5 68 33 127/67 (87) 100 11/01/19 12:00 2.0 11/01/19 11:33 65 11/01/19 08:45 73 118/57 11/01/19 08:00 Nasal Cannula 2.0 11/01/19 08:00 99.9 77 27 118/57 (77) 100 11/01/19 08:00 75 11/01/19 08:00 2.0 11/01/19 07:11 72 26 100 Nasal Cannula 2.0 28 74 24 100 11/01/19 07:11 100 Nasal Cannula 2.0 28 11/01/19 04:00 Nasal Cannula 2.0 11/01/19 04:00 100.0 76 30 124/64 (84) 100 11/01/19 04:00 74 11/01/19 04:00 2.0 11/01/19 01:34 74 27 100 Nasal Cannula 2.0 28 75 26 100 11/01/19 00:00 71 11/01/19 00:00 Nasal Cannula 2.0 11/01/19 00:00 99.9 69 30 124/57 (79) 100 11/01/19 00:00 2.0 10/31/19 21:29 69 119/57 10/31/19 20:00 99.6 72 32 119/57 (77) 100 10/31/19 20:00 Nasal Cannula 2.0 10/31/19 20:00 72 10/31/19 20:00 2.0 10/31/19 19:59 69 23 100 Nasal Cannula 2.0 28 70 24 100 10/31/19 19:59 100 Nasal Cannula 2.0 28 10/31/19 16:00 68 10/31/19 16:00 Nasal Cannula 2.0 10/31/19 16:00 2.0 10/31/19 16:00 99.3 69 32 123/61 (81) 99 10/31/19 13:45 87 27 100 Nasal Cannula 2.0 28 88 28 100 Intake and Output 10/31/19 11/01/19 19:00 07:00 Intake Total 1672.000 ml 1532.5 ml Output Total 1000 ml 1250 ml Balance 672.000 ml 282.5 ml Intake Free Water 150 ml 150 ml IV Total 742.000 ml 667.5 ml Tube Feeding 780 ml 715 ml Output Urine Total 1000 ml 1250 ml # Bowel Movements 2 3 General Appearance: cachetic HEENT: normocephalic, atraumatic, anicteric, mucous membranes moist Respiratory/Chest: rhonchi Cardiovascular: normal peripheral pulses, normal rate, regular rhythm Abdomen: normal bowel sounds, soft, non tender, no organomegaly, non distended , no mass, other - GT Extremities: no cyanosis, no clubbing, no edema Microbiology Date/Time Source Procedure Growth Status 10/30/19 15:29 Blood Blood Culture - Preliminary NO GROWTH AFTER 24 HOURS Resulted 10/30/19 15:25 Blood Blood Culture - Preliminary NO GROWTH AFTER 24 HOURS Resulted 10/30/19 09:30 Sputum Expectorated Gram Stain - Final Resulted 10/30/19 09:30 Sputum Culture - Preliminary Staphylococcus Aureus Usual Upper Respiratory Tammie Resulted Laboratory Tests 10/31/19 13:32: Arterial Blood pH 7.484H, Arterial Blood Partial Pressure CO2 34.0L, Arterial Blood Partial Pressure O2 107.4H, Arterial Blood HCO3 25.0, Arterial Blood Oxygen Saturation 97.8, Arterial Blood Base Excess 1.6, Clemente Test Positive 11/01/19 03:50: White Blood Count 7.6, Red Blood Count 2.78L, Hemoglobin 8.3L, Hematocrit 25.2L , Mean Corpuscular Volume 90, Mean Corpuscular Hemoglobin 29.9, Mean Corpuscular Hemoglobin Concent 33.1, Red Cell Distribution Width 16.5H, Platelet Count 188, Mean Platelet Volume 6.0L, Neutrophils (%) (Auto) 63.2, Lymphocytes (%) (Auto) 24.0, Monocytes (%) (Auto) 7.0, Eosinophils (%) (Auto) 4.6H, Basophils (%) (Auto) 1.1, Sodium Level 145, Potassium Level 5.0, Chloride Level 112H, Carbon Dioxide Level 29, Anion Gap 4L, Blood Urea Nitrogen 31H, Creatinine 0.6, Estimat Glomerular Filtration Rate > 60, Glucose Level 116H, Calcium Level 9.5 11/01/19 13:00: Vancomycin Level Trough [Pending] Current Medications Medications (Trade) Dose Ordered Sig/Katharine Route PRN Reason Start Time Stop Time Status Last Admin Dose Admin Acetaminophen (Tylenol) 650 mg Q6H PRN GT Mild Pain/Temp > 100.5 11/01/19 09:15 12/01/19 09:14 11/01/19 12:34 Albuterol/ Ipratropium (Albuterol/ Ipratropium) 3 ml Q6HRT HHN 10/29/19 13:00 11/03/19 12:59 11/01/19 07:10 Ascorbic Acid (Vitamin C) 500 mg DAILY GT 10/29/19 12:00 11/28/19 11:29 11/01/19 08:45 Carbidopa/Levodopa (Sinemet 25/100) 1 tab THREE TIMES A DAY GT 10/29/19 13:00 11/28/19 12:59 11/01/19 08:45 Dextrose 1,000 ml @ 50 mls/hr Q20H IV 11/01/19 09:15 12/01/19 09:14 11/01/19 09:41 Dextrose (Dextrose 50%) 25 ml Q30M PRN IV Hypoglycemia 10/29/19 11:30 11/28/19 11:29 Dextrose (Dextrose 50%) 50 ml Q30M PRN IV Hypoglycemia 10/29/19 11:30 11/28/19 11:29 Insulin Aspart (NovoLOG) Q6HR SUBQ 11/01/19 12:00 11/28/19 11:29 Lansoprazole (Prevacid) 30 mg DAILY GT 11/01/19 09:00 12/01/19 08:59 11/01/19 08:45 Meropenem 1 gm/ Sodium Chloride 55 ml @ 110 mls/hr Q12H IVPB 10/29/19 11:00 11/03/19 10:59 11/01/19 11:05 Metoprolol Tartrate (Lopressor) 25 mg EVERY 12 HOURS GT 10/29/19 21:00 11/28/19 20:59 11/01/19 08:45 Multivitamins Therapeutic (Therapeutic Multivitamin) 1 ea DAILY ORAL 10/30/19 09:00 11/29/19 08:59 11/01/19 08:45 Sennosides (Senokot) 16.2 mg QHS GT 10/29/19 21:00 11/28/19 20:59 10/31/19 21:29 Sodium Hypochlorite (Dakin's Quarter Strength) 1 applic DAILY TOPIC 10/30/19 20:00 11/29/19 19:59 11/01/19 08:46 Vancomycin HCl (Vanco rx to dose) 1 ea DAILY PRN MISC Per rx protocol 10/29/19 09:00 11/28/19 08:59 Vancomycin HCl 750 mg/Sodium Chloride 275 ml @ 183.333 mls/hr Q24H IVPB 10/30/19 14:00 11/04/19 13:59 10/31/19 14:06 Zinc Sulfate (Zinc Sulfate) 220 mg BID GT 10/31/19 18:00 11/28/19 17:59 11/01/19 08:45 Yves Harrison MD Nov 01, 2019 13:19
[2019-11-01] MEDS: Vancomycin 750 MG in NS 275 ML IVPB SCH (13:51)
[2019-11-01 16:00] VITALS: BP 119/62
--- NOTE | 2019-11-01 17:38 | Infectious Diseases Prog Note ---
Assessment/Plan Problems: (1) LLL pneumonia Assessment & Plan: DUE TO STAPH AUREUS , with hypoxemia , cough productive and persistent fever while on vancomycin will switch to zyvox and continue meropenem empiric coverage for now pending final cultures . screening for influenza A&B is negative . aspiration precaution . (2) UTI (urinary tract infection) Assessment & Plan: with negative culture suspect sterile pyuria , already on meropenem for pneumonia coverage (3) Sepsis Assessment & Plan: due to staph hominis , source most likely his pressure wounds , with fever , and leukocytosis now on zyvox . repeated blood culture is negative which confirm clearance (4) Sacral pressure ulcer Assessment & Plan: with cellulitis and infection , already on wide spectrum antibiotics, recommend off loading and local wound care as per hospital protocol (5) JAIRO (acute kidney injury) Assessment & Plan: improving , due to sepsis , continue hydration and renally adjusted antibiotics (6) Acute hypoxemic respiratory failure Assessment & Plan: suspect due to the above, on bipap , already started on wide spectrum antibiotics , monitor ABG, and CXR , Pulmonary is following (7) Decubitus ulcer of ischium, stage 4 Assessment & Plan: recommend off loading, local wound care and dressings change as per hospital protocol , already on wide spectrum antibiotics , will order bone scan Subjective ROS Limited/Unobtainable: Yes Allergies: Coded Allergies: No Known Allergies (Unverified , 06/20/19) Subjective He was resting in bed comfortable, on BIPAP, has low grade fever, coughing and congested with some phlegm production Objective Vital Signs Last 24 Hour Vital Signs Date Time Temp Pulse Resp B/P (MAP) Pulse Ox O2 Delivery O2 Flow Rate FiO2 11/01/19 16:00 Nasal Cannula 2.0 11/01/19 16:00 98.3 70 32 119/62 (81) 100 11/01/19 16:00 2.0 11/01/19 15:15 73 11/01/19 13:20 100.0 11/01/19 13:18 69 26 100 Nasal Cannula 2.0 28 11/01/19 12:00 Nasal Cannula 2.0 11/01/19 12:00 100.5 68 33 127/67 (87) 100 11/01/19 12:00 2.0 11/01/19 11:33 65 3/5/20 08:45 73 118/57 11/01/19 08:00 Nasal Cannula 2.0 11/01/19 08:00 99.9 77 27 118/57 (77) 100 11/01/19 08:00 75 11/01/19 08:00 2.0 11/01/19 07:11 72 26 100 Nasal Cannula 2.0 28 74 24 100 11/01/19 07:11 100 Nasal Cannula 2.0 28 11/01/19 04:00 Nasal Cannula 2.0 11/01/19 04:00 100.0 76 30 124/64 (84) 100 11/01/19 04:00 74 11/01/19 04:00 2.0 11/01/19 01:34 74 27 100 Nasal Cannula 2.0 28 75 26 100 11/01/19 00:00 71 11/01/19 00:00 Nasal Cannula 2.0 11/01/19 00:00 99.9 69 30 124/57 (79) 100 11/01/19 00:00 2.0 10/31/19 21:29 69 119/57 10/31/19 20:00 99.6 72 32 119/57 (77) 100 10/31/19 20:00 Nasal Cannula 2.0 10/31/19 20:00 72 10/31/19 20:00 2.0 10/31/19 19:59 69 23 100 Nasal Cannula 2.0 28 70 24 100 10/31/19 19:59 100 Nasal Cannula 2.0 28 Height (Feet): 5 Height (Inches): 10.00 Weight (Pounds): 132 General Appearance: no acute distress, cachetic HEENT: normocephalic, atraumatic, anicteric, supple, no JVD Respiratory/Chest: chest wall non-tender, no respiratory distress, no accessory muscle use, decreased breath sounds, crackles/rales Cardiovascular: normal peripheral pulses, normal rate, regular rhythm, no gallop/murmur, no JVD Abdomen: normal bowel sounds, soft, non tender, no organomegaly, non distended , no mass Extremities: no cyanosis, no clubbing Skin: no rash, no lesions, ulcers Neurologic/Psychiatric: unresponsiveness Lymphatic: no neck adenopathy, no groin adenopathy Musculoskeletal: normal muscle bulk, no effusion Microbiology Date/Time Source Procedure Growth Status 10/30/19 15:29 Blood Blood Culture - Preliminary NO GROWTH AFTER 24 HOURS Resulted 10/30/19 15:25 Blood Blood Culture - Preliminary NO GROWTH AFTER 24 HOURS Resulted 10/30/19 09:30 Sputum Expectorated Gram Stain - Final Resulted 10/30/19 09:30 Sputum Culture - Preliminary Staphylococcus Aureus Usual Upper Respiratory Tammie Resulted Laboratory Tests Test 11/01/19 03:50 11/01/19 13:00 White Blood Count 7.6 K/UL (4.8-10.8) Red Blood Count 2.78 M/UL (4.70-6.10) L Hemoglobin 8.3 G/DL (14.2-18.0) L Hematocrit 25.2 % (42.0-52.0) L Mean Corpuscular Volume 90 FL (80-99) Mean Corpuscular Hemoglobin 29.9 PG (27.0-31.0) Mean Corpuscular Hemoglobin Concent 33.1 G/DL (32.0-36.0) Red Cell Distribution Width 16.5 % (11.6-14.8) H Platelet Count 188 K/UL (150-450) Mean Platelet Volume 6.0 FL (6.5-10.1) L Neutrophils (%) (Auto) 63.2 % (45.0-75.0) Lymphocytes (%) (Auto) 24.0 % (20.0-45.0) Monocytes (%) (Auto) 7.0 % (1.0-10.0) Eosinophils (%) (Auto) 4.6 % (0.0-3.0) H Basophils (%) (Auto) 1.1 % (0.0-2.0) Sodium Level 145 MMOL/L (136-145) Potassium Level 5.0 MMOL/L (3.5-5.1) Chloride Level 112 MMOL/L (98-107) H Carbon Dioxide Level 29 MMOL/L (21-32) Anion Gap 4 mmol/L (5-15) L Blood Urea Nitrogen 31 mg/dL (7-18) H Creatinine 0.6 MG/DL (0.55-1.30) Estimat Glomerular Filtration Rate > 60 mL/min (>60) Glucose Level 116 MG/DL (74-106) H Calcium Level 9.5 MG/DL (8.5-10.1) Vancomycin Level Trough 11.4 ug/mL (5.0-12.0) Current Medications Medications (Trade) Dose Ordered Sig/Katharine Route PRN Reason Start Time Stop Time Status Last Admin Dose Admin Acetaminophen (Tylenol) 650 mg Q6H PRN GT Mild Pain/Temp > 100.5 11/01/19 09:15 12/01/19 09:14 11/01/19 12:34 Albuterol/ Ipratropium (Albuterol/ Ipratropium) 3 ml Q6HRT HHN 10/29/19 13:00 11/03/19 12:59 11/01/19 13:18 Ascorbic Acid (Vitamin C) 500 mg DAILY GT 10/29/19 12:00 11/28/19 11:29 11/01/19 08:45 Carbidopa/Levodopa (Sinemet 25/100) 1 tab THREE TIMES A DAY GT 10/29/19 13:00 11/28/19 12:59 11/01/19 13:50 Dextrose 1,000 ml @ 50 mls/hr Q20H IV 11/01/19 09:15 12/01/19 09:14 11/01/19 09:41 Dextrose (Dextrose 50%) 25 ml Q30M PRN IV Hypoglycemia 10/29/19 11:30 11/28/19 11:29 Dextrose (Dextrose 50%) 50 ml Q30M PRN IV Hypoglycemia 10/29/19 11:30 11/28/19 11:29 Insulin Aspart (NovoLOG) Q6HR SUBQ 11/01/19 12:00 11/28/19 11:29 Lansoprazole (Prevacid) 30 mg DAILY GT 11/01/19 09:00 12/01/19 08:59 11/01/19 08:45 Meropenem 1 gm/ Sodium Chloride 55 ml @ 110 mls/hr Q12H IVPB 10/29/19 11:00 11/03/19 10:59 11/01/19 11:05 Metoprolol Tartrate (Lopressor) 25 mg EVERY 12 HOURS GT 10/29/19 21:00 11/28/19 20:59 11/01/19 08:45 Multivitamins Therapeutic (Therapeutic Multivitamin) 1 ea DAILY ORAL 10/30/19 09:00 11/29/19 08:59 11/01/19 08:45 Sennosides (Senokot) 16.2 mg QHS GT 10/29/19 21:00 11/28/19 20:59 10/31/19 21:29 Sodium Hypochlorite (Dakin's Quarter Strength) 1 applic DAILY TOPIC 10/30/19 20:00 11/29/19 19:59 11/01/19 08:46 Vancomycin HCl (Vanco rx to dose) 1 ea DAILY PRN MISC Per rx protocol 10/29/19 09:00 11/28/19 08:59 Vancomycin HCl 1 gm/Sodium Chloride 275 ml @ 183.708 mls/hr Q24H IVPB 11/02/19 09:00 11/07/19 08:59 Zinc Sulfate (Zinc Sulfate) 220 mg BID GT 10/31/19 18:00 11/28/19 17:59 11/01/19 08:45 Arcadio Mcnair M.D. Nov 01, 2019 17:38
[2019-11-01 20:00] VITALS: BP 107/53
[2019-11-01] MEDS: Sennosides 8.6mg tab GT SCH (21:13)
[2019-11-02] VITALS: BP 123/73
[2019-11-02] MEDS: Albuterol/Ipratropium 3ml neb HHN SCH ×4 (00:31→19:36)
[2019-11-02 04:00] VITALS: BP 129/64
[2019-11-02] MEDS: NovoLOG Insulin Flexpen SUBQ SCH ×3 (05:03→18:00)
[2019-11-02 05:30] LABS: EOSINOPHILS % (AUTO) 8.6 % (0.0-3.0); HEMATOCRIT 25.9 % (42.0-52.0); HEMOGLOBIN 8.8 G/DL (14.2-18.0); MEAN CORPUSCULAR VOLUME 90 FL (80-99); MONOCYTES % (AUTO) 5.7 % (1.0-10.0); NEUTROPHILS % (AUTO) 61.8 % (45.0-75.0); PLATELET COUNT 193 K/UL (150-450); RED BLOOD COUNT 2.89 M/UL (4.70-6.10); RED CELL DISTRIBUTION WIDTH 16.1 % (11.6-14.8); WHITE BLOOD COUNT 9.9 K/UL (4.8-10.8)
[2019-11-02 05:50] LABS: ANION GAP 9 mmol/L (5-15); BLOOD UREA NITROGEN 26 mg/dL (7-18); CALCIUM 9.6 MG/DL (8.5-10.1); CARBON DIOXIDE 25 MMOL/L (21-32); CHLORIDE 107 MMOL/L (98-107); CREATININE 0.7 MG/DL (0.55-1.30); POTASSIUM 4.9 MMOL/L (3.5-5.1); SODIUM 141 MMOL/L (136-145)
--- NOTE | 2019-11-02 07:48 | Cardiac Electrophysiology PN ---
Assessment/Plan Assessment/Plan 1. Shortness of breath, possible pneumonia. On abx by Dr. Harrison and Dr. Mcnair Nl EF 2. Status post ventricular fibrillation arrest. S/P upgrading of pacemaker to [employer] defibrillator at [facility] by de. ICD interrogated showed normal function. 4. Hypertension. 5. Dysphagia. Family has refused PEG placement.NGT feeding 6. Pneumonia, on antibiotics. 7. Dementia and Parkinson. DW RN Subjective Subjective Remains V paced. No events. RN at bedside Objective Last 24 Hour Vital Signs Date Time Temp Pulse Resp B/P (MAP) Pulse Ox O2 Delivery O2 Flow Rate FiO2 11/02/19 07:30 72 24 100 Nasal Cannula 2.0 28 70 24 100 11/02/19 07:30 100 Nasal Cannula 2.0 28 11/02/19 04:00 Nasal Cannula 2.0 11/02/19 04:00 69 11/02/19 04:00 3.0 11/02/19 04:00 99.2 62 28 129/64 (85) 98 11/02/19 00:31 73 26 100 Nasal Cannula 2.0 28 74 24 100 11/02/19 00:00 Nasal Cannula 2.0 11/02/19 00:00 62 11/02/19 00:00 98.6 75 28 123/73 (90) 99 11/02/19 00:00 3.0 11/01/19 21:13 74 120/60 11/01/19 20:00 69 11/01/19 20:00 Nasal Cannula 2.0 11/01/19 20:00 3.0 11/01/19 20:00 98.7 71 28 107/53 (71) 100 11/01/19 19:22 71 29 100 Nasal Cannula 2.0 28 71 22 100 11/01/19 19:22 100 Nasal Cannula 2.0 28 11/01/19 16:00 Nasal Cannula 2.0 11/01/19 16:00 98.3 70 32 119/62 (81) 100 11/01/19 16:00 2.0 11/01/19 15:15 73 11/01/19 13:20 100.0 11/01/19 13:18 69 26 100 Nasal Cannula 2.0 28 11/01/19 12:00 Nasal Cannula 2.0 11/01/19 12:00 100.5 68 33 127/67 (87) 100 11/01/19 12:00 2.0 11/01/19 11:33 65 11/01/19 08:45 73 118/57 11/01/19 08:00 Nasal Cannula 2.0 11/01/19 08:00 99.9 77 27 118/57 (77) 100 11/01/19 08:00 75 11/01/19 08:00 2.0 Intake and Output 11/01/19 11/02/19 19:00 07:00 Intake Total 1400.83 ml 1060 ml Output Total 1200 ml 1400 ml Balance 200.83 ml -340 ml Intake Free Water 100 ml 50 ml IV Total 520.83 ml 555 ml Tube Feeding 780 ml 455 ml Output Urine Total 1200 ml 1400 ml # Bowel Movements 1 1 Laboratory Tests Test 11/01/19 13:00 11/02/19 04:15 Vancomycin Level Trough 11.4 ug/mL (5.0-12.0) White Blood Count 9.9 K/UL (4.8-10.8) Red Blood Count 2.89 M/UL (4.70-6.10) L Hemoglobin 8.8 G/DL (14.2-18.0) L Hematocrit 25.9 % (42.0-52.0) L Mean Corpuscular Volume 90 FL (80-99) Mean Corpuscular Hemoglobin 30.3 PG (27.0-31.0) Mean Corpuscular Hemoglobin Concent 33.8 G/DL (32.0-36.0) Red Cell Distribution Width 16.1 % (11.6-14.8) H Platelet Count 193 K/UL (150-450) Mean Platelet Volume 5.9 FL (6.5-10.1) L Neutrophils (%) (Auto) 61.8 % (45.0-75.0) Lymphocytes (%) (Auto) 23.0 % (20.0-45.0) Monocytes (%) (Auto) 5.7 % (1.0-10.0) Eosinophils (%) (Auto) 8.6 % (0.0-3.0) H Basophils (%) (Auto) 1.0 % (0.0-2.0) Sodium Level 141 MMOL/L (136-145) Potassium Level 4.9 MMOL/L (3.5-5.1) Chloride Level 107 MMOL/L (98-107) Carbon Dioxide Level 25 MMOL/L (21-32) Anion Gap 9 mmol/L (5-15) Blood Urea Nitrogen 26 mg/dL (7-18) H Creatinine 0.7 MG/DL (0.55-1.30) Estimat Glomerular Filtration Rate > 60 mL/min (>60) Glucose Level 104 MG/DL (74-106) Calcium Level 9.6 MG/DL (8.5-10.1) Microbiology Date/Time Source Procedure Growth Status 10/30/19 15:29 Blood Blood Culture - Preliminary NO GROWTH AFTER 24 HOURS Resulted 10/30/19 15:25 Blood Blood Culture - Preliminary NO GROWTH AFTER 24 HOURS Resulted 10/30/19 09:30 Sputum Expectorated Gram Stain - Final Complete 10/30/19 09:30 Sputum Culture - Final Staphylococcus Aureus - Mrsa Usual Upper Respiratory Tammie Complete Objective HEAD AND NECK: Showed no JVD. LUNGS: Coarse rhonchi. CARDIOVASCULAR: Shows regular S1 and S2 with no gallop. Defibrillator is in left subclavian. ABDOMEN: Soft. EXTREMITIES: No pitting edema. Pablo Norton MD Nov 02, 2019 07:48
[2019-11-02 08:00] VITALS: BP 128/66
[2019-11-02] MEDS: Multivitamin w/Minerals tab ORAL SCH (08:30)
[2019-11-02] MEDS: Levodopa/Carbidopa 25/100 tab GT SCH ×3 (08:30→17:31)
[2019-11-02] MEDS: Zinc Sulfate 220mg cap GT SCH ×2 (08:30→17:33)
[2019-11-02] MEDS: Dakin's 0.125% Soln (Quarter Strength) 16oz TOPIC SCH (08:31)
[2019-11-02] MEDS: Ascorbic Acid 500mg tab GT SCH (08:31)
[2019-11-02] MEDS ORDERED: Vancomycin 1 GM in NS 275 ML IVPB SCH (09:00)
--- NOTE | 2019-11-02 09:22 | General Progress Note ---
Assessment/Plan Status: stable Assessment/Plan: 1. LLL pneumonia - cont meropenem and vancomycin for empiric coverage. Follow cultures. Influenza A&B negative in ER. 2. Sepsis - cont broad spectrum antibiotic as above. ID following. follow cultures. Transfer to Tele today. 3. UTI - on broad specturm antibiotic. 4, Acute hypoxemic respiratory failure - off BiPaP. doing better and Staff Trainer following the patient. 5. JAIRO - improved with hydration. 6.Pressure Ulcers of Isthium, stage 4 - wound care by Dr Lomax. 7. Anemia - most likely 2nd to Eliquis - off Eliquis and CBC improved to 8.3. 8. Run of V tach in ER and h/o ICD placement - Cardiology following. 9. Hypokalemia - resolved. 10. Hyponatremia - resolved. 11. Parkinson's Dementia Subjective Date patient seen: Nov 02, 2019 Constitutional: Reports: weakness HEENT: Reports: no symptoms Cardiovascular: Reports: no symptoms Respiratory: Reports: no symptoms Gastrointestinal/Abdominal: Reports: no symptoms Genitourinary: Reports: no symptoms Endocrine: Reports: no symptoms Hematologic/Lymphatic: Reports: no symptoms Allergies: Coded Allergies: No Known Allergies (Unverified , 06/20/19) Subjective He is doing better this moring. afebrile. No sob or chest pain. Objective Last 24 Hour Vital Signs Date Time Temp Pulse Resp B/P (MAP) Pulse Ox O2 Delivery O2 Flow Rate FiO2 11/02/19 08:30 78 128/66 11/02/19 08:00 72 11/02/19 08:00 3.0 11/02/19 08:00 Nasal Cannula 2.0 11/02/19 08:00 98.6 78 20 128/66 (86) 100 11/02/19 07:30 72 24 100 Nasal Cannula 2.0 28 70 24 100 11/02/19 07:30 100 Nasal Cannula 2.0 28 11/02/19 04:00 Nasal Cannula 2.0 11/02/19 04:00 69 11/02/19 04:00 3.0 11/02/19 04:00 99.2 62 28 129/64 (85) 98 11/02/19 00:31 73 26 100 Nasal Cannula 2.0 28 74 24 100 11/02/19 00:00 Nasal Cannula 2.0 11/02/19 00:00 62 11/02/19 00:00 98.6 75 28 123/73 (90) 99 11/02/19 00:00 3.0 11/01/19 21:13 74 120/60 11/01/19 20:00 69 11/01/19 20:00 Nasal Cannula 2.0 11/01/19 20:00 3.0 11/01/19 20:00 98.7 71 28 107/53 (71) 100 11/01/19 19:22 71 29 100 Nasal Cannula 2.0 28 71 22 100 11/01/19 19:22 100 Nasal Cannula 2.0 28 11/01/19 16:00 Nasal Cannula 2.0 11/01/19 16:00 98.3 70 32 119/62 (81) 100 11/01/19 16:00 2.0 11/01/19 15:15 73 11/01/19 13:20 100.0 11/01/19 13:18 69 26 100 Nasal Cannula 2.0 28 11/01/19 12:00 Nasal Cannula 2.0 11/01/19 12:00 100.5 68 33 127/67 (87) 100 11/01/19 12:00 2.0 11/01/19 11:33 65 Intake and Output 11/01/19 11/02/19 19:00 07:00 Intake Total 1400.83 ml 1060 ml Output Total 1200 ml 1400 ml Balance 200.83 ml -340 ml Intake Free Water 100 ml 50 ml IV Total 520.83 ml 555 ml Tube Feeding 780 ml 455 ml Output Urine Total 1200 ml 1400 ml # Bowel Movements 1 1 Laboratory Tests 11/01/19 13:00: Vancomycin Level Trough 11.4 11/02/19 04:15: White Blood Count 9.9, Red Blood Count 2.89L, Hemoglobin 8.8L, Hematocrit 25.9L , Mean Corpuscular Volume 90, Mean Corpuscular Hemoglobin 30.3, Mean Corpuscular Hemoglobin Concent 33.8, Red Cell Distribution Width 16.1H, Platelet Count 193, Mean Platelet Volume 5.9L, Neutrophils (%) (Auto) 61.8, Lymphocytes (%) (Auto) 23.0, Monocytes (%) (Auto) 5.7, Eosinophils (%) (Auto) 8.6H, Basophils (%) (Auto) 1.0, Sodium Level 141, Potassium Level 4.9, Chloride Level 107, Carbon Dioxide Level 25, Anion Gap 9, Blood Urea Nitrogen 26H, Creatinine 0.7, Estimat Glomerular Filtration Rate > 60, Glucose Level 104, Calcium Level 9.6 Height (Feet): 5 Height (Inches): 10.00 Weight (Pounds): 132 General Appearance: no apparent distress Neck: non-tender, supple Cardiovascular: normal rate, regular rhythm Respiratory/Chest: lungs clear, normal breath sounds Abdomen: non tender, soft Extremities: non-tender Neurologic: responsive Skin: warm/dry Aakash Blanco MD Nov 02, 2019 09:22
[2019-11-02] MEDS: Meropenem 1 GM in NS 55 ML IVPB SCH ×2 (10:25→22:59)
[2019-11-02 12:00] VITALS: BP 130/78
--- NOTE | 2019-11-02 13:08 | Pulmonology Progress Note ---
Assessment/Plan Problems: (1) JAIRO (acute kidney injury) Assessment & Plan: With hyperNa (2) Acute hypoxemic respiratory failure (3) Respiratory failure, acute (4) HCAP (healthcare-associated pneumonia) (5) UTI (urinary tract infection) (6) Sepsis Assessment & Plan: GPC (7) V-tach (8) History of pulmonary embolism (9) Sacral pressure ulcer (10) Anemia Assessment/Plan Optimize pulmonary hygiene/mobilize as tolerated BiPAP PRN only Titrate O2 HHN's Abx: Rodolfo/Zyvox per ID, F/U Cx's Monitor volumes and renal function DVT Px: Eliquis NPO, GTF's FC, continue to discuss GOC Wound care Subjective Allergies: Coded Allergies: No Known Allergies (Unverified , 06/20/19) Subjective AFVSS on 2L NC breathing stable no cough no FC alesia TF's Objective Last 24 Hour Vital Signs Date Time Temp Pulse Resp B/P (MAP) Pulse Ox O2 Delivery O2 Flow Rate FiO2 11/02/19 12:00 98.2 67 20 130/78 (95) 100 11/02/19 12:00 2.0 11/02/19 12:00 Nasal Cannula 2.0 11/02/19 08:30 78 128/66 11/02/19 08:00 72 11/02/19 08:00 3.0 11/02/19 08:00 Nasal Cannula 2.0 11/02/19 08:00 98.6 78 20 128/66 (86) 100 11/02/19 07:30 72 24 100 Nasal Cannula 2.0 28 70 24 100 11/02/19 07:30 100 Nasal Cannula 2.0 28 11/02/19 04:00 Nasal Cannula 2.0 11/02/19 04:00 69 11/02/19 04:00 3.0 11/02/19 04:00 99.2 62 28 129/64 (85) 98 11/02/19 00:31 73 26 100 Nasal Cannula 2.0 28 74 24 100 11/02/19 00:00 Nasal Cannula 2.0 11/02/19 00:00 62 11/02/19 00:00 98.6 75 28 123/73 (90) 99 11/02/19 00:00 3.0 11/01/19 21:13 74 120/60 11/01/19 20:00 69 11/01/19 20:00 Nasal Cannula 2.0 11/01/19 20:00 3.0 11/01/19 20:00 98.7 71 28 107/53 (71) 100 11/01/19 19:22 71 29 100 Nasal Cannula 2.0 28 71 22 100 11/01/19 19:22 100 Nasal Cannula 2.0 28 11/01/19 16:00 Nasal Cannula 2.0 11/01/19 16:00 98.3 70 32 119/62 (81) 100 11/01/19 16:00 2.0 11/01/19 15:15 73 11/01/19 13:20 100.0 11/01/19 13:18 69 26 100 Nasal Cannula 2.0 28 Intake and Output 11/01/19 11/02/19 19:00 07:00 Intake Total 1400.83 ml 1060 ml Output Total 1200 ml 1400 ml Balance 200.83 ml -340 ml Intake Free Water 100 ml 50 ml IV Total 520.83 ml 555 ml Tube Feeding 780 ml 455 ml Output Urine Total 1200 ml 1400 ml # Bowel Movements 1 1 General Appearance: cachetic HEENT: normocephalic, atraumatic, anicteric, mucous membranes moist Respiratory/Chest: chest wall non-tender, lungs clear, normal breath sounds, no respiratory distress, no accessory muscle use Cardiovascular: normal peripheral pulses, normal rate, regular rhythm Abdomen: normal bowel sounds, soft, non tender, no organomegaly, non distended , no mass, other - GT Extremities: no cyanosis, no clubbing, no edema Microbiology Date/Time Source Procedure Growth Status 10/30/19 15:29 Blood Blood Culture - Preliminary NO GROWTH AFTER 24 HOURS Resulted 10/30/19 15:25 Blood Blood Culture - Preliminary NO GROWTH AFTER 24 HOURS Resulted Laboratory Tests 11/02/19 04:15: White Blood Count 9.9, Red Blood Count 2.89L, Hemoglobin 8.8L, Hematocrit 25.9L , Mean Corpuscular Volume 90, Mean Corpuscular Hemoglobin 30.3, Mean Corpuscular Hemoglobin Concent 33.8, Red Cell Distribution Width 16.1H, Platelet Count 193, Mean Platelet Volume 5.9L, Neutrophils (%) (Auto) 61.8, Lymphocytes (%) (Auto) 23.0, Monocytes (%) (Auto) 5.7, Eosinophils (%) (Auto) 8.6H, Basophils (%) (Auto) 1.0, Sodium Level 141, Potassium Level 4.9, Chloride Level 107, Carbon Dioxide Level 25, Anion Gap 9, Blood Urea Nitrogen 26H, Creatinine 0.7, Estimat Glomerular Filtration Rate > 60, Glucose Level 104, Calcium Level 9.6 Current Medications Medications (Trade) Dose Ordered Sig/Katharine Route PRN Reason Start Time Stop Time Status Last Admin Dose Admin Acetaminophen (Tylenol) 650 mg Q6H PRN GT Mild Pain/Temp > 100.5 11/01/19 09:15 12/01/19 09:14 11/01/19 12:34 Albuterol/ Ipratropium (Albuterol/ Ipratropium) 3 ml Q6HRT HHN 10/29/19 13:00 11/03/19 12:59 11/02/19 07:33 Ascorbic Acid (Vitamin C) 500 mg DAILY GT 10/29/19 12:00 11/28/19 11:29 11/02/19 08:31 Carbidopa/Levodopa (Sinemet 25/100) 1 tab THREE TIMES A DAY GT 10/29/19 13:00 11/28/19 12:59 11/02/19 12:05 Dextrose (Dextrose 50%) 25 ml Q30M PRN IV Hypoglycemia 10/29/19 11:30 11/28/19 11:29 Dextrose (Dextrose 50%) 50 ml Q30M PRN IV Hypoglycemia 10/29/19 11:30 11/28/19 11:29 Insulin Aspart (NovoLOG) Q6HR SUBQ 11/01/19 12:00 11/28/19 11:29 Lansoprazole (Prevacid) 30 mg DAILY GT 11/01/19 09:00 12/01/19 08:59 11/02/19 08:30 Linezolid 300 ml @ 300 mls/hr Q12HR IVPB 11/01/19 19:00 11/08/19 18:59 11/02/19 08:30 Meropenem 1 gm/ Sodium Chloride 55 ml @ 110 mls/hr Q12H IVPB 10/29/19 11:00 11/03/19 10:59 11/02/19 10:25 Metoprolol Tartrate (Lopressor) 25 mg EVERY 12 HOURS GT 10/29/19 21:00 11/28/19 20:59 11/02/19 08:30 Multivitamins Therapeutic (Therapeutic Multivitamin) 1 ea DAILY ORAL 10/30/19 09:00 11/29/19 08:59 11/02/19 08:30 Sennosides (Senokot) 16.2 mg QHS GT 10/29/19 21:00 11/28/19 20:59 11/01/19 21:13 Sodium Hypochlorite (Dakin's Quarter Strength) 1 applic DAILY TOPIC 10/30/19 20:00 11/29/19 19:59 11/02/19 08:31 Zinc Sulfate (Zinc Sulfate) 220 mg BID GT 10/31/19 18:00 11/28/19 17:59 11/02/19 08:30 Yves Harrison MD Nov 02, 2019 13:08
--- NOTE | 2019-11-02 13:52 | Surgery Progress Note ---
Surgery Progress Note Subjective Additional Comments no acute events comfortable stable Objective Last 24 Hour Vital Signs Date Time Temp Pulse Resp B/P (MAP) Pulse Ox O2 Delivery O2 Flow Rate FiO2 11/02/19 12:00 98.2 67 20 130/78 (95) 100 11/02/19 12:00 2.0 11/02/19 12:00 64 11/02/19 12:00 Nasal Cannula 2.0 11/02/19 08:30 78 128/66 11/02/19 08:00 72 11/02/19 08:00 3.0 11/02/19 08:00 Nasal Cannula 2.0 11/02/19 08:00 98.6 78 20 128/66 (86) 100 11/02/19 07:30 72 24 100 Nasal Cannula 2.0 28 70 24 100 11/02/19 07:30 100 Nasal Cannula 2.0 28 11/02/19 04:00 Nasal Cannula 2.0 11/02/19 04:00 69 11/02/19 04:00 3.0 11/02/19 04:00 99.2 62 28 129/64 (85) 98 11/02/19 00:31 73 26 100 Nasal Cannula 2.0 28 74 24 100 11/02/19 00:00 Nasal Cannula 2.0 11/02/19 00:00 62 11/02/19 00:00 98.6 75 28 123/73 (90) 99 11/02/19 00:00 3.0 11/01/19 21:13 74 120/60 11/01/19 20:00 69 11/01/19 20:00 Nasal Cannula 2.0 11/01/19 20:00 3.0 11/01/19 20:00 98.7 71 28 107/53 (71) 100 11/01/19 19:22 71 29 100 Nasal Cannula 2.0 28 71 22 100 11/01/19 19:22 100 Nasal Cannula 2.0 28 11/01/19 16:00 Nasal Cannula 2.0 11/01/19 16:00 98.3 70 32 119/62 (81) 100 11/01/19 16:00 2.0 11/01/19 15:15 73 I&O Intake and Output 11/01/19 11/02/19 19:00 07:00 Intake Total 1400.83 ml 1060 ml Output Total 1200 ml 1400 ml Balance 200.83 ml -340 ml Intake Free Water 100 ml 50 ml IV Total 520.83 ml 555 ml Tube Feeding 780 ml 455 ml Output Urine Total 1200 ml 1400 ml # Bowel Movements 1 1 Dressing: other Wound: other Drains: other Cardiovascular: RSR Respiratory: decreased breath sounds Abdomen: soft, present bowel sounds Extremities: no cyanosis Laboratory Tests Test 11/02/19 04:15 White Blood Count 9.9 K/UL (4.8-10.8) Red Blood Count 2.89 M/UL (4.70-6.10) L Hemoglobin 8.8 G/DL (14.2-18.0) L Hematocrit 25.9 % (42.0-52.0) L Mean Corpuscular Volume 90 FL (80-99) Mean Corpuscular Hemoglobin 30.3 PG (27.0-31.0) Mean Corpuscular Hemoglobin Concent 33.8 G/DL (32.0-36.0) Red Cell Distribution Width 16.1 % (11.6-14.8) H Platelet Count 193 K/UL (150-450) Mean Platelet Volume 5.9 FL (6.5-10.1) L Neutrophils (%) (Auto) 61.8 % (45.0-75.0) Lymphocytes (%) (Auto) 23.0 % (20.0-45.0) Monocytes (%) (Auto) 5.7 % (1.0-10.0) Eosinophils (%) (Auto) 8.6 % (0.0-3.0) H Basophils (%) (Auto) 1.0 % (0.0-2.0) Sodium Level 141 MMOL/L (136-145) Potassium Level 4.9 MMOL/L (3.5-5.1) Chloride Level 107 MMOL/L (98-107) Carbon Dioxide Level 25 MMOL/L (21-32) Anion Gap 9 mmol/L (5-15) Blood Urea Nitrogen 26 mg/dL (7-18) H Creatinine 0.7 MG/DL (0.55-1.30) Estimat Glomerular Filtration Rate > 60 mL/min (>60) Glucose Level 104 MG/DL (74-106) Calcium Level 9.6 MG/DL (8.5-10.1) Plan Problems: (1) Anemia (2) Respiratory failure, acute (3) HCAP (healthcare-associated pneumonia) (4) V-tach (5) History of pulmonary embolism (6) Sacral pressure ulcer Assessment & Plan: Pt presented on admission with multiple pressure injuries. Bilateral groin and scrotum are erythematous. Stage 4 Full thickness Sacral pressure(L)2.2cm x (W)6.5cm. Base of wound beefy red in center at sacrococcygeal with surrounding moist pink granulation. Edges are macerated.Small amt brown exudate that is malodorous. Periwound purple/ maroon and indurated. In addition pt noted to have scattered partial thickness wounds periwound. Entire pressure injury including full thickness wound measures 7cm x (W)7.5cm. Stage 4 Full thickness pressure injury L trochanter. Base of wound has 80% soft necrotic tissue, 20% mixed beefy red and slough. Bone is palpable. Wound is malodorous(L)6.2cm x (W)6.5cm.Small amt brown exudate noted.Periwound is indurated with areas of fluctuance. The Affected area including wound measuring (L)14.2cm x (W)17.5cm. Stage 4 Full thickness pressure injury R trochanter. Base of wound has 50% slough in center with surrounding beefy red granulation (L)6.5cm x (W)7cm. Bone is palpable at center of wound. Wound is malodorous. Small amt seropurulent exudate noted.Periwound is purple and indurated. Unstageable pressure injury L hallux. Dry eschar at base of wound. Marginal erythema along borders .NO odor or exudate noted (L)3cm x (W)1.4cm Unstageable pressure injury medial/lateral L foot. Base of wound is brown over bony protrusion with surrounding maroon borders (L)1cm x (W)1.4cm. L heel is boggy with non-blanching erythema medial aspect of heel. Full thickness pressure injury dorsal/medial aspect of L foot. Base of wound is beefy and moist in center with black and fluctuant borders (L)2.6cm x (W)4.5cm. DTPI Medial L heel . Base of wound is fluctuant purple in center with maroon borders. Periwound heel is boggy and erythematous(L)4.2cm x (W)5.5cm. Stable dry eschar noted to R 5th metatarsal (L)0.7cm x (W)0.6cm. NO erythema or evidence of further breakdown periwound. Tx.Plan: Cleanse Sacral wound with Dakin's 0.125% aiyana. Apply Dakin's moist gauze. Apply Moisture Barrier paste periwound. Cover with Optifoam drsg Daily and prn. Cleanse R trochanter wound with Dakin's 0.125% aiyana. Apply Dakin's moist gauze to wound bed. Apply Moisture Barrier Paste periwound. Cover with Optifoam drsg Daily and prn. Cleanse L trochanter wound with Dakin's 0.125% Aiyana. Apply Dakin's moist Gauze to wound. Apply Moisture Barrier Paste periwound. Cover with Optifoam drsg Daily and prn. Swab wounds R foot with Betadine. Cover each wound with Optifoam drsg every 3 days and prn. Swab wounds L foot with Betadine. Cover each wound with Optifoam drsg every 3 days and prn. Air Fluidized Mattress. Reposition at least every 2hours or as tolerated. Place pillow between knees. Off-load heels with pillow. (7) JAIRO (acute kidney injury) (8) Acute hypoxemic respiratory failure (9) Decubitus ulcer of ischium, stage 4 (10) LLL pneumonia (11) Sepsis Assessment & Plan: Abx as per ID nutritional optimization trend labs overall improving cont current care plan DAILY ESTIMATED NEEDS: Needs based on Underweight, wounds, 58.6kg 30-35 kcals/kg 9878-6387 total kcals 1.5-2 g protein/kg 88-117 g total protein 25-35ml/kcal mL/kg 6893-5383 total fluid mLs NUTRITION DIAGNOSIS: * Increased kcal and pro needs r/t wound healing and underweight status AEB pt admitted w/ multiple advanced wounds, including unstageable wounds x2, full thickness wounds x4, w/ generalized moderate wasting, @78% of [place] Body Weight. * Swallowing difficulty R/T dysphagia, pt is PEG dependent. CURRENT TF: Jevity 1.2 @ 65ml/hr x 20 hrs ENTERAL NUTRITION RECOMMENDATIONS: Glucerna 1.5 @ 50ml/hr x 24 hrs to provide 1200ml, 1800 kcal, 99g pro, 911ml free H2O * Rec TF CHANGE for carb control formula-> start Glucerna 1.5 @30ml/hr for 6 hrs, advance as tolerated 10ml/hr q4-6 hrs to goal. * HOB over 30 degrees flush per MD ADDITIONAL RECOMMENDATIONS: 1) Calibrated bedscale wt for accurate CBW -> on a bed w/ p200 mattress 2) Wound care, add MYRON in 4oz water BID via GT 3) Rec accuchecks w/ ssi as needed/ h/o DM per MD 4) Check lytes, replete as needed (12) UTI (urinary tract infection) Kyle Lomax Nov 02, 2019 13:52
--- NOTE | 2019-11-02 15:21 | Diagnostic Imaging Report ---
Indication: Sacral wound, right buttock wound, suspect osteomyelitis Technique: IV administration 25.1 mCi 99 M technetium MDP. Flow, blood pool, and static images were obtained over the pelvic region. Comparison: None Findings: Flow images demonstrate equivocal slight hyperemia of the bilateral hip region. Somewhat more striking hyperemia of the right hip region is seen on the blood pool images. Static images demonstrate increased activity in the region of the right greater trochanter. No definite abnormal sacral or ischial activity demonstrated. Impression: Abnormal flow, blood pool, and static activity in the region of the right hip intertrochanteric region and overlying soft tissues. This is concerning for osteomyelitis of the greater trochanter. No evidence of abnormal sacral or ischial activity
--- NOTE | 2019-11-02 15:52 | Infectious Diseases Prog Note ---
Assessment/Plan Problems: (1) LLL pneumonia Assessment & Plan: DUE TO METHICILLIN RESISTANT STAPH AUREUS , with hypoxemia , cough productive and persistent fever while on vancomycin , CONTINUE zyvox to treat for 4-6 weeks and to cover for osteomyelitis of the right trochanteric. screening for influenza A&B is negative . aspiration precaution . (2) UTI (urinary tract infection) Assessment & Plan: with negative culture suspect sterile pyuria , already on meropenem for pneumonia coverage (3) Sepsis Assessment & Plan: due to staph hominis , source most likely his pressure wounds , with fever , and leukocytosis now on zyvox . repeated blood culture is negative which confirm clearance (4) Sacral pressure ulcer Assessment & Plan: with cellulitis and infection , already on wide spectrum antibiotics, recommend off loading and local wound care as per hospital protocol (5) JAIRO (acute kidney injury) Assessment & Plan: improving , due to sepsis , continue hydration and renally adjusted antibiotics (6) Acute hypoxemic respiratory failure Assessment & Plan: suspect due to the above, on bipap , already started on wide spectrum antibiotics , monitor ABG, and CXR , Pulmonary is following (7) Decubitus ulcer of ischium, stage 4 Assessment & Plan: recommend off loading, local wound care and dressings change as per hospital protocol , already on wide spectrum antibiotics , will order bone scan (8) Osteomyelitis of right hip Assessment & Plan: with deep pressure wound , confirmed on bone scan, continue zyvox and meropenem for 6 weeks , with local wound care and dressings changes . monitor weekly labs , with CBC, and CMP Subjective ROS Limited/Unobtainable: Yes Allergies: Coded Allergies: No Known Allergies (Unverified , 06/20/19) Subjective He was resting in bed comfortable, on BIPAP, has low grade fever, coughing and congested with some phlegm production Objective Vital Signs Last 24 Hour Vital Signs Date Time Temp Pulse Resp B/P (MAP) Pulse Ox O2 Delivery O2 Flow Rate FiO2 11/02/19 12:00 98.2 67 20 130/78 (95) 100 11/02/19 12:00 2.0 11/02/19 12:00 64 11/02/19 12:00 Nasal Cannula 2.0 11/02/19 08:30 78 128/66 11/02/19 08:00 72 11/02/19 08:00 3.0 11/02/19 08:00 Nasal Cannula 2.0 11/02/19 08:00 98.6 78 20 128/66 (86) 100 11/02/19 07:30 72 24 100 Nasal Cannula 2.0 28 70 24 100 11/02/19 07:30 100 Nasal Cannula 2.0 28 11/02/19 04:00 Nasal Cannula 2.0 11/02/19 04:00 69 11/02/19 04:00 3.0 11/02/19 04:00 99.2 62 28 129/64 (85) 98 11/02/19 00:31 73 26 100 Nasal Cannula 2.0 28 74 24 100 11/02/19 00:00 Nasal Cannula 2.0 11/02/19 00:00 62 11/02/19 00:00 98.6 75 28 123/73 (90) 99 11/02/19 00:00 3.0 11/01/19 21:13 74 120/60 11/01/19 20:00 69 11/01/19 20:00 Nasal Cannula 2.0 11/01/19 20:00 3.0 11/01/19 20:00 98.7 71 28 107/53 (71) 100 11/01/19 19:22 71 29 100 Nasal Cannula 2.0 28 71 22 100 11/01/19 19:22 100 Nasal Cannula 2.0 28 11/01/19 16:00 Nasal Cannula 2.0 11/01/19 16:00 98.3 70 32 119/62 (81) 100 11/01/19 16:00 2.0 Height (Feet): 5 Height (Inches): 10.00 Weight (Pounds): 132 General Appearance: no acute distress, cachetic HEENT: normocephalic, atraumatic, anicteric, mucous membranes moist, PERRL Respiratory/Chest: chest wall non-tender, lungs clear, normal breath sounds, no respiratory distress, no accessory muscle use Cardiovascular: normal peripheral pulses, normal rate, regular rhythm, no gallop/murmur, no JVD Abdomen: normal bowel sounds, soft, non tender, no organomegaly, non distended , no mass, no scars Genitourinary: normal external genitalia Extremities: no cyanosis, no clubbing Skin: no rash, no lesions, ulcers Neurologic/Psychiatric: unresponsiveness Lymphatic: no neck adenopathy, no groin adenopathy Musculoskeletal: normal muscle bulk, no effusion Laboratory Tests Test 11/02/19 04:15 White Blood Count 9.9 K/UL (4.8-10.8) Red Blood Count 2.89 M/UL (4.70-6.10) L Hemoglobin 8.8 G/DL (14.2-18.0) L Hematocrit 25.9 % (42.0-52.0) L Mean Corpuscular Volume 90 FL (80-99) Mean Corpuscular Hemoglobin 30.3 PG (27.0-31.0) Mean Corpuscular Hemoglobin Concent 33.8 G/DL (32.0-36.0) Red Cell Distribution Width 16.1 % (11.6-14.8) H Platelet Count 193 K/UL (150-450) Mean Platelet Volume 5.9 FL (6.5-10.1) L Neutrophils (%) (Auto) 61.8 % (45.0-75.0) Lymphocytes (%) (Auto) 23.0 % (20.0-45.0) Monocytes (%) (Auto) 5.7 % (1.0-10.0) Eosinophils (%) (Auto) 8.6 % (0.0-3.0) H Basophils (%) (Auto) 1.0 % (0.0-2.0) Sodium Level 141 MMOL/L (136-145) Potassium Level 4.9 MMOL/L (3.5-5.1) Chloride Level 107 MMOL/L (98-107) Carbon Dioxide Level 25 MMOL/L (21-32) Anion Gap 9 mmol/L (5-15) Blood Urea Nitrogen 26 mg/dL (7-18) H Creatinine 0.7 MG/DL (0.55-1.30) Estimat Glomerular Filtration Rate > 60 mL/min (>60) Glucose Level 104 MG/DL (74-106) Calcium Level 9.6 MG/DL (8.5-10.1) Current Medications Medications (Trade) Dose Ordered Sig/Katharine Route PRN Reason Start Time Stop Time Status Last Admin Dose Admin Acetaminophen (Tylenol) 650 mg Q6H PRN GT Mild Pain/Temp > 100.5 11/01/19 09:15 12/01/19 09:14 11/01/19 12:34 Albuterol/ Ipratropium (Albuterol/ Ipratropium) 3 ml Q6HRT HHN 10/29/19 13:00 11/03/19 12:59 11/02/19 07:33 Ascorbic Acid (Vitamin C) 500 mg DAILY GT 10/29/19 12:00 11/28/19 11:29 11/02/19 08:31 Carbidopa/Levodopa (Sinemet 25/100) 1 tab THREE TIMES A DAY GT 10/29/19 13:00 11/28/19 12:59 11/02/19 12:05 Dextrose (Dextrose 50%) 25 ml Q30M PRN IV Hypoglycemia 10/29/19 11:30 11/28/19 11:29 Dextrose (Dextrose 50%) 50 ml Q30M PRN IV Hypoglycemia 10/29/19 11:30 11/28/19 11:29 Insulin Aspart (NovoLOG) Q6HR SUBQ 11/01/19 12:00 11/28/19 11:29 Lansoprazole (Prevacid) 30 mg DAILY GT 11/01/19 09:00 12/01/19 08:59 11/02/19 08:30 Linezolid 300 ml @ 300 mls/hr Q12HR IVPB 11/01/19 19:00 11/08/19 18:59 11/02/19 08:30 Meropenem 1 gm/ Sodium Chloride 55 ml @ 110 mls/hr Q12H IVPB 10/29/19 11:00 11/03/19 10:59 11/02/19 10:25 Metoprolol Tartrate (Lopressor) 25 mg EVERY 12 HOURS GT 10/29/19 21:00 11/28/19 20:59 11/02/19 08:30 Multivitamins Therapeutic (Therapeutic Multivitamin) 1 ea DAILY ORAL 10/30/19 09:00 11/29/19 08:59 11/02/19 08:30 Sennosides (Senokot) 16.2 mg QHS GT 10/29/19 21:00 11/28/19 20:59 11/01/19 21:13 Sodium Hypochlorite (Dakin's Quarter Strength) 1 applic DAILY TOPIC 10/30/19 20:00 11/29/19 19:59 11/02/19 08:31 Zinc Sulfate (Zinc Sulfate) 220 mg BID GT 10/31/19 18:00 11/28/19 17:59 11/02/19 08:30 Arcadio Mcnair M.D. Nov 02, 2019 15:52
[2019-11-02 16:00] VITALS: BP 139/73
[2019-11-02] MEDS ORDERED: Acetaminophen 650mg/20.3ml GT PRN (17:30)
[2019-11-02 20:00] VITALS: BP 106/58
[2019-11-02] MEDS: Sennosides 8.6mg tab GT SCH (21:14)
[2019-11-03] VITALS: BP 120/62
[2019-11-03] MEDS: Albuterol/Ipratropium 3ml neb HHN SCH ×2 (01:33→07:00)
[2019-11-03 04:00] VITALS: BP 125/60
[2019-11-03] MEDS: NovoLOG Insulin Flexpen SUBQ SCH ×4 (06:00→17:06)
--- NOTE | 2019-11-03 07:48 | General Progress Note ---
Assessment/Plan Status: stable Assessment/Plan: 1. LLL pneumonia - cont meropenem and zyvox for 6 weeks. Follow cultures. Influenza A&B negative in ER. 2. Sepsis - cont broad spectrum antibiotic as above. ID following. follow cultures. 3. UTI - on antibiotic for total of 6 wks due to osteomyeilitis. 4. 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 D/C to [facility] tomorrow. 5. Acute hypoxemic respiratory failure - off BiPaP. doing better and Registered Massage Therapist following the patient. 6. JAIRO - improved with hydration. 7.Pressure Ulcers of Isthium, stage 4 - wound care by Dr Lomax. 8. Anemia - most likely 2nd to Eliquis - off Eliquis and CBC improved to 8.8. 9. Run of V tach in ER and h/o ICD placement - Cardiology following. 10. Hypokalemia - resolved. 11. Hyponatremia - resolved. 12. Parkinson's Dementia Subjective Date patient seen: Nov 03, 2019 Time patient seen: 07:30 Constitutional: Reports: weakness HEENT: Reports: no symptoms Cardiovascular: Reports: no symptoms Respiratory: Reports: no symptoms Gastrointestinal/Abdominal: Reports: no symptoms Genitourinary: Reports: no symptoms Endocrine: Reports: no symptoms Hematologic/Lymphatic: Reports: no symptoms Allergies: Coded Allergies: No Known Allergies (Unverified , 06/20/19) Subjective His bone scan showed osteomyelitis of the Rt hip greater trochanter. No sob or chest pain. No coughing. Afebrile. Objective Last 24 Hour Vital Signs Date Time Temp Pulse Resp B/P (MAP) Pulse Ox O2 Delivery O2 Flow Rate FiO2 11/03/19 07:02 73 20 99 Nasal Cannula 2.0 28 72 22 98 11/03/19 07:01 98 Nasal Cannula 2.0 28 11/03/19 04:00 98.4 72 22 125/60 (81) 96 11/03/19 01:34 83 20 99 Nasal Cannula 2.0 28 79 20 97 11/03/19 00:00 97.9 84 22 120/62 (81) 95 11/02/19 21:13 76 106/58 11/02/19 20:00 98.8 76 22 106/58 (74) 97 11/02/19 20:00 Nasal Cannula 2.0 11/02/19 19:45 96 Nasal Cannula 2.0 28 11/02/19 19:45 80 22 98 Nasal Cannula 2.0 28 78 22 96 11/02/19 16:00 Nasal Cannula 2.0 11/02/19 16:00 97.7 66 20 139/73 (95) 100 11/02/19 16:00 2.0 11/02/19 12:00 98.2 67 20 130/78 (95) 100 11/02/19 12:00 2.0 11/02/19 12:00 64 11/02/19 12:00 Nasal Cannula 2.0 11/02/19 08:30 78 128/66 11/02/19 08:00 72 11/02/19 08:00 3.0 11/02/19 08:00 Nasal Cannula 2.0 11/02/19 08:00 98.6 78 20 128/66 (86) 100 Intake and Output 11/02/19 11/03/19 19:00 07:00 Intake Total 365 ml 1015 ml Output Total 1300 ml Balance 365 ml -285 ml Intake Free Water 300 ml IV Total 300 ml Tube Feeding 65 ml 715 ml Output Urine Total 1300 ml # Bowel Movements 4 Height (Feet): 5 Height (Inches): 10.00 Weight (Pounds): 132 General Appearance: no apparent distress EENT: normal ENT inspection Neck: non-tender, supple Cardiovascular: normal rate, regular rhythm Respiratory/Chest: lungs clear, normal breath sounds Abdomen: non tender, soft Extremities: normal range of motion, non-tender Edema: no edema noted Arm (L), no edema noted Arm (R), no edema noted Leg (L), no edema noted Leg (R), no edema noted Pedal (L), no edema noted Pedal (R), no edema noted Generalized Neurologic: responsive Skin: other - multiple pressure ulcers Aakash Blanco MD Nov 03, 2019 07:48
[2019-11-03 08:00] VITALS: BP 115/61
[2019-11-03 08:01] LABS: BASOPHILS % (AUTO) 1.1 % (0.0-2.0); EOSINOPHILS % (AUTO) 7.1 % (0.0-3.0); HEMATOCRIT 25.9 % (42.0-52.0); HEMOGLOBIN 8.8 G/DL (14.2-18.0); LYMPHOCYTES % (AUTO) 23.1 % (20.0-45.0); MEAN CORPUSCULAR VOLUME 87 FL (80-99); MONOCYTES % (AUTO) 6.6 % (1.0-10.0); NEUTROPHILS % (AUTO) 62.1 % (45.0-75.0); PLATELET COUNT 188 K/UL (150-450); RED BLOOD COUNT 2.97 M/UL (4.70-6.10); WHITE BLOOD COUNT 9.8 K/UL (4.8-10.8)
[2019-11-03] MEDS: Levodopa/Carbidopa 25/100 tab GT SCH ×3 (08:07→17:09)
[2019-11-03] MEDS: Multivitamin w/Minerals tab ORAL SCH (08:08)
[2019-11-03] MEDS: Zinc Sulfate 220mg cap GT SCH ×2 (08:08→17:09)
[2019-11-03] MEDS: Ascorbic Acid 500mg tab GT SCH (08:08)
[2019-11-03] MEDS: Dakin's 0.125% Soln (Quarter Strength) 16oz TOPIC SCH (08:09)
[2019-11-03] MEDS ORDERED: DAKIN'S1 APPLI1 TOPIC (08:10)
[2019-11-03] MEDS ORDERED: Acetaminophen GT (08:10)
[2019-11-03] MEDS ORDERED: SENNA8.6 M2 GT (08:10)
[2019-11-03] MEDS ORDERED: ASCORBIC ACID500 M4 GT (08:10)
[2019-11-03] MEDS ORDERED: DUONEB 0.5-3(2.53 ML HHN (08:10)
[2019-11-03] MEDS ORDERED: LANSOPRAZOLE30 MG GT (08:10)
[2019-11-03] MEDS ORDERED: MULTIVITAMINS1 EAC8 ORAL (08:10)
[2019-11-03] MEDS ORDERED: ZINC SULFATE220 M1 GT (08:10)
[2019-11-03] MEDS ORDERED: LOPRESSOR25 M1 GT (08:10)
[2019-11-03] MEDS ORDERED: LINEZOLID600 MG/300 IV (08:10)
[2019-11-03] MEDS ORDERED: MEROPENEM1 GM IV (08:10)
[2019-11-03 08:13] LABS: ANION GAP 8 mmol/L (5-15); BLOOD UREA NITROGEN 22 mg/dL (7-18); CALCIUM 9.6 MG/DL (8.5-10.1); CARBON DIOXIDE 25 MMOL/L (21-32); CHLORIDE 105 MMOL/L (98-107); CREATININE 0.7 MG/DL (0.55-1.30); POTASSIUM 4.4 MMOL/L (3.5-5.1); SODIUM 138 MMOL/L (136-145)
[2019-11-03] MEDS: Meropenem 1 GM in NS 55 ML IVPB SCH ×2 (11:52→22:34)
[2019-11-03 12:00] VITALS: BP 117/69
[2019-11-03] MEDS ORDERED: NS 275ml ONE (12:09)
[2019-11-03] MEDS ORDERED: Tubing IV Secondary IV ONE (12:09)
--- NOTE | 2019-11-03 12:54 | Pulmonology Progress Note ---
Assessment/Plan Problems: (1) JAIRO (acute kidney injury) Assessment & Plan: With hyperNa (2) Acute hypoxemic respiratory failure (3) Respiratory failure, acute (4) HCAP (healthcare-associated pneumonia) (5) UTI (urinary tract infection) (6) Sepsis Assessment & Plan: GPC (7) V-tach (8) History of pulmonary embolism (9) Sacral pressure ulcer (10) Anemia (11) Osteomyelitis of right hip Assessment/Plan Optimize pulmonary hygiene/mobilize as tolerated Off BiPAP Titrate O2 HHN's Abx: Rodolfo/Zyvox per ID, F/U Cx's Monitor volumes and renal function DVT Px: Eliquis NPO, GTF's FC, continue to discuss GOC Wound care Subjective Allergies: Coded Allergies: No Known Allergies (Unverified , 06/20/19) Subjective AFVSS on 2L NC breathing stable no cough no FC alesia TF's Bone scan with R hip OM Objective Last 24 Hour Vital Signs Date Time Temp Pulse Resp B/P (MAP) Pulse Ox O2 Delivery O2 Flow Rate FiO2 11/03/19 09:00 Nasal Cannula 2.0 11/03/19 08:08 82 156/62 11/03/19 08:00 99.3 86 20 115/61 (79) 100 11/03/19 07:02 73 20 99 Nasal Cannula 2.0 28 72 22 98 11/03/19 07:01 98 Nasal Cannula 2.0 28 11/03/19 04:00 98.4 72 22 125/60 (81) 96 11/03/19 01:34 83 20 99 Nasal Cannula 2.0 28 79 20 97 11/03/19 00:00 97.9 84 22 120/62 (81) 95 11/02/19 21:13 76 106/58 11/02/19 20:00 98.8 76 22 106/58 (74) 97 11/02/19 20:00 Nasal Cannula 2.0 11/02/19 19:45 96 Nasal Cannula 2.0 28 11/02/19 19:45 80 22 98 Nasal Cannula 2.0 28 78 22 96 11/02/19 16:00 Nasal Cannula 2.0 11/02/19 16:00 97.7 66 20 139/73 (95) 100 11/02/19 16:00 2.0 Intake and Output 11/02/19 11/03/19 19:00 07:00 Intake Total 365 ml 1015 ml Output Total 1300 ml Balance 365 ml -285 ml Intake Free Water 300 ml IV Total 300 ml Tube Feeding 65 ml 715 ml Output Urine Total 1300 ml # Bowel Movements 4 General Appearance: no acute distress, cachetic HEENT: normocephalic, atraumatic, anicteric, mucous membranes moist Respiratory/Chest: chest wall non-tender, lungs clear, normal breath sounds, no respiratory distress, no accessory muscle use Cardiovascular: normal peripheral pulses, normal rate, regular rhythm Abdomen: normal bowel sounds, soft, non tender, no organomegaly, non distended , no mass, other - GT Extremities: no cyanosis, no clubbing, no edema Laboratory Tests 11/03/19 07:20: White Blood Count 9.8, Red Blood Count 2.97L, Hemoglobin 8.8L, Hematocrit 25.9L , Mean Corpuscular Volume 87, Mean Corpuscular Hemoglobin 29.8, Mean Corpuscular Hemoglobin Concent 34.1, Red Cell Distribution Width 16.0H, Platelet Count 188, Mean Platelet Volume 6.2L, Neutrophils (%) (Auto) 62.1, Lymphocytes (%) (Auto) 23.1, Monocytes (%) (Auto) 6.6, Eosinophils (%) (Auto) 7.1H, Basophils (%) (Auto) 1.1, Sodium Level 138, Potassium Level 4.4, Chloride Level 105, Carbon Dioxide Level 25, Anion Gap 8, Blood Urea Nitrogen 22H, Creatinine 0.7, Estimat Glomerular Filtration Rate > 60, Glucose Level 95, Calcium Level 9.6 Current Medications Medications (Trade) Dose Ordered Sig/Katharine Route PRN Reason Start Time Stop Time Status Last Admin Dose Admin Acetaminophen (Tylenol) 650 mg Q6H PRN GT Mild Pain/Temp > 100.5 11/02/19 17:30 12/01/19 17:29 Albuterol/ Ipratropium (Albuterol/ Ipratropium) 3 ml Q6HRT HHN 11/02/19 19:00 11/03/19 12:59 11/03/19 07:00 Ascorbic Acid (Vitamin C) 500 mg DAILY GT 11/03/19 09:00 11/28/19 11:29 11/03/19 08:08 Carbidopa/Levodopa (Sinemet 25/100) 1 tab THREE TIMES A DAY GT 11/02/19 18:00 11/28/19 12:59 11/03/19 08:07 Dextrose (Dextrose 50%) 25 ml Q30M PRN IV Hypoglycemia 11/02/19 17:30 11/28/19 11:29 Dextrose (Dextrose 50%) 50 ml Q30M PRN IV Hypoglycemia 11/02/19 17:30 11/28/19 11:29 Insulin Aspart (NovoLOG) Q6HR SUBQ 11/02/19 18:00 11/28/19 11:29 Lansoprazole (Prevacid) 30 mg DAILY GT 11/03/19 09:00 12/01/19 08:59 11/03/19 08:08 Linezolid 300 ml @ 300 mls/hr Q12HR IVPB 11/02/19 21:00 12/14/19 23:59 11/03/19 09:26 Meropenem 1 gm/ Sodium Chloride 55 ml @ 110 mls/hr Q12H IVPB 11/02/19 23:00 12/14/19 23:59 11/03/19 11:52 Metoprolol Tartrate (Lopressor) 25 mg EVERY 12 HOURS GT 11/02/19 21:00 11/28/19 20:59 11/03/19 08:08 Multivitamins Therapeutic (Therapeutic Multivitamin) 1 ea DAILY ORAL 11/03/19 09:00 11/29/19 08:59 11/03/19 08:08 Sennosides (Senokot) 16.2 mg QHS GT 11/02/19 21:00 11/28/19 20:59 11/02/19 21:14 Sodium Hypochlorite (Dakin's Quarter Strength) 1 applic DAILY TOPIC 11/03/19 09:00 11/29/19 19:59 11/03/19 08:09 Zinc Sulfate (Zinc Sulfate) 220 mg BID GT 11/02/19 18:00 11/28/19 17:59 11/03/19 08:08 Yves Harrison MD Nov 03, 2019 12:54
--- NOTE | 2019-11-03 14:14 | Cardiac Electrophysiology PN ---
Assessment/Plan Assessment/Plan 1. Shortness of breath, possible pneumonia. On abx by Dr. Harrison and Dr. Mcnair. Nl EF 2. Status post ventricular fibrillation arrest. S/P upgrading of pacemaker to [employer] defibrillator at [facility] by mt. ICD interrogated showed normal function. 4. Hypertension. 5. Dysphagia. S/P PEG placement. 6. Pneumonia, on antibiotics. 7. Dementia and Parkinson. DW RN and daughter Subjective Subjective Transferred to [facility]. No events. Daughter at bedside asking for probiotics Objective Last 24 Hour Vital Signs Date Time Temp Pulse Resp B/P (MAP) Pulse Ox O2 Delivery O2 Flow Rate FiO2 11/03/19 12:00 99.4 72 18 117/69 (85) 100 11/03/19 09:00 Nasal Cannula 2.0 11/03/19 08:08 82 156/62 11/03/19 08:00 99.3 86 20 115/61 (79) 100 11/03/19 07:02 73 20 99 Nasal Cannula 2.0 28 72 22 98 11/03/19 07:01 98 Nasal Cannula 2.0 28 11/03/19 04:00 98.4 72 22 125/60 (81) 96 11/03/19 01:34 83 20 99 Nasal Cannula 2.0 28 79 20 97 11/03/19 00:00 97.9 84 22 120/62 (81) 95 11/02/19 21:13 76 106/58 11/02/19 20:00 98.8 76 22 106/58 (74) 97 11/02/19 20:00 Nasal Cannula 2.0 11/02/19 19:45 96 Nasal Cannula 2.0 28 11/02/19 19:45 80 22 98 Nasal Cannula 2.0 28 78 22 96 11/02/19 16:00 Nasal Cannula 2.0 11/02/19 16:00 97.7 66 20 139/73 (95) 100 11/02/19 16:00 2.0 Intake and Output 11/02/19 11/03/19 19:00 07:00 Intake Total 365 ml 1015 ml Output Total 1300 ml Balance 365 ml -285 ml Intake Free Water 300 ml IV Total 300 ml Tube Feeding 65 ml 715 ml Output Urine Total 1300 ml # Bowel Movements 4 Laboratory Tests Test 11/03/19 07:20 White Blood Count 9.8 K/UL (4.8-10.8) Red Blood Count 2.97 M/UL (4.70-6.10) L Hemoglobin 8.8 G/DL (14.2-18.0) L Hematocrit 25.9 % (42.0-52.0) L Mean Corpuscular Volume 87 FL (80-99) Mean Corpuscular Hemoglobin 29.8 PG (27.0-31.0) Mean Corpuscular Hemoglobin Concent 34.1 G/DL (32.0-36.0) Red Cell Distribution Width 16.0 % (11.6-14.8) H Platelet Count 188 K/UL (150-450) Mean Platelet Volume 6.2 FL (6.5-10.1) L Neutrophils (%) (Auto) 62.1 % (45.0-75.0) Lymphocytes (%) (Auto) 23.1 % (20.0-45.0) Monocytes (%) (Auto) 6.6 % (1.0-10.0) Eosinophils (%) (Auto) 7.1 % (0.0-3.0) H Basophils (%) (Auto) 1.1 % (0.0-2.0) Sodium Level 138 MMOL/L (136-145) Potassium Level 4.4 MMOL/L (3.5-5.1) Chloride Level 105 MMOL/L (98-107) Carbon Dioxide Level 25 MMOL/L (21-32) Anion Gap 8 mmol/L (5-15) Blood Urea Nitrogen 22 mg/dL (7-18) H Creatinine 0.7 MG/DL (0.55-1.30) Estimat Glomerular Filtration Rate > 60 mL/min (>60) Glucose Level 95 MG/DL (74-106) Calcium Level 9.6 MG/DL (8.5-10.1) Objective HEAD AND NECK: Showed no JVD. LUNGS: Coarse rhonchi. CARDIOVASCULAR: Shows regular S1 and S2 with no gallop. Defibrillator is in left subclavian. ABDOMEN: Soft.PEG in place EXTREMITIES: No pitting edema. Pablo Norton MD Nov 03, 2019 14:14
--- NOTE | 2019-11-03 15:29 | Infectious Diseases Prog Note ---
Assessment/Plan Problems: (1) LLL pneumonia Assessment & Plan: DUE TO METHICILLIN RESISTANT STAPH AUREUS , with hypoxemia , cough productive and persistent fever while on vancomycin , CONTINUE zyvox to treat for 4-6 weeks and to cover for osteomyelitis of the right trochanteric bone . screening for influenza A&B is negative . aspiration precaution . (2) UTI (urinary tract infection) Assessment & Plan: with negative culture suspect sterile pyuria , already on meropenem for pneumonia coverage (3) Sepsis Assessment & Plan: due to staph hominis , source most likely his pressure wounds , with fever , and leukocytosis now on zyvox . repeated blood culture is negative which confirm clearance (4) Sacral pressure ulcer Assessment & Plan: with cellulitis and infection , already on wide spectrum antibiotics, recommend off loading and local wound care as per hospital protocol (5) JAIRO (acute kidney injury) Assessment & Plan: improving , due to sepsis , continue hydration and renally adjusted antibiotics (6) Acute hypoxemic respiratory failure Assessment & Plan: suspect due to the above, on bipap , already started on wide spectrum antibiotics , monitor ABG, and CXR , Pulmonary is following (7) Decubitus ulcer of ischium, stage 4 Assessment & Plan: recommend off loading, local wound care and dressings change as per hospital protocol , already on wide spectrum antibiotics , will order bone scan (8) Osteomyelitis of right hip Assessment & Plan: with deep pressure wound , confirmed on bone scan, continue zyvox and meropenem for 6 weeks , with local wound care and dressings changes . monitor weekly labs , with CBC, and CMP Subjective ROS Limited/Unobtainable: Yes Allergies: Coded Allergies: No Known Allergies (Unverified , 06/20/19) Subjective He was resting in bed comfortable, on BIPAP, has low grade fever, coughing and congested with some phlegm production Objective Vital Signs Last 24 Hour Vital Signs Date Time Temp Pulse Resp B/P (MAP) Pulse Ox O2 Delivery O2 Flow Rate FiO2 11/03/19 12:00 99.4 72 18 117/69 (85) 100 11/03/19 09:00 Nasal Cannula 2.0 11/03/19 08:08 82 156/62 11/03/19 08:00 99.3 86 20 115/61 (79) 100 11/03/19 07:02 73 20 99 Nasal Cannula 2.0 28 72 22 98 11/03/19 07:01 98 Nasal Cannula 2.0 28 11/03/19 04:00 98.4 72 22 125/60 (81) 96 11/03/19 01:34 83 20 99 Nasal Cannula 2.0 28 79 20 97 11/03/19 00:00 97.9 84 22 120/62 (81) 95 11/02/19 21:13 76 106/58 11/02/19 20:00 98.8 76 22 106/58 (74) 97 11/02/19 20:00 Nasal Cannula 2.0 11/02/19 19:45 96 Nasal Cannula 2.0 28 11/02/19 19:45 80 22 98 Nasal Cannula 2.0 28 78 22 96 11/02/19 16:00 Nasal Cannula 2.0 11/02/19 16:00 97.7 66 20 139/73 (95) 100 11/02/19 16:00 2.0 Height (Feet): 5 Height (Inches): 10.00 Weight (Pounds): 132 General Appearance: no acute distress, cachetic HEENT: normocephalic, atraumatic, anicteric, mucous membranes moist, PERRL Respiratory/Chest: chest wall non-tender, no respiratory distress, no accessory muscle use, decreased breath sounds, crackles/rales Cardiovascular: normal peripheral pulses, normal rate, regular rhythm, no gallop/murmur, no JVD Abdomen: normal bowel sounds, soft, non tender, no organomegaly, non distended , no mass, no scars Extremities: no cyanosis, no clubbing Skin: no rash, no lesions, ulcers Neurologic/Psychiatric: alert Lymphatic: no neck adenopathy, no groin adenopathy Musculoskeletal: normal muscle bulk, no effusion Laboratory Tests Test 11/03/19 07:20 White Blood Count 9.8 K/UL (4.8-10.8) Red Blood Count 2.97 M/UL (4.70-6.10) L Hemoglobin 8.8 G/DL (14.2-18.0) L Hematocrit 25.9 % (42.0-52.0) L Mean Corpuscular Volume 87 FL (80-99) Mean Corpuscular Hemoglobin 29.8 PG (27.0-31.0) Mean Corpuscular Hemoglobin Concent 34.1 G/DL (32.0-36.0) Red Cell Distribution Width 16.0 % (11.6-14.8) H Platelet Count 188 K/UL (150-450) Mean Platelet Volume 6.2 FL (6.5-10.1) L Neutrophils (%) (Auto) 62.1 % (45.0-75.0) Lymphocytes (%) (Auto) 23.1 % (20.0-45.0) Monocytes (%) (Auto) 6.6 % (1.0-10.0) Eosinophils (%) (Auto) 7.1 % (0.0-3.0) H Basophils (%) (Auto) 1.1 % (0.0-2.0) Sodium Level 138 MMOL/L (136-145) Potassium Level 4.4 MMOL/L (3.5-5.1) Chloride Level 105 MMOL/L (98-107) Carbon Dioxide Level 25 MMOL/L (21-32) Anion Gap 8 mmol/L (5-15) Blood Urea Nitrogen 22 mg/dL (7-18) H Creatinine 0.7 MG/DL (0.55-1.30) Estimat Glomerular Filtration Rate > 60 mL/min (>60) Glucose Level 95 MG/DL (74-106) Calcium Level 9.6 MG/DL (8.5-10.1) Current Medications Medications (Trade) Dose Ordered Sig/Katharine Route PRN Reason Start Time Stop Time Status Last Admin Dose Admin Acetaminophen (Tylenol) 650 mg Q6H PRN GT Mild Pain/Temp > 100.5 11/02/19 17:30 12/01/19 17:29 Ascorbic Acid (Vitamin C) 500 mg DAILY GT 11/03/19 09:00 11/28/19 11:29 11/03/19 08:08 Carbidopa/Levodopa (Sinemet 25/100) 1 tab THREE TIMES A DAY GT 11/02/19 18:00 11/28/19 12:59 11/03/19 13:50 Dextrose (Dextrose 50%) 25 ml Q30M PRN IV Hypoglycemia 11/02/19 17:30 11/28/19 11:29 Dextrose (Dextrose 50%) 50 ml Q30M PRN IV Hypoglycemia 11/02/19 17:30 11/28/19 11:29 Insulin Aspart (NovoLOG) Q6HR SUBQ 11/02/19 18:00 11/28/19 11:29 Lactobacillus Acidophilus (Culturelle) 1 tab TWICE A DAY GT 11/03/19 18:00 12/03/19 17:59 Lansoprazole (Prevacid) 30 mg DAILY GT 11/03/19 09:00 12/01/19 08:59 11/03/19 08:08 Linezolid 300 ml @ 300 mls/hr Q12HR IVPB 11/02/19 21:00 12/14/19 23:59 11/03/19 09:26 Meropenem 1 gm/ Sodium Chloride 55 ml @ 110 mls/hr Q12H IVPB 11/02/19 23:00 12/14/19 23:59 11/03/19 11:52 Metoprolol Tartrate (Lopressor) 25 mg EVERY 12 HOURS GT 11/02/19 21:00 11/28/19 20:59 11/03/19 08:08 Multivitamins Therapeutic (Therapeutic Multivitamin) 1 ea DAILY ORAL 11/03/19 09:00 11/29/19 08:59 11/03/19 08:08 Sennosides (Senokot) 16.2 mg QHS GT 11/02/19 21:00 11/28/19 20:59 11/02/19 21:14 Sodium Hypochlorite (Dakin's Quarter Strength) 1 applic DAILY TOPIC 11/03/19 09:00 11/29/19 19:59 11/03/19 08:09 Zinc Sulfate (Zinc Sulfate) 220 mg BID GT 11/02/19 18:00 11/28/19 17:59 11/03/19 08:08 Arcadio Mcnair M.D. Nov 03, 2019 15:29
[2019-11-03 16:00] VITALS: BP 131/74
[2019-11-03] MEDS: Lactobacillus-GG tablet GT SCH (17:09)
[2019-11-03 20:00] VITALS: BP 125/62
[2019-11-03] MEDS: Sennosides 8.6mg tab GT SCH (20:47)
--- NOTE | 2019-11-03 22:05 | Surgery Progress Note ---
Surgery Progress Note Subjective Additional Comments no acute events tolerating tube feeds comfortable no n/v/f/c labs noted on mattress Objective Last 24 Hour Vital Signs Date Time Temp Pulse Resp B/P (MAP) Pulse Ox O2 Delivery O2 Flow Rate FiO2 11/03/19 21:00 Nasal Cannula 2.0 11/03/19 20:48 81 125/62 11/03/19 20:08 97 Nasal Cannula 2.0 28 11/03/19 20:00 98.7 81 22 125/62 (83) 95 11/03/19 17:40 Nasal Cannula 2.0 11/03/19 16:00 98.4 76 20 131/74 (93) 100 11/03/19 12:00 99.4 72 18 117/69 (85) 100 11/03/19 09:00 Nasal Cannula 2.0 11/03/19 08:08 82 156/62 11/03/19 08:00 99.3 86 20 115/61 (79) 100 11/03/19 07:02 73 20 99 Nasal Cannula 2.0 28 72 22 98 11/03/19 07:01 98 Nasal Cannula 2.0 28 11/03/19 04:00 98.4 72 22 125/60 (81) 96 11/03/19 01:34 83 20 99 Nasal Cannula 2.0 28 79 20 97 11/03/19 00:00 97.9 84 22 120/62 (81) 95 I&O Intake and Output 11/02/19 11/03/19 19:00 07:00 Intake Total 365 ml 1080 ml Output Total 1300 ml Balance 365 ml -220 ml Intake Free Water 300 ml IV Total 300 ml Tube Feeding 65 ml 780 ml Output Urine Total 1300 ml # Bowel Movements 4 Dressing: other Wound: other Drains: other Cardiovascular: RSR Respiratory: decreased breath sounds Abdomen: soft, present bowel sounds Extremities: no cyanosis Laboratory Tests Test 11/03/19 07:20 White Blood Count 9.8 K/UL (4.8-10.8) Red Blood Count 2.97 M/UL (4.70-6.10) L Hemoglobin 8.8 G/DL (14.2-18.0) L Hematocrit 25.9 % (42.0-52.0) L Mean Corpuscular Volume 87 FL (80-99) Mean Corpuscular Hemoglobin 29.8 PG (27.0-31.0) Mean Corpuscular Hemoglobin Concent 34.1 G/DL (32.0-36.0) Red Cell Distribution Width 16.0 % (11.6-14.8) H Platelet Count 188 K/UL (150-450) Mean Platelet Volume 6.2 FL (6.5-10.1) L Neutrophils (%) (Auto) 62.1 % (45.0-75.0) Lymphocytes (%) (Auto) 23.1 % (20.0-45.0) Monocytes (%) (Auto) 6.6 % (1.0-10.0) Eosinophils (%) (Auto) 7.1 % (0.0-3.0) H Basophils (%) (Auto) 1.1 % (0.0-2.0) Sodium Level 138 MMOL/L (136-145) Potassium Level 4.4 MMOL/L (3.5-5.1) Chloride Level 105 MMOL/L (98-107) Carbon Dioxide Level 25 MMOL/L (21-32) Anion Gap 8 mmol/L (5-15) Blood Urea Nitrogen 22 mg/dL (7-18) H Creatinine 0.7 MG/DL (0.55-1.30) Estimat Glomerular Filtration Rate > 60 mL/min (>60) Glucose Level 95 MG/DL (74-106) Calcium Level 9.6 MG/DL (8.5-10.1) Plan Problems: (1) Anemia (2) Respiratory failure, acute (3) HCAP (healthcare-associated pneumonia) (4) V-tach (5) History of pulmonary embolism (6) Sacral pressure ulcer Assessment & Plan: Pt presented on admission with multiple pressure injuries. Bilateral groin and scrotum are erythematous. Stage 4 Full thickness Sacral pressure(L)2.2cm x (W)6.5cm. Base of wound beefy red in center at sacrococcygeal with surrounding moist pink granulation. Edges are macerated.Small amt brown exudate that is malodorous. Periwound purple/ maroon and indurated. In addition pt noted to have scattered partial thickness wounds periwound. Entire pressure injury including full thickness wound measures 7cm x (W)7.5cm. Stage 4 Full thickness pressure injury L trochanter. Base of wound has 80% soft necrotic tissue, 20% mixed beefy red and slough. Bone is palpable. Wound is malodorous(L)6.2cm x (W)6.5cm.Small amt brown exudate noted.Periwound is indurated with areas of fluctuance. The Affected area including wound measuring (L)14.2cm x (W)17.5cm. Stage 4 Full thickness pressure injury R trochanter. Base of wound has 50% slough in center with surrounding beefy red granulation (L)6.5cm x (W)7cm. Bone is palpable at center of wound. Wound is malodorous. Small amt seropurulent exudate noted.Periwound is purple and indurated. Unstageable pressure injury L hallux. Dry eschar at base of wound. Marginal erythema along borders .NO odor or exudate noted (L)3cm x (W)1.4cm Unstageable pressure injury medial/lateral L foot. Base of wound is brown over bony protrusion with surrounding maroon borders (L)1cm x (W)1.4cm. L heel is boggy with non-blanching erythema medial aspect of heel. Full thickness pressure injury dorsal/medial aspect of L foot. Base of wound is beefy and moist in center with black and fluctuant borders (L)2.6cm x (W)4.5cm. DTPI Medial L heel . Base of wound is fluctuant purple in center with maroon borders. Periwound heel is boggy and erythematous(L)4.2cm x (W)5.5cm. Stable dry eschar noted to R 5th metatarsal (L)0.7cm x (W)0.6cm. NO erythema or evidence of further breakdown periwound. Tx.Plan: Cleanse Sacral wound with Dakin's 0.125% aiyana. Apply Dakin's moist gauze. Apply Moisture Barrier paste periwound. Cover with Optifoam drsg Daily and prn. Cleanse R trochanter wound with Dakin's 0.125% aiyana. Apply Dakin's moist gauze to wound bed. Apply Moisture Barrier Paste periwound. Cover with Optifoam drsg Daily and prn. Cleanse L trochanter wound with Dakin's 0.125% Aiyana. Apply Dakin's moist Gauze to wound. Apply Moisture Barrier Paste periwound. Cover with Optifoam drsg Daily and prn. Swab wounds R foot with Betadine. Cover each wound with Optifoam drsg every 3 days and prn. Swab wounds L foot with Betadine. Cover each wound with Optifoam drsg every 3 days and prn. Air Fluidized Mattress. Reposition at least every 2hours or as tolerated. Place pillow between knees. Off-load heels with pillow. (7) JAIRO (acute kidney injury) (8) Acute hypoxemic respiratory failure (9) Decubitus ulcer of ischium, stage 4 (10) LLL pneumonia (11) Sepsis Assessment & Plan: Abx as per ID nutritional optimization trend labs overall improving cont current care plan DAILY ESTIMATED NEEDS: Needs based on Underweight, wounds, 58.6kg 30-35 kcals/kg 5607-7167 total kcals 1.5-2 g protein/kg 88-117 g total protein 25-35ml/kcal mL/kg 2582-6761 total fluid mLs NUTRITION DIAGNOSIS: * Increased kcal and pro needs r/t wound healing and underweight status AEB pt admitted w/ multiple advanced wounds, including unstageable wounds x2, full thickness wounds x4, w/ generalized moderate wasting, @78% of [place] Body Weight. * Swallowing difficulty R/T dysphagia, pt is PEG dependent. CURRENT TF: Jevity 1.2 @ 65ml/hr x 20 hrs ENTERAL NUTRITION RECOMMENDATIONS: Glucerna 1.5 @ 50ml/hr x 24 hrs to provide 1200ml, 1800 kcal, 99g pro, 911ml free H2O * Rec TF CHANGE for carb control formula-> start Glucerna 1.5 @30ml/hr for 6 hrs, advance as tolerated 10ml/hr q4-6 hrs to goal. * HOB over 30 degrees flush per MD ADDITIONAL RECOMMENDATIONS: 1) Calibrated bedscale wt for accurate CBW -> on a bed w/ p200 mattress 2) Wound care, add MYRON in 4oz water BID via GT 3) Rec accuchecks w/ ssi as needed/ h/o DM per MD 4) Check lytes, replete as needed (12) UTI (urinary tract infection) Kyle Lomax Nov 03, 2019 22:05
[2019-11-04] VITALS: BP 114/57
[2019-11-04 04:00] VITALS: BP 115/64
[2019-11-04] MEDS: NovoLOG Insulin Flexpen SUBQ SCH ×4 (06:00→18:00)
[2019-11-04 08:00] VITALS: BP 125/65
[2019-11-04] MEDS: Levodopa/Carbidopa 25/100 tab GT SCH ×3 (09:14→18:00)
[2019-11-04] MEDS: Zinc Sulfate 220mg cap GT SCH ×2 (09:14→18:00)
[2019-11-04] MEDS: Ascorbic Acid 500mg tab GT SCH (09:14)
[2019-11-04] MEDS: Lactobacillus-GG tablet GT SCH ×2 (09:14→18:00)
[2019-11-04] MEDS: Multivitamin w/Minerals tab ORAL SCH (09:14)
[2019-11-04] MEDS: Dakin's 0.125% Soln (Quarter Strength) 16oz TOPIC SCH (09:15)
[2019-11-04] MEDS: Meropenem 1 GM in NS 55 ML IVPB SCH ×2 (11:15→22:27)
[2019-11-04 12:00] VITALS: BP 131/72
--- NOTE | 2019-11-04 12:12 | General Progress Note ---
Assessment/Plan Status: stable Assessment/Plan: 1. LLL pneumonia - cont meropenem and zyvox for 6 weeks. Follow cultures. Influenza A&B negative in ER. 2. Sepsis - cont broad spectrum antibiotic as above. ID following. cont IV abx for total of 6 wks. picc line ordered. 3. UTI - on antibiotic for total of 6 wks due to osteomyeilitis. 4. 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 D/C to [facility] rehab after picc line. 5. Acute hypoxemic respiratory failure - off BiPaP. doing better and [employer] following the patient. 6. JAIRO - improved with hydration. 7.Pressure Ulcers of Isthium, stage 4 - wound care by Dr Lomax. 8. Anemia - most likely 2nd to Eliquis - off Eliquis and CBC improved to 8.8. 9. Run of V tach in ER and h/o ICD placement - Cardiology following. 10. Hypokalemia - resolved. 11. Hyponatremia - resolved. 12. Parkinson's Dementia Subjective Date patient seen: Nov 04, 2019 Time patient seen: 08:00 Constitutional: Reports: weakness HEENT: Reports: no symptoms Cardiovascular: Reports: no symptoms Respiratory: Reports: no symptoms Gastrointestinal/Abdominal: Reports: no symptoms Genitourinary: Reports: no symptoms Neurologic/Psychiatric: Reports: no symptoms Endocrine: Reports: no symptoms Hematologic/Lymphatic: Reports: no symptoms Allergies: Coded Allergies: No Known Allergies (Unverified , 06/20/19) Subjective He is doing better today. no sob or chest pain. afebrile except for low grade temp yesterday. Objective Last 24 Hour Vital Signs Date Time Temp Pulse Resp B/P (MAP) Pulse Ox O2 Delivery O2 Flow Rate FiO2 11/04/19 09:14 78 125/65 11/04/19 08:00 98.0 78 18 125/65 (85) 98 11/04/19 07:32 98 Nasal Cannula 2.0 28 11/04/19 04:00 98.4 68 19 115/64 (81) 97 11/04/19 00:00 98.6 68 21 114/57 (76) 95 11/03/19 21:00 Nasal Cannula 2.0 11/03/19 20:48 81 125/62 11/03/19 20:08 97 Nasal Cannula 2.0 28 11/03/19 20:00 98.7 81 22 125/62 (83) 95 11/03/19 17:40 Nasal Cannula 2.0 11/03/19 16:00 98.4 76 20 131/74 (93) 100 Intake and Output 11/03/19 11/04/19 19:00 07:00 Intake Total 1135 ml 1010 ml Output Total 1800 ml 1100 ml Balance -665 ml -90 ml Intake Free Water 360 ml IV Total 355 ml Tube Feeding 780 ml 650 ml Output Urine Total 1800 ml 1100 ml # Voids 1 # Bowel Movements 2 Height (Feet): 5 Height (Inches): 10.00 Weight (Pounds): 132 General Appearance: no apparent distress EENT: normal ENT inspection Neck: non-tender, supple Cardiovascular: normal rate, regular rhythm Respiratory/Chest: lungs clear, normal breath sounds Abdomen: non tender, soft Extremities: non-tender Neurologic: responsive Skin: warm/dry Aakash Blanco MD Nov 04, 2019 12:12
[2019-11-04] MEDS ORDERED: Lidocaine 1% Plain 30 ml INJ PRN (12:15)
[2019-11-04] MEDS ORDERED: Heparin1,000 units/500ml Premix(Conc:2 units/ml) IV PRN (12:15)
--- NOTE | 2019-11-04 13:18 | Surgery Progress Note ---
Surgery Progress Note Subjective Additional Comments ill appearing no acute events comfortable Objective Last 24 Hour Vital Signs Date Time Temp Pulse Resp B/P (MAP) Pulse Ox O2 Delivery O2 Flow Rate FiO2 11/04/19 12:00 97.4 76 17 131/72 (91) 98 11/04/19 09:14 78 125/65 11/04/19 09:00 Nasal Cannula 2.0 11/04/19 08:00 98.0 78 18 125/65 (85) 98 11/04/19 07:32 98 Nasal Cannula 2.0 28 11/04/19 04:00 98.4 68 19 115/64 (81) 97 11/04/19 00:00 98.6 68 21 114/57 (76) 95 11/03/19 21:00 Nasal Cannula 2.0 11/03/19 20:48 81 125/62 11/03/19 20:08 97 Nasal Cannula 2.0 28 11/03/19 20:00 98.7 81 22 125/62 (83) 95 11/03/19 17:40 Nasal Cannula 2.0 11/03/19 16:00 98.4 76 20 131/74 (93) 100 I&O Intake and Output 11/03/19 11/04/19 19:00 07:00 Intake Total 1135 ml 1010 ml Output Total 1800 ml 1100 ml Balance -665 ml -90 ml Intake Free Water 360 ml IV Total 355 ml Tube Feeding 780 ml 650 ml Output Urine Total 1800 ml 1100 ml # Voids 1 # Bowel Movements 2 Dressing: other Wound: other Drains: other Cardiovascular: RSR Respiratory: decreased breath sounds Abdomen: soft, present bowel sounds, non-distended Extremities: no cyanosis Plan Problems: (1) Anemia (2) Respiratory failure, acute (3) HCAP (healthcare-associated pneumonia) (4) V-tach (5) History of pulmonary embolism (6) Sacral pressure ulcer Assessment & Plan: Pt presented on admission with multiple pressure injuries. Bilateral groin and scrotum are erythematous. Stage 4 Full thickness Sacral pressure(L)2.2cm x (W)6.5cm. Base of wound beefy red in center at sacrococcygeal with surrounding moist pink granulation. Edges are macerated.Small amt brown exudate that is malodorous. Periwound purple/ maroon and indurated. In addition pt noted to have scattered partial thickness wounds periwound. Entire pressure injury including full thickness wound measures 7cm x (W)7.5cm. Stage 4 Full thickness pressure injury L trochanter. Base of wound has 80% soft necrotic tissue, 20% mixed beefy red and slough. Bone is palpable. Wound is malodorous(L)6.2cm x (W)6.5cm.Small amt brown exudate noted.Periwound is indurated with areas of fluctuance. The Affected area including wound measuring (L)14.2cm x (W)17.5cm. Stage 4 Full thickness pressure injury R trochanter. Base of wound has 50% slough in center with surrounding beefy red granulation (L)6.5cm x (W)7cm. Bone is palpable at center of wound. Wound is malodorous. Small amt seropurulent exudate noted.Periwound is purple and indurated. Unstageable pressure injury L hallux. Dry eschar at base of wound. Marginal erythema along borders .NO odor or exudate noted (L)3cm x (W)1.4cm Unstageable pressure injury medial/lateral L foot. Base of wound is brown over bony protrusion with surrounding maroon borders (L)1cm x (W)1.4cm. L heel is boggy with non-blanching erythema medial aspect of heel. Full thickness pressure injury dorsal/medial aspect of L foot. Base of wound is beefy and moist in center with black and fluctuant borders (L)2.6cm x (W)4.5cm. DTPI Medial L heel . Base of wound is fluctuant purple in center with maroon borders. Periwound heel is boggy and erythematous(L)4.2cm x (W)5.5cm. Stable dry eschar noted to R 5th metatarsal (L)0.7cm x (W)0.6cm. NO erythema or evidence of further breakdown periwound. Tx.Plan: Cleanse Sacral wound with Dakin's 0.125% aiyana. Apply Dakin's moist gauze. Apply Moisture Barrier paste periwound. Cover with Optifoam drsg Daily and prn. Cleanse R trochanter wound with Dakin's 0.125% aiyana. Apply Dakin's moist gauze to wound bed. Apply Moisture Barrier Paste periwound. Cover with Optifoam drsg Daily and prn. Cleanse L trochanter wound with Dakin's 0.125% Aiyana. Apply Dakin's moist Gauze to wound. Apply Moisture Barrier Paste periwound. Cover with Optifoam drsg Daily and prn. Swab wounds R foot with Betadine. Cover each wound with Optifoam drsg every 3 days and prn. Swab wounds L foot with Betadine. Cover each wound with Optifoam drsg every 3 days and prn. Air Fluidized Mattress. Reposition at least every 2hours or as tolerated. Place pillow between knees. Off-load heels with pillow. (7) JAIRO (acute kidney injury) (8) Acute hypoxemic respiratory failure (9) Decubitus ulcer of ischium, stage 4 (10) LLL pneumonia (11) Sepsis Assessment & Plan: Abx as per ID nutritional optimization trend labs overall improving cont current care plan DAILY ESTIMATED NEEDS: Needs based on Underweight, wounds, 58.6kg 30-35 kcals/kg 8679-1303 total kcals 1.5-2 g protein/kg 88-117 g total protein 25-35ml/kcal mL/kg 8790-8870 total fluid mLs NUTRITION DIAGNOSIS: * Increased kcal and pro needs r/t wound healing and underweight status AEB pt admitted w/ multiple advanced wounds, including unstageable wounds x2, full thickness wounds x4, w/ generalized moderate wasting, @78% of [place] Body Weight. * Swallowing difficulty R/T dysphagia, pt is PEG dependent. CURRENT TF: Jevity 1.2 @ 65ml/hr x 20 hrs ENTERAL NUTRITION RECOMMENDATIONS: Glucerna 1.5 @ 50ml/hr x 24 hrs to provide 1200ml, 1800 kcal, 99g pro, 911ml free H2O * Rec TF CHANGE for carb control formula-> start Glucerna 1.5 @30ml/hr for 6 hrs, advance as tolerated 10ml/hr q4-6 hrs to goal. * HOB over 30 degrees flush per MD ADDITIONAL RECOMMENDATIONS: 1) Calibrated bedscale wt for accurate CBW -> on a bed w/ p200 mattress 2) Wound care, add MYRON in 4oz water BID via GT 3) Rec accuchecks w/ ssi as needed/ h/o DM per MD 4) Check lytes, replete as needed (12) UTI (urinary tract infection) Additional Comments d/c planning after picc with iv abx for 6 weeks cont above wound care for /dc Kyle Lomax Nov 04, 2019 13:18
[2019-11-04 16:00] VITALS: BP 127/79
--- NOTE | 2019-11-04 16:02 | Infectious Diseases Prog Note ---
Assessment/Plan Problems: (1) LLL pneumonia Assessment & Plan: DUE TO METHICILLIN RESISTANT STAPH AUREUS , with hypoxemia , cough productive and persistent fever while on vancomycin , CONTINUE zyvox to treat for 6 weeks and to cover for osteomyelitis of the right trochanteric bone . screening for influenza A&B is negative . aspiration precaution . (2) UTI (urinary tract infection) Assessment & Plan: with negative culture suspect sterile pyuria , already on meropenem for pneumonia coverage (3) Sepsis Assessment & Plan: due to staph hominis , source most likely his pressure wounds , with fever , and leukocytosis now on zyvox . repeated blood culture is negative which confirm clearance (4) Sacral pressure ulcer Assessment & Plan: with cellulitis and infection , already on wide spectrum antibiotics, recommend off loading and local wound care as per hospital protocol (5) JAIRO (acute kidney injury) Assessment & Plan: improving , due to sepsis , continue hydration and renally adjusted antibiotics (6) Acute hypoxemic respiratory failure Assessment & Plan: suspect due to the above, on bipap , already started on wide spectrum antibiotics , monitor ABG, and CXR , Pulmonary is following (7) Decubitus ulcer of ischium, stage 4 Assessment & Plan: recommend off loading, local wound care and dressings change as per hospital protocol , already on wide spectrum antibiotics , will order bone scan (8) Osteomyelitis of right hip Assessment & Plan: with deep pressure wound , confirmed on bone scan, continue zyvox and meropenem for 6 weeks , with local wound care and dressings changes . monitor weekly labs , with CBC, and CMP while on antibiotics Subjective ROS Limited/Unobtainable: Yes Allergies: Coded Allergies: No Known Allergies (Unverified , 06/20/19) Subjective He was resting in bed comfortable, more awake and responsive today , off BIPAP, no fever or coughing , no SOB Objective Vital Signs Last 24 Hour Vital Signs Date Time Temp Pulse Resp B/P (MAP) Pulse Ox O2 Delivery O2 Flow Rate FiO2 11/04/19 12:00 97.4 76 17 131/72 (91) 98 11/04/19 09:14 78 125/65 11/04/19 09:00 Nasal Cannula 2.0 11/04/19 08:00 98.0 78 18 125/65 (85) 98 11/04/19 07:32 98 Nasal Cannula 2.0 28 11/04/19 04:00 98.4 68 19 115/64 (81) 97 11/04/19 00:00 98.6 68 21 114/57 (76) 95 11/03/19 21:00 Nasal Cannula 2.0 11/03/19 20:48 81 125/62 11/03/19 20:08 97 Nasal Cannula 2.0 28 11/03/19 20:00 98.7 81 22 125/62 (83) 95 11/03/19 17:40 Nasal Cannula 2.0 Height (Feet): 5 Height (Inches): 10.00 Weight (Pounds): 132 General Appearance: no acute distress, cachetic HEENT: normocephalic, atraumatic, anicteric, mucous membranes moist, PERRL Respiratory/Chest: chest wall non-tender, lungs clear, normal breath sounds, no respiratory distress, no accessory muscle use Cardiovascular: normal peripheral pulses, normal rate, regular rhythm, no gallop/murmur, no JVD Abdomen: normal bowel sounds, soft, non tender, no organomegaly, non distended , no mass, no scars Genitourinary: normal external genitalia Extremities: no cyanosis, no clubbing Skin: no rash, no lesions, ulcers Neurologic/Psychiatric: alert, responsive Lymphatic: no neck adenopathy, no groin adenopathy Musculoskeletal: normal muscle bulk, no effusion Current Medications Medications (Trade) Dose Ordered Sig/Katharine Route PRN Reason Start Time Stop Time Status Last Admin Dose Admin Acetaminophen (Tylenol) 650 mg Q6H PRN GT Mild Pain/Temp > 100.5 11/02/19 17:30 12/01/19 17:29 Ascorbic Acid (Vitamin C) 500 mg DAILY GT 11/03/19 09:00 11/28/19 11:29 11/04/19 09:14 Carbidopa/Levodopa (Sinemet 25/100) 1 tab THREE TIMES A DAY GT 11/02/19 18:00 11/28/19 12:59 11/04/19 14:08 Chlorhexidine Gluconate (Peyton-Hex 2%) 1 applic DAILY@2000 TOPIC 11/04/19 20:00 12/04/19 19:59 Dextrose (Dextrose 50%) 25 ml Q30M PRN IV Hypoglycemia 11/02/19 17:30 11/28/19 11:29 Dextrose (Dextrose 50%) 50 ml Q30M PRN IV Hypoglycemia 11/02/19 17:30 11/28/19 11:29 Heparin Sodium/ Sodium Chloride (Heparin 1000 units/500ml Premix) 1,000 unit ONCE PRN IV PICC LINE PLACEMENT 11/04/19 12:15 11/05/19 13:00 Insulin Aspart (NovoLOG) Q6HR SUBQ 11/02/19 18:00 11/28/19 11:29 Lactobacillus Acidophilus (Culturelle) 1 tab TWICE A DAY GT 11/03/19 18:00 12/03/19 17:59 11/04/19 09:14 Lansoprazole (Prevacid) 30 mg DAILY GT 11/03/19 09:00 12/01/19 08:59 11/04/19 09:14 Lidocaine HCl (Xylocaine 1% 30ml) 30 ml ONCE PRN INJ PICC LINE PLACEMENT 11/04/19 12:15 11/05/19 13:00 Linezolid 300 ml @ 300 mls/hr Q12HR IVPB 11/02/19 21:00 12/14/19 23:59 11/04/19 09:14 Meropenem 1 gm/ Sodium Chloride 55 ml @ 110 mls/hr Q12H IVPB 11/02/19 23:00 12/14/19 23:59 11/04/19 11:15 Metoprolol Tartrate (Lopressor) 25 mg EVERY 12 HOURS GT 11/02/19 21:00 11/28/19 20:59 11/04/19 09:14 Multivitamins Therapeutic (Therapeutic Multivitamin) 1 ea DAILY ORAL 11/03/19 09:00 11/29/19 08:59 11/04/19 09:14 Sennosides (Senokot) 16.2 mg QHS GT 11/02/19 21:00 11/28/19 20:59 11/03/19 20:47 Sodium Hypochlorite (Dakin's Quarter Strength) 1 applic DAILY TOPIC 11/03/19 09:00 11/29/19 19:59 11/04/19 09:15 Zinc Sulfate (Zinc Sulfate) 220 mg BID GT 11/02/19 18:00 11/28/19 17:59 11/04/19 09:14 Arcadio Mcnair M.D. Nov 04, 2019 16:02
--- NOTE | 2019-11-04 16:47 | Pulmonology Progress Note ---
Assessment/Plan Problems: (1) JAIRO (acute kidney injury) Assessment & Plan: With hyperNa (2) Acute hypoxemic respiratory failure (3) Respiratory failure, acute (4) HCAP (healthcare-associated pneumonia) (5) UTI (urinary tract infection) (6) Sepsis Assessment & Plan: GPC (7) V-tach (8) History of pulmonary embolism (9) Sacral pressure ulcer (10) Anemia (11) Osteomyelitis of right hip Assessment/Plan Optimize pulmonary hygiene/mobilize as tolerated Off BiPAP Titrate O2 HHN's Abx: Rodolfo/Zyvox per ID, F/U Cx's Monitor volumes and renal function DVT Px: Eliquis NPO, GTF's FC, continue to discuss GOC Wound care Subjective Allergies: Coded Allergies: No Known Allergies (Unverified , 06/20/19) Subjective AFVSS O2 needs stable breathing stable no cough no FC alesia TF's Objective Last 24 Hour Vital Signs Date Time Temp Pulse Resp B/P (MAP) Pulse Ox O2 Delivery O2 Flow Rate FiO2 11/04/19 12:00 97.4 76 17 131/72 (91) 98 11/04/19 09:14 78 125/65 11/04/19 09:00 Nasal Cannula 2.0 11/04/19 08:00 98.0 78 18 125/65 (85) 98 11/04/19 07:32 98 Nasal Cannula 2.0 28 11/04/19 04:00 98.4 68 19 115/64 (81) 97 11/04/19 00:00 98.6 68 21 114/57 (76) 95 11/03/19 21:00 Nasal Cannula 2.0 11/03/19 20:48 81 125/62 11/03/19 20:08 97 Nasal Cannula 2.0 28 11/03/19 20:00 98.7 81 22 125/62 (83) 95 11/03/19 17:40 Nasal Cannula 2.0 Intake and Output 11/03/19 11/04/19 19:00 07:00 Intake Total 1135 ml 1010 ml Output Total 1800 ml 1100 ml Balance -665 ml -90 ml Intake Free Water 360 ml IV Total 355 ml Tube Feeding 780 ml 650 ml Output Urine Total 1800 ml 1100 ml # Voids 1 # Bowel Movements 2 General Appearance: no acute distress, cachetic HEENT: normocephalic, atraumatic, anicteric, mucous membranes moist Respiratory/Chest: chest wall non-tender, lungs clear, normal breath sounds, no respiratory distress, no accessory muscle use Cardiovascular: normal peripheral pulses, normal rate, regular rhythm Abdomen: normal bowel sounds, soft, non tender, no organomegaly, non distended , no mass, other - GT CDI Extremities: no cyanosis, no clubbing, no edema Current Medications Medications (Trade) Dose Ordered Sig/Katharine Route PRN Reason Start Time Stop Time Status Last Admin Dose Admin Acetaminophen (Tylenol) 650 mg Q6H PRN GT Mild Pain/Temp > 100.5 11/02/19 17:30 12/01/19 17:29 Ascorbic Acid (Vitamin C) 500 mg DAILY GT 11/03/19 09:00 11/28/19 11:29 11/04/19 09:14 Carbidopa/Levodopa (Sinemet 25/100) 1 tab THREE TIMES A DAY GT 11/02/19 18:00 11/28/19 12:59 11/04/19 14:08 Chlorhexidine Gluconate (Peyton-Hex 2%) 1 applic DAILY@1999 TOPIC 11/04/19 20:00 12/04/19 19:59 Dextrose (Dextrose 50%) 25 ml Q30M PRN IV Hypoglycemia 11/02/19 17:30 11/28/19 11:29 Dextrose (Dextrose 50%) 50 ml Q30M PRN IV Hypoglycemia 11/02/19 17:30 11/28/19 11:29 Heparin Sodium/ Sodium Chloride (Heparin 1000 units/500ml Premix) 1,000 unit ONCE PRN IV PICC LINE PLACEMENT 11/04/19 12:15 11/05/19 13:00 Insulin Aspart (NovoLOG) Q6HR SUBQ 11/02/19 18:00 11/28/19 11:29 Lactobacillus Acidophilus (Culturelle) 1 tab TWICE A DAY GT 11/03/19 18:00 12/03/19 17:59 11/04/19 09:14 Lansoprazole (Prevacid) 30 mg DAILY GT 11/03/19 09:00 12/01/19 08:59 11/04/19 09:14 Lidocaine HCl (Xylocaine 1% 30ml) 30 ml ONCE PRN INJ PICC LINE PLACEMENT 11/04/19 12:15 11/05/19 13:00 Linezolid 300 ml @ 300 mls/hr Q12HR IVPB 11/02/19 21:00 12/14/19 23:59 11/04/19 09:14 Meropenem 1 gm/ Sodium Chloride 55 ml @ 110 mls/hr Q12H IVPB 11/02/19 23:00 12/14/19 23:59 11/04/19 11:15 Metoprolol Tartrate (Lopressor) 25 mg EVERY 12 HOURS GT 11/02/19 21:00 11/28/19 20:59 11/04/19 09:14 Multivitamins Therapeutic (Therapeutic Multivitamin) 1 ea DAILY ORAL 11/03/19 09:00 11/29/19 08:59 11/04/19 09:14 Sennosides (Senokot) 16.2 mg QHS GT 11/02/19 21:00 11/28/19 20:59 11/03/19 20:47 Sodium Hypochlorite (Dakin's Quarter Strength) 1 applic DAILY TOPIC 11/03/19 09:00 11/29/19 19:59 11/04/19 09:15 Zinc Sulfate (Zinc Sulfate) 220 mg BID GT 11/02/19 18:00 11/28/19 17:59 11/04/19 09:14 Yves Harrison MD Nov 04, 2019 16:47
[2019-11-04] MEDS ORDERED: Albuterol/Ipratropium 3ml neb HHN PRN (17:00)
[2019-11-04 20:00] VITALS: BP 102/55
[2019-11-04] MEDS ORDERED: Dyna-Hex 2% Top Sol 2oz TOPIC SCH (20:00)
[2019-11-04] MEDS: Sennosides 8.6mg tab GT SCH (20:58)
[2019-11-05] VITALS: BP 129/60
[2019-11-05 04:00] VITALS: BP 98/57
[2019-11-05] MEDS: NovoLOG Insulin Flexpen SUBQ SCH ×4 (06:00→18:00)
[2019-11-05 07:45] LABS: BASOPHILS % (AUTO) 1.1 % (0.0-2.0); EOSINOPHILS % (AUTO) 6.5 % (0.0-3.0); HEMATOCRIT 26.4 % (42.0-52.0); LYMPHOCYTES % (AUTO) 27.6 % (20.0-45.0); MEAN CORPUSCULAR VOLUME 87 FL (80-99); MONOCYTES % (AUTO) 6.5 % (1.0-10.0); NEUTROPHILS % (AUTO) 58.4 % (45.0-75.0); PLATELET COUNT 201 K/UL (150-450); RED BLOOD COUNT 3.03 M/UL (4.70-6.10); RED CELL DISTRIBUTION WIDTH 15.5 % (11.6-14.8)
[2019-11-05 08:00] VITALS: BP 130/62
[2019-11-05 08:07] LABS: ANION GAP 6 mmol/L (5-15); BLOOD UREA NITROGEN 23 mg/dL (7-18); CALCIUM 9.4 MG/DL (8.5-10.1); CARBON DIOXIDE 30 MMOL/L (21-32); CHLORIDE 103 MMOL/L (98-107); CREATININE 0.6 MG/DL (0.55-1.30); POTASSIUM 4.6 MMOL/L (3.5-5.1); SODIUM 138 MMOL/L (136-145)
--- NOTE | 2019-11-05 09:13 | General Progress Note ---
Assessment/Plan Status: stable Assessment/Plan: 1. LLL pneumonia - cont meropenem and zyvox for 6 weeks. Follow cultures. Influenza A&B negative in ER. 2. Sepsis - cont broad spectrum antibiotic as above. ID following. cont IV abx for total of 6 wks. picc line ordered. 3. UTI - on antibiotic for total of 6 wks due to osteomyeilitis. 4. 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 D/C to [facility] re[facility] after picc line today. 5. Acute hypoxemic respiratory failure - off BiPaP. doing better and Assistant Administrator following the patient. 6. JAIRO - improved with hydration. 7.Pressure Ulcers of Isthium, stage 4 - wound care by Dr Lomax. 8. Anemia - most likely 2nd to Eliquis - off Eliquis and CBC improved to 9. 9. Run of V tach in ER and h/o ICD placement - Cardiology following. 10. Hypokalemia - resolved. 11. Hyponatremia - resolved. 12. Parkinson's Dementia Subjective Date patient seen: Nov 05, 2019 Time patient seen: 09:00 Constitutional: Reports: weakness HEENT: Reports: no symptoms Cardiovascular: Reports: no symptoms Respiratory: Reports: no symptoms Gastrointestinal/Abdominal: Reports: no symptoms Genitourinary: Reports: no symptoms Endocrine: Reports: no symptoms Hematologic/Lymphatic: Reports: anemia Allergies: Coded Allergies: No Known Allergies (Unverified , 06/20/19) Subjective He is doing well and awaiting Picc line placement before [facility]. Objective Last 24 Hour Vital Signs Date Time Temp Pulse Resp B/P (MAP) Pulse Ox O2 Delivery O2 Flow Rate FiO2 11/05/19 07:00 98 Nasal Cannula 2.0 28 11/05/19 04:00 97.9 78 22 98/57 (71) 95 11/05/19 00:00 98.0 70 21 129/60 (83) 95 11/04/19 21:00 Nasal Cannula 2.0 11/04/19 20:58 69 102/55 11/04/19 20:00 98.9 69 22 102/55 (71) 100 11/04/19 20:00 98 Nasal Cannula 2.0 28 11/04/19 18:58 97.4 11/04/19 16:00 98.1 79 21 127/79 (95) 98 11/04/19 12:00 97.4 76 17 131/72 (91) 98 11/04/19 09:14 78 125/65 Intake and Output 11/04/19 11/05/19 19:00 07:00 Intake Total 1205 ml 980 ml Output Total 2100 ml 05868 ml Balance -895 ml -75778 ml Intake Free Water 200 ml 200 ml IV Total 355 ml Tube Feeding 650 ml 780 ml Output Urine Total 2100 ml 21042 ml # Voids 1 Laboratory Tests 11/05/19 07:15: White Blood Count 9.0, Red Blood Count 3.03L, Hemoglobin 9.0L, Hematocrit 26.4L , Mean Corpuscular Volume 87, Mean Corpuscular Hemoglobin 29.7, Mean Corpuscular Hemoglobin Concent 34.1, Red Cell Distribution Width 15.5H, Platelet Count 201, Mean Platelet Volume 6.0L, Neutrophils (%) (Auto) 58.4, Lymphocytes (%) (Auto) 27.6, Monocytes (%) (Auto) 6.5, Eosinophils (%) (Auto) 6.5H, Basophils (%) (Auto) 1.1, Sodium Level 138, Potassium Level 4.6, Chloride Level 103, Carbon Dioxide Level 30, Anion Gap 6, Blood Urea Nitrogen 23H, Creatinine 0.6, Estimat Glomerular Filtration Rate > 60, Glucose Level 98, Calcium Level 9.4 Height (Feet): 5 Height (Inches): 10.00 Weight (Pounds): 132 General Appearance: no apparent distress EENT: normal ENT inspection Neck: non-tender, supple Cardiovascular: normal rate, regular rhythm Respiratory/Chest: lungs clear, normal breath sounds Abdomen: non tender, soft Extremities: non-tender Neurologic: responsive Skin: warm/dry Aakash Blanco MD Nov 05, 2019 09:13
[2019-11-05] MEDS: Zinc Sulfate 220mg cap GT SCH ×2 (09:29→18:35)
[2019-11-05] MEDS: Levodopa/Carbidopa 25/100 tab GT SCH ×3 (09:29→18:35)
[2019-11-05] MEDS: Multivitamin w/Minerals tab ORAL SCH (09:29)
[2019-11-05] MEDS: Ascorbic Acid 500mg tab GT SCH (09:30)
[2019-11-05] MEDS: Dakin's 0.125% Soln (Quarter Strength) 16oz TOPIC SCH (09:31)
[2019-11-05] MEDS: Lactobacillus-GG tablet GT SCH ×2 (09:31→18:35)
[2019-11-05 12:00] VITALS: BP 131/98
--- NOTE | 2019-11-05 12:22 | Surgery Progress Note ---
Surgery Progress Note Subjective Additional Comments no acute events comfortable stable labs noted Objective Last 24 Hour Vital Signs Date Time Temp Pulse Resp B/P (MAP) Pulse Ox O2 Delivery O2 Flow Rate FiO2 11/05/19 09:30 72 130/62 11/05/19 08:00 97.9 72 18 130/62 (84) 97 11/05/19 07:00 98 Nasal Cannula 2.0 28 11/05/19 04:00 97.9 78 22 98/57 (71) 95 11/05/19 00:00 98.0 70 21 129/60 (83) 95 11/04/19 21:00 Nasal Cannula 2.0 11/04/19 20:58 69 102/55 11/04/19 20:00 98.9 69 22 102/55 (71) 100 11/04/19 20:00 98 Nasal Cannula 2.0 28 11/04/19 18:58 97.4 11/04/19 16:00 98.1 79 21 127/79 (95) 98 I&O Intake and Output 11/04/19 11/05/19 19:00 07:00 Intake Total 1205 ml 980 ml Output Total 2100 ml 26927 ml Balance -895 ml -47807 ml Intake Free Water 200 ml 200 ml IV Total 355 ml Tube Feeding 650 ml 780 ml Output Urine Total 2100 ml 93385 ml # Voids 1 Dressing: other Wound: other Drains: other Cardiovascular: RSR Respiratory: decreased breath sounds Abdomen: soft, present bowel sounds Extremities: no cyanosis Laboratory Tests Test 11/05/19 07:15 White Blood Count 9.0 K/UL (4.8-10.8) Red Blood Count 3.03 M/UL (4.70-6.10) L Hemoglobin 9.0 G/DL (14.2-18.0) L Hematocrit 26.4 % (42.0-52.0) L Mean Corpuscular Volume 87 FL (80-99) Mean Corpuscular Hemoglobin 29.7 PG (27.0-31.0) Mean Corpuscular Hemoglobin Concent 34.1 G/DL (32.0-36.0) Red Cell Distribution Width 15.5 % (11.6-14.8) H Platelet Count 201 K/UL (150-450) Mean Platelet Volume 6.0 FL (6.5-10.1) L Neutrophils (%) (Auto) 58.4 % (45.0-75.0) Lymphocytes (%) (Auto) 27.6 % (20.0-45.0) Monocytes (%) (Auto) 6.5 % (1.0-10.0) Eosinophils (%) (Auto) 6.5 % (0.0-3.0) H Basophils (%) (Auto) 1.1 % (0.0-2.0) Sodium Level 138 MMOL/L (136-145) Potassium Level 4.6 MMOL/L (3.5-5.1) Chloride Level 103 MMOL/L (98-107) Carbon Dioxide Level 30 MMOL/L (21-32) Anion Gap 6 mmol/L (5-15) Blood Urea Nitrogen 23 mg/dL (7-18) H Creatinine 0.6 MG/DL (0.55-1.30) Estimat Glomerular Filtration Rate > 60 mL/min (>60) Glucose Level 98 MG/DL (74-106) Calcium Level 9.4 MG/DL (8.5-10.1) Plan Problems: (1) Anemia (2) Respiratory failure, acute (3) HCAP (healthcare-associated pneumonia) (4) V-tach (5) History of pulmonary embolism (6) Sacral pressure ulcer Assessment & Plan: Pt presented on admission with multiple pressure injuries. Bilateral groin and scrotum are erythematous. Stage 4 Full thickness Sacral pressure(L)2.2cm x (W)6.5cm. Base of wound beefy red in center at sacrococcygeal with surrounding moist pink granulation. Edges are macerated.Small amt brown exudate that is malodorous. Periwound purple/ maroon and indurated. In addition pt noted to have scattered partial thickness wounds periwound. Entire pressure injury including full thickness wound measures 7cm x (W)7.5cm. Stage 4 Full thickness pressure injury L trochanter. Base of wound has 80% soft necrotic tissue, 20% mixed beefy red and slough. Bone is palpable. Wound is malodorous(L)6.2cm x (W)6.5cm.Small amt brown exudate noted.Periwound is indurated with areas of fluctuance. The Affected area including wound measuring (L)14.2cm x (W)17.5cm. Stage 4 Full thickness pressure injury R trochanter. Base of wound has 50% slough in center with surrounding beefy red granulation (L)6.5cm x (W)7cm. Bone is palpable at center of wound. Wound is malodorous. Small amt seropurulent exudate noted.Periwound is purple and indurated. Unstageable pressure injury L hallux. Dry eschar at base of wound. Marginal erythema along borders .NO odor or exudate noted (L)3cm x (W)1.4cm Unstageable pressure injury medial/lateral L foot. Base of wound is brown over bony protrusion with surrounding maroon borders (L)1cm x (W)1.4cm. L heel is boggy with non-blanching erythema medial aspect of heel. Full thickness pressure injury dorsal/medial aspect of L foot. Base of wound is beefy and moist in center with black and fluctuant borders (L)2.6cm x (W)4.5cm. DTPI Medial L heel . Base of wound is fluctuant purple in center with maroon borders. Periwound heel is boggy and erythematous(L)4.2cm x (W)5.5cm. Stable dry eschar noted to R 5th metatarsal (L)0.7cm x (W)0.6cm. NO erythema or evidence of further breakdown periwound. Tx.Plan: Cleanse Sacral wound with Dakin's 0.125% aiyana. Apply Dakin's moist gauze. Apply Moisture Barrier paste periwound. Cover with Optifoam drsg Daily and prn. Cleanse R trochanter wound with Dakin's 0.125% aiyana. Apply Dakin's moist gauze to wound bed. Apply Moisture Barrier Paste periwound. Cover with Optifoam drsg Daily and prn. Cleanse L trochanter wound with Dakin's 0.125% Aiyana. Apply Dakin's moist Gauze to wound. Apply Moisture Barrier Paste periwound. Cover with Optifoam drsg Daily and prn. Swab wounds R foot with Betadine. Cover each wound with Optifoam drsg every 3 days and prn. Swab wounds L foot with Betadine. Cover each wound with Optifoam drsg every 3 days and prn. Air Fluidized Mattress. Reposition at least every 2hours or as tolerated. Place pillow between knees. Off-load heels with pillow. (7) JAIRO (acute kidney injury) (8) Acute hypoxemic respiratory failure (9) Decubitus ulcer of ischium, stage 4 Assessment & Plan: DAILY ESTIMATED NEEDS: Needs based on Underweight, wounds, 58.6kg 30-35 kcals/kg 5910-6432 total kcals 1.5-2 g protein/kg 88-117 g total protein 25-35ml/kcal mL/kg 4751-0338 total fluid mLs NUTRITION DIAGNOSIS: * Increased kcal and pro needs r/t wound healing and underweight status AEB pt admitted w/ multiple advanced wounds, including unstageable wounds x2, full thickness wounds x4, w/ generalized moderate wasting, @78% of [place] Body Weight. * Swallowing difficulty R/T dysphagia, pt is PEG dependent. CURRENT TF:Jevity 1.2 @ 65ml/hr x 20 hrs ENTERAL NUTRITION RECOMMENDATIONS: Glucerna 1.5 @ 50ml/hr x 24 hrs to provide 1200ml, 1800 kcal, 99g pro, 911ml free H2O * Rec TF CHANGE for carb control formula-> start Glucerna 1.5 @30ml/hr for 6 hrs, advance as tolerated 10ml/hr q4-6 hrs to goal. * HOB over 30 degrees flush per MD ---- W/ current formula Jevity 1.2, rec to increase to 75ml/hr x20 hrs for 1500ml, 1800 kcal, 83g pro, 1211ml free H2O. Rec to Add PROSOURCE 1 pack daily to better meet est pro needs. ADDITIONAL RECOMMENDATIONS: 1) Calibrated bedscale wt for accurate CBW -> on a bed w/ p200 mattress 2) Wound care, add MYRON in 4oz water BID via GT 3) Rec accuchecks w/ ssi as needed/ h/o DM per MD 4) Check lytes, replete as needed . (10) LLL pneumonia (11) Sepsis Assessment & Plan: Abx as per ID nutritional optimization trend labs overall improving cont current care plan DAILY ESTIMATED NEEDS: Needs based on Underweight, wounds, 58.6kg 30-35 kcals/kg 7011-7528 total kcals 1.5-2 g protein/kg 88-117 g total protein 25-35ml/kcal mL/kg 6697-8324 total fluid mLs NUTRITION DIAGNOSIS: * Increased kcal and pro needs r/t wound healing and underweight status AEB pt admitted w/ multiple advanced wounds, including unstageable wounds x2, full thickness wounds x4, w/ generalized moderate wasting, @78% of [place] Body Weight. * Swallowing difficulty R/T dysphagia, pt is PEG dependent. CURRENT TF: Jevity 1.2 @ 65ml/hr x 20 hrs ENTERAL NUTRITION RECOMMENDATIONS: Glucerna 1.5 @ 50ml/hr x 24 hrs to provide 1200ml, 1800 kcal, 99g pro, 911ml free H2O * Rec TF CHANGE for carb control formula-> start Glucerna 1.5 @30ml/hr for 6 hrs, advance as tolerated 10ml/hr q4-6 hrs to goal. * HOB over 30 degrees flush per MD ADDITIONAL RECOMMENDATIONS: 1) Calibrated bedscale wt for accurate CBW -> on a bed w/ p200 mattress 2) Wound care, add MYRON in 4oz water BID via GT 3) Rec accuchecks w/ ssi as needed/ h/o DM per MD 4) Check lytes, replete as needed (12) UTI (urinary tract infection) Kyle Lomax Nov 05, 2019 12:22
--- NOTE | 2019-11-05 13:09 | Infectious Diseases Prog Note ---
Assessment/Plan Problems: (1) LLL pneumonia Assessment & Plan: DUE TO METHICILLIN RESISTANT STAPH AUREUS , with hypoxemia , cough productive and persistent fever while on vancomycin , CONTINUE zyvox to treat for 6 weeks and to cover for osteomyelitis of the right trochanteric bone . screening for influenza A&B is negative . aspiration precaution . (2) UTI (urinary tract infection) Assessment & Plan: with negative culture suspect sterile pyuria , already on meropenem for pneumonia coverage (3) Sepsis Assessment & Plan: due to staph hominis , source most likely his pressure wounds , with fever , and leukocytosis now on zyvox . repeated blood culture is negative which confirm clearance (4) Sacral pressure ulcer Assessment & Plan: with cellulitis and infection , already on wide spectrum antibiotics, recommend off loading and local wound care as per hospital protocol (5) JAIRO (acute kidney injury) Assessment & Plan: improving , due to sepsis , continue hydration and renally adjusted antibiotics (6) Acute hypoxemic respiratory failure Assessment & Plan: suspect due to the above, on bipap , already started on wide spectrum antibiotics , monitor ABG, and CXR , Pulmonary is following (7) Decubitus ulcer of ischium, stage 4 Assessment & Plan: recommend off loading, local wound care and dressings change as per hospital protocol , already on wide spectrum antibiotics , will order bone scan (8) Osteomyelitis of right hip Assessment & Plan: with deep pressure wound , confirmed on bone scan, continue zyvox and meropenem for 6 weeks , with local wound care and dressings changes . monitor weekly labs , with CBC, and CMP while on antibiotics Subjective ROS Limited/Unobtainable: Yes Allergies: Coded Allergies: No Known Allergies (Unverified , 06/20/19) Subjective He was resting in bed comfortable, more awake and responsive today , off BIPAP, no fever or coughing , no SOB Objective Vital Signs Last 24 Hour Vital Signs Date Time Temp Pulse Resp B/P (MAP) Pulse Ox O2 Delivery O2 Flow Rate FiO2 11/05/19 12:00 98.9 79 18 131/98 (109) 98 11/05/19 09:30 72 130/62 11/05/19 09:00 Nasal Cannula 2.0 11/05/19 08:00 97.9 72 18 130/62 (84) 97 11/05/19 07:00 98 Nasal Cannula 2.0 28 11/05/19 04:00 97.9 78 22 98/57 (71) 95 11/05/19 00:00 98.0 70 21 129/60 (83) 95 11/04/19 21:00 Nasal Cannula 2.0 11/04/19 20:58 69 102/55 11/04/19 20:00 98.9 69 22 102/55 (71) 100 11/04/19 20:00 98 Nasal Cannula 2.0 28 11/04/19 18:58 97.4 11/04/19 16:00 98.1 79 21 127/79 (95) 98 Height (Feet): 5 Height (Inches): 10.00 Weight (Pounds): 132 General Appearance: no acute distress, cachetic HEENT: normocephalic, atraumatic, anicteric, mucous membranes moist, PERRL Respiratory/Chest: chest wall non-tender, lungs clear, normal breath sounds, no respiratory distress, no accessory muscle use Cardiovascular: normal peripheral pulses, normal rate, regular rhythm, no gallop/murmur, no JVD Abdomen: normal bowel sounds, soft, non tender, no organomegaly, non distended , no mass, no scars Genitourinary: normal external genitalia Extremities: no cyanosis, no clubbing Skin: no rash, no lesions, no ulcers Neurologic/Psychiatric: pivot end polisher II-XII grossly normal, no motor/sensory deficits, alert, oriented x 3 Lymphatic: no neck adenopathy, no groin adenopathy Musculoskeletal: normal muscle bulk, no effusion Laboratory Tests Test 11/05/19 07:15 White Blood Count 9.0 K/UL (4.8-10.8) Red Blood Count 3.03 M/UL (4.70-6.10) L Hemoglobin 9.0 G/DL (14.2-18.0) L Hematocrit 26.4 % (42.0-52.0) L Mean Corpuscular Volume 87 FL (80-99) Mean Corpuscular Hemoglobin 29.7 PG (27.0-31.0) Mean Corpuscular Hemoglobin Concent 34.1 G/DL (32.0-36.0) Red Cell Distribution Width 15.5 % (11.6-14.8) H Platelet Count 201 K/UL (150-450) Mean Platelet Volume 6.0 FL (6.5-10.1) L Neutrophils (%) (Auto) 58.4 % (45.0-75.0) Lymphocytes (%) (Auto) 27.6 % (20.0-45.0) Monocytes (%) (Auto) 6.5 % (1.0-10.0) Eosinophils (%) (Auto) 6.5 % (0.0-3.0) H Basophils (%) (Auto) 1.1 % (0.0-2.0) Sodium Level 138 MMOL/L (136-145) Potassium Level 4.6 MMOL/L (3.5-5.1) Chloride Level 103 MMOL/L (98-107) Carbon Dioxide Level 30 MMOL/L (21-32) Anion Gap 6 mmol/L (5-15) Blood Urea Nitrogen 23 mg/dL (7-18) H Creatinine 0.6 MG/DL (0.55-1.30) Estimat Glomerular Filtration Rate > 60 mL/min (>60) Glucose Level 98 MG/DL (74-106) Calcium Level 9.4 MG/DL (8.5-10.1) Current Medications Medications (Trade) Dose Ordered Sig/Katharine Route PRN Reason Start Time Stop Time Status Last Admin Dose Admin Acetaminophen (Tylenol) 650 mg Q6H PRN GT Mild Pain/Temp > 100.5 11/02/19 17:30 12/01/19 17:29 11/04/19 18:28 Albuterol/ Ipratropium (Albuterol/ Ipratropium) 3 ml Q4H PRN HHN Shortness of Breath 11/04/19 17:00 11/09/19 16:59 Ascorbic Acid (Vitamin C) 500 mg DAILY GT 11/03/19 09:00 11/28/19 11:29 11/05/19 09:30 Carbidopa/Levodopa (Sinemet 25/100) 1 tab THREE TIMES A DAY GT 11/02/19 18:00 11/28/19 12:59 11/05/19 09:29 Chlorhexidine Gluconate (Peyton-Hex 2%) 1 applic DAILY@1999 TOPIC 11/04/19 20:00 12/04/19 19:59 Dextrose (Dextrose 50%) 25 ml Q30M PRN IV Hypoglycemia 11/02/19 17:30 11/28/19 11:29 Dextrose (Dextrose 50%) 50 ml Q30M PRN IV Hypoglycemia 11/02/19 17:30 11/28/19 11:29 Insulin Aspart (NovoLOG) Q6HR SUBQ 11/02/19 18:00 11/28/19 11:29 Lactobacillus Acidophilus (Culturelle) 1 tab TWICE A DAY GT 11/03/19 18:00 12/03/19 17:59 11/05/19 09:31 Lansoprazole (Prevacid) 30 mg DAILY GT 11/03/19 09:00 12/01/19 08:59 11/05/19 09:30 Linezolid 300 ml @ 300 mls/hr Q12HR IVPB 11/02/19 21:00 12/14/19 23:59 11/05/19 09:29 Meropenem 1 gm/ Sodium Chloride 55 ml @ 110 mls/hr Q12H IVPB 11/02/19 23:00 12/14/19 23:59 11/04/19 22:27 Metoprolol Tartrate (Lopressor) 25 mg EVERY 12 HOURS GT 11/02/19 21:00 11/28/19 20:59 11/05/19 09:30 Multivitamins Therapeutic (Therapeutic Multivitamin) 1 ea DAILY ORAL 11/03/19 09:00 11/29/19 08:59 11/05/19 09:29 Sennosides (Senokot) 16.2 mg QHS GT 11/02/19 21:00 11/28/19 20:59 11/04/19 20:58 Sodium Hypochlorite (Dakin's Quarter Strength) 1 applic DAILY TOPIC 11/03/19 09:00 11/29/19 19:59 11/05/19 09:31 Zinc Sulfate (Zinc Sulfate) 220 mg BID GT 11/02/19 18:00 11/28/19 17:59 11/05/19 09:29 Arcadio Mcnair M.D. Nov 05, 2019 13:09
[2019-11-05] MEDS ORDERED: Heparin1,000 units/500ml Premix(Conc:2 units/ml) IV PRN (13:15)
[2019-11-05] MEDS ORDERED: Lidocaine 1% Plain 30 ml INJ PRN (13:15)
[2019-11-05] MEDS: Meropenem 1 GM in NS 55 ML IVPB SCH (13:19)
--- NOTE | 2019-11-05 13:19 | Pulmonology Progress Note ---
Assessment/Plan Problems: (1) JAIRO (acute kidney injury) Assessment & Plan: With hyperNa (2) Acute hypoxemic respiratory failure (3) Respiratory failure, acute (4) HCAP (healthcare-associated pneumonia) (5) UTI (urinary tract infection) (6) Sepsis Assessment & Plan: GPC (7) V-tach (8) History of pulmonary embolism (9) Sacral pressure ulcer (10) Anemia (11) Osteomyelitis of right hip Assessment/Plan Optimize pulmonary hygiene/mobilize as tolerated Off BiPAP Titrate O2 HHN's Abx: Rodolfo/Zyvox per ID, F/U Cx's - awaiting PICC Monitor volumes and renal function DVT Px: Eliquis NPO, GTF's FC, continue to discuss GOC Wound care Subjective Allergies: Coded Allergies: No Known Allergies (Unverified , 06/20/19) Subjective AFVSS O2 needs stable breathing stable no cough no FC alesia TF's Objective Last 24 Hour Vital Signs Date Time Temp Pulse Resp B/P (MAP) Pulse Ox O2 Delivery O2 Flow Rate FiO2 11/05/19 12:00 98.9 79 18 131/98 (109) 98 11/05/19 09:30 72 130/62 11/05/19 09:00 Nasal Cannula 2.0 11/05/19 08:00 97.9 72 18 130/62 (84) 97 11/05/19 07:00 98 Nasal Cannula 2.0 28 11/05/19 04:00 97.9 78 22 98/57 (71) 95 11/05/19 00:00 98.0 70 21 129/60 (83) 95 11/04/19 21:00 Nasal Cannula 2.0 11/04/19 20:58 69 102/55 11/04/19 20:00 98.9 69 22 102/55 (71) 100 11/04/19 20:00 98 Nasal Cannula 2.0 28 11/04/19 18:58 97.4 11/04/19 16:00 98.1 79 21 127/79 (95) 98 Intake and Output 11/04/19 11/05/19 19:00 07:00 Intake Total 1205 ml 980 ml Output Total 2100 ml 01126 ml Balance -895 ml -27974 ml Intake Free Water 200 ml 200 ml IV Total 355 ml Tube Feeding 650 ml 780 ml Output Urine Total 2100 ml 94551 ml # Voids 1 General Appearance: no acute distress, cachetic HEENT: normocephalic, atraumatic Respiratory/Chest: chest wall non-tender, lungs clear, normal breath sounds, no respiratory distress, no accessory muscle use Cardiovascular: normal peripheral pulses, normal rate, regular rhythm Abdomen: normal bowel sounds, soft, non tender, no organomegaly, non distended , no mass, other - GT Extremities: no cyanosis, no clubbing, no edema Laboratory Tests 11/05/19 07:15: White Blood Count 9.0, Red Blood Count 3.03L, Hemoglobin 9.0L, Hematocrit 26.4L , Mean Corpuscular Volume 87, Mean Corpuscular Hemoglobin 29.7, Mean Corpuscular Hemoglobin Concent 34.1, Red Cell Distribution Width 15.5H, Platelet Count 201, Mean Platelet Volume 6.0L, Neutrophils (%) (Auto) 58.4, Lymphocytes (%) (Auto) 27.6, Monocytes (%) (Auto) 6.5, Eosinophils (%) (Auto) 6.5H, Basophils (%) (Auto) 1.1, Sodium Level 138, Potassium Level 4.6, Chloride Level 103, Carbon Dioxide Level 30, Anion Gap 6, Blood Urea Nitrogen 23H, Creatinine 0.6, Estimat Glomerular Filtration Rate > 60, Glucose Level 98, Calcium Level 9.4 Current Medications Medications (Trade) Dose Ordered Sig/Katharine Route PRN Reason Start Time Stop Time Status Last Admin Dose Admin Acetaminophen (Tylenol) 650 mg Q6H PRN GT Mild Pain/Temp > 100.5 11/02/19 17:30 12/01/19 17:29 11/04/19 18:28 Albuterol/ Ipratropium (Albuterol/ Ipratropium) 3 ml Q4H PRN HHN Shortness of Breath 11/04/19 17:00 11/09/19 16:59 Ascorbic Acid (Vitamin C) 500 mg DAILY GT 11/03/19 09:00 11/28/19 11:29 11/05/19 09:30 Carbidopa/Levodopa (Sinemet 25/100) 1 tab THREE TIMES A DAY GT 11/02/19 18:00 11/28/19 12:59 11/05/19 09:29 Chlorhexidine Gluconate (Peyton-Hex 2%) 1 applic DAILY@2000 TOPIC 11/04/19 20:00 12/04/19 19:59 Dextrose (Dextrose 50%) 25 ml Q30M PRN IV Hypoglycemia 11/02/19 17:30 11/28/19 11:29 Dextrose (Dextrose 50%) 50 ml Q30M PRN IV Hypoglycemia 11/02/19 17:30 11/28/19 11:29 Heparin Sodium/ Sodium Chloride (Heparin 1000 units/500ml Premix) 1,000 unit ONCE PRN IV PICC LINE PLACEMENT 11/05/19 13:15 11/05/19 23:59 Insulin Aspart (NovoLOG) Q6HR SUBQ 11/02/19 18:00 11/28/19 11:29 Lactobacillus Acidophilus (Culturelle) 1 tab TWICE A DAY GT 11/03/19 18:00 12/03/19 17:59 11/05/19 09:31 Lansoprazole (Prevacid) 30 mg DAILY GT 11/03/19 09:00 12/01/19 08:59 11/05/19 09:30 Lidocaine HCl (Xylocaine 1% 30ml) 30 ml ONCE PRN INJ PICC LINE PLACEMENT 11/05/19 13:15 11/05/19 23:59 Linezolid 300 ml @ 300 mls/hr Q12HR IVPB 11/02/19 21:00 12/14/19 23:59 11/05/19 09:29 Meropenem 1 gm/ Sodium Chloride 55 ml @ 110 mls/hr Q12H IVPB 11/02/19 23:00 12/14/19 23:59 11/04/19 22:27 Metoprolol Tartrate (Lopressor) 25 mg EVERY 12 HOURS GT 11/02/19 21:00 11/28/19 20:59 11/05/19 09:30 Multivitamins Therapeutic (Therapeutic Multivitamin) 1 ea DAILY ORAL 11/03/19 09:00 11/29/19 08:59 11/05/19 09:29 Sennosides (Senokot) 16.2 mg QHS GT 11/02/19 21:00 11/28/19 20:59 11/04/19 20:58 Sodium Hypochlorite (Dakin's Quarter Strength) 1 applic DAILY TOPIC 11/03/19 09:00 4/2/20 19:59 11/05/19 09:31 Zinc Sulfate (Zinc Sulfate) 220 mg BID GT 11/02/19 18:00 11/28/19 17:59 11/05/19 09:29 Yves Harrison MD Nov 05, 2019 13:19
--- NOTE | 2019-11-05 13:36 | Cardiac Electrophysiology PN ---
Assessment/Plan Assessment/Plan 1. Shortness of breath, possible pneumonia. On abx by Dr. Harrison and Dr. Mcnair. Nl EF 2. Status post ventricular fibrillation arrest. S/P upgrading of pacemaker to [employer] defibrillator at [facility] by co. ICD interrogated showed normal function. 4. Hypertension. 5. Dysphagia. S/P PEG placement. 6. Pneumonia, on antibiotics. 7. Dementia and Parkinson. DW RN Subjective Subjective On NMB. No events. Objective Last 24 Hour Vital Signs Date Time Temp Pulse Resp B/P (MAP) Pulse Ox O2 Delivery O2 Flow Rate FiO2 11/05/19 12:00 98.9 79 18 131/98 (109) 98 11/05/19 09:30 72 130/62 11/05/19 09:00 Nasal Cannula 2.0 11/05/19 08:00 97.9 72 18 130/62 (84) 97 11/05/19 07:00 98 Nasal Cannula 2.0 28 11/05/19 04:00 97.9 78 22 98/57 (71) 95 11/05/19 00:00 98.0 70 21 129/60 (83) 95 11/04/19 21:00 Nasal Cannula 2.0 11/04/19 20:58 69 102/55 11/04/19 20:00 98.9 69 22 102/55 (71) 100 11/04/19 20:00 98 Nasal Cannula 2.0 28 11/04/19 18:58 97.4 11/04/19 16:00 98.1 79 21 127/79 (95) 98 Intake and Output 11/04/19 11/05/19 19:00 07:00 Intake Total 1205 ml 980 ml Output Total 2100 ml 37452 ml Balance -895 ml -78908 ml Intake Free Water 200 ml 200 ml IV Total 355 ml Tube Feeding 650 ml 780 ml Output Urine Total 2100 ml 47467 ml # Voids 1 Laboratory Tests Test 11/05/19 07:15 White Blood Count 9.0 K/UL (4.8-10.8) Red Blood Count 3.03 M/UL (4.70-6.10) L Hemoglobin 9.0 G/DL (14.2-18.0) L Hematocrit 26.4 % (42.0-52.0) L Mean Corpuscular Volume 87 FL (80-99) Mean Corpuscular Hemoglobin 29.7 PG (27.0-31.0) Mean Corpuscular Hemoglobin Concent 34.1 G/DL (32.0-36.0) Red Cell Distribution Width 15.5 % (11.6-14.8) H Platelet Count 201 K/UL (150-450) Mean Platelet Volume 6.0 FL (6.5-10.1) L Neutrophils (%) (Auto) 58.4 % (45.0-75.0) Lymphocytes (%) (Auto) 27.6 % (20.0-45.0) Monocytes (%) (Auto) 6.5 % (1.0-10.0) Eosinophils (%) (Auto) 6.5 % (0.0-3.0) H Basophils (%) (Auto) 1.1 % (0.0-2.0) Sodium Level 138 MMOL/L (136-145) Potassium Level 4.6 MMOL/L (3.5-5.1) Chloride Level 103 MMOL/L (98-107) Carbon Dioxide Level 30 MMOL/L (21-32) Anion Gap 6 mmol/L (5-15) Blood Urea Nitrogen 23 mg/dL (7-18) H Creatinine 0.6 MG/DL (0.55-1.30) Estimat Glomerular Filtration Rate > 60 mL/min (>60) Glucose Level 98 MG/DL (74-106) Calcium Level 9.4 MG/DL (8.5-10.1) Objective HEAD AND NECK: Showed no JVD. LUNGS: Coarse rhonchi. CARDIOVASCULAR: Shows regular S1 and S2 with no gallop. Defibrillator is in left subclavian. ABDOMEN: Soft.PEG in place EXTREMITIES: No pitting edema. Pablo Norton MD Nov 05, 2019 13:36
[2019-11-05 16:00] VITALS: BP 123/82
[2019-11-05] MEDS ORDERED: NS 500ML ONE (21:24)
--- NOTE | 2019-11-06 07:23 | Discharge Summary ---
Discharge Summary Discharge Summary _ DATE OF ADMISSION: 10/29/2019 DATE OF DISCHARGE: 11/05/2019 DISCHARGED BY: Dr. Blanco REASON FOR ADMISSION: 84 years old male with past medical history of coronary artery disease, hypertension, pacemaker, diabetes mellitus, Parkinson disease, dementia, sacral decubitus ulcer, [facility] due to respiratory distress and shortness of breath Patient was hypoxic, tachycardic, tachypneic and required placement on BiPAP in the emergency room. Patient was febrile, with leukocytosis, lactic acid 2.0. Sodium 153, BUN 73 creatinine 1.4. Troponin negative, proBNP 1162. EKG revealed paced rhythm with tachycardia. Urinalysis revealed evidence of urinary tract infection. Chest x-ray showed mild left basal infiltrate versus atelectasis Septic work-up initiated. Patient admitted for further management. CONSULTANTS: [employer] Dr. Mario pulmonary Dr Harrison ID specialist Dr. Mcnair surgery Dr. Lomax [facility] COURSE: Patient admitted and started on empiric antibiotics as per ID specialist recommendation. Blood culture revealed Staph hominis. Urine culture revealed growth of Lashonda. Sputum culture showed MRSA. Repeated blood culture on 10/29 were negative. Influenza swab test was negative. Antibiotic regimen optimized as per ID specialist recommendation. Chief Cruiser followed. Supplemental oxygen provided and titrated to keep pulse oximetry above 92%. Pulmonary hygiene optimized. Patient was followed-up with chest x-isael. Nebulizing treatment with bronchodilator provided [id number] and as needed. Volumes were closely monitored Patient was able to be weaned off of BiPAP as he clinically improved. Patient is on Eliquis due to history of PE. Venous duplex bilateral lower extremity revealed no evidence of acute DVT. Strict aspiration precaution maintained. Patient was able to tolerate tube feeding. Per [employer], shortness of breath was likely due to pneumonia. Echocardiogram done prior showed preserved ejection fraction. Patient with history of ventricular fibrillation arrest. Pacemaker was prior upgraded to a defibrillator at [facility] . ICD was interrogated and showed normal functioning. Blood pressure was closely monitored and managed with current medication. Wound care for sacral decubitus ulcer stage IV, present on admission, provided as per surgeon recommendation. Continue wound care at the facility. Bone scan revealed evidence of osteomyelitis of right greater trochanter. ID specialist recommended continue Zyvox for total of 6 weeks to cover for osteomyelitis of the right trochanter. Renal parameters and electrolytes were closely monitored. Electrolytes corrected as needed. Nephrotoxic's were avoided. Acute kidney injury, present on admission due to sepsis and dehydration, resolved. Prior to discharge BUN 23 from initial 73 and creatinine 0.6 from initial 1.4. Sodium down to 138. Hemoglobin and hematocrit were closely monitored with goal to keep hemoglobin above 7. Prior to discharge hemoglobin 9, hematocrit 26.4. Supportive care provided. GI prophylaxis provided. Bowel regimen instituted. SNF medication continued. Leukocytosis resolved , fever finally resolved. Patient clinically stabilized and was ready for discharge to [facility] facility for continuation of care. FINAL DIAGNOSES: Acute hypoxemic respiratory failure Sepsis with Staph hominis / source likely due to osteomyelitis Left lower lobe pneumonia with MRSA Osteomyelitis of greater trochanter Urinary tract infection Hypernatremia Acute kidney injury secondary to dehydration and sepsis -resolved Sacral decubitus ulcer , stage 4 -present on admission Hypertension Diabetes mellitus Parkinson disease Dementia Anemia History of pulmonary emboli History of ventricular fibrillation arrest, AICD DISCHARGE MEDICATIONS: See Medication Reconciliation list. DISCHARGE INSTRUCTIONS: Patient was discharged to the [facility] facility. Follow up with medical doctor at the facility. I have been assigned to dictate discharge summary for this account. I was not involved in the patient's management. Soniya Velázquez NP Nov 06, 2019 07:23
--- NOTE | 2019-11-09 17:15 | Diagnostic Imaging Report ---
Indication: superintendent terminal venous access Findings: After the indications, procedure, risks, complications, and alternatives of the procedure were explained, written informed consent was obtained. The right upper extremity was prepped with alcohol. All elements of maximal sterile barrier technique were followed including usage of a cap, mask, sterile gown, sterile gloves, hand hygiene and a large sterile sheet. Sonographic evaluation of the upper extremity was performed demonstrating a patent and compressible basilic vein. Access was obtained under real-time ultrasound guidance (with utilization of sterile gel and sterile probe cover) and digital image was saved and archived. An .018 wire was introduced. Needle exchanged for a 5 Samoan peel-away sheath. Measurements were obtained. A 5 Samoan dual-lumen Power PICC line catheter was cut to 40 cm and introduced over the wire. Peel-away sheath and wire were removed.Catheter was secured to the skin using 2-0 Prolene suture. Both ports aspirate and flush easily. A single fluoroscopic image shows the distal tip in the superior vena cava. Impression: Successful placement of an upper extremity PICC line catheter
== END 2019-11-05 21:25 | DRG 871 ==
LOC: EDBD 05:42 → EMR 06:06 → EDBEDREQ 06:18 → 2W 08:35 → 4E 11-02 16:40
PROC: 5A09457 Assistance with Respiratory Ventilation, 24-96 Consecutive Hours, Continuous Positive Airway Pressure (ICD-10-PCS; principal; 2019-10-29)
DX: A41.9 Sepsis, unspecified organism (principal); L89.224 Pressure ulcer of left hip, stage 4; L89.214 Pressure ulcer of right hip, stage 4; L89.154 Pressure ulcer of sacral region, stage 4; J96.01 Acute respiratory failure with hypoxia; J15.212 Pneumonia due to Methicillin resistant Staphylococcus aureus; N17.9 Acute kidney failure, unspecified; I47.2 Ventricular tachycardia; N39.0 Urinary tract infection, site not specified; E87.0 Hyperosmolality and hypernatremia; M86.8X8 Other osteomyelitis, other site; L89.159 Pressure ulcer of sacral region, unspecified stage; E86.0 Dehydration; I25.10 Atherosclerotic heart disease of native coronary artery without angina pectoris; G20 Parkinson's disease; F02.80 Dementia in other diseases classified elsewhere, unspecified severity, without behavioral disturbance, psychotic disturbance, mood disturbance, and anxiety; E11.9 Type 2 diabetes mellitus without complications; D64.9 Anemia, unspecified; Z86.711 Personal history of pulmonary embolism; Z95.810 Presence of automatic (implantable) cardiac defibrillator; Z86.74 Personal history of sudden cardiac arrest; R13.10 Dysphagia, unspecified; L89.890 Pressure ulcer of other site, unstageable; L89.626 Pressure-induced deep tissue damage of left heel
CPT/HCPCS: 36415; 36569; 36600; 71045; 76937; 78315; 80048; 80053; 80202; 81003; 82550; 82553; 82803; 82962; 83605; 83880; 84484; 85007; 85025; 85610; 85730; 86710; 86850; 86900; 86901; 86920; 87040; 87070; 87081; 87086; 87181; 87205; 93005; 93970; 94640; 94660; 96361; 96365; 96367; 96368; 99291; J1815; J7030; J7620